=== PATIENT | female | born 1930 | race Caucasian/White ===

== ENCOUNTER 2018-02-10 13:25 | Inpatient (IN) | payer MEDICARE, BC ==
[2018-02-10 14:21] LABS: ABS Basophils 0 10^3/ul (0-0.2); ABS Eosinophils 0 10^3/ul (0-0.6); ABS Lymphocytes 0.5 10^3/ul (1.0-4.8); ABS Monocytes 0.5 10^3/ul (0-0.8); ABS Neutrophils 6.3 10^3/ul (1.5-7.7); ABS Nucleated RBC 0 10^3/ul; Eosinophil % 0 % (0-6); Hematocrit 43 % (35-47); Hemoglobin 14.4 g/dl (12.0-16.0); Mean Corpuscular HGB Conc 33 g/dl (31-36); Mean Corpuscular Hemoglobin 34 pg (27-31); Mean Corpuscular Volume 101 fL (80-97); Mean Platelet Volume 7.9 um3 (7.4-10.4); Nucleated Red Blood Cells % 0; Platelet Count 174 10^3/ul (150-450); Red Blood Count 4.26 10^6/ul (4.0-5.4); Red Cell Distribution Width 14 % (10.5-15); White Blood Count 7.3 10^3/ul (3.5-10.8)
[2018-02-10 14:26] LABS: INR 2.32 (0.77-1.02)
--- NOTE | 2018-02-10 14:52 | RAD ---
HISTORY: Altered mental status, fall COMPARISONS: None TECHNIQUE: Multiple contiguous axial CT scans were obtained of the head without intravenous contrast. FINDINGS: HEMORRHAGE/INFARCT: There is no hemorrhage or acute infarct. MASSES/SHIFT: There is no mass or shift. EXTRA-AXIAL SPACES: There are no extra-axial fluid collections. SULCI AND VENTRICLES: The sulci and ventricles are normal in size and position for the patient's stated age. CEREBRUM: There is hypoattenuation of the periventricular and subcortical white matter. BRAINSTEM: There are no focal parenchymal abnormalities. CEREBELLUM: There are no focal parenchymal abnormalities. VESSELS: There is calcification of the cavernous segments of the internal carotid arteries bilaterally. PARANASAL SINUSES: The paranasal sinuses are clear. ORBITS: The orbits are unremarkable. BONES AND SOFT TISSUE: No bone or soft tissue abnormalities are noted. OTHER: None IMPRESSION: NO ACUTE INTRACRANIAL PATHOLOGY. CHRONIC SMALL VESSEL ISCHEMIC CHANGE
--- NOTE | 2018-02-10 14:59 | RAD ---
HISTORY: Altered mental status, shortness of breath COMPARISONS: January 16, 2016 VIEWS: 1: frontal portable view of the chest at 2:30 PM FINDINGS: LINES AND TUBES: None. CARDIOMEDIASTINAL SILHOUETTE: The cardiac silhouette is enlarged. The cardiomediastinal silhouette is otherwise normal for portable technique. PLEURA: The costophrenic angles are sharp. No pleural abnormalities are noted. LUNG PARENCHYMA: There is a diffuse reticular pattern with indistinct pulmonary vessels. There is confluent alveolar opacification of left lung base. ABDOMEN: The upper abdomen is clear. There is no subphrenic gas. BONES AND SOFT TISSUES: No bone or soft tissue abnormalities are noted. IMPRESSION: 1. CARDIOMEGALY. 2. PULMONARY INTERSTITIAL EDEMA. 3. LEFT LOWER LUNG ATELECTASIS VERSUS CONSOLIDATION
[2018-02-10 16:48] LABS: Urine Appearance Clear; Urine Blood Negative (Negative); Urine Color Yellow; Urine Ketones 1+ (Negative); Urine Protein 2+(100 mg/dL) (Negative); Urine Specific Gravity 1.026 (1.010-1.030); Urine Urobilinogen Negative (Negative)
[2018-02-10] MEDS ORDERED: Magnesium Sulfate 2 GM IV* 2 GM/50 ML BAG IVPB ONE (17:16)
[2018-02-10] MEDS: NS 0.9% 1000 ML* 1,000 ML IV SCH (18:16)
[2018-02-10] MEDS ORDERED: Phytonadione Oral Solution* 5 MG/25 ML UDC PO ONE (19:05)
[2018-02-10] MEDS ORDERED: Aspirin TAB* 325 MG PO ONE (19:23)
[2018-02-10] MEDS ORDERED: NS 0.9% 1000 ML* 1,000 ML IV ONE (19:55)
[2018-02-10] MEDS: Acetaminophen TAB* 325 MG PO PRN (20:44)
[2018-02-10] MEDS: cefTRIAXone(*) 1 GM in NS 0.9% 50 ML* 50 ML IVPB SCH (20:47)
--- NOTE | 2018-02-10 21:13 | PN ---
Hospitalist Progress Note Date of Service: 02/10/18 Pt noted to have a possible junctional rhythm and brandon. Obtained an EKG and appears to be a junctional rhythm. Dr. Dawkins called and he will consult in the AM. Will hold warfarin and give a dose of Vitamin K tonight for possible procedure in the AM, will hold chemical DVT prophylaxis and use SCDs only at this time. Repeat troponin increased to 1.39, Pt continues to deny chest pain. Will continue to trend troponin until peaked. Pt given a dose of ASA. Will check fasting lipids in the AM. Repeat lactic acid increased to 4.4, will give 1 L fluid bolus now followed by NS @ 100 ml/h. Will also start ceftriazone and azithromycin for possible PNA seen on chest xray. Blood cultures were obtained in the ER. Will recheck a lactic acid later tonight. Pt continues to be lethargic and have a headache, suspect his is secondary to a possible concussion. Will continue neurological checks.
[2018-02-10] MEDS: Azithromycin IV(*) 500 MG in NS 0.9% 250 ML* 250 ML IVPB SCH (21:30)
--- NOTE | 2018-02-10 23:10 | HP ---
CC: Lizette Lunsford NP * HISTORY AND PHYSICAL: DATE OF ADMISSION: 02/10/18 PRIMARY CARE PROVIDER: Lizette Lunsford NP ATTENDING PHYSICIAN: Marianne Mar DO * (dictated by Lydia Lyons NP) CHIEF COMPLAINT: Syncopal episode with several hours on the floor. HISTORY OF PRESENT ILLNESS: Ms. Ramos is an 87-year-old female with past medical history significant for atrial fibrillation and essential tremor, who presented to the emergency room after falling overnight and be on the floor for 3 to 4 hours. Ms. Ramos states that she was in her usual state of health when she went to bed last night. She denies any recent fevers, chills, chest pain, cough, shortness of breath, nausea, vomiting, or urinary symptoms. She states that overnight, she got up to use the bathroom, she felt dizzy and fell. The patient states that she struck her head. The patient is unsure if she lost consciousness, but states that she struck her head when she fell. She then proceeded to lie on the floor for 3 to 4 hours before her found her. Afterwards, they decided to bring her to the emergency room for further evaluation. While in the emergency room, the patient had an EKG showing an atrial flutter, rate of 60. She had a chest x-ray showing cardiomegaly, pulmonary edema, left lung atelectasis versus consolidation. She had a head CT showing no acute intracranial pathology and chronic small vessel ischemic changes. She had labs remarkable for an INR of 2.32, lactic acid of 3.8, a troponin of 0.90. She had ABGs showing a pH of 7.40, pCO2 of 40, pO2 64, HCO3 24.8, O2 sat 95.4, base access of 0. She had urinalysis that was unremarkable. She had toxicology positive for barbiturates and the hospitalists were asked to evaluate the patient for admission. PAST MEDICAL HISTORY: 1. Atrial fibrillation. 2. Essential tremor. PAST SURGICAL HISTORY: 1. Status post right knee surgery. 2. Status post bilateral lower extremity vein stripping. HOME MEDICATIONS: Include: 1. Valsartan 40 mg oral daily. 2. Potassium chloride 20 mEq oral daily. 3. Furosemide 20 mg oral daily. 4. Calcium 600 plus D 2 tablets oral daily. 5. Atorvastatin 40 mg oral daily. 6. Multivitamin 1 tablet oral daily. 7. Warfarin 10 mg oral daily. 8. Primidone 150 mg oral daily. ALLERGIES: No known drug allergies. FAMILY HISTORY: The patient's father had a history of myocardial infarction and rheumatic fever. The patient denies any family history of diabetes or cancer. SOCIAL HISTORY: The patient denies tobacco, alcohol or recreational drug use. She is and lives with her . Her , Max Ramos, will be her surrogate decision maker in the event she is unable to make decisions for herself. REVIEW OF SYSTEMS: I performed an 11-point review of systems. All the pertinent positives and negatives are mentioned in the history of present illness. Remaining review of systems are negative. PHYSICAL EXAMINATION GENERAL APPEARANCE: The patient is alert, pleasant, and appears to be in no acute distress. VITAL SIGNS: Temperature 98.6, heart rate 53, respiratory rate 26, O2 sat 93% on 2 L via nasal cannula, blood pressure 136/76. HEENT: Normocephalic, atraumatic. Pupils are equal and reactive to light. Extraocular movements are intact. RESPIRATORY: There is no accessory muscle use. The lungs are clear to auscultation bilaterally. CARDIOVASCULAR: Regular rate and rhythm. S1, S2 are present. There are no murmurs, rubs, or gallops heard. ABDOMEN: Soft, nontender, and nondistended. Bowel sounds present x4. EXTREMITIES: There is no lower extremity edema. DP and PT pulses are 1+ and symmetric. MUSCULOSKELETAL: There is no clubbing or cyanosis noted. The patient exhibits good strength in all extremities. NEUROLOGICAL: The patient is alert and oriented x4. She follows commands and is lethargic, but answering all questions appropriately. PSYCHOLOGICAL: The patient is calm and cooperative. SKIN: There are no rashes or abnormalities seen. DIAGNOSTIC STUDIES/LAB DATA: Sodium 134, potassium 4.4, chloride 98, CO2 25, BUN 17, creatinine 0.61, glucose 164, magnesium 1.8, troponin 0.90, white blood cell count 7.3, hemoglobin 14.4, hematocrit 43, platelet count 174. Urinalysis significant for 2+ protein, ketones 1+, hyaline cast present and ascorbic acid. Arterial blood gas showed a pH of 7.40, pCO2 40, pO2 64, HCO3 24.8, O2 sat 95.4 , base access 0. Toxicology positive for barbiturates. INR 2.32. EKG shows an atrial flutter, rate of 60. There is LVH and T-wave inversion in V5 and V2. When compared to previous EKG, her T-wave inversion is consistent. She was previously in Aflutter. Previous EKG was from 02/06/15. 1. Chest x-ray from today. Radiologist's impression: Cardiomegaly, interstitial pulmonary edema, left lower lung atelectasis with consolidation. 2. Brain CT from today. Radiologist's impression: No acute intracranial pathology. Chronic small vessel ischemic change. IMPRESSION: Ms. Ramos is an 87-year-old female with past medical history significant for atrial fibrillation and essential tremor who presented to the emergency room with complaints of syncopal episode. She will be admitted as an observation for syncope, elevated troponin and lactic acidosis. ASSESSMENT AND PLAN: 1. Syncope. The patient will be monitored on telemetry. We will check orthostatic vital signs. She has no findings on her brain CT. She is mildly bradycardic in the emergency room. Is suspect this may have been a vasovagal syncope vs secondary to bradycardia. We will get an echocardiogram in the AM. 2. Concussion. The patient is complaining of a mild headache, I suspect this is secondary to a mild concussion. Brain CT was negative for acute findings. Will get neurological checks. Provide supportive care. 3. Elevated troponin. The patient's initial troponin is 0.90. We will trend her troponins. 4. Lactic acidosis. The patient's initial lactic acid is 3.8. She has no signs of infection. Her UA is negative. Although, she does have consolidation with atelectasis on her chest x-ray, she has no complaints of cough. She is afebrile. Her lung sounds are clear. I am going to hold on antibiotics at this time. I am going to give her some IV fluids, and recheck her lactic acid. She did already have blood cultures drawn while in the emergency room. 5. Hypomagnesium. The patient will receive magnesium replacement. We will recheck her labs in the morning. 6. Atrial fibrillation. The patient is currently in atrial flutter with a controlled rate. She is not on rate control agent at this time. We will continue her warfarin. 7. Hypertension. The patient will be continued on her home valsartan. I am going to hold the patient's furosemide as I am going to give her IV fluids and then this can be resumed accordingly. 8. Essential tremors. The patient will be continued on her home primidone. 9. Fluids, electrolytes, and nutrition. The patient will be on a heart healthy diet. 10. Code status. Full code. 11. DVT prophylaxis. The patient is a high risk, will be continued on warfarin. 12. Disposition. Observation. TIME SPENT: Time for this admission was approximately 60 minutes, greater than half of that was spent with the patient and discussing medications, past medical history, the events leading up to her arrival today, performing a physical examination. The case has been reviewed with the attending, Dr. Mar, who agrees with the plan of care. Reviewed by JULIANA HURT 02/22/18 [id number] [id number] #: [id number] MTDPhillip
[2018-02-11 06:22] LABS: EGFR Non-African American 104.8 (>60)
[2018-02-11 06:26] LABS: INR 2.64 (0.77-1.02)
--- NOTE | 2018-02-11 09:08 | ECHO ---
Patient: CHELO FERRIS [facility] Rec#: [id number] : 1930 Date: 02/11/2018 Age: 87y Height: 152.4 cm / 60.0 in Weight: 60.78 kg / 134.0 lbs Sex: F BSA: 1.57 Room#: 439 Admit Date#: 02/10/2018 Type: Inpatient Referring: Lydia Wise NP Reading: Aden Jin MD Cardiac Cath Lab Radiology Technologist: Lydia Ricci RDCS CC: Lizette Lunsford NP Transthoracic Echocardiogram Indication: Syncope, abnormal EKG. BP: 130/63 HR: 46 Rhythm: Bradycardia Findings History: A-fib, essential tremor, prior EF 30-35% in 2014. Technical Comments: The study quality is fair. Completed at 0830. Left Ventricle: The left ventricular chamber size is moderately dilated. There is no left ventricular hypertrophy. There is global hypokinesis of the left ventricle with minor regional variation. There is severely decreased left ventricular systolic function. The estimated ejection fraction is 20-25%. There is septal flattening of the interventricular septum consistent with right ventricular volume or pressure overload. The assessment of diastolic function is non-diagnostic. Left Atrium: The left atrium is severely dilated. Right Ventricle: The right ventricle is moderately dilated. The right ventricular global systolic function is mildly to moderately reduced. Right Atrium: The right atrial cavity size is severely dilated. Aortic Valve: The aortic valve is trileaflet. The aortic valve leaflets are moderately thickened. There is mild aortic regurgitation. There is no evidence of aortic stenosis. Mitral Valve: There is mitral annular calcification. The mitral valve leaflets are moderately thickened. There is moderate mitral regurgitation. There is no evidence of mitral stenosis. Tricuspid Valve: The tricuspid valve leaflets are moderately thickened. There is moderate tricuspid regurgitation. The right ventricular systolic pressure is estimated at 70 mmHg. There is evidence of severe pulmonary hypertension. There is no tricuspid stenosis. Pulmonic Valve: The pulmonic valve appears normal. There is trace to mild pulmonic regurgitation. There is no pulmonic stenosis. Pericardium: There is no significant pericardial effusion. Aorta: There is mild dilatation of the ascending aorta. The aortic arch is not well visualized. The aortic root is normal in size. Pulmonary Artery: The main pulmonary artery appears normal. Venous: The inferior vena cava is dilated. There is less than 50% respiratory change in the inferior vena cava dimension. Conclusions The left ventricular chamber size is moderately dilated. There is severely decreased left ventricular systolic function. The estimated ejection fraction is 20-25%. The left atrium is severely dilated. The right ventricle is moderately dilated. The right ventricular global systolic function is mildly to moderately reduced. The right atrial cavity size is severely dilated. There is mild aortic regurgitation. There is moderate mitral regurgitation. There is moderate tricuspid regurgitation. The right ventricular systolic pressure is estimated at 70 mmHg. There is evidence of severe pulmonary hypertension. There is trace to mild pulmonic regurgitation. Compared to report of studies from 01/27/2015 and 01/25/15 the overall LV systolic function is worse (was 30-35%), the RV systolic function is worse (was mildly reduced 01/27/15) , the degree of mitral regurgitation is worse (was mild to moderate-01/25/15-no comment on 01/27/15) ,the degree of pulmonary HTN is worse (PA pressure was estimated at 49 on 01/27/15, although better from 01/25/15 when it was 80-85 mmhg). Measurements Name Value Normal Range RVIDd (AP) 2D 4 cm (0.9 - 2.6) RVDdMajor (2D) 5.1 cm (2.2 - 4.4) RAd ISD 4CH 8.8 cm (3.4 - 4.9) RA (A4C)W 6.4 cm (2.9 - 4.6) IVSd (2D) 1 cm (0.6 - 1) LVPWd (2D) 0.8 cm (0.6 - 1) LVIDd (2D) 6.3 cm (3.6 - 5.4) LVIDs (2D) 4.7 cm - LV FS (2D) 25 % (25 - 45) Aortic Annulus 1.6 cm (1.4 - 2.6) Ao root diameter (2D) 3 cm (2.1 - 3.5) Ascending Ao 3.7 cm (2.1 - 3.4) LA dimension (AP) 2D 5.6 cm (2.3 - 3.8) LAd ISD 4CH 7.8 cm (2.9 - 5.3) LA ISD 4CH W 6.7 cm (2.5 - 4.5) Name Value Normal Range LA ESV SP 4CH (A/L) 215 ml - LA ESV SP 2CH (A/L) 297 ml - LA ESV BP (A/L) 260 ml - LA ESV BP (A/L) index 164 ml/m2 - LA ESV SP 4CH (MOD) 203 ml - LA ESV SP 2CH (MOD) 285 ml - Name Value Normal Range MV E-wave Vmax 0.54 m/sec - MV deceleration time 272.2 msec - MV A-wave Vmax 0.21 m/sec - MV E:A ratio 8.68 ratio - LV septal e' Vmax 0.03 m/sec - LV lateral e' Vmax 0.05 m/sec - LV E:e' septal ratio 16.67 ratio - LV E:e' lateral ratio 10.8 ratio - Name Value Normal Range AV Vmax 1.22 m/sec - AV VTI 23.54 cm - AV peak gradient 5.97 mmHg - AV mean gradient 3.27 mmHg - LVOT Vmax 1.07 m/sec - LVOT VTI 15.27 cm - LVOT peak gradient 4.58 mmHg - LVOT mean gradient 2.29 mmHg - AR PHT 821 msec - AR peak gradient 45.19 mmHg - Name Value Normal Range MR Vmax 3.9 m/sec - MR VTI 148 cm - MR flow (PISA) 83.92 ml/sec - MR ERO 0.22 cm2 - MR PISA radius 0.5 cm - MR alias Vmax 53 cm/sec - Name Value Normal Range TR Vmax 3.7 m/sec - TR peak gradient 55 mmHg - RAP 15 mmHg - RVSP 70 mmHg - IVC diameter 2.9 cm - Name Value Normal Range PV Vmax 0.71 m/sec - PV peak gradient 2.06 mmHg - DC end-diastolic Vmax 0.96 m/sec -
[2018-02-11] MEDS: Primidone TAB(*) 50 MG PO SCH (09:13)
[2018-02-11] MEDS: Valsartan TAB* 40 MG PO SCH (09:13)
[2018-02-11] MEDS: Atorvastatin* 40 MG TAB PO SCH (09:13)
[2018-02-11] MEDS: Multivitamins/Minerals TAB PO SCH (09:13)
[2018-02-11] MEDS: Potassium Chlor TAB* 10 MEQ TAB.ER PO SCH (09:14)
[2018-02-11] MEDS: NS 0.9% 1000 ML* 1,000 ML IV SCH ×2 (09:26→20:04)
--- NOTE | 2018-02-11 12:13 | CONS ---
CC: [facility] CARDIOLOGY CONSULTATION DATE OF CONSULT: 02/11/2018. INDICATION FOR CONSULTATION: Atrial fibrillation, bradycardia, syncope. HISTORY OF PRESENT ILLNESS: The patient is an 87-year-old female with a history of chronic atrial fi brillation, history of mild bradycardia, and mild cardiomyopathy who was at her home yesterday. She got out of bed late in the night and went to go to the bathroom and then woke up on the floor. She w as on the floor for about three hours because she was unable to get up. Finally, she able to reach t he telephone and called for help. She was admitted to the ER. Her heart rate was 40 beats per minut e. She denied any chest pain, shortness of breath, no orthopnea or PND, no palpitations. The patien t is unsure as to whether she just slipped on her stocking feet or had an actual syncopal episode. The patient has a long history of chronic atrial fibrillation. I had seen the patient last July . At that time, her heart rate was 48 beats per minute and I was concerned about her low heart rate on no rate lowering agents. PAST MEDICAL HISTORY: Significant for atrial fibrillation, mild cardiomyopathy, mitral regurgitation , essential tremor. PAST SURGICAL HISTORY: Right knee replacement, vein stripping. OUTPATIENT MEDICATIONS: 1. Valsartan 40 mg a day. 2. Potassium 20 mEq at day. 3. Lasix 20 mg a day. 4. Atorvastatin 40 mg a day. 5. Coumadin as directed. 6. Primidone 150 mg a day. ALLERGIES: No known drug allergies. FAMILY HISTORY: Father of a myocardial infarction. No other history of diabetes for cancer. SOCIAL HISTORY: She is . She lives with her . She denies tobacco or alcohol use. PHYSICAL EXAM: Vital Signs: Height 5 feet, weight 133 pounds. Temperature 97.7, heart rate 49, blo od pressure 142/62, respiratory rate 15, oxygen saturation 97 percent on room air. HEENT: Sclerae a nicteric. Oropharynx is pink without erythema. Neck: Carotids are 2+ without bruits. JVD is joanne l. Thyroid is normal. Cardiac: S1, S2 without any murmurs, rubs, or gallops. Lungs: Clear to aus cultation bilaterally. There is no dullness to percussion. Abdomen: Soft, nontender, nondistended with normoactive bowel sounds. Extremities: No edema. She has 2+ pulses throughout. Neurological: The patient is awake, alert, and oriented. She moves all four extremities equally. DIAGNOSTIC STUDIES/LAB DATA: CBC within normal limits. Chemistry is within normal limits. BUN 20, creatinine 0.55. Troponins are mildly elevated at 1.45. TSH is normal at 1.02. The patient did have a cardiac catheterization in January of 2015. At that time she had an ejection fr action of 20 percent with normal coronary arteries. IMPRESSION: This is an 87-year-old female with a history of nonischemic cardiomyopathy who is on munir ropriate medications. The patient had a fall at home. It was unclear whether it was a syncopal episo de or not. The patient does have chronic atrial fibrillation with profound bradycardia. RECOMMENDATIONS: It is my recommendation that the patient undergo pacemaker implantation. I will ge t an echocardiogram of the patient to re-evaluate her LV function and valvular status. The patient m ay benefit from an ICD if her EF is less than 30 percent. She may benefit from a biventricular devic e. I will decide that when I re-evaluate her on echocardiogram. For now, the patient will be off her Coumadin in preparation for pacemaker. [id number]/[facility] #: [id number]
--- NOTE | 2018-02-11 14:13 | PN ---
Subjective Date of Service: 02/11/18 Interval History: Patient seen and examined, appears tired, denies chest pain, no SOB, no palpitations. Denies fever or chills. States she is sleepy, otherwise no complaints. Objective Active Medications: Acetaminophen (Tylenol Tab*) 650 mg PO Q4H PRN PRN Reason: FEVER/PAIN Last Admin: 02/10/18 20:44 Dose: 650 mg Atorvastatin Calcium (Lipitor*) 40 mg PO DAILY [facility] Last Admin: 02/11/18 09:13 Dose: 40 mg Sodium Chloride (Ns 0.9% 1000 Ml*) 1,000 mls @ 100 mls/hr IV PER RATE [facility] Last Admin: 02/11/18 09:26 Dose: 100 mls/hr Ceftriaxone Sodium 1 gm/ (Sodium Chloride) 50 mls @ 200 mls/hr IVPB Q24H [facility] Last Admin: 02/10/18 20:47 Dose: 200 mls/hr Azithromycin 500 mg/ Sodium (Chloride) 250 mls @ 250 mls/hr IVPB Q24H [facility] Last Admin: 02/10/18 21:30 Dose: 250 mls/hr Multivitamins/Minerals (Theragran/Minerals Tab*) 1 tab PO DAILY [facility] Last Admin: 02/11/18 09:13 Dose: 1 tab Potassium Chloride (Klor Con Er Tab*) 20 meq PO DAILY [facility] Last Admin: 02/11/18 09:14 Dose: 20 meq Primidone (Mysoline Tab(*)) 150 mg PO DAILY [facility] Last Admin: 02/11/18 09:13 Dose: 150 mg Valsartan (Diovan Tab*) 40 mg PO DAILY [facility] Last Admin: 02/11/18 09:13 Dose: 40 mg Vital Signs - 8 hr 02/11/18 02/11/18 02/11/18 08:15 11:13 13:33 Temperature 97.7 F 98.4 F Pulse Rate 49 51 42 Respiratory 15 15 17 Rate Blood Pressure 142/62 116/69 120/68 (mmHg) O2 Sat by Pulse 97 99 99 Oximetry Oxygen Devices in Use Now: Nasal Cannula Appearance: Sleepy, arousable, appropriate Eyes: No Scleral Icterus, PERRLA Ears/Nose/Mouth/Throat: Mucous Membranes Moist Neck: NL Appearance and Movements; NL JVP, Trachea Midline Respiratory: Symmetrical Chest Expansion and Respiratory Effort, Clear to Auscultation Cardiovascular: NL Sounds; No Murmurs; No JVD, - - bradycardic, HR 40s-50s Abdominal: NL Sounds; No Tenderness; No Distention Extremities: No Edema Skin: No Rash or Ulcers Neurological: Alert and Oriented x 3, NL Sensation Nutrition: Taking PO's Result Diagrams: 02/10/18 14:02 02/11/18 05:53 Microbiology and Other Data: Microbiology 02/10/18 16:25 Nasal Screen MRSA (PCR)(IRINEO) - Final Nasal Mrsa Not Detected Assess/Plan/Problems-Billing Assessment: This is an 87 year old female patient with complaint of syncope, found to have cardiac rhythm changes - junctional and bradycardic, will have pacemaker insertion on . - Patient Problems (1) Syncope and collapse Code(s): R55 - SYNCOPE AND COLLAPSE SNOMED Code(s): 673350792 Comment: - Likely etiology is profound bradycardia with chronic atrial fibrillation - Cardiology consult appreciated - For PM insertion - Hold coumadin to reduce INR to <1.5 in anticipation of insertion. Will need lovenox bridge post-procedure, then restart coumadin. May need one dose K tomorrow if INR remains high. (2) Atrial fibrillation Code(s): I48.91 - UNSPECIFIED ATRIAL FIBRILLATION SNOMED Code(s): 13348071 Comment: - Chronic, no RVR, primarily profoundly bradycardic - Restart coumadin after PM insertion with lovenox bridge (3) Bradycardia Code(s): R00.1 - BRADYCARDIA, UNSPECIFIED SNOMED Code(s): 93169819 Comment: - Instructed RN to call if HR <40 - NPO after midnight tomorrro in anticipation of PM insertion (4) Essential tremor Code(s): G25.0 - ESSENTIAL TREMOR SNOMED Code(s): 996797310 Comment: - At baseline, continue primidone (5) Atelectasis of left lung Code(s): J98.11 - ATELECTASIS SNOMED Code(s): 35626325 Comment: - Concerning for early consolidation? - Continue atbx - Add IS 10x per hour - Lactic acid trending down (6) DVT prophylaxis Code(s): LHF7099 - SNOMED Code(s): 262978301 Comment: - Hold coumadin, SCDs while in bed (7) Full code status Code(s): Z78.9 - OTHER SPECIFIED HEALTH STATUS SNOMED Code(s): 478853160 Status and Disposition: Remain inpatient on tele for pacemaker insert when INR in appropriate range, likely .
[2018-02-11] MEDS ORDERED: Warfarin TAB(*) 4 MG PO SCH (17:00)
[2018-02-11] MEDS: cefTRIAXone(*) 1 GM in NS 0.9% 50 ML* 50 ML IVPB SCH (20:04)
[2018-02-11] MEDS: Azithromycin IV(*) 500 MG in NS 0.9% 250 ML* 250 ML IVPB SCH (20:48)
[2018-02-12 06:15] LABS: INR 1.36 (0.77-1.02)
[2018-02-12] MEDS: NS 0.9% 1000 ML* 1,000 ML IV SCH ×2 (07:23→17:37)
[2018-02-12] MEDS: Potassium Chlor TAB* 10 MEQ TAB.ER PO SCH (08:07)
[2018-02-12] MEDS: Valsartan TAB* 40 MG PO SCH (08:07)
[2018-02-12] MEDS: Multivitamins/Minerals TAB PO SCH (08:07)
[2018-02-12] MEDS: Primidone TAB(*) 50 MG PO SCH (08:07)
[2018-02-12] MEDS: Atorvastatin* 40 MG TAB PO SCH (08:07)
[2018-02-12] MEDS: Acetaminophen TAB* 325 MG PO PRN ×2 (08:08→20:48)
[2018-02-12] MEDS ORDERED: CEFAZOLIN 2 GM/20 ML IVPB ONE ×2 (09:00)
--- NOTE | 2018-02-12 10:58 | PN ---
Subjective Date of Service: 02/12/18 Interval History: Patient seen and examined. Seems winded this AM, O2 via NC placed back on patient. States she feels her breathing is erratic - sometimes fast and sometimes slow. Denies chest pain, denies acute SOB, no fevers or chills, does appear fatigued. Objective Active Medications: Acetaminophen (Tylenol Tab*) 650 mg PO Q4H PRN PRN Reason: FEVER/PAIN Last Admin: 02/12/18 08:08 Dose: 650 mg Atorvastatin Calcium (Lipitor*) 40 mg PO DAILY [facility] Last Admin: 02/12/18 08:07 Dose: 40 mg Cefazolin Sodium/Dextrose (Kefzol Syringe 1 Gm/10 Ml Flush Syringe(*)) 1 gm FLUSH ONCE ONE Stop: 02/13/18 12:36 Diazepam (Valium Tab(*)) 2.5 mg PO ONCE ONE Stop: 02/13/18 12:36 Sodium Chloride (Ns 0.9% 1000 Ml*) 1,000 mls @ 100 mls/hr IV PER RATE [facility] Last Admin: 02/12/18 07:23 Dose: 100 mls/hr Ceftriaxone Sodium 1 gm/ (Sodium Chloride) 50 mls @ 200 mls/hr IVPB Q24H [facility]JU Last Admin: 02/11/18 20:04 Dose: 200 mls/hr Azithromycin 500 mg/ Sodium (Chloride) 250 mls @ 250 mls/hr IVPB Q24H [facility]JU Last Admin: 02/11/18 20:48 Dose: 250 mls/hr Cefazolin Sodium 2 gm/ Sodium (Chloride) 20 mls @ 60 mls/hr IVPB 1200 ONE Stop: 02/13/18 12:19 Multivitamins/Minerals (Theragran/Minerals Tab*) 1 tab PO DAILY [facility] Last Admin: 02/12/18 08:07 Dose: 1 tab Potassium Chloride (Klor Con Er Tab*) 20 meq PO DAILY [facility] Last Admin: 02/12/18 08:07 Dose: 20 meq Primidone (Mysoline Tab(*)) 150 mg PO DAILY [facility] Last Admin: 02/12/18 08:07 Dose: 150 mg Valsartan (Diovan Tab*) 40 mg PO DAILY [facility] Last Admin: 02/12/18 08:07 Dose: 40 mg Vital Signs - 8 hr 02/12/18 02/12/1818 04:31 07:29 08:00 Temperature 97.9 F 98.6 F Pulse Rate 105 52 Respiratory 22 20 16 Rate Blood Pressure 109/51 130/68 (mmHg) O2 Sat by Pulse 100 98 Oximetry Oxygen Devices in Use Now: Nasal Cannula Appearance: sleepy, NAD Eyes: No Scleral Icterus, PERRLA Ears/Nose/Mouth/Throat: NL Teeth, Lips, Gums Neck: Trachea Midline Respiratory: Symmetrical Chest Expansion and Respiratory Effort, Clear to Auscultation Cardiovascular: NL Sounds; No Murmurs; No JVD, - - irregular, bradycardic Extremities: No Edema, No Clubbing, Cyanosis Neurological: Alert and Oriented x 3 Nutrition: Taking PO's Result Diagrams: 02/10/18 14:02 02/11/18 05:53 Microbiology and Other Data: Microbiology 02/10/18 16:25 Nasal Screen MRSA (PCR)(IRINEO) - Final Nasal Mrsa Not Detected Assess/Plan/Problems-Billing Assessment: This is an 87 year old female patient with complaint of syncope, found to have cardiac rhythm changes - junctional and bradycardic, will have pacemaker insertion on . - Patient Problems (1) Syncope and collapse Code(s): R55 - SYNCOPE AND COLLAPSE SNOMED Code(s): 240449060 Comment: - Likely etiology is profound bradycardia with chronic atrial fibrillation - Cardiology consult appreciated - For PM insertion - INR is 1.37 today which is stable for PM insertion. Will need lovenox bridge post-procedure, then restart coumadin. (2) Atrial fibrillation Code(s): I48.91 - UNSPECIFIED ATRIAL FIBRILLATION SNOMED Code(s): 81061282 Comment: - Chronic, no RVR, primarily profoundly bradycardic with episodes of tachycardia - Restart coumadin after PM insertion with lovenox bridge (3) Bradycardia Code(s): R00.1 - BRADYCARDIA, UNSPECIFIED SNOMED Code(s): 03644570 Comment: - Instructed RN to call if HR <40 - NPO after midnight tonight in anticipation of PM insertion in the AM (4) Essential tremor Code(s): G25.0 - ESSENTIAL TREMOR SNOMED Code(s): 159312442 Comment: - At baseline, continue primidone (5) Atelectasis of left lung Code(s): J98.11 - ATELECTASIS SNOMED Code(s): 84310913 Comment: - Concerning for early consolidation? - Continue atbx - Add IS 10x per hour - Lactic acid trending down (6) DVT prophylaxis Code(s): CUO1822 - SNOMED Code(s): 894129062 Comment: - Hold coumadin, SCDs while in bed (7) Full code status Code(s): Z78.9 - OTHER SPECIFIED HEALTH STATUS SNOMED Code(s): 824297813 Status and Disposition: Remain inpatient on tele for pacemaker insertion .
[2018-02-12] MEDS ORDERED: Enoxaparin(*) 60 MG/0.6 ML SYR SUBCUT ONE (13:00)
--- NOTE | 2018-02-12 18:28 | ED ---
James Tellez Angela, scribed for Malik Varma MD on 02/10/18 at 1343 . Adult Trauma - HPI Summary HPI Summary: This pt is a 87 y/o female presenting to [facility] c/o head strike s/p fall last night. Pt reports the pt felt dizzy and lightheaded last night and fell in the bathroom. Pt struck her head, but is unsure if she had LOC. She called her but she estimates she was on the floor for approximately 5 hours until he came. Today she reports feeling weak, unable to ambulate secondary to weakness and pain, and vomiting. Denies headache, neck pain, rib pain. Pt is currently on Coumadin for atrial fibrillation. - History of Current Complaint Chief Complaint: EDWeakness Stated Complaint: HEAD PAIN,WEAKNESS Hx Obtained From: Patient Mechanism of Injury: Fall Ambulatory at the Scene: No Loss of Consciousness: unsure Onset/Duration: Started Hours Ago, Traumatic Onset of Pain: Hours Current Severity: Severe Pain Intensity: 10 Pain Scale Used: 0-10 Numeric Location: Extremities - left hip Aggravating Factor(s): Movement Alleviating Factor(s): Rest Associated Signs & Symptoms: Positive: Nausea/Vomiting - vomiting, Loss of Consciousness - unsure, Other: - NEG: rib pain, neck pain, headache - Allergy/Home Medications Allergies/Adverse Reactions: Allergies Allergy/AdvReac Type Severity Reaction Status Date / Time No Known Allergies Allergy Verified 02/06/15 11:14 Home Medications: Home Medications Atorvastatin* [Lipitor*] 40 mg PO DAILY 02/10/18 [History Confirmed 02/10/18] Furosemide TAB* [Lasix TAB*] 20 mg PO DAILY 02/10/18 [History Confirmed 02/10/18 ] Multivitamins/Minerals TAB* [Theragran/minerals TAB*] 1 tab PO DAILY 02/10/18 [ History Confirmed 02/10/18] Valsartan TAB* [Diovan TAB*] 40 mg PO DAILY 02/10/18 [History Confirmed 02/10/18 ] PMH/Surg Hx/FS Hx/Imm Hx Endocrine/Hematology History: Denies: Hx Diabetes Cardiovascular History: Reports: Hx Atrial Fibrillation, Hx Congestive Heart Failure, Other Cardiovascular Problems/Disorders - CARIOMEGALY Denies: Hx Hypertension, Hx Pacemaker/ICD Sensory History: Reports: Hx Cataracts, Hx Contacts or Glasses, Hx Hearing Aid - TOLD TO REMOVE WHEN GOES IN MRI, Hx Hearing Problem Opthamlomology History: Reports: Hx Cataracts, Hx Contacts or Glasses Neurological History: Reports: Other Neuro Impairments/Disorders - ESSENTIAL TREMORS Psychiatric History: Denies: Hx Panic Disorder - Cancer History Hx Chemotherapy: No Hx Radiation Therapy: No - Surgical History Surgery Procedure, Year, and Place: 1936 TONSILECTOMY [place]. 1967 SAL VASCULAR SURGERY [place]. 1983 R KNEE REMOVED CARTILEDGE [place]. Hx Anesthesia Reactions: No - Family History Known Family History: Positive: Cardiac Disease - Father: CHF, Respiratory Disease - Father: COPD - Social History Alcohol Use: Weekly Substance Use Type: Reports: None Smoking Status (MU): Never Smoked Tobacco Review of Systems Negative: Fever Eyes: Negative Negative: Chest Pain Positive: Vomiting Musculoskeletal: Other - left hip pain Negative: Other - rib pain, neck pain Negative: Headache All Other Systems Reviewed And Are Negative: Yes Physical Exam - Summary Physical Exam Summary: VITAL SIGNS: Reviewed. GENERAL: Patient is a well-developed and nourished female who is lying comfortable in the stretcher. Patient is not in any acute respiratory distress. HEAD AND FACE: No signs of trauma. No ecchymosis, hematomas or skull depressions. No sinus tenderness. EYES: PERRLA, EOMI x 2, No injected conjunctiva, no nystagmus. EARS: Hearing grossly intact. Ear canals and tympanic membranes are within normal limits. MOUTH: Oropharynx within normal limits. Dry oral mucosa. NECK: Supple, trachea is midline, no adenopathy, no JVD, no carotid bruit, no c- spine tenderness, neck with full ROM. CHEST: Symmetric, no tenderness at palpation LUNGS: Clear to auscultation bilaterally. No wheezing or crackles. CVS: Regular rate and rhythm, S1 and S2 present, no murmurs or gallops appreciated. ABDOMEN: Soft, non-tender. No signs of distention. No rebound no guarding, and no masses palpated. Bowel sounds are normal. EXTREMITIES: no edema, no cyanosis or clubbing. Left hip tenderness. NEURO: Alert and oriented x 3. No acute neurological deficits. Speech is normal and follows commands. Pt is lethargic but is answering appropriate to all questions. SKIN: Dry and warm GCS: 15 Triage Information Reviewed: Yes Vital Signs Reviewed: Yes Diagnostics - Laboratory Result Diagrams: 02/10/18 14:02 02/10/18 14:02 Lab Statement: Any lab studies that have been ordered have been reviewed, and results considered in the medical decision making process. - Radiology Chest XR Xray Interpretation: Positive (See Comments) - IMPRESSION: 1. Cardiomegaly. 2. Pulmonary interstitial edema. 3. Left lower lung atelectasis versus consolidation. Dr. Varma has reviewed this radiology report. Radiology Interpretation Completed By: Radiologist - CT Brain CT CT Interpretation: No Acute Changes - IMPRESSION: No acute intracranial pathology. Chronic small vessel ischemic change. Dr. Varma has reviewed this radiology report. CT Interpretation Completed By: Radiologist - EKG 13:48 Cardiac Rate: NL EKG Rhythm: Atrial Flutter - at 60 bpm EKG Interpretation: No ST elevations. EKG Comparison: No Significant Change - similar to prior EKG on 02/06/15. Adult Trauma Course/Dx - Course Assessment/Plan: This pt is a 87 y/o female presenting to [facility] c/o head strike s/p fall last night. Pt reports the pt felt dizzy and lightheaded last night and fell in the bathroom. Pt struck her head, but is unsure if she had LOC. She called her but she estimates she was on the floor for approximately 5 hours until he came. Today she reports feeling weak, unable to ambulate secondary to weakness and pain, and vomiting. Denies headache, neck pain, rib pain. Pt is currently on Coumadin for atrial fibrillation. Test results without any significant abnormalities except for INR of 2.3, ABG shows slight hypoxia, CMP with lactic acid of 3.8, troponin of 0.90. Urinalysis is negative for UTI. Urine toxicology is positive for barbiturates. Chest XR: 1. Cardiomegaly. 2. Pulmonary interstitial edema. 3. Left lower lung atelectasis versus consolidation. Brain CT: No acute intracranial pathology. Chronic small vessel ischemic change. In the ED course the pt was given IV fluids and magnesium. Because of the elevated troponin I discussed the case with Dr. Mar , hospitalist, who accepted the pt for admission to rule out acute coronary syndrome. Pt is hemodynamically stable, alert and oriented x3. Dx: elevated troponin, rule out ACS, lethargy, accidental fall. - Diagnoses Provider Diagnoses: Elevated troponin, Lethargy, Accidental fall - Physician Notifications Discussed Care Of Patient With: Marianne Mar Time Discussed With Above Provider: 15:31 Instructed by Provider To: Other - I discussed pt care with Dr. Mar, hospitalist, who has agreed to accept the pt. Discharge - Sign-Out/Discharge Documenting (check all that apply): Discharge - admit to [facility] [place] Discharge Plan Condition: Stable Disposition: ADMITTED TO [facility] The documentation as recorded by the James metz Angela accurately reflects the service I personally performed and the decisions made by me, Malik Varma MD.
[2018-02-12] MEDS: cefTRIAXone(*) 1 GM in NS 0.9% 50 ML* 50 ML IVPB SCH (20:51)
[2018-02-12] MEDS: Azithromycin IV(*) 500 MG in NS 0.9% 250 ML* 250 ML IVPB SCH (22:01)
[2018-02-13] MEDS: NS 0.9% 1000 ML* 1,000 ML IV SCH ×2 (05:23→14:58)
[2018-02-13] MEDS: Atorvastatin* 40 MG TAB PO SCH ×2 (10:12→10:25)
[2018-02-13] MEDS: Valsartan TAB* 40 MG PO SCH ×2 (10:12→10:25)
[2018-02-13] MEDS: Acetaminophen TAB* 325 MG PO PRN ×3 (10:12→21:38)
[2018-02-13] MEDS: Multivitamins/Minerals TAB PO SCH ×2 (10:13→10:25)
[2018-02-13] MEDS: Primidone TAB(*) 50 MG PO SCH ×2 (10:13→10:25)
[2018-02-13] MEDS: Potassium Chlor TAB* 10 MEQ TAB.ER PO SCH (10:15)
--- NOTE | 2018-02-13 10:20 | PN ---
Subjective Date of Service: 02/13/18 Interval History: Patient seen and examined. c/o headache, no chest pain, no SOB, no acute overnight events. Objective Active Medications: Acetaminophen (Tylenol Tab*) 650 mg PO Q4H PRN PRN Reason: FEVER/PAIN Last Admin: 02/12/18 20:48 Dose: 650 mg Atorvastatin Calcium (Lipitor*) 40 mg PO DAILY [facility] Last Admin: 02/12/18 08:07 Dose: 40 mg Cefazolin Sodium/Dextrose (Kefzol Syringe 1 Gm/10 Ml Flush Syringe(*)) 1 gm FLUSH ONCE ONE Stop: 02/13/18 12:36 Diazepam (Valium Tab(*)) 2.5 mg PO ONCE ONE Stop: 02/13/18 12:36 Sodium Chloride (Ns 0.9% 1000 Ml*) 1,000 mls @ 100 mls/hr IV PER RATE [facility] Last Admin: 02/13/18 05:23 Dose: 100 mls/hr Ceftriaxone Sodium 1 gm/ (Sodium Chloride) 50 mls @ 200 mls/hr IVPB Q24H [facility] Last Admin: 02/12/18 20:51 Dose: 200 mls/hr Azithromycin 500 mg/ Sodium (Chloride) 250 mls @ 250 mls/hr IVPB Q24H [facility] Last Admin: 02/12/18 22:01 Dose: 250 mls/hr Cefazolin Sodium 2 gm/ Sodium (Chloride) 20 mls @ 60 mls/hr IVPB 1200 ONE Stop: 02/13/18 12:19 Multivitamins/Minerals (Theragran/Minerals Tab*) 1 tab PO DAILY [facility] Last Admin: 02/12/18 08:07 Dose: 1 tab Potassium Chloride (Klor Con Er Tab*) 20 meq PO DAILY [facility] Last Admin: 02/12/18 08:07 Dose: 20 meq Primidone (Mysoline Tab(*)) 150 mg PO DAILY [facility] Last Admin: 02/12/18 08:07 Dose: 150 mg Valsartan (Diovan Tab*) 40 mg PO DAILY [facility] Last Admin: 02/12/18 08:07 Dose: 40 mg Vital Signs - 8 hr 02/13/18 02/13/18 02/13/18 04:04 08:00 08:12 Temperature 98.1 F 98.4 F Pulse Rate 65 56 Respiratory 20 18 22 Rate Blood Pressure 119/50 137/66 (mmHg) O2 Sat by Pulse 99 97 Oximetry Oxygen Devices in Use Now: Nasal Cannula Appearance: Alert, NAD Ears/Nose/Mouth/Throat: NL Teeth, Lips, Gums, Mucous Membranes Moist Neck: Trachea Midline Respiratory: Symmetrical Chest Expansion and Respiratory Effort, Clear to Auscultation Cardiovascular: - - irregular, bradycardic Extremities: No Edema Skin: No Rash or Ulcers Neurological: Alert and Oriented x 3, NL Sensation Nutrition: - - NPO for procedure Result Diagrams: 02/10/18 14:02 02/11/18 05:53 Microbiology and Other Data: Microbiology 02/10/18 16:25 Nasal Screen MRSA (PCR)(IRINEO) - Final Nasal Mrsa Not Detected Assess/Plan/Problems-Billing Assessment: This is an 87 year old female patient with complaint of syncope, found to have cardiac rhythm changes - junctional and bradycardic, will have pacemaker insertion today. - Patient Problems (1) Syncope and collapse Code(s): R55 - SYNCOPE AND COLLAPSE SNOMED Code(s): 648904325 Comment: - Likely etiology is profound bradycardia with chronic atrial fibrillation - Cardiology consult appreciated - For PM insertion this afternoon with Dr. Dawkins - INR is 1.37, will need lovenox bridge post-procedure, then restart coumadin. (2) Atrial fibrillation Code(s): I48.91 - UNSPECIFIED ATRIAL FIBRILLATION SNOMED Code(s): 80188374 Comment: - Chronic, no RVR, primarily profoundly bradycardic with episodes of tachycardia - Restart coumadin after PM insertion with lovenox bridge (3) Bradycardia Code(s): R00.1 - BRADYCARDIA, UNSPECIFIED SNOMED Code(s): 04739994 Comment: - Instructed RN to call if HR <40 - Stable (4) Essential tremor Code(s): G25.0 - ESSENTIAL TREMOR SNOMED Code(s): 390080844 Comment: - At baseline, continue primidone (5) Atelectasis of left lung Code(s): J98.11 - ATELECTASIS SNOMED Code(s): 68100232 Comment: - Concerning for early consolidation, but afebrile and no cough - Continue atbx - Add IS 10x per hour (6) DVT prophylaxis Code(s): QHH8723 - SNOMED Code(s): 621858761 Comment: - Hold coumadin, SCDs while in bed (7) Full code status Code(s): Z78.9 - OTHER SPECIFIED HEALTH STATUS SNOMED Code(s): 520405592 Status and Disposition: Remain inpatient on tele for pacemaker insertion today.
[2018-02-13] MEDS ORDERED: CEFAZOLIN 2 GM/20 ML IVPB ONE ×2 (12:00)
[2018-02-13] MEDS ORDERED: Diazepam TAB(*) 5 MG PO ONE (12:35)
[2018-02-13] MEDS ORDERED: ceFAZolin 2 GM PREMIX (*) 2 GM/50 ML BAG IVPB ONE (12:35)
[2018-02-13] MEDS ORDERED: ceFAZolin 1 GM VIAL(*) 1 GM in NS 0.9% 50 ML* 50 ML IVPB ONE (12:35)
[2018-02-13] MEDS ORDERED: ceFAZolin 1 GM/10 ML flush(*) SYRINGE for pocket flush (cardiology) FLUSH ONE (12:35)
[2018-02-13] MEDS ORDERED: ceFAZolin VIAL 1 GM in NS *SYRINGE * * 10 ML ONE (14:00)
[2018-02-13] MEDS ORDERED: Lidocaine 1% INJ* 10 MG/ML 30 ML SDV ONE (15:11)
[2018-02-13] MEDS ORDERED: Midazolam* 1 MG/ML 5 ML VIAL (5 MG) ONE (15:11)
[2018-02-13] MEDS ORDERED: fentaNYL* 50 MCG/ML 2 ML VIAL (100 MCG VIAL) ONE (15:11)
[2018-02-13] MEDS ORDERED: Iohexol 300 (CONTRAST) 10 ML SDV ONE (15:51)
[2018-02-13] MEDS ORDERED: oxyCODONE/Acetamin 5/325 MG* TAB PO PRN (16:35)
--- NOTE | 2018-02-13 19:00 | RAD ---
Indication: Post pacemaker placement. Comparison: February 10, 2018 Technique: Upright AP 1711 hours Report: Single lead of newly placed LEFT chest wall pacemaker extends to the RIGHT ventricle. Negative for pneumothorax. Moderate RIGHT pleural effusion appears new. Proportional basilar atelectasis. Diffuse prominence of the interstitial markings. Severe cardiomegaly without change. Prominent ill-defined central pulmonary vasculature. IMPRESSION: 1. Negative for pneumothorax post pacemaker placement. 2. Pulmonary vascular congestion and interstitial edema with associated RIGHT pleural effusion new compared with the prior exam.
[2018-02-13] MEDS: cefTRIAXone(*) 1 GM in NS 0.9% 50 ML* 50 ML IVPB SCH (20:37)
[2018-02-13] MEDS: Azithromycin IV(*) 500 MG in NS 0.9% 250 ML* 250 ML IVPB SCH (21:27)
--- NOTE | 2018-02-13 23:48 | OP ---
DATE OF OPERATION: 02/13/18 - ROOM #439 DATE OF : 32 SURGEON: Placido Dawkins MD ANESTHESIA: Local anesthesia with conscious sedation. PRE-OP DIAGNOSES: Atrial fibrillation, bradycardia, syncope. POST-OP DIAGNOSES: Atrial fibrillation, bradycardia, syncope. OPERATIVE PROCEDURE: Single-chamber pacemaker implantation. ESTIMATED BLOOD LOSS: 50 cc. COMPLICATIONS: None. INDICATIONS: The patient is an 87-year-old female with a long history of atrial fibrillation. She does have ongoing bradycardia. The patient had a syncopal episode at home. Permanent pacemaker was recommended. DESCRIPTION OF PROCEDURE: The patient was brought to the procedure room in a fasting state. Informed consent had been obtained prior to the procedure. All labs were reviewed. The patient's INR was 1.3. The patient was placed supine on the procedure table. Her left deltopectoral area was cleaned and draped in the usual fashion. 1% lidocaine was used for local anesthesia. Under ultrasound guidance, the axillary vein was entered by a modified Seldinger technique, and a guidewire was placed. A 3 cm incision was made in the pectoral area. Blunt dissection was carried down to the pectoral fascia. A pocket was fashioned for the pacemaker. Over the guidewire, a 7-Angolan sheath introducer was placed through which a right ventricular lead was advanced the RV outflow tract. Because of the large atria, the wire could not be placed in to the apex and had to be placed up in the RV outflow tract. It had an R-wave sensitivity of 5.7, impedance 808 ohms, threshold 0.6 volts at 0.5 msec. The ventricular lead was sutured to the pectoral fascia using 0 silk. The pocket was flushed with normal saline. A generator was attached to the ventricular lead. The ventricular lead is a Medtronic model 5076, serial #[id number]. The generator is a Medtronic model W3SR01, serial #[id number]. The surgical incision was closed in 3 layers. The patient tolerated the procedure well and no complications. [id number]/[facility] #: [id number] [facility] HOSPITALPhillip
[2018-02-14] MEDS: Acetaminophen TAB* 325 MG PO PRN ×3 (03:07→22:09)
[2018-02-14] MEDS: Potassium Chlor TAB* 10 MEQ TAB.ER PO SCH (08:35)
[2018-02-14] MEDS: NS 0.9% 1000 ML* 1,000 ML IV SCH (08:35)
[2018-02-14] MEDS: Multivitamins/Minerals TAB PO SCH (08:40)
[2018-02-14] MEDS: Atorvastatin* 40 MG TAB PO SCH (08:41)
[2018-02-14] MEDS: Primidone TAB(*) 50 MG PO SCH (08:42)
[2018-02-14] MEDS: Valsartan TAB* 40 MG PO SCH (08:42)
[2018-02-14 11:03] LABS: ABS Basophils 0 10^3/ul (0-0.2); ABS Eosinophils 0 10^3/ul (0-0.6); ABS Monocytes 0.9 10^3/ul (0-0.8); ABS Neutrophils 5.2 10^3/ul (1.5-7.7); ABS Nucleated RBC 0 10^3/ul; Eosinophil % 0.6 % (0-6); Hematocrit 41 % (35-47); Hemoglobin 13.5 g/dl (12.0-16.0); Lymphocyte % 13.9 % (25-47); Mean Corpuscular HGB Conc 33 g/dl (31-36); Mean Corpuscular Hemoglobin 33 pg (27-31); Mean Corpuscular Volume 101 fL (80-97); Mean Platelet Volume 7.4 um3 (7.4-10.4); Nucleated Red Blood Cells % 0; Platelet Count 160 10^3/ul (150-450); Red Blood Count 4.03 10^6/ul (4.0-5.4); Red Cell Distribution Width 14 % (10.5-15); White Blood Count 7.1 10^3/ul (3.5-10.8)
[2018-02-14] MEDS ORDERED: Furosemide IV* 10 MG/ML 2 ML VIAL (20 MG) IV ONE (11:03)
[2018-02-14 11:30] LABS: EGFR Non-African American 100.6 (>60)
--- NOTE | 2018-02-14 11:56 | RAD ---
HISTORY: Status post device implant COMPARISONS: February 14, 2016 VIEWS: 2: Frontal and lateral views of the chest. FINDINGS: CARDIOMEDIASTINAL SILHOUETTE: The cardiac silhouette is enlarged. The cardiomediastinal silhouette is otherwise normal. WONG: The wong are normal. PLEURA: There are small bilateral pleural effusions. There is no appreciable pneumothorax. LUNG PARENCHYMA: There is a diffuse reticular pattern with indistinct pulmonary vessels. There is confluent alveolar opacification of the lung bases bilaterally. ABDOMEN: The upper abdomen is clear. There is no subphrenic gas. BONES AND SOFT TISSUES: No bone or soft tissue abnormalities are noted. OTHER: A left-sided pacemaker is noted. IMPRESSION: 1. CARDIOMEGALY WITH PULMONARY INTERSTITIAL EDEMA. 2. SMALL BILATERAL PLEURAL EFFUSIONS. 3. BIBASILAR ATELECTASIS VERSUS CONSOLIDATION.
--- NOTE | 2018-02-14 12:42 | ECHO ---
Patient: CHELO FERRIS [facility] Rec#: [id number] : 1930 Date: 02/14/2018 Age: 87y Height: 152 cm / 59.8 in Weight: 60.37 kg / 133.1 lbs Sex: F BSA: 1.57 Room#: 439 Admit Date#: 02/10/2018 Type: Inpatient Referring: Ankur Larsen MD Reading: Ankur Larsen MD Car Sweeper: Lydia Ricci RDCS CC: Lizette Lunsford, EDVIN Transthoracic Echocardiogram Indication: S/p pacer, dyspnea. BP: 136/65 HR: 60 Rhythm: Paced Findings History: S/P pacer 02/13/18, A-fib, CHF, essential tremor. This is a LIMITED study to evalutate LV function. Technical Comments: The study quality is good. Completed at 1200. Left Ventricle: The left ventricular chamber size is moderately dilated. There is no left ventricular hypertrophy. There is global hypokinesis of the left ventricle with minor regional variation. There is severely decreased left ventricular systolic function. The estimated ejection fraction is 20-25%. There is septal flattening of the interventricular septum consistent with right ventricular volume or pressure overload. The assessment of diastolic function is non-diagnostic. Right Ventricle: The right ventricle is moderately dilated. The right ventricular global systolic function is mildly to moderately reduced. A pacemaker wire is visualized in the right ventricle.It appears to insert into the RVOT c/w the operative report. Right Atrium: A pacemaker wire is visualized in the right atrium. Pericardium: There is no significant pericardial effusion. A left pleural effusion is present. Conclusions focused study to evaluate for pericardial effusion. There is global hypokinesis of the left ventricle with minor regional variation. There is severely decreased left ventricular systolic function. The estimated ejection fraction is 20-25%. There is septal flattening of the interventricular septum consistent with right ventricular volume or pressure overload. The right ventricle is moderately dilated. The right ventricular global systolic function is mildly to moderately reduced. There is no significant pericardial effusion. A left pleural effusion is present. A pacemaker wire is visualized in the right ventricle. It appears to insert into the RVOT c/w the operative report. Similar to 02/11/18 except for the new pacemaker lead.
--- NOTE | 2018-02-14 12:50 | PN ---
Subjective Date of Service: 02/14/18 Interval History: Patient seen and examined. Appears SOB today, patient feels weak. Observed eating lunch with some difficulty. Sling in place. Denies chest pain, no palpitations, c/o general fatigue. Objective Active Medications: Acetaminophen (Tylenol Tab*) 650 mg PO Q4H PRN PRN Reason: FEVER/PAIN Last Admin: 02/14/18 08:43 Dose: 650 mg Atorvastatin Calcium (Lipitor*) 40 mg PO DAILY [facility] Last Admin: 02/14/18 08:41 Dose: 40 mg Ceftriaxone Sodium 1 gm/ (Sodium Chloride) 50 mls @ 200 mls/hr IVPB Q24H [facility] Last Admin: 02/13/18 20:37 Dose: 200 mls/hr Multivitamins/Minerals (Theragran/Minerals Tab*) 1 tab PO DAILY [facility] Last Admin: 02/14/18 08:40 Dose: 1 tab Oxycodone/Acetaminophen (Percocet 5/325 Tab*) 1 tab PO Q4H PRN PRN Reason: PAIN Potassium Chloride (Klor Con Er Tab*) 20 meq PO DAILY [facility] Last Admin: 02/14/18 08:35 Dose: 20 meq Primidone (Mysoline Tab(*)) 150 mg PO DAILY [facility] Last Admin: 02/14/18 08:42 Dose: 150 mg Valsartan (Diovan Tab*) 40 mg PO DAILY [facility] Last Admin: 02/14/18 08:42 Dose: 40 mg Warfarin Sodium (Coumadin Tab(*)) 4 mg PO ONCE@1700 ONE PRN Reason: Protocol Stop: 02/14/18 17:01 Vital Signs - 8 hr 02/14/18 02/14/18 02/14/18 07:21 08:00 12:00 Temperature 97.4 F Pulse Rate 59 Respiratory 20 20 Rate Blood Pressure 136/65 (mmHg) O2 Sat by Pulse 95 95 98 Oximetry 02/14/18 12:02 Temperature 98.1 F Pulse Rate 59 Respiratory 22 Rate Blood Pressure 135/63 (mmHg) O2 Sat by Pulse 99 Oximetry Oxygen Devices in Use Now: Nasal Cannula Appearance: Alert, tired Ears/Nose/Mouth/Throat: NL Teeth, Lips, Gums, Mucous Membranes Moist Neck: Trachea Midline Respiratory: - - increased WOB, improved in O2, no rhonchir or rales, bilaterally diminished Cardiovascular: NL Sounds; No Murmurs; No JVD - paced with underlying afib, No Edema Extremities: No Edema Skin: No Rash or Ulcers Neurological: Alert and Oriented x 3, NL Sensation, - - general weaknees Nutrition: Taking PO's Result Diagrams: 02/14/18 10:47 02/14/18 10:47 Microbiology and Other Data: Microbiology 02/10/18 16:25 Nasal Screen MRSA (PCR)(IRINEO) - Final Nasal Mrsa Not Detected Diagnostic Imaging: REPEAT FOCUSED ECHO 02/14/18: Pericardium: There is no significant pericardial effusion. A left pleural effusion is present. Conclusions focused study to evaluate for pericardial effusion. There is global hypokinesis of the left ventricle with minor regional variation. There is severely decreased left ventricular systolic function. The estimated ejection fraction is 20-25%. There is septal flattening of the interventricular septum consistent with right ventricular volume or pressure overload. The right ventricle is moderately dilated. The right ventricular global systolic function is mildly to moderately reduced. There is no significant pericardial effusion. A left pleural effusion is present. A pacemaker wire is visualized in the right ventricle. It appears to insert into the RVOT c/w the operative report. Similar to 02/11/18 except for the new pacemaker lead. Assess/Plan/Problems-Billing Assessment: This is an 87 year old female patient with complaint of syncope, found to have cardiac rhythm changes and profound bradycardia with underlying afib/flutter, s/ p pacemaker insertion, POD1. - Patient Problems (1) Syncope and collapse Code(s): R55 - SYNCOPE AND COLLAPSE SNOMED Code(s): 430412620 Comment: - Likely etiology is profound bradycardia with chronic atrial fibrillation - PM insertion with Dr. Dawkins 02/13/18 - Dr. Larsen following patient today, eval repeat ECHO and check trop - Continue tele (2) Atrial fibrillation Code(s): I48.91 - UNSPECIFIED ATRIAL FIBRILLATION SNOMED Code(s): 13845347 Comment: - Chronic, no RVR - Restart coumadin today, confirm ok for lovenox bridge with cardio. (3) Bradycardia Code(s): R00.1 - BRADYCARDIA, UNSPECIFIED SNOMED Code(s): 81297520 Comment: - Stable. resolved with PM insertion (4) Essential tremor Code(s): G25.0 - ESSENTIAL TREMOR SNOMED Code(s): 769751184 Comment: - At baseline, continue primidone (5) Atelectasis of left lung Code(s): J98.11 - ATELECTASIS SNOMED Code(s): 78737967 Comment: - afebrile and no cough - Continue atbx - IS 10x per hour (6) DVT prophylaxis Code(s): PAZ5233 - SNOMED Code(s): 293963943 Comment: - Restart coumadin, SCDs while in bed (7) Full code status Code(s): Z78.9 - OTHER SPECIFIED HEALTH STATUS SNOMED Code(s): 940423484 Status and Disposition: Remain inpatient, PT eval today, will likely need rehab.
[2018-02-14] MEDS ORDERED: Warfarin TAB(*) 4 MG PO ONE (17:00)
[2018-02-14] MEDS: cefTRIAXone(*) 1 GM in NS 0.9% 50 ML* 50 ML IVPB SCH ×2 (21:00→21:04)
[2018-02-15] MEDS: Acetaminophen TAB* 325 MG PO PRN ×2 (05:17→21:29)
[2018-02-15] MEDS: Valsartan TAB* 40 MG PO SCH (09:14)
[2018-02-15] MEDS: Multivitamins/Minerals TAB PO SCH (09:14)
[2018-02-15] MEDS: Primidone TAB(*) 50 MG PO SCH (09:14)
[2018-02-15] MEDS: Potassium Chlor TAB* 10 MEQ TAB.ER PO SCH (09:14)
[2018-02-15] MEDS: Atorvastatin* 40 MG TAB PO SCH (09:14)
--- NOTE | 2018-02-15 11:26 | PN ---
Subjective Date of Service: 02/15/18 Interval History: No complaints, has mild shortness of breath but states has been short of breath for a long time, denies increased shortness of breath feels her breathing is at baseline or chest pain. Denies abd pain , n/v/d. Family History: Unchanged from Admission Social History: Unchanged from Admission Past Medical History: Unchanged from Admission Objective Active Medications: Acetaminophen (Tylenol Tab*) 650 mg PO Q4H PRN PRN Reason: FEVER/PAIN Last Admin: 02/15/18 05:17 Dose: 650 mg Atorvastatin Calcium (Lipitor*) 40 mg PO DAILY [facility] Last Admin: 02/15/18 09:14 Dose: 40 mg Ceftriaxone Sodium 1 gm/ (Sodium Chloride) 50 mls @ 200 mls/hr IVPB Q24H [facility] Last Admin: 02/14/18 21:04 Dose: 200 mls/hr Multivitamins/Minerals (Theragran/Minerals Tab*) 1 tab PO DAILY [facility] Last Admin: 02/15/18 09:14 Dose: 1 tab Oxycodone/Acetaminophen (Percocet 5/325 Tab*) 1 tab PO Q4H PRN PRN Reason: PAIN Potassium Chloride (Klor Con Er Tab*) 20 meq PO DAILY [facility] Last Admin: 02/15/18 09:14 Dose: 20 meq Primidone (Mysoline Tab(*)) 150 mg PO DAILY [facility] Last Admin: 02/15/18 09:14 Dose: 150 mg Valsartan (Diovan Tab*) 40 mg PO DAILY [facility] Last Admin: 02/15/18 09:14 Dose: 40 mg Vital Signs - 8 hr 02/15/18 02/15/18 02/15/18 03:41 04:00 07:32 Temperature 98.3 F 98.5 F Pulse Rate 59 59 Respiratory 21 18 Rate Blood Pressure 133/68 137/65 (mmHg) O2 Sat by Pulse 95 95 95 Oximetry 02/15/18 08:00 Temperature Pulse Rate Respiratory 18 Rate Blood Pressure (mmHg) O2 Sat by Pulse Oximetry Oxygen Devices in Use Now: Nasal Cannula Appearance: alert resting in bed, appears tired, respirations slightly labored. Eyes: No Scleral Icterus Ears/Nose/Mouth/Throat: Clear Oropharnyx, Mucous Membranes Moist Neck: NL Appearance and Movements; NL JVP, Trachea Midline Respiratory: Symmetrical Chest Expansion and Respiratory Effort, Clear to Auscultation - diminished in the bases bilat, Cardiovascular: NL Sounds; No Murmurs; No JVD, No Edema Abdominal: NL Sounds; No Tenderness; No Distention Extremities: No Edema, No Clubbing, Cyanosis Neurological: Alert and Oriented x 3 Result Diagrams: 02/14/18 10:47 02/15/18 11:43 Microbiology and Other Data: Microbiology 02/10/18 16:25 Nasal Screen MRSA (PCR)(IRINEO) - Final Nasal Mrsa Not Detected Diagnostic Imaging: REPEAT FOCUSED ECHO 02/14/18: Pericardium: There is no significant pericardial effusion. A left pleural effusion is present. Conclusions focused study to evaluate for pericardial effusion. There is global hypokinesis of the left ventricle with minor regional variation. There is severely decreased left ventricular systolic function. The estimated ejection fraction is 20-25%. There is septal flattening of the interventricular septum consistent with right ventricular volume or pressure overload. The right ventricle is moderately dilated. The right ventricular global systolic function is mildly to moderately reduced. There is no significant pericardial effusion. A left pleural effusion is present. A pacemaker wire is visualized in the right ventricle. It appears to insert into the RVOT c/w the operative report. Similar to 02/11/18 except for the new pacemaker lead. Assess/Plan/Problems-Billing Assessment: This is an 87 year old female patient with complaint of syncope, found to have cardiac rhythm changes and profound bradycardia with underlying afib/flutter, s/ p pacemaker insertion, on 02/13/18 - Patient Problems (1) Bradycardia Current Visit: Yes Status: Acute Code(s): R00.1 - BRADYCARDIA, UNSPECIFIED SNOMED Code(s): 26296423 Comment: - Stable. resolved with PM insertion (2) Syncope and collapse Current Visit: Yes Status: Acute Code(s): R55 - SYNCOPE AND COLLAPSE SNOMED Code(s): 725831660 Comment: - Likely etiology is profound bradycardia with chronic atrial fibrillation - PM insertion with Dr. Dawkins 02/13/18 - Troponins continues to trend down - ECHO unchanged no pericardidal effusion, EF 20-25% - Continue tele (3) Atrial fibrillation Current Visit: Yes Status: Acute Code(s): I48.91 - UNSPECIFIED ATRIAL FIBRILLATION SNOMED Code(s): 66643697 Comment: - Chronic, no RVR - Restart coumadin today - INR today 1.14 - will give coumadin 4 mg po (4) Essential tremor Current Visit: Yes Status: Acute Code(s): G25.0 - ESSENTIAL TREMOR SNOMED Code(s): 050865261 Comment: - At baseline, continue primidone (5) Shortness of breath on exertion Current Visit: Yes Status: Acute Code(s): R06.02 - SHORTNESS OF BREATH SNOMED Code(s): 67171267 Comment: - suspect this is related to left pleural effusion and poor EF of 20 to 25% - O2 saturation decreased to 84% on RA- recovered quickly with 3 liters NC, - BNP increasing will give 1 dose of lasix 40 mg IVP - will repeat BMP and BNP in AM (6) DVT prophylaxis Current Visit: Yes Status: Acute Code(s): THS4039 - SNOMED Code(s): 447048659 Comment: - Restart coumadin, SCDs while in bed - will repeat INR today and dose coumadin as appropriate (7) Full code status Current Visit: Yes Status: Acute Code(s): Z78.9 - OTHER SPECIFIED HEALTH STATUS SNOMED Code(s): 826192753 Status and Disposition: Remain inpatient, PT eval today, will likely need rehab.
[2018-02-15 12:19] LABS: EGFR Non-African American 109.4 (>60)
[2018-02-15 14:13] LABS: INR 1.14 (0.77-1.02)
[2018-02-15] MEDS ORDERED: Furosemide IV* 10 MG/ML VIAL (40 MG) IV SLOW PU ONE (15:43)
[2018-02-15] MEDS ORDERED: Warfarin TAB(*) 4 MG PO ONE (17:00)
[2018-02-15] MEDS: cefTRIAXone(*) 1 GM in NS 0.9% 50 ML* 50 ML IVPB SCH (20:14)
[2018-02-16] MEDS: Acetaminophen TAB* 325 MG PO PRN ×2 (04:49→22:11)
[2018-02-16] MEDS: Valsartan TAB* 40 MG PO SCH (09:07)
[2018-02-16] MEDS: Primidone TAB(*) 50 MG PO SCH (09:07)
[2018-02-16 09:08] LABS: INR 1.1 (0.77-1.02)
[2018-02-16] MEDS: Multivitamins/Minerals TAB PO SCH (09:08)
[2018-02-16] MEDS: Atorvastatin* 40 MG TAB PO SCH (09:09)
[2018-02-16] MEDS: Potassium Chlor TAB* 10 MEQ TAB.ER PO SCH (09:10)
[2018-02-16 09:13] LABS: EGFR Non-African American 102.6 (>60)
--- NOTE | 2018-02-16 12:31 | PN ---
Subjective Date of Service: 02/16/18 Interval History: Patient examined sitting in the chair, no complaints, Denies chest pain or shortness of breath, does report some tenderness to left shoulder area at pacemaker insertion site. Denies n/v/d or abd pain. Family History: Unchanged from Admission Social History: Unchanged from Admission Past Medical History: Unchanged from Admission Objective Active Medications: Acetaminophen (Tylenol Tab*) 650 mg PO Q4H PRN PRN Reason: FEVER/PAIN Last Admin: 02/16/18 04:49 Dose: 650 mg Atorvastatin Calcium (Lipitor*) 40 mg PO DAILY [facility] Last Admin: 02/16/18 09:09 Dose: 40 mg Furosemide (Lasix Tab*) 40 mg PO DAILY [facility] Ceftriaxone Sodium 1 gm/ (Sodium Chloride) 50 mls @ 200 mls/hr IVPB Q24H [facility] Last Admin: 02/15/18 20:14 Dose: 200 mls/hr Multivitamins/Minerals (Theragran/Minerals Tab*) 1 tab PO DAILY [facility] Last Admin: 02/16/18 09:08 Dose: 1 tab Oxycodone/Acetaminophen (Percocet 5/325 Tab*) 1 tab PO Q4H PRN PRN Reason: PAIN Potassium Chloride (Klor Con Er Tab*) 20 meq PO DAILY [facility] Last Admin: 02/16/18 09:10 Dose: 20 meq Primidone (Mysoline Tab(*)) 150 mg PO DAILY [facility] Last Admin: 02/16/18 09:07 Dose: 150 mg Valsartan (Diovan Tab*) 40 mg PO DAILY [facility] Last Admin: 02/16/18 09:07 Dose: 40 mg Warfarin Sodium (Coumadin Tab(*)) 4 mg PO ONCE@1700 ONE PRN Reason: Protocol Stop: 02/16/18 17:01 Vital Signs - 8 hr 02/16/18 02/16/18 02/16/18 04:59 07:28 08:00 Temperature 97.6 F 97.8 F Pulse Rate 58 63 Respiratory 24 18 18 Rate Blood Pressure 148/69 147/72 (mmHg) O2 Sat by Pulse 93 98 98 Oximetry Oxygen Devices in Use Now: Nasal Cannula Appearance: appears comfortable sitting in the chair Eyes: No Scleral Icterus Ears/Nose/Mouth/Throat: Clear Oropharnyx, Mucous Membranes Moist Neck: NL Appearance and Movements; NL JVP, Trachea Midline Respiratory: Symmetrical Chest Expansion and Respiratory Effort, Clear to Auscultation, - - diminished in the bases bilat Abdominal: NL Sounds; No Tenderness; No Distention Extremities: No Edema, No Clubbing, Cyanosis Skin: No Rash or Ulcers, - - dressing intact to left chest pacermaker insertion site. Neurological: Alert and Oriented x 3 Nutrition: Taking PO's Result Diagrams: 02/14/18 10:47 02/16/18 08:51 Microbiology and Other Data: Microbiology 02/10/18 16:25 Nasal Screen MRSA (PCR)(IRINEO) - Final Nasal Mrsa Not Detected Diagnostic Imaging: REPEAT FOCUSED ECHO 02/14/18: Pericardium: There is no significant pericardial effusion. A left pleural effusion is present. Conclusions focused study to evaluate for pericardial effusion. There is global hypokinesis of the left ventricle with minor regional variation. There is severely decreased left ventricular systolic function. The estimated ejection fraction is 20-25%. There is septal flattening of the interventricular septum consistent with right ventricular volume or pressure overload. The right ventricle is moderately dilated. The right ventricular global systolic function is mildly to moderately reduced. There is no significant pericardial effusion. A left pleural effusion is present. A pacemaker wire is visualized in the right ventricle. It appears to insert into the RVOT c/w the operative report. Similar to 02/11/18 except for the new pacemaker lead. Assess/Plan/Problems-Billing Assessment: This is an 87 year old female patient with complaint of syncope, found to have cardiac rhythm changes and profound bradycardia with underlying afib/flutter, s/ p pacemaker insertion, on 02/13/18 - Patient Problems (1) Bradycardia Current Visit: Yes Status: Acute Code(s): R00.1 - BRADYCARDIA, UNSPECIFIED SNOMED Code(s): 20919735 Comment: - Stable. resolved with PM insertion - denies dizziness or weakness (2) Syncope and collapse Current Visit: Yes Status: Acute Code(s): R55 - SYNCOPE AND COLLAPSE SNOMED Code(s): 824870564 Comment: - Likely etiology is profound bradycardia with chronic atrial fibrillation - PM insertion with Dr. Dawkins 02/13/18 - Troponins continues to trend down - ECHO unchanged no pericardidal effusion, EF 20-25% - Continue tele (3) Atrial fibrillation Current Visit: Yes Status: Acute Code(s): I48.91 - UNSPECIFIED ATRIAL FIBRILLATION SNOMED Code(s): 25951374 Comment: - Chronic, no RVR - Restart coumadin today - INR today 1.10 - will give coumadin 4 mg po today (4) Essential tremor Current Visit: Yes Status: Acute Code(s): G25.0 - ESSENTIAL TREMOR SNOMED Code(s): 035093613 Comment: - At baseline, continue primidone (5) Shortness of breath on exertion Current Visit: Yes Status: Acute Code(s): R06.02 - SHORTNESS OF BREATH SNOMED Code(s): 95808622 Comment: - suspect this is related to left pleural effusion and poor EF of 20 to 25% - O2 on Ra sitting in the Chair was 94 % -lungs remain diminished at the bases bilat -BNP today down - will add lasix 40 mg po daily - will repeat BMP and BNP in AM (6) DVT prophylaxis Current Visit: Yes Status: Acute Code(s): QIC2227 - SNOMED Code(s): 196470691 Comment: - Restart coumadin, SCDs while in bed - will repeat INR today and dose coumadin as appropriate (7) Full code status Current Visit: Yes Status: Acute Code(s): Z78.9 - OTHER SPECIFIED HEALTH STATUS SNOMED Code(s): 435729475 Status and Disposition: Remain inpatient, PT eval today, will likely need rehab.
[2018-02-16] MEDS: Furosemide TAB* 40 MG PO SCH (13:53)
[2018-02-16] MEDS ORDERED: Magnesium Sulfate 2 GM IV* 2 GM/50 ML BAG IVPB ONE (16:49)
[2018-02-16] MEDS ORDERED: Warfarin TAB(*) 4 MG PO ONE (17:00)
[2018-02-16] MEDS: cefTRIAXone(*) 1 GM in NS 0.9% 50 ML* 50 ML IVPB SCH (19:55)
[2018-02-16] MEDS: Polyethylene Glycol 3350* 17 GM PACKET PO SCH (19:56)
[2018-02-17 07:22] LABS: EGFR Non-African American 111.8 (>60)
[2018-02-17] MEDS: Polyethylene Glycol 3350* 17 GM PACKET PO SCH (09:09)
[2018-02-17] MEDS: Valsartan TAB* 40 MG PO SCH (09:10)
[2018-02-17] MEDS: Multivitamins/Minerals TAB PO SCH (09:10)
[2018-02-17] MEDS: Potassium Chlor TAB* 10 MEQ TAB.ER PO SCH (09:11)
[2018-02-17] MEDS: Atorvastatin* 40 MG TAB PO SCH (09:12)
[2018-02-17] MEDS: Primidone TAB(*) 50 MG PO SCH (09:12)
[2018-02-17] MEDS: Furosemide TAB* 40 MG PO SCH (09:12)
[2018-02-17] MEDS: Lisinopril TAB* 5 MG PO SCH (11:35)
[2018-02-17] MEDS: Metoprolol Succinate XL TAB* 25 MG PO SCH ×2 (11:35→20:47)
[2018-02-17] MEDS: Magnesium Hydroxide LIQ* 30 ML UDC PO PRN ×2 (12:00→16:55)
[2018-02-17] MEDS: Docusate CAP* 100 MG PO SCH ×2 (12:00→20:47)
[2018-02-17] MEDS ORDERED: Polyethylene Glycol 3350* 17 GM PACKET PO ONE (16:20)
--- NOTE | 2018-02-17 20:29 | PN ---
Subjective Date of Service: 02/17/18 Interval History: Denies any complaints, denies chest pain or shortness of breath, denies abd pain n/v/d. Family History: Unchanged from Admission Social History: Unchanged from Admission Past Medical History: Unchanged from Admission Objective Active Medications: Acetaminophen (Tylenol Tab*) 650 mg PO Q4H PRN PRN Reason: FEVER/PAIN Last Admin: 02/16/18 22:11 Dose: 650 mg Atorvastatin Calcium (Lipitor*) 40 mg PO DAILY [facility] Last Admin: 02/17/18 09:12 Dose: 40 mg Docusate Sodium (Colace Cap*) 100 mg PO BID [facility] Last Admin: 02/17/18 12:00 Dose: 100 mg Furosemide (Lasix Tab*) 40 mg PO DAILY [facility] Last Admin: 02/17/18 09:12 Dose: 40 mg Ceftriaxone Sodium 1 gm/ (Sodium Chloride) 50 mls @ 200 mls/hr IVPB Q24H [facility] Last Admin: 02/16/18 19:55 Dose: 200 mls/hr Lisinopril (Prinivil Tab*) 5 mg PO DAILY [facility] Last Admin: 02/17/18 11:35 Dose: 5 mg Magnesium Hydroxide (Milk Of Magnmichael Liq*) 30 ml PO Q6H PRN PRN Reason: CONSTIPATION Last Admin: 02/17/18 16:55 Dose: 30 ml Metoprolol Succinate (Toprol Xl Tab*) 25 mg PO BID [facility] Last Admin: 02/17/18 11:35 Dose: 25 mg Multivitamins/Minerals (Theragran/Minerals Tab*) 1 tab PO DAILY [facility] Last Admin: 02/17/18 09:10 Dose: 1 tab Oxycodone/Acetaminophen (Percocet 5/325 Tab*) 1 tab PO Q4H PRN PRN Reason: PAIN Polyethylene Glycol/Electrolytes (Miralax*) 17 gm PO DAILY [facility] Last Admin: 02/17/18 09:09 Dose: 17 gm Potassium Chloride (Klor Con Er Tab*) 20 meq PO DAILY [facility] Last Admin: 02/17/18 09:11 Dose: 20 meq Primidone (Mysoline Tab(*)) 150 mg PO DAILY [facility] Last Admin: 02/17/18 09:12 Dose: 150 mg Valsartan (Diovan Tab*) 40 mg PO DAILY [facility] Last Admin: 02/17/18 09:10 Dose: 40 mg Vital Signs - 8 hr 02/17/18 02/17/18 15:09 17:00 Temperature 97.4 F Pulse Rate 58 Respiratory 20 Rate Blood Pressure 144/76 (mmHg) O2 Sat by Pulse 100 100 Oximetry Oxygen Devices in Use Now: Nasal Cannula Appearance: appears comfortable sittingin the chair Eyes: No Scleral Icterus Ears/Nose/Mouth/Throat: Clear Oropharnyx Neck: NL Appearance and Movements; NL JVP, Trachea Midline Respiratory: Symmetrical Chest Expansion and Respiratory Effort, Clear to Auscultation, - - diminished as the bases bilat Cardiovascular: NL Sounds; No Murmurs; No JVD Abdominal: NL Sounds; No Tenderness; No Distention Extremities: No Edema, No Clubbing, Cyanosis Skin: No Rash or Ulcers Neurological: Alert and Oriented x 3 Nutrition: Taking PO's Result Diagrams: 02/14/18 10:47 02/17/18 06:44 Microbiology and Other Data: Microbiology 02/10/18 16:25 Nasal Screen MRSA (PCR)(IRINEO) - Final Nasal Mrsa Not Detected Diagnostic Imaging: REPEAT FOCUSED ECHO 02/14/18: Pericardium: There is no significant pericardial effusion. A left pleural effusion is present. Conclusions focused study to evaluate for pericardial effusion. There is global hypokinesis of the left ventricle with minor regional variation. There is severely decreased left ventricular systolic function. The estimated ejection fraction is 20-25%. There is septal flattening of the interventricular septum consistent with right ventricular volume or pressure overload. The right ventricle is moderately dilated. The right ventricular global systolic function is mildly to moderately reduced. There is no significant pericardial effusion. A left pleural effusion is present. A pacemaker wire is visualized in the right ventricle. It appears to insert into the RVOT c/w the operative report. Similar to 02/11/18 except for the new pacemaker lead. Assess/Plan/Problems-Billing Assessment: This is an 87 year old female patient with complaint of syncope, found to have cardiac rhythm changes and profound bradycardia with underlying afib/flutter, s/ p pacemaker insertion, on 02/13/18 - Patient Problems (1) Bradycardia Current Visit: Yes Status: Acute Code(s): R00.1 - BRADYCARDIA, UNSPECIFIED SNOMED Code(s): 53948084 Comment: - Stable. resolved with PM insertion - denies dizziness or weakness (2) Syncope and collapse Current Visit: Yes Status: Acute Code(s): R55 - SYNCOPE AND COLLAPSE SNOMED Code(s): 722695162 Comment: - Likely etiology is profound bradycardia with chronic atrial fibrillation - PM insertion with Dr. Dawkins 02/13/18 - Troponins continues to trend down - ECHO unchanged no pericardidal effusion, EF 20-25% - Continue tele (3) Atrial fibrillation Current Visit: Yes Status: Acute Code(s): I48.91 - UNSPECIFIED ATRIAL FIBRILLATION SNOMED Code(s): 31559626 Comment: - Chronic, no RVR - Restart coumadin today - will give coumadin 4 mg po today (4) Essential tremor Current Visit: Yes Status: Acute Code(s): G25.0 - ESSENTIAL TREMOR SNOMED Code(s): 146404372 Comment: - At baseline, continue primidone (5) Shortness of breath on exertion Current Visit: Yes Status: Acute Code(s): R06.02 - SHORTNESS OF BREATH SNOMED Code(s): 76839173 Comment: - suspect this is related to left pleural effusion and poor EF of 20 to 25% - O2 on Ra sitting in the Chair was 94 % -lungs remain diminished at the bases bilat -BNP repeat in the AM - will add lasix 40 mg po daily - will repeat BMP and BNP in AM (6) Ventricular ectopic activity Current Visit: Yes Status: Acute Code(s): I49.3 - VENTRICULAR PREMATURE DEPOLARIZATION SNOMED Code(s): 29318652 Comment: continue to have some v-tach -betablocker increased and TRACY added as per cardiology recommendations (7) DVT prophylaxis Current Visit: Yes Status: Acute Code(s): AUY2128 - SNOMED Code(s): 394039938 Comment: - Restart coumadin, SCDs while in bed - will repeat INR today and dose coumadin as appropriate (8) Full code status Current Visit: Yes Status: Acute Code(s): Z78.9 - OTHER SPECIFIED HEALTH STATUS SNOMED Code(s): 532951295 Status and Disposition: Remain inpatient, PT eval today, will likely need rehab.- referral to [facility]
[2018-02-17] MEDS: cefTRIAXone(*) 1 GM in NS 0.9% 50 ML* 50 ML IVPB SCH (20:47)
[2018-02-17] MEDS: Acetaminophen TAB* 325 MG PO PRN (20:50)
[2018-02-17] MEDS ORDERED: Warfarin TAB(*) 4 MG PO STA (22:30)
[2018-02-18 05:25] LABS: INR 1.18 (0.77-1.02)
[2018-02-18 05:37] LABS: EGFR Non-African American 114.3 (>60)
[2018-02-18] MEDS: Polyethylene Glycol 3350* 17 GM PACKET PO SCH ×2 (09:35→10:07)
[2018-02-18] MEDS: Valsartan TAB* 40 MG PO SCH (09:36)
[2018-02-18] MEDS: Metoprolol Succinate XL TAB* 25 MG PO SCH ×2 (09:36→22:21)
[2018-02-18] MEDS: Potassium Chlor TAB* 10 MEQ TAB.ER PO SCH (09:37)
[2018-02-18] MEDS: Lisinopril TAB* 5 MG PO SCH (09:37)
[2018-02-18] MEDS: Furosemide TAB* 40 MG PO SCH (09:37)
[2018-02-18] MEDS: Atorvastatin* 40 MG TAB PO SCH (09:37)
[2018-02-18] MEDS: Docusate CAP* 100 MG PO SCH ×2 (09:38→22:21)
[2018-02-18] MEDS: Multivitamins/Minerals TAB PO SCH (09:38)
[2018-02-18] MEDS ORDERED: Furosemide IV* 10 MG/ML 2 ML VIAL (20 MG) IV ONE (16:58)
[2018-02-18] MEDS ORDERED: Warfarin TAB(*) 4 MG PO SCH (17:00)
[2018-02-18] MEDS: Warfarin TAB(*) 4 MG PO SCH (17:48)
[2018-02-18] MEDS: Acetaminophen TAB* 325 MG PO PRN (22:21)
--- NOTE | 2018-02-18 22:36 | PN ---
Subjective Date of Service: 02/18/18 Interval History: no complaints , resting in bed. Patient walked with PT today, did have some shortness of breath with ambulation, Currently denies shortness of breath or chest pain. Denies any abd pain. denies nausea or vomiting. Family History: Unchanged from Admission Social History: Unchanged from Admission Past Medical History: Unchanged from Admission Objective Active Medications: Acetaminophen (Tylenol Tab*) 650 mg PO Q4H PRN PRN Reason: FEVER/PAIN Last Admin: 02/18/18 22:21 Dose: 650 mg Atorvastatin Calcium (Lipitor*) 40 mg PO DAILY [facility] Last Admin: 02/18/18 09:37 Dose: 40 mg Docusate Sodium (Colace Cap*) 100 mg PO BID [facility] Last Admin: 02/18/18 22:21 Dose: 100 mg Furosemide (Lasix Tab*) 40 mg PO DAILY [facility] Last Admin: 02/18/18 09:37 Dose: 40 mg Lisinopril (Prinivil Tab*) 5 mg PO DAILY [facility] Last Admin: 02/18/18 09:37 Dose: 5 mg Magnesium Hydroxide (Milk Of MagnNew [employer] Liq*) 30 ml PO Q6H PRN PRN Reason: CONSTIPATION Last Admin: 02/17/18 16:55 Dose: 30 ml Metoprolol Succinate (Toprol Xl Tab*) 25 mg PO BID [facility] Last Admin: 02/18/18 22:21 Dose: 25 mg Multivitamins/Minerals (Theragran/Minerals Tab*) 1 tab PO DAILY [facility] Last Admin: 02/18/18 09:38 Dose: 1 tab Oxycodone/Acetaminophen (Percocet 5/325 Tab*) 1 tab PO Q4H PRN PRN Reason: PAIN Polyethylene Glycol/Electrolytes (Miralax*) 17 gm PO DAILY [facility] Last Admin: 02/18/18 10:07 Dose: Not Given Potassium Chloride (Klor Con Er Tab*) 20 meq PO DAILY [facility] Last Admin: 02/18/18 09:37 Dose: 20 meq Valsartan (Diovan Tab*) 40 mg PO DAILY [facility] Last Admin: 02/18/18 09:36 Dose: 40 mg Warfarin Sodium (Coumadin Tab(*)) 12 mg PO DAILY@1700 [facility] PRN Reason: Protocol Last Admin: 02/18/18 17:48 Dose: 12 mg Vital Signs - 8 hr 02/18/18 02/18/18 02/18/18 15:38 17:00 20:10 Temperature 97.2 F 97.5 F Pulse Rate 57 64 Respiratory 24 20 Rate Blood Pressure 143/70 112/54 (mmHg) O2 Sat by Pulse 94 94 98 Oximetry Oxygen Devices in Use Now: Nasal Cannula Appearance: alert to verbal , resting in bed, no complaints . Ears/Nose/Mouth/Throat: Clear Oropharnyx, Mucous Membranes Moist Neck: NL Appearance and Movements; NL JVP, Trachea Midline Respiratory: Symmetrical Chest Expansion and Respiratory Effort, - - crackles in the left base Cardiovascular: - - mild edema to lower legs. Abdominal: NL Sounds; No Tenderness; No Distention Extremities: No Clubbing, Cyanosis Skin: No Rash or Ulcers Neurological: Alert and Oriented x 3 Nutrition: Taking PO's Result Diagrams: 02/14/18 10:47 02/18/18 04:58 Microbiology and Other Data: Microbiology 02/10/18 16:25 Nasal Screen MRSA (PCR)(IRINEO) - Final Nasal Mrsa Not Detected Diagnostic Imaging: REPEAT FOCUSED ECHO 02/14/18: Pericardium: There is no significant pericardial effusion. A left pleural effusion is present. Conclusions focused study to evaluate for pericardial effusion. There is global hypokinesis of the left ventricle with minor regional variation. There is severely decreased left ventricular systolic function. The estimated ejection fraction is 20-25%. There is septal flattening of the interventricular septum consistent with right ventricular volume or pressure overload. The right ventricle is moderately dilated. The right ventricular global systolic function is mildly to moderately reduced. There is no significant pericardial effusion. A left pleural effusion is present. A pacemaker wire is visualized in the right ventricle. It appears to insert into the RVOT c/w the operative report. Similar to 02/11/18 except for the new pacemaker lead. Assess/Plan/Problems-Billing Assessment: This is an 87 year old female patient with complaint of syncope, found to have cardiac rhythm changes and profound bradycardia with underlying afib/flutter, s/ p pacemaker insertion, on 02/13/18 - Patient Problems (1) Bradycardia Current Visit: Yes Status: Acute Code(s): R00.1 - BRADYCARDIA, UNSPECIFIED SNOMED Code(s): 10184031 Comment: - Stable. resolved with PM insertion - denies dizziness or weakness (2) Syncope and collapse Current Visit: Yes Status: Acute Code(s): R55 - SYNCOPE AND COLLAPSE SNOMED Code(s): 769501391 Comment: - Likely etiology is profound bradycardia with chronic atrial fibrillation - PM insertion with Dr. Dawkins 02/13/18 - ECHO unchanged no pericardidal effusion, EF 20-25%- patient with some arrthymias BB increased and TRACY added - Continue tele (3) Atrial fibrillation Current Visit: Yes Status: Acute Code(s): I48.91 - UNSPECIFIED ATRIAL FIBRILLATION SNOMED Code(s): 61038547 Comment: - Chronic, no RVR - will give coumadin 12 mg po today- contact primary care providers office to confirm that she routinely takes 12 mg of coumadin at home. Dose was comfirmed INR today 1.18 (4) Essential tremor Current Visit: Yes Status: Acute Code(s): G25.0 - ESSENTIAL TREMOR SNOMED Code(s): 820609394 Comment: - At baseline, continue primidone (5) Shortness of breath on exertion Current Visit: Yes Status: Acute Code(s): R06.02 - SHORTNESS OF BREATH SNOMED Code(s): 70664852 Comment: - suspect this is related to left pleural effusion and poor EF of 20 to 25% - did have some shortness of breath when ambulating, -lungs with crackes in the left base. -BNP repeat in the AM elevated - will give an additional 20 mg lasix IV today and continue lasix 40 mg. - will repeat BMP and BNP in AM (6) Ventricular ectopic activity Current Visit: Yes Status: Acute Code(s): I49.3 - VENTRICULAR PREMATURE DEPOLARIZATION SNOMED Code(s): 58601230 Comment: continue to have some v-tach -betablocker increased and TRACY added as per cardiology recommendations (7) DVT prophylaxis Current Visit: Yes Status: Acute Code(s): EPC5614 - SNOMED Code(s): 386878479 Comment: - Restart coumadin, SCDs while in bed - will repeat INR today and dose coumadin as appropriate (8) Full code status Current Visit: Yes Status: Acute Code(s): Z78.9 - OTHER SPECIFIED HEALTH STATUS SNOMED Code(s): 386965850 Status and Disposition: Remain inpatient, PT eval today, will likely need rehab.- referral to [facility] [email or web address]]
[2018-02-19] MEDS: Polyethylene Glycol 3350* 17 GM PACKET PO SCH (08:31)
[2018-02-19] MEDS: Docusate CAP* 100 MG PO SCH ×2 (08:31→20:38)
[2018-02-19] MEDS: Metoprolol Succinate XL TAB* 25 MG PO SCH ×2 (08:40→20:39)
[2018-02-19] MEDS: Multivitamins/Minerals TAB PO SCH (08:40)
[2018-02-19] MEDS: Valsartan TAB* 40 MG PO SCH (08:41)
[2018-02-19] MEDS: Lisinopril TAB* 5 MG PO SCH (08:41)
[2018-02-19] MEDS: Furosemide TAB* 40 MG PO SCH (08:41)
[2018-02-19] MEDS: Potassium Chlor TAB* 10 MEQ TAB.ER PO SCH (08:41)
[2018-02-19] MEDS: Atorvastatin* 40 MG TAB PO SCH (08:41)
--- NOTE | 2018-02-19 10:37 | PN ---
Subjective Date of Service: 02/19/18 Interval History: offers no complaints today, Denies chest pain or shortness of breath. Denies abd pain. n/v/d. Denies dizziness or lightheadedness Family History: Unchanged from Admission Social History: Unchanged from Admission Past Medical History: Unchanged from Admission Objective Active Medications: Acetaminophen (Tylenol Tab*) 650 mg PO Q4H PRN PRN Reason: FEVER/PAIN Last Admin: 02/18/18 22:21 Dose: 650 mg Atorvastatin Calcium (Lipitor*) 40 mg PO DAILY [facility] Last Admin: 02/19/18 08:41 Dose: 40 mg Docusate Sodium (Colace Cap*) 100 mg PO BID [facility] Last Admin: 02/19/18 08:31 Dose: Not Given Furosemide (Lasix Tab*) 40 mg PO DAILY [facility] Last Admin: 02/19/18 08:41 Dose: 40 mg Lisinopril (Prinivil Tab*) 5 mg PO DAILY [facility] Last Admin: 02/19/18 08:41 Dose: 5 mg Magnesium Hydroxide (Milk Of Magnmichael Liq*) 30 ml PO Q6H PRN PRN Reason: CONSTIPATION Last Admin: 02/17/18 16:55 Dose: 30 ml Metoprolol Succinate (Toprol Xl Tab*) 25 mg PO BID [facility] Last Admin: 02/19/18 08:40 Dose: 25 mg Multivitamins/Minerals (Theragran/Minerals Tab*) 1 tab PO DAILY [facility] Last Admin: 02/19/18 08:40 Dose: 1 tab Oxycodone/Acetaminophen (Percocet 5/325 Tab*) 1 tab PO Q4H PRN PRN Reason: PAIN Polyethylene Glycol/Electrolytes (Miralax*) 17 gm PO DAILY [facility] Last Admin: 02/19/18 08:31 Dose: Not Given Potassium Chloride (Klor Con Er Tab*) 20 meq PO DAILY [facility] Last Admin: 02/19/18 08:41 Dose: 20 meq Valsartan (Diovan Tab*) 40 mg PO DAILY [facility] Last Admin: 02/19/18 08:41 Dose: 40 mg Warfarin Sodium (Coumadin Tab(*)) 12 mg PO DAILY@1700 [facility] PRN Reason: Protocol Last Admin: 02/18/18 17:48 Dose: 12 mg Vital Signs - 8 hr 02/19/18 02/19/18 02/19/18 04:14 05:00 08:00 Temperature 98.3 F Pulse Rate 60 Respiratory 16 18 Rate Blood Pressure 122/63 (mmHg) O2 Sat by Pulse 99 99 Oximetry 02/19/18 08:05 Temperature 98.6 F Pulse Rate 61 Respiratory 16 Rate Blood Pressure 128/68 (mmHg) O2 Sat by Pulse 97 Oximetry Oxygen Devices in Use Now: Nasal Cannula Appearance: alert, sitting in the bed,appears comfortable Eyes: No Scleral Icterus Ears/Nose/Mouth/Throat: Clear Oropharnyx, Mucous Membranes Moist Neck: NL Appearance and Movements; NL JVP, Trachea Midline Respiratory: Symmetrical Chest Expansion and Respiratory Effort, Clear to Auscultation Cardiovascular: NL Sounds; No Murmurs; No JVD Abdominal: NL Sounds; No Tenderness; No Distention Extremities: No Clubbing, Cyanosis, - - mild lower ext edema Skin: No Rash or Ulcers Neurological: Alert and Oriented x 3 Nutrition: Taking PO's Result Diagrams: 02/14/18 10:47 02/20/18 05:36 Microbiology and Other Data: Microbiology 02/10/18 16:25 Nasal Screen MRSA (PCR)(IRINEO) - Final Nasal Mrsa Not Detected Diagnostic Imaging: REPEAT FOCUSED ECHO 02/14/18: Pericardium: There is no significant pericardial effusion. A left pleural effusion is present. Conclusions focused study to evaluate for pericardial effusion. There is global hypokinesis of the left ventricle with minor regional variation. There is severely decreased left ventricular systolic function. The estimated ejection fraction is 20-25%. There is septal flattening of the interventricular septum consistent with right ventricular volume or pressure overload. The right ventricle is moderately dilated. The right ventricular global systolic function is mildly to moderately reduced. There is no significant pericardial effusion. A left pleural effusion is present. A pacemaker wire is visualized in the right ventricle. It appears to insert into the RVOT c/w the operative report. Similar to 02/11/18 except for the new pacemaker lead. Assess/Plan/Problems-Billing Assessment: This is an 87 year old female patient with complaint of syncope, found to have cardiac rhythm changes and profound bradycardia with underlying afib/flutter, s/ p pacemaker insertion, on 02/13/18 - Patient Problems (1) Bradycardia Current Visit: Yes Status: Acute Code(s): R00.1 - BRADYCARDIA, UNSPECIFIED SNOMED Code(s): 33175101 Comment: - Stable. resolved with PM insertion - denies dizziness or weakness - site healing well, layne are intact- no drainage or redness, ecchymosis noted around the insertion site but improving. (2) Syncope and collapse Current Visit: Yes Status: Acute Code(s): R55 - SYNCOPE AND COLLAPSE SNOMED Code(s): 521589653 Comment: - Likely etiology is profound bradycardia with chronic atrial fibrillation - PM insertion with Dr. Dawkins 02/13/18 - ECHO unchanged no pericardidal effusion, EF 20-25%- patient with some arrthymias BB increased and TRACY added- ectopy improved- NO VT since medication changes - Continue tele (3) Atrial fibrillation Current Visit: Yes Status: Acute Code(s): I48.91 - UNSPECIFIED ATRIAL FIBRILLATION SNOMED Code(s): 05015632 Comment: - Chronic, no RVR - will give coumadin 12 mg po today- contact primary care providers office to confirm that she routinely takes 12 mg of coumadin at home. Dose was comfirmed INR today 2.15 (4) Essential tremor Current Visit: Yes Status: Acute Code(s): G25.0 - ESSENTIAL TREMOR SNOMED Code(s): 563099811 Comment: - At baseline, continue primidone (5) Shortness of breath on exertion Current Visit: Yes Status: Acute Code(s): R06.02 - SHORTNESS OF BREATH SNOMED Code(s): 49344950 Comment: - suspect this is related to left pleural effusion and poor EF of 20 to 25% - did have some shortness of breath when ambulating, -lungs with crackes in the left base. -BNP repeat in the AM elevated - will give an additional 20 mg lasix IV today and continue lasix 40 mg. - will repeat BMP and BNP in AM (6) Ventricular ectopic activity Current Visit: Yes Status: Acute Code(s): I49.3 - VENTRICULAR PREMATURE DEPOLARIZATION SNOMED Code(s): 46348637 Comment: continue to have some v-tach -betablocker increased and TRACY added as per cardiology recommendations (7) DVT prophylaxis Current Visit: Yes Status: Acute Code(s): IIN8238 - SNOMED Code(s): 237054615 Comment: - Coumain - will repeat INR today and dose coumadin as appropriate (8) Full code status Current Visit: Yes Status: Acute Code(s): Z78.9 - OTHER SPECIFIED HEALTH STATUS SNOMED Code(s): 299403605 Status and Disposition: Remain inpatient, PT eval today, will likely need rehab.- referral to [facility]
[2018-02-19] MEDS ORDERED: Furosemide IV* 10 MG/ML 2 ML VIAL (20 MG) IV ONE (17:01)
[2018-02-19 18:17] LABS: INR 2.15 (0.77-1.02)
[2018-02-19] MEDS: Warfarin TAB(*) 4 MG PO SCH (18:57)
[2018-02-20 06:18] LABS: INR 2.5 (0.77-1.02)
[2018-02-20 06:23] LABS: EGFR Non-African American 104.8 (>60)
[2018-02-20] MEDS: Polyethylene Glycol 3350* 17 GM PACKET PO SCH (09:36)
[2018-02-20] MEDS: Metoprolol Succinate XL TAB* 25 MG PO SCH (09:36)
[2018-02-20] MEDS: Atorvastatin* 40 MG TAB PO SCH (09:36)
[2018-02-20] MEDS: Valsartan TAB* 40 MG PO SCH (09:36)
[2018-02-20] MEDS: Multivitamins/Minerals TAB PO SCH (09:37)
[2018-02-20] MEDS: Lisinopril TAB* 5 MG PO SCH (09:37)
[2018-02-20] MEDS: Docusate CAP* 100 MG PO SCH (09:37)
[2018-02-20] MEDS: Furosemide TAB* 40 MG PO SCH (09:38)
[2018-02-20] MEDS: Potassium Chlor TAB* 10 MEQ TAB.ER PO SCH (09:38)
[2018-02-20] MEDS: Acetaminophen TAB* 325 MG PO PRN (09:44)
--- NOTE | 2018-02-20 11:15 | PN ---
Cardiology Progress Note Date of Service: 02/20/18 - CC: s/p pacer implant No c/o from patient today. No pain or discomfort at pacer site, no SOB. Pacer incision examined, nominal ecchymosis, no hematoma, no infection. Stable removed with asceptic technique without complications. Bathing instructions provided verbally to the patient, OK to shower and clean the incision with soap and water, pat dry after shower. Follow up with Dr Dawkins in 3-5 weeks for pacer interogation.
--- NOTE | 2018-02-20 13:33 | DS ---
DATE OF ADMISSION: 02/11/2018. DATE OF DISCHARGE: 02/20/2018. ATTENDING PHYSICIAN: Dr. Yadira Dillard* (dictated by Jess Ch NP). PRIMARY CARE PROVIDER: Lizette Lunsford NP. PRIMARY DIAGNOSES: 1. Bradycardia, pacemaker insertion. 2. Syncope. SECONDARY DIAGNOSES: 1. A-fib. 2. Essential tremor. STUDIES COMPLETED WHILE IN THE HOSPITAL: 1. She had a CT of the brain on 02/10/2018 which showed no acute intracranial pathology, chronic small vessel ischemic changes. 2. She had a chest x-ray on 02/10/2018 as well as 02/13 and 02/14/2018. Her last chest x-ray was on 02/14/2018 which showed: (1) Cardiomegaly with pulmonary interstitial edema. (2) Small bilateral pleural effusions. (3) Bibasilar atelectasis versus consolidation. 3. She had a transthoracic echocardiogram on 02/10/2018 and it was repeated on 02/14/2018. Report from 02/14/2018: This was a limited study to evaluate the LV function. Conclusion: Global hypokinesis of the left ventricle with minor regional variation. There is severely decreased left ventricular systolic function. The estimated ejection fraction is 20 to 25 percent. There is septal flattening of the interventricular septum consistent with right ventricular volume or pressure overload. The right ventricle is moderately dilated. The right ventricular global systolic function is mildly to moderately reduced. There is no significant pericardial effusion. A left pleural effusion is present. A pacemaker wire is visualized in the right ventricle. It appears to insert into the RVOT consistent with the operative report. There is moderate mitral regurgitation. The is moderate tricuspid regurg. There is mild aortic regurgitation. DISCHARGE MEDICATIONS: New medication: 1. Warfarin 6 mg p.o. today. Her dose will need to be adjusted based on her INR. She needs a repeat INR tomorrow. 2. Lisinopril 5 mg p.o. daily. 3. Metoprolol 25 mg p.o. b.i.d. 4. MiraLax 17 gm p.o. daily. 5. Milk of Magnesia 30 q.6 hours as needed. 6. Furosemide 40 mg p.o. daily. 7. Colace 100 mg p.o. b.i.d. Continued home medications: 1. Atorvastatin 40 mg p.o. daily. 2. Valsartan 40 mg p.o. daily. 3. Potassium 20 mEq p.o. daily. 4. Multivitamin one tablet p.o. daily. 5. Primidone 150 mg p.o. daily. HISTORY OF PRESENT ILLNESS AND HOSPITAL COURSE: Ms. Ramos is an 87-year-old female with a past medical history significant for atrial fibrillation and essential tremors who presented to the emergency room after falling overnight and being on the floor for three to four hours. Ms. Ramos states that she was in her usual state of health when she went to bed last night. Denies any fever, chills, chest pain, cough, shortness of breath, nausea, vomiting, or any urinary symptoms. She states that overnight she got up to the use the bathroom, felt dizzy, and fell. The patient then proceeded to lie on the floor for three to four hours before her found her, and afterwards they decided to bring her to the emergency room for further evaluation on 02/10/2018. While in the emergency room, the patient had an EKG showing Aflutter in the rate of 60s, chest x-ray showing cardiomegaly and pulmonary edema. She had a CT as noted above. Her urinalysis was unremarkable. During her hospitalization , she was seen by Cardiology and evaluated and deemed necessary to have pacemaker insertion. During this hospitalization, she undergo a pacemaker insertion and tolerated the procedure well. She is doing well postoperatively. Her layne were removed from her left chest on 02/20/2018, status post pacemaker insertion. The site is without redness, there is a small amount of ecchymosis around the insertion site that is healing. The patient continues to have some weakness with ambulation and therefore is going to short-term rehab to regain strength with physical therapy. At this time, Ms. Ramos is stable for discharge to [facility] for short-term rehab. Ms. Ramos will go to [facility] in [place] for short-term rehab. Vital signs are as follows: Blood pressure 142/51, heart rate 58, respirations 24, O2 saturation 91 percent on room air, temperature 98.1. DISCHARGE PLAN: Ms. Ramos will be discharged to [facility] in [place]. Activity as per Physical Therapy. 1. Syncope: I suspect this is related to her profound bradycardia that she had on admission to the hospital with a heart rate in the 30s and 40s. She has since undergone pacemaker insertion and has had this corrected. She has had no further symptoms of lightheadedness or feeling dizzy since the pacemaker insertion, so this is resolved at this time. 2. Bradycardia: She had a pacemaker inserted and this has resolved. 3. Hypertension: She should continue Lisinopril 5 mg p.o. daily for the hypertension. 4. Atrial fibrillation: She should continue Metoprolol 50 mg p.o. daily and Valsartan 40 mg p.o. daily. 5. Congestive heart failure: She should continue Lasix 40 mg p.o. daily. Her average weight at home is 135. Her weight today was 143.6. I would continue her on 40 Lasix p.o. daily and monitor that. Her home dose of Lasix is 20 mg p.o. daily. 6. As for her Coumadin anticoagulation, she should have Coumadin 6 mg p.o. today. She should have a repeat INR tomorrow and dose her Coumadin based on her INR. Ms. Ramos was taking 12 mg of Coumadin p.o. daily at home prior to admission. She was given two doses of 12 mg of Coumadin the 17th and the 18th and her INR this morning was 2.50. It essentially doubled. I suspect that 12 mg will be too much anticoagulation for her, so I have decreased her dose to 6 mg today. Further dosing should be dependent on her INR. FOLLOW-UP: She should follow-up with Dr. Dawkins in three to four weeks for a pacemaker interrogation. She should follow-up with her primary care provider in four to seven days. She should return to the emergency room for any increased shortness of breath, chest pain, or any other concerning symptoms. This is a summarization of her complex hospitalization. For further details, please see the entire medical record. TIME SPENT: Time spent on this discharge was approximately 60 minutes, greater than half that time was spent with the patient discussing discharge plans and instructions. CONDITION ON DISCHARGE: Stable. I have discussed this plan with my attending, Dr. Yadira Dillard, and she is in agreement with my plan. JESS CH, PROJECTOR OPERATOR [id number]/[facility] #: [id number] CHANTE
[2018-02-20 15:02] VITALS: BP 111/66
[2018-02-20] MEDS ORDERED: Warfarin TAB(*) 6 MG PO ONE (17:00)
== END 2018-02-20 16:37 | DRG 243 ==
LOC: ED 13:25 → MEDTELE 15:52 → OBSVTOIN 02-11 12:00
PROVIDERS: ADMIT Hospitalist; ATTEND Internal Medicine
PROC: 02HK3JZ Insertion of Pacemaker Lead into Right Ventricle, Percutaneous Approach (ICD-10-PCS; 2018-02-13)
PROC: 0JH604Z Insertion of Pacemaker, Single Chamber into Chest Subcutaneous Tissue and Fascia, Open Approach (ICD-10-PCS; principal; 2018-02-13 14:00)
DX: R00.1 Bradycardia, unspecified (principal); J90 Pleural effusion, not elsewhere classified; E87.2 Acidosis; J98.11 Atelectasis; I42.9 Cardiomyopathy, unspecified; R55 Syncope and collapse; G25.0 Essential tremor; R58 Hemorrhage, not elsewhere classified; I49.3 Ventricular premature depolarization; I47.2 Ventricular tachycardia; I48.2 Chronic atrial fibrillation; I11.0 Hypertensive heart disease with heart failure; I50.9 Heart failure, unspecified; R74.8 Abnormal levels of other serum enzymes; R51 Headache; E83.42 Hypomagnesemia; S06.0X0A Concussion without loss of consciousness, initial encounter; W18.30XA Fall on same level, unspecified, initial encounter; W19.XXXA Unspecified fall, initial encounter; I08.3 Combined rheumatic disorders of mitral, aortic and tricuspid valves; I48.92 Unspecified atrial flutter; H26.9 Unspecified cataract; Z79.01 Long term (current) use of anticoagulants; I25.2 Old myocardial infarction; Z97.4 Presence of external hearing-aid; Z82.5 Family history of asthma and other chronic lower respiratory diseases; Z72.89 Other problems related to lifestyle; Y92.009 Unspecified place in unspecified non-institutional (private) residence as the place of occurrence of the external cause; Z82.49 Family history of ischemic heart disease and other diseases of the circulatory system
CPT/HCPCS: 33207; 36415; 36600; 70450; 71045; 71046; 80048; 80053; 80061; 80307; 80320; 80329; 81003; 81015; 82140; 82550; 82803; 83605; 83735; 83880; 84443; 84484; 85025; 85610; 86850; 86900; 86901; 87040; 87641; 93005; 93306; 94760; 99156; 99157; 99284; A9270-GY; C1786; C1898; G0480; G8978-GP-CJ; G8978-GP-CK; G8978-GP-CN; G8979-GP-CI; G8979-GP-CM; G8987-GO-CL; G8988-GO-CI; J0456; J0690; J0696; J1650; J1940; J2250; J3010; J3475; Q9967

== ENCOUNTER 2018-09-30 19:39 | Inpatient (IN) | payer MEDICARE, BC ==
[2018-09-30 20:29] LABS: ABS Basophils 0 10^3/ul (0-0.2); ABS Eosinophils 0.1 10^3/ul (0-0.6); ABS Lymphocytes 1.1 10^3/ul (1.0-4.8); ABS Monocytes 0.7 10^3/ul (0-0.8); ABS Neutrophils 2.8 10^3/ul (1.5-7.7); ABS Nucleated RBC 0 10^3/ul; Eosinophil % 1.4 %; Hematocrit 38 % (35-47); Hemoglobin 12.7 g/dl (12.0-16.0); Lymphocyte % 23.3 %; Mean Corpuscular HGB Conc 34 g/dl (31-36); Mean Corpuscular Hemoglobin 33 pg (27-31); Mean Corpuscular Volume 99 fL (80-97); Mean Platelet Volume 7.6 fL (7.4-10.4); Nucleated Red Blood Cells % 0.1; Platelet Count 173 10^3/ul (150-450); Red Blood Count 3.82 10^6/ul (4.00-5.40); Red Cell Distribution Width 15 % (10.5-15); White Blood Count 4.7 10^3/ul (3.5-10.8)
[2018-09-30 20:38] LABS: INR 1.73 (0.77-1.02)
[2018-09-30 20:45] LABS: EGFR Non-African American 77.9 (>60)
[2018-09-30] MEDS ORDERED: Ondansetron INJ* 2 MG/ML VIAL IV ONE (20:49)
[2018-09-30] MEDS ORDERED: Morphine VIAL* 10 MG/ML 1 ML VIAL IV ONE (20:49)
[2018-09-30] MEDS ORDERED: Morphine VIAL* 4 MG/ML VIAL (1 ml vial) ONE (20:59)
[2018-09-30] MEDS ORDERED: Morphine VIAL* 4 MG/ML VIAL (1 ml vial) IV ONE (21:02)
--- NOTE | 2018-09-30 21:50 | ED ---
Lower Extremity - HPI Summary HPI Summary: She complains of fall this evening with right hip pain. Patient has not been ambulatory since. Denies any other pain, injury, symptoms. Pain rated at 5/ 10. Medical history includes A. fib, CHF, CAD, stroke, pacemaker. Patient on Coumadin. - History of Current Complaint Chief Complaint: EDHipPelvisInjury Stated Complaint: RIGHT HIP PAIN Time Seen by Provider: 09/30/18 19:49 Hx Obtained From: Patient Mechanism Of Injury: Fall From A Standing Position Onset of Pain: Immediate Onset/Duration: Hours Severity Initially: Moderate Severity Currently: Moderate Pain Intensity: 5 Pain Scale Used: 0-10 Numeric Timing: Constant Location: Is Discrete @ Character Of Pain: Aching, Throbbing Associated Signs And Symptoms: Positive: Negative Aggravating Factor(s): Movement Alleviating Factor(s): Rest - Allergies/Home Medications Allergies/Adverse Reactions: Allergies Allergy/AdvReac Type Severity Reaction Status Date / Time No Known Allergies Allergy Verified 02/06/15 11:14 Home Medications: Home Medications Metoprolol Succinate XL TAB* [Toprol XL TAB*] 50 mg PO DAILY 09/30/18 [History Confirmed 09/30/18] Warfarin TAB(*) [Coumadin TAB(*)] 8 mg PO SEE INSTRUCTIONS 09/30/18 [History Confirmed 09/30/18] PMH/Surg Hx/FS Hx/Imm Hx Endocrine/Hematology History: Reports: Hx Anticoagulant Therapy Denies: Hx Diabetes, Hx Thyroid Disease Cardiovascular History: Reports: Hx Atrial Fibrillation, Hx Congestive Heart Failure, Other Cardiovascular Problems/Disorders - CARIOMEGALY Denies: Hx Hypertension, Hx Pacemaker/ICD History: Reports: Other Problems/Disorders - stress Incontinence Musculoskeletal History: Reports: Hx Orthopedic Injury - Rt knee replacement Sensory History: Reports: Hx Cataracts, Hx Contacts or Glasses, Hx Hearing Aid - TOLD TO REMOVE WHEN GOES IN MRI, Hx Hearing Problem Denies: Hx Eye Prosthesis, Hx Legally Blind, Hx Vision Problem, Hx Deafness Opthamlomology History: Reports: Hx Cataracts, Hx Contacts or Glasses Denies: Hx Eye Prosthesis, Hx Legally Blind, Hx Vision Problem Neurological History: Reports: Other Neuro Impairments/Disorders - ESSENTIAL TREMORS Denies: Hx Dementia, Hx Developmental Delay, Hx Headaches, Hx Migraine, Hx Nerve Disease, Hx Seizures, Hx Spinal Cord Injury, Hx Transient Ischemic Attacks (TIA) Psychiatric History: Denies: Hx Panic Disorder, Hx Schizophrenia, Hx Suicide Attempt, Hx of Violent Episodes Against Others - Cancer History Hx Chemotherapy: No Hx Radiation Therapy: No - Surgical History Surgery Procedure, Year, and Place: 1936 TONSILECTOMY [facility]. 1967 SAL VASCULAR SURGERY [facility]. 1983 R KNEE REMOVED CARTILEDGE [facility]. Hx Anesthesia Reactions: No Infectious Disease History: No Infectious Disease History: Denies: Hx Clostridium Difficile, Hx Hepatitis, Hx Human Immunodeficiency Virus (HIV), Hx of Known/Suspected MRSA, Hx Shingles, Hx Tuberculosis, Traveled Outside the in Last 30 Days - Family History Known Family History: Positive: Cardiac Disease - Father: CHF, Respiratory Disease - Father: COPD - Social History Alcohol Use: Daily Alcohol Amount: 2 drinks Substance Use Type: Reports: None Smoking Status (MU): Never Smoked Tobacco Review of Systems Constitutional: Negative Eyes: Negative ENT: Negative Cardiovascular: Negative Respiratory: Negative Gastrointestinal: Negative Genitourinary: Negative Positive: Arthralgia Skin: Negative Neurological: Negative Psychological: Normal All Other Systems Reviewed And Are Negative: Yes Physical Exam - Summary Physical Exam Summary: Swelling to right hip. No evidence of ecchymosis, erythema, deformity at right hip. PMS intact distally. No pain with palpation of right femur, right knee, right ankle. No evidence of other trauma, injury. Triage Information Reviewed: Yes Vital Signs On Initial Exam: Initial Vitals Temp Pulse Resp BP Pulse Ox 98.8 F 60 18 146/81 96 09/30/18 19:43 09/30/18 19:43 09/30/18 19:43 09/30/18 19:43 09/30/18 19:43 Vital Signs Reviewed: Yes Appearance: Positive: Well-Appearing Skin: Positive: Warm Head/Face: Positive: Normal Head/Face Inspection Eyes: Positive: Normal Neck: Positive: Supple Respiratory/Lung Sounds: Positive: Clear to Auscultation Cardiovascular: Positive: Normal Abdomen Description: Positive: Nontender Musculoskeletal: Positive: Normal Neurological: Positive: Normal Psychiatric: Positive: Normal AVPU Assessment: Alert - [place] Coma Scale Best Eye Response: 4 - Spontaneous Best Motor Response: 6 - Obeys Commands Best Verbal Response: 5 - Oriented Coma Scale Total: 15 Diagnostics - Vital Signs Vital Signs Temp Pulse Resp BP Pulse Ox 09/30/18 21:02 18 09/30/18 19:43 98.8 F 60 18 146/81 96 - Laboratory Lab Results: Lab Results 09/30/18 09/30/18 09/30/18 Range/Units 20:20 20:20 20:20 WBC 4.7 (3.5-10.8) 10^3/ul RBC 3.82 L (4.00-5.40) 10^6/ul Hgb 12.7 (12.0-16.0) g/dl Hct 38 (35-47) % MCV 99 H (80-97) fL MCH 33 H (27-31) pg MCHC 34 (31-36) g/dl RDW 15 (10.5-15) % Plt Count 173 (150-450) 10^3/ul MPV 7.6 (7.4-10.4) fL Neut % (Auto) 59.9 % Lymph % (Auto) 23.3 % [place] % (Auto) 14.9 % Eos % (Auto) 1.4 % Baso % (Auto) 0.5 % Absolute Neuts (auto) 2.8 (1.5-7.7) 10^3/ul Absolute Lymphs (auto) 1.1 (1.0-4.8) 10^3/ul Absolute Monos (auto) 0.7 (0-0.8) 10^3/ul Absolute Eos (auto) 0.1 (0-0.6) 10^3/ul Absolute Basos (auto) 0 (0-0.2) 10^3/ul Absolute Nucleated RBC 0 10^3/ul Nucleated RBC % 0.1 INR (Anticoag Therapy) 1.73 H (0.77-1.02) APTT 30.1 (26.0-36.3) seconds Sodium 136 (135-145) mmol/L Potassium 4.7 (3.5-5.0) mmol/L Chloride 102 (101-111) mmol/L Carbon Dioxide 33 H (22-32) mmol/L Anion Gap 1 L (2-11) mmol/L BUN 19 (6-24) mg/dL Creatinine 0.71 (0.51-0.95) mg/dL Est GFR ( Amer) 94.2 (>60) Est GFR (Non-Af Amer) 77.9 (>60) BUN/Creatinine Ratio 26.8 H (8-20) Glucose 153 H (70-100) mg/dL Calcium 9.0 (8.6-10.3) mg/dL Total Bilirubin 0.30 (0.2-1.0) mg/dL AST 33 (13-39) U/L ALT 24 (7-52) U/L Alkaline Phosphatase 74 (34-104) U/L Troponin I 0.08 H* (<0.04) ng/mL C-Reactive Protein 3.13 (<8.01) mg/L Total Protein 6.2 L (6.4-8.9) g/dL Albumin 3.5 (3.2-5.2) g/dL Globulin 2.7 (2-4) g/dL Albumin/Globulin Ratio 1.3 (1-3) Result Diagrams: 09/30/18 20:20 09/30/18 20:20 Lab Statement: Any lab studies that have been ordered have been reviewed, and results considered in the medical decision making process. Lower Extremity Course/Dx - Course Course Of Treatment: She complains of fall this evening with right hip pain. Patient has not been ambulatory since. Denies any other pain, injury, symptoms. Pain rated at 5/10. Medical history includes A. fib, CHF, CAD, stroke, pacemaker. Patient on Coumadin. Physical exam:Swelling to right hip. No evidence of ecchymosis, erythema, deformity at right hip. PMS intact distally. No pain with palpation of right femur, right knee, right ankle. No evidence of other trauma, injury. CT hip positive for protein into trochanteric fracture. Labs are patient baseline. Vital signs within normal limits and stable. Discussed patient with was seen recommended admission to the hospitalist with surgical follow-up tomorrow. - Diagnoses Provider Diagnoses: Closed right hip fracture Discharge - Sign-Out/Discharge Documenting (check all that apply): Patient Departure - Discharge Plan Condition: Stable Disposition: ADMITTED TO [facility] - Billing Disposition and Condition Condition: STABLE Disposition: Admitted to [facility]
[2018-10-01] MEDS ORDERED: Morphine VIAL* 10 MG/ML 1 ML VIAL IV ONE (00:25)
[2018-10-01 01:04] LABS: Urine Appearance Clear; Urine Blood Negative (Negative); Urine Color Yellow; Urine Ketones Negative (Negative); Urine Protein Negative (Negative); Urine Specific Gravity 1.028 (1.010-1.030); Urine Urobilinogen Negative (Negative)
[2018-10-01] MEDS ORDERED: Phytonadione Oral Solution* 5 MG/25 ML UDC PO ONE (01:05)
[2018-10-01] MEDS ORDERED: Acetaminophen TAB* 325 MG PO PRN (01:06)
[2018-10-01] MEDS ORDERED: Ondansetron INJ* 2 MG/ML VIAL IV PRN (01:06)
[2018-10-01] MEDS ORDERED: Morphine VIAL* 4 MG/ML VIAL (1 ml vial) IV PRN (01:06)
[2018-10-01] MEDS ORDERED: Al Hydrox/Mg Hydrox/Simet LIQ* 30 ML UDC PO PRN (01:06)
[2018-10-01] MEDS ORDERED: Heparin VIAL(*) 5000 UNITS/ML VIAL (FIVE THOUSAND) SUBCUT SCH (06:00)
--- NOTE | 2018-10-01 07:28 | PN ---
Progress Note - Progress Note Date of Service: 10/01/18 Note: Pt seen and examined. Discussed with Dr Riley that patient has elevated troponins and will need cards consult and is not cleared.R hip IT fracture. Full note dictated. Plan for IMN of right hip when patient medically cleared by either myself or Dr Yu.
[2018-10-01 08:33] LABS: ABS Basophils 0 10^3/ul (0-0.2); ABS Eosinophils 0 10^3/ul (0-0.6); ABS Lymphocytes 0.7 10^3/ul (1.0-4.8); ABS Monocytes 0.8 10^3/ul (0-0.8); ABS Neutrophils 6.7 10^3/ul (1.5-7.7); ABS Nucleated RBC 0 10^3/ul; Eosinophil % 0.1 %; Hematocrit 36 % (35-47); Hemoglobin 12.3 g/dl (12.0-16.0); Lymphocyte % 8.4 %; Mean Corpuscular HGB Conc 34 g/dl (31-36); Mean Corpuscular Hemoglobin 34 pg (27-31); Mean Corpuscular Volume 99 fL (80-97); Mean Platelet Volume 7.6 fL (7.4-10.4); Nucleated Red Blood Cells % 0; Platelet Count 159 10^3/ul (150-450); Red Blood Count 3.67 10^6/ul (4.00-5.40); Red Cell Distribution Width 15 % (10.5-15); White Blood Count 8.2 10^3/ul (3.5-10.8)
[2018-10-01] MEDS: Primidone TAB(*) 50 MG PO SCH ×3 (08:36→22:31)
[2018-10-01] MEDS: Docusate CAP* 100 MG PO PRN (08:36)
[2018-10-01] MEDS: Atorvastatin* 40 MG TAB PO SCH (08:36)
[2018-10-01] MEDS: Magnesium Oxide TAB* 400 MG PO SCH (08:37)
[2018-10-01] MEDS: Metoprolol Succinate XL TAB* 50 MG PO SCH (08:37)
[2018-10-01] MEDS: Multivitamins/Minerals TAB PO SCH (08:37)
[2018-10-01 08:40] LABS: INR 1.85 (0.77-1.02)
[2018-10-01 08:42] LABS: EGFR Non-African American 116.7 (>60)
--- NOTE | 2018-10-01 09:57 | HP ---
CC: Dr. French Finley HISTORY AND PHYSICAL: DATE OF ADMISSION: 10/01/18 TIME OF EVALUATION: 0100 PRIMARY CARE PHYSICIAN: French Finley MD CHIEF COMPLAINT: Fall and right hip pain. HISTORY OF PRESENT ILLNESS: This is an 88-year-old female who is independent of her ADLs with a past medical history of atrial fibrillation, on anticoagulation. She states she was carrying recycled new spaper out into a different room, there is a spot in the sloan, she tripped and landed on the wood floor on the right side. She denies any presyncopal symptoms. She denies any head injury. No loss of consciousness. Her pain has improved since arrival to the emergency room after getting morphine. She states she had falls earlier this year where she had hit her head, but not this time. When she did fall, she had some bowel incontinence. No chest pain, no shortness of breath. No nausea, vomiti ng, diarrhea and no urinary symptoms. Otherwise, review of systems is negative. In the emergency ro om, the patient had labs, imaging. She was found to have a right intertrochanteric fracture of the f emur. Orthopedics was contacted and Dr. Marion, will see the patient in the morning, and recommended hospitalist admission. PAST MEDICAL HISTORY: 1. History of atrial fibrillation, on anticoagulation, followed by Dr. Dawkins. 2. History of V-tach. 3. History of bradycardia, status post pacemaker. 4. Essential tremor. MEDICATIONS: 1. Magnesium oxide p.o. daily. 2. Metoprolol succinate 50 mg daily. 3. Atorvastatin 40 mg daily. 4. Primidone 150 mg p.o. t.i.d. 5. Coumadin 8 mg 5 days a week and 10 mg 2 days a week. 6. Multivitamin. 7. Calcium 2 tabs daily. 8. Tylenol 650 mg every 4 hours as needed. 9. Potassium chloride 20 mEq daily. 10. Lasix 40 mg daily. 11. Atorvastatin 40 mg daily. ALLERGIES: No known drug allergies. FAMILY HISTORY: Reviewed and noncontributory. SOCIAL HISTORY: The patient lives at home with her Max. She is independent of her ADLs. H er healthcare proxy is her . No history of tobacco. She admits to 1 glass of wine per day. Code status is full code. REVIEW OF SYSTEMS: A 14-point review of systems as mentioned in the HPI; otherwise, negative. PHYSICAL EXAMINATION GENERAL: No acute distress, resting comfortably. VITAL SIGNS: Temp is 98.8, pulse rate 61, respiratory rate 16, oxygen saturation 99% on room air, bl ood pressure 136/68. HEENT: Head normocephalic. Pupils are equal and reactive. Oropharynx: Mucous membranes are moist. NECK: Supple. No lymphadenopathy. RESPIRATORY: Diminished breath sounds. No wheezes, rhonchi, or rales. CARDIAC: Regular rate and rhythm. Systolic murmur most prominent at the left sternal base. ABDOMEN: Soft, nontender, nondistended. EXTREMITIES: The patient with an externally rotated and shortened right lower extremity. +1 pulses. Good cap refill bilaterally. NEUROLOGIC: Alert and oriented x3. No gross focal neurologic deficits. DIAGNOSTIC STUDIES/LAB DATA: White count 4.7, hemoglobin 12.7, hematocrit 38, platelet 173. INR is 1.73. Sodium 136, potassium 4.7, chloride 102, bicarb 33, BUN 19, creatinine 0.71, glucose 153. Tr oponin is 0.08, repeat is 0.10. BNP 457. Radiographic Data: Pelvis CT shows acute traumatic intertrochanteric fracture of the right femur, a leiomyomatous uterus. EKG: Ventricular paced rhythm. ASSESSMENT: This is an 88-year-old female with past medical history of atrial fibrillation, on antic oagulation, who suffered a mechanical fall, found to have a right intertrochanteric fracture. 1. Mechanical fall with right intertrochanteric femur fracture. The patient is subtherapeutic, but with an elevated INR of 1.73, also noted to have a troponin bump, but is asymptomatic. She has had e levated troponins in the past. PLAN: We will give her a dose of vitamin K now and hold her Coumadin. We will continue pain control , bowel regimen, and follow up with Ortho in the morning. I am going to order an echocardiogram and recommend contacting Cardiology for further preop evaluation with her elevated troponin and her histo ry prior to proceeding to surgery. We will hold off on keeping her n.p.o. as she needs to have her I NR normalized. CHRONIC MEDICAL PROBLEMS: 1. History of atrial fibrillation. We will hold her warfarin as mentioned above. Continue her metop rolol and magnesium. We will hold her Lasix and potassium for now. 2. Essential tremor. Continue her primidone. 3. Hyperlipidemia. Continue her Lipitor. 4. FEN: Place the patient on the regular diet for now. 5. DVT prophylaxis: The patient scores high risk. We will place her on heparin subcu t.i.d. since her INR is subtherapeutic and she is getting vitamin K. 6. Code status: Full code. PATIENT TIME: Greater than 50 minutes spent doing the history and physical, more than half the time spent in direct patient contact. [id number]/CPS #: [id number]
--- NOTE | 2018-10-01 10:47 | ECHO ---
Patient: CHELO FERRIS [facility] Rec#: [id number] : 1930 Date: 10/01/2018 Age: 88y Height: 163 cm / 64.2 in Weight: 59 kg / 130.0 lbs Sex: F BSA: 1.63 Room#: [facility] Admit Date#: 10/01/2018 Type: Inpatient Referring: Shira Riley Reading: Holli Yonug MD Curriculum Supervisor: Maya Marshall,RDCS,RDMS CC: French Finley Transthoracic Echocardiogram Indication: ABN EKG BP: 117/53 HR: 60 Rhythm: Paced Findings History: CHF, CAD, CVA, AFIB, pacemaker Technical Comments: The study quality is good. Left Ventricle: The left ventricular chamber size is normal. Moderate concentric left ventricular hypertrophy is observed. There is mild to moderately decreased left ventricular systolic function. The septum and inferior wall appear relatively hypokinetic. The estimated ejection fraction is 45-50%. Abnormal left ventricular diastolic function is observed. Left Atrium: The left atrium is severely dilated. Right Ventricle: The right ventricle is mildly dilated. The right ventricular global systolic function is low normal. A pacemaker wire is visualized in the right ventricle. Right Atrium: The right atrial cavity size is severely dilated. A pacemaker wire is visualized in the right atrium. Aortic Valve: The aortic valve is trileaflet. The aortic valve leaflets are mildly thickened. There is mild aortic regurgitation. There is no evidence of aortic stenosis. Mitral Valve: Mild mitral annular calcification present. The mitral valve leaflets are mildly thickened. There is moderate mitral regurgitation. There is no evidence of mitral stenosis. Tricuspid Valve: The tricuspid valve leaflets are normal. There is mild to moderate tricuspid regurgitation. The right ventricular systolic pressure is estimated at 39 mmHg. There is evidence of mild pulmonary hypertension. Pulmonic Valve: The pulmonic valve appears normal. There is mild pulmonic regurgitation. Pericardium: There is no significant pericardial effusion. Aorta: The aortic root appears normal. There is no dilatation of the aortic arch. Pulmonary Artery: The main pulmonary artery is not well visualized. Venous: The inferior vena cava is dilated. There is an approximate 50% respiratory change in the inferior vena cava dimension. Conclusions Moderate concentric left ventricular hypertrophy is observed. There is mild to moderately decreased left ventricular systolic function. The septum and inferior wall appear relatively hypokinetic. The estimated ejection fraction is 45-50%. Abnormal left ventricular diastolic function is observed. The right ventricular global systolic function is low normal. There is mild aortic regurgitation. There is moderate mitral regurgitation. There is mild to moderate tricuspid regurgitation. There is evidence of mild pulmonary hypertension estimated at 39 mmHg. Rhythm appears ventricularly paced. Compared with prior echos of 02/11/18 and 02/14/18, EF has improved from 20-25%, valve function not significantly changed, PA pressure previously 70 mmHg. Measurements Name Value Normal Range RVIDd (AP) 2D 3.8 cm (0.9 - 2.6) RVDdMajor (2D) 2.7 cm (2.2 - 4.4) RAd ISD 4CH 10 cm (3.4 - 4.9) RA (A4C)W 5.4 cm (2.9 - 4.6) IVSd (2D) 1.4 cm (0.6 - 1) LVPWd (2D) 1.3 cm (0.6 - 1) LVIDd (2D) 5 cm (3.6 - 5.4) LVIDs (2D) 4.1 cm - LV FS (2D) 17 % (25 - 45) Aortic Annulus 2 cm (1.4 - 2.6) Ao root diameter (2D) 3.1 cm (2.1 - 3.5) Ascending Ao 3 cm (2.1 - 3.4) Aortic arch 2.6 cm (1.8 - 3.4) LA dimension (AP) 2D 5.4 cm (2.3 - 3.8) LAd ISD 4CH 9.4 cm (2.9 - 5.3) LA ISD 4CH W 4.6 cm (2.5 - 4.5) Name Value Normal Range LA ESV BP (A/L) index 137 ml/m2 - Name Value Normal Range MV E-wave Vmax 0.9 m/sec - MV deceleration time 224 msec - MV A-wave Vmax 0.3 m/sec - MV E:A ratio 3 ratio - P. vein S-wave Vmax 0.5 m/sec - P. vein D-wave Vmax 0.3 m/sec - P. vein S:D Vmax ratio 1.3 ratio - P. vein A-wave duration 95 msec - LV septal e' Vmax 0.06 m/sec - LV lateral e' Vmax 0.08 m/sec - LV E:e' septal ratio 16 ratio - LV E:e' lateral ratio 11 ratio - Name Value Normal Range AV Vmax 1.6 m/sec - AV VTI 30 cm - AV peak gradient 10 mmHg - AV mean gradient 5 mmHg - LVOT Vmax 1.1 m/sec - LVOT VTI 19 cm - LVOT peak gradient 5 mmHg - LVOT mean gradient 2 mmHg - AR PHT 673 msec - ARAMIS Vmax 1.1 m/sec - Name Value Normal Range TR Vmax 2.8 m/sec - TR peak gradient 31 mmHg - RAP 8 mmHg - RVSP 39 mmHg - IVC diameter 2.9 cm - Name Value Normal Range PV Vmax 1.1 m/sec - PV peak gradient 5 mmHg -
[2018-10-01] MEDS ORDERED: HYDROmorphone INJ1* 1 MG/ML SYRINGE IV SLOW PU PRN (11:02)
[2018-10-01] MEDS ORDERED: Morphine VIAL* 4 MG/ML VIAL (1 ml vial) IV ONE (11:20)
--- NOTE | 2018-10-01 11:20 | CONSULT ---
Subjective Date of Service: 10/01/18 - cardiac risk stratification, elevated troponin Interval History: I had the pleasure seeing Mrs. Chavez today on behalf of . Our service was consult today by Dr. Marion for surgical risk stratification. The patient follows Dr. 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 Patient states she has been in her usual state of health. On 09/30/2018 she suffered a mechanical fall resulting in a right intertrochanteric femur fracture. She denies LOC, hitting head, dizziness, syncope, chest pain, SOB or edema. She states she tripped. She is compliant with medications and is on coumadin with goal INR 2-3 which is managed by PCP. She states she lives an active lifestyle maintaining her home. She is able to go up 14 stairs with no c/o sob or chest pain. While being evaluated she was noted to have troponinemia. She has an echo done 10/01/2018 which revealed LVEF is now 45-50% ( was (20-25% 02/14/2018) We were asked to see the patient for surgical risk stratification. Family History: Unchanged from Admission Social History: Unchanged from Admission - , never used tobacco products , consumes 1-2 glases of wine a day, lives with , denies drug use. Past Medical History: Unchanged from Admission - Symptomatic bradycardia with PPM in situ, CVA 03/2018, AF, NICM, SHF, HTN. Medications Active Medications: Acetaminophen (Tylenol Tab*) 650 mg PO Q4H PRN PRN Reason: FEVER/PAIN Al Hydrox/Mg Hydrox/Simethicone (Maalox Plus*) 30 ml PO Q6H PRN PRN Reason: INDIGESTION Atorvastatin Calcium (Lipitor*) 40 mg PO DAILY [facility] Last Admin: 10/01/18 08:36 Dose: 40 mg Docusate Sodium (Colace Cap*) 100 mg PO BID PRN PRN Reason: CONSTIPATION Last Admin: 10/01/18 08:36 Dose: 100 mg Hydromorphone HCl (Dilaudid Inj*) 1 mg IV SLOW PU Q4H PRN PRN Reason: PAIN Magnesium Oxide (Magox 400 Tab*) 400 mg PO DAILY [facility] Last Admin: 10/01/18 08:37 Dose: 400 mg Metoprolol Succinate (Toprol Xl Tab*) 50 mg PO DAILY [facility] Last Admin: 10/01/18 08:37 Dose: 50 mg Multivitamins/Minerals (Theragran/Minerals Tab*) 1 tab PO DAILY [facility] Last Admin: 10/01/18 08:37 Dose: 1 tab Ondansetron HCl (Zofran Inj*) 4 mg IV Q4H PRN PRN Reason: NAUSEA/VOMITING Primidone (Mysoline Tab(*)) 150 mg PO TID [facility] Last Admin: 10/01/18 08:36 Dose: 150 mg Senna (Senokot Tab*) 1 tab PO BID PRN PRN Reason: CONSTIPATION Home Medications: Calcium Carbonate/Vitamin D3 [Calcium 600-Vit D3 400 Tablet] 2 tab PO DAILY [History Confirmed 09/30/18] Primidone TAB(*) [Mysoline TAB(*)] 150 mg PO TID 01/24/15 [History Confirmed ] Potassium Chlor TAB* [Klor Con ER TAB 10 MEQ*] 20 meq PO DAILY 02/06/15 [ History Confirmed 09/30/18] Atorvastatin* [Lipitor 40 MG*] 40 mg PO DAILY 02/10/18 [History Confirmed ] Multivitamins/Minerals TAB* [Theragran/minerals TAB*] 1 tab PO DAILY 02/10/18 [ History Confirmed 09/30/18] Acetaminophen TAB* [Tylenol TAB*] 650 mg PO Q4H PRN tab 02/20/18 [Rx Confirmed 09/30/18] Furosemide TAB* [Lasix TAB*] 40 mg PO DAILY tab 02/20/18 [Rx Confirmed 09/30/18 ] Magnesium Hydroxide LIQ* [Milk of Magnesia LIQ*] 30 ml PO Q6H PRN udc 02/20/18 [Rx Confirmed 09/30/18] Metoprolol Succinate XL TAB* [Toprol XL TAB*] 50 mg PO DAILY 09/30/18 [History Confirmed 09/30/18] Warfarin TAB(*) [Coumadin TAB(*)] 8 mg PO SEE INSTRUCTIONS 09/30/18 [History Confirmed 09/30/18] Review of Systems - Measurements Intake and Output: Intake and Output Last 24 Hours 09/29/18 09/30/18 10/01/18 10/02/18 06:59 06:59 06:59 06:59 Intake Total 0 Output Total 300 Balance -300 Weight 135 lb Intake: Oral 0 Output: Chou 300 Other: # Bowel Movements 0 - Review of Systems Hematologic/Lymphatic: Positive: Use of Anticoagulant Neurology: Positive: Hx of Stroke\TIA Review of Systems Statement: All other review of systems negative, unless stated above. + right hip pain Objective Vital Signs: Temp Pulse Resp BP Pulse Ox 99.1 F 61 15 117/53 89 10/01/18 07:41 10/01/18 07:41 10/01/18 10:34 10/01/18 07:41 10/01/18 07:41 Oxygen Devices in Use Now: None Eyes: No Scleral Icterus, PERRLA Ears/Nose/Mouth/Throat: NL Teeth, Lips, Gums, Clear Oropharnyx, Mucous Membranes Moist Neck: NL Appearance and Movements; NL JVP, Trachea Midline, No Thyroid Enlargement, Masses Respiratory: Symmetrical Chest Expansion and Respiratory Effort, Clear to Auscultation Cardiovascular: - - Normal S1, S2, RRR, + mitral murmur, no gallop or rub. Abdominal: NL Sounds; No Tenderness; No Distention, No Hepatosplenomegaly Lymphatic: No Cervical Adenopathy Extremities: No Edema, - - 2+ right and left dorsalis pedis pulse palpated. Skin: No Rash or Ulcers Neurological: Alert and Oriented x 3 Lines/Tubes/Other Access: Clean, Dry and Intact Chou, Clean, Dry and Intact Peripheral IV Laboratory Results: 10/01/18 08:02 10/01/18 08:02 INR (Anticoag Therapy) 1.85 (0.77-1.02) H 10/01/18 08:02 APTT 30.1 seconds (26.0-36.3) 09/30/18 20:20 Total Bilirubin 0.30 mg/dL (0.2-1.0) 09/30/18 20:20 AST 33 U/L (13-39) 09/30/18 20:20 ALT 24 U/L (7-52) 09/30/18 20:20 Alkaline Phosphatase 74 U/L (34-104) 09/30/18 20:20 B-Natriuretic Peptide 457 pg/mL (<=100) H 09/30/18 20:20 Total Protein 6.2 g/dL (6.4-8.9) L 09/30/18 20:20 Albumin 3.5 g/dL (3.2-5.2) 09/30/18 20:20 Globulin 2.7 g/dL (2-4) 09/30/18 20:20 Albumin/Globulin Ratio 1.3 (1-3) 09/30/18 20:20 Triglycerides 34 mg/dL 10/01/18 08:02 Cholesterol 113 mg/dL 10/01/18 08:02 LDL Cholesterol 37 mg/dL 10/01/18 08:02 HDL Cholesterol 69.7 mg/dL 10/01/18 08:02 09/30/18 09/30/18 10/01/18 20:20 23:09 01:57 Troponin I 0.08 H* 0.10 H* 0.10 H* 10/01/18 08:02 Troponin I 0.09 H* Diagnostic Imaging: Echo 10/01/2018; LVEF 45-50%, moderate LVH, septuma nd inferior region + hypokinesis, mild to moderate TR, mild pulmonary HTN. EKG Data: EKG; V-Paced rate 60 ? underlying AF. Assessment/Plan #1 s/p mechanical fall with + right inter trochanteric femur fracture. Dr. Marion managing. 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 At that time LVEf was 20% in the setting of Tropoin elevation ( 2.8) She underwent LHC which revealed normal coronary arteries. Echo yesterday revealed LVEF is now 45-50%. She is able to go up 14 stairs with no c/o chest pain and is active at home with approximate functional capacity of 3-5 mets with no symptoms. troponin this admission peaked at .10 no ischemic ekg changes appreciated. Given long standing h/o persistant troponin elevation and no exertional c/o chest pain and normal cors in 2014 no further cardiac tests to r/ o CAd needed at this time. RCRI 2 representing 6.6% risk of major cardiac event given h/o SHF and CVA. I would recommend She be placed on IV heparin given INR is <2. She may proceed with surgery however I would monitor fluid status closely given h/o NICM with LVEF 45-50%. Limit BBlocker interruption given potential for rebound tachycardia. I am awaiting device check to determine if patient is PPM dependent at this time and will make further recommendations once device is checked. #3 NICM; NYHA class 2 stage C. Compensated on exam. LVEF now 45-50%. Continue Toprol therapy. She may need diuretic after surgery due to fluids. Monitor fluid status closely. #4 PPM in situ; device check order placed to determine if patient is PPM dependent. #5 h/o AF; Chads Vasc: 7 would recommend IV heparin be started as a bridge given INR is <2. I did call Dr. Marion's office to ensure this is okay from her standpoint. I am await her to call me back. On Toprol HR controlled. Attending: Holli Young
[2018-10-01] MEDS ORDERED: Heparin DRIP 25,000 UNITS(*) 25,000 UNITS/500 ML BAG IV SCH (13:30)
[2018-10-01] MEDS ORDERED: Heparin VIAL(*) 5000 UNITS/ML VIAL (FIVE THOUSAND) IV SCH (14:00)
[2018-10-01 14:09] LABS: ABS Basophils 0 10^3/ul (0-0.2); ABS Eosinophils 0 10^3/ul (0-0.6); ABS Monocytes 1.1 10^3/ul (0-0.8); ABS Neutrophils 5.8 10^3/ul (1.5-7.7); ABS Nucleated RBC 0 10^3/ul; Eosinophil % 0.2 %; Hematocrit 35 % (35-47); Hemoglobin 11.8 g/dl (12.0-16.0); Lymphocyte % 12.7 %; Mean Corpuscular HGB Conc 34 g/dl (31-36); Mean Corpuscular Hemoglobin 34 pg (27-31); Mean Corpuscular Volume 98 fL (80-97); Mean Platelet Volume 7.4 fL (7.4-10.4); Nucleated Red Blood Cells % 0; Platelet Count 158 10^3/ul (150-450); Red Blood Count 3.52 10^6/ul (4.00-5.40); Red Cell Distribution Width 15 % (10.5-15); White Blood Count 7.9 10^3/ul (3.5-10.8)
[2018-10-01 14:24] LABS: EGFR Non-African American 131.8 (>60)
[2018-10-01] MEDS ORDERED: fentaNYL* 50 MCG/ML 2 ML VIAL (100 MCG VIAL) ONE (18:49)
--- NOTE | 2018-10-01 18:58 | CONS ---
CC: PCP, French Finley MD * CONSULTATION REPORT: DATE OF CONSULT: 10/01/18 CHIEF COMPLAINT: Right hip pain. HISTORY OF PRESENT ILLNESS: Briefly, Bessie is an 88-year-old female who sustained a ground-level fall at home, who was unable to weight bear. She was brought to the ER, was diagnosed with intertrochanteric hip fracture. She lives with her . She ambulates with a walker. She has had multiple falls this year. She recently had a pacemaker placement, has chronic atrial fibrillation. She has had some syncopal episodes. She states that she denies any numbness or tingling. No loss of consciousness, no headache. PAST MEDICAL HISTORY: Atrial fibrillation, essential tremor, as well as a stroke, CHF, coronary artery disease. She is on Coumadin. PAST SURGICAL HISTORY: Pacemaker placement, right knee surgery, vein stripping , and tonsillectomy. CURRENT MEDICATIONS: 1. Tylenol. 2. Maalox. 3. Lipitor. 4. Colace 5. Heparin. 6. Magnesium oxide. 7. Toprol. 8. Morphine. 9. Multivitamins. 10. Zofran. 11. Primidone. 12. Senna. ALLERGIES: NKDA. FAMILY HISTORY: Father had a history of rheumatic fever and then SC. The patient denies any family history of diabetes or cancer. SOCIAL HISTORY: She lives with her . She is right-hand dominant. Her is her surrogate decision maker. She walks with a walker. REVIEW OF SYSTEMS: A 14-point review of systems reviewed with the patient, significant only for the above complaint. Otherwise remainder of the systems is negative. PHYSICAL EXAM: Temp of 99.1, pulse of 61, O2 89% on room air, blood pressure 117/53. On physical exam, she is in no acute distress. She is well developed, well nourished. She is alert and oriented x3. She has pleasant mood and normal affect. She respires comfortably and her pulse is regular, rate, and rhythm. Her abdomen is soft and nontender. Examination of the right hip demonstrates skin is intact. There is an obvious deformity with external rotation and shortening of the right leg. Her calf is soft and nontender. She is sensate to light touch about the first dorsal webspace, medial, lateral, dorsal, and plantar foot. She is able to flex and extend her toes. Dorsiflex and plantarflex her ankles. 2+ PT pulse. DIAGNOSTIC STUDIES/LAB DATA: X-rays of the hip as well as the femur demonstrate intertrochanteric hip fracture. White blood cell count 8.2, hematocrit of 36, platelet count of 159. INR 1.85. Sodium 136, potassium 4.1, chloride 104, carbon dioxide 29, creatinine 0.5, BUN 17, glucose 139, calcium 8.7. Troponin x2 were 0.1. BNP 457. UA negative. ASSESSMENT AND PLAN: This is an 88-year-old female with a right intertrochanteric hip fracture. She may have some mildly elevated troponin that will be worked up by Medicine and Cardiac. She is not yet cleared with a plan for right hip intramedullary nail. We reviewed the risks briefly for surgery. We will plan for surgery at earliest convenience. Either myself or Dr. Yu will take care of this today if she clear or tomorrow pending clearance. [id number]/[facility] #: [id number] [facility] CENTERPhillip
[2018-10-01] MEDS ORDERED: ceFAZolin 2 GM PREMIX in ORs 2 GM/50 ML BAG IVPB ONE (19:00)
[2018-10-01] MEDS ORDERED: Bupivacaine 0.5% W/EPI SDV* 30 ML VIAL ONE (19:29)
[2018-10-01] MEDS ORDERED: Succinylcholine* 20 MG/ML 10 ML VIAL ONE (20:20)
[2018-10-01] MEDS ORDERED: Ondansetron INJ* 2 MG/ML VIAL ONE (20:20)
[2018-10-01] MEDS ORDERED: Propofol* 10 MG/ML 20 ML BTL ONE (20:20)
[2018-10-01] MEDS ORDERED: Dexamethasone IV* 4 MG/ML 1 ML (4 MG) ONE (20:20)
[2018-10-01] MEDS ORDERED: Lidocaine 2% PF * 5 ML VIAL ONE (20:20)
[2018-10-01] MEDS ORDERED: Naloxone* 0.4 MG/ML 1 ML VIAL IV PRN (20:48)
[2018-10-01] MEDS ORDERED: HYDROmorphone INJ1* 1 MG/ML SYRINGE IV PRN (20:48)
[2018-10-01] MEDS ORDERED: oxyCODONE/Acetamin 5/325 MG* TAB PO PRN (20:48)
[2018-10-01] MEDS ORDERED: Bupivacaine 0.25% SDV PF* 10 ML VIAL INJ ONE (20:49)
[2018-10-01] MEDS ORDERED: EPHEDrine (Pressors)* 50 MG/ML VIAL ONE (21:21)
[2018-10-02] MEDS ORDERED: Morphine VIAL* 4 MG/ML VIAL (1 ml vial) IV PRN (00:17)
[2018-10-02] MEDS: ceFAZolin 1 GM in Dextrose (*) 1 GM/50 ML BAG IVPB SCH ×3 (03:52→19:32)
[2018-10-02 04:43] LABS: ABS Basophils 0 10^3/ul (0-0.2); ABS Eosinophils 0 10^3/ul (0-0.6); ABS Lymphocytes 0.8 10^3/ul (1.0-4.8); ABS Monocytes 1.2 10^3/ul (0-0.8); ABS Neutrophils 8.3 10^3/ul (1.5-7.7); ABS Nucleated RBC 0 10^3/ul; Eosinophil % 0 %; Hematocrit 31 % (35-47); Hemoglobin 10.4 g/dl (12.0-16.0); Mean Corpuscular HGB Conc 34 g/dl (31-36); Mean Corpuscular Hemoglobin 33 pg (27-31); Mean Corpuscular Volume 99 fL (80-97); Mean Platelet Volume 7.3 fL (7.4-10.4); Nucleated Red Blood Cells % 0; Platelet Count 144 10^3/ul (150-450); Red Blood Count 3.11 10^6/ul (4.00-5.40); Red Cell Distribution Width 15 % (10.5-15); White Blood Count 10.4 10^3/ul (3.5-10.8)
[2018-10-02 04:59] LABS: EGFR Non-African American 106.8 (>60)
--- NOTE | 2018-10-02 08:40 | PN ---
Subjective Date of Service: 10/02/18 Interval History: Ms. Chavez feels okay this Only has pain when she moves her leg. Feels dry and thirsty, looks forward to breakfast. Otherwise no complaints or concerns. Denies constipation, nausea, fevers, chills. Objective Active Medications: Acetaminophen (Tylenol Tab*) 650 mg PO Q4H PRN PRN Reason: FEVER/PAIN Al Hydrox/Mg Hydrox/Simethicone (Maalox Plus*) 30 ml PO Q6H PRN PRN Reason: INDIGESTION Atorvastatin Calcium (Lipitor*) 40 mg PO DAILY [facility] Last Admin: 10/01/18 08:36 Dose: 40 mg Docusate Sodium (Colace Cap*) 100 mg PO BID PRN PRN Reason: CONSTIPATION Last Admin: 10/01/18 08:36 Dose: 100 mg Heparin Sodium (Porcine) (Heparin Vial(*)) 0 units IV .PER PROTOCOL [facility] Hydromorphone HCl (Dilaudid Inj1s*) 1 mg IV SLOW PU Q4H PRN PRN Reason: PAIN Heparin Sodium/Dextrose (Heparin Drip 25,000 Units(*)) 25,000 units in 500 mls @ 0 mls/hr IV PER RATE [facility]; Protocol Last Admin: 10/01/18 22:26 Dose: 18 mls/hr Cefazolin Sodium/Dextrose (Kefzol 1 Gm In Dextrose Duplex (*)) 1 gm in 50 mls @ 200 mls/hr IVPB Q8H [facility] Stop: 10/02/18 20:14 Last Admin: 10/02/18 03:52 Dose: 200 mls/hr Magnesium Oxide (Magox 400 Tab*) 400 mg PO DAILY [facility] Last Admin: 10/01/18 08:37 Dose: 400 mg Metoprolol Succinate (Toprol Xl Tab*) 50 mg PO DAILY [facility] Last Admin: 10/01/18 08:37 Dose: 50 mg Morphine Sulfate (Morphine Vial*) 2 mg IV Q4H PRN PRN Reason: PAIN SEVERE Multivitamins/Minerals (Theragran/Minerals Tab*) 1 tab PO DAILY [facility] Last Admin: 10/01/18 08:37 Dose: 1 tab Ondansetron HCl (Zofran Inj*) 4 mg IV Q4H PRN PRN Reason: NAUSEA/VOMITING Oxycodone HCl (Roxycodone Tab*) 10 mg PO Q4H PRN PRN Reason: PAIN MODERATE Oxycodone/Acetaminophen (Percocet 5/325 Tab*) 1 tab PO Q4H PRN PRN Reason: PAIN Oxycodone/Acetaminophen (Percocet 5/325 Tab*) 2 tab PO Q4H PRN PRN Reason: PAIN Primidone (Mysoline Tab(*)) 150 mg PO TID [facility] Last Admin: 10/01/18 22:31 Dose: 150 mg Senna (Senokot Tab*) 1 tab PO BID PRN PRN Reason: CONSTIPATION Vital Signs - 8 hr 10/02/18 10/02/18 02:07 04:00 Temperature 98.3 F 98.7 F Pulse Rate 60 60 Respiratory 20 16 Rate Blood Pressure 102/41 108/51 (mmHg) O2 Sat by Pulse 98 98 Oximetry Oxygen Devices in Use Now: Nasal Cannula Appearance: alert, comfortable, nontoxic Eyes: No Scleral Icterus Ears/Nose/Mouth/Throat: - - dry mucosa Neck: NL Appearance and Movements; NL JVP Respiratory: Symmetrical Chest Expansion and Respiratory Effort Cardiovascular: - - irregular rhythm, no murmurs Abdominal: NL Sounds; No Tenderness; No Distention Lymphatic: No Cervical Adenopathy Extremities: No Edema, - - right thigh hematoma posterior to incision, soft. sensation in tact b/l legs. moves both legs. Neurological: Alert and Oriented x 3 Result Diagrams: 10/02/18 04:35 10/02/18 04:35 Additional Lab and Data: Lab Results 09/30/18 09/30/18 09/30/18 Range/Units 20:20 20:20 20:20 WBC 4.7 (3.5-10.8) 10^3/ul RBC 3.82 L (4.00-5.40) 10^6/ul Hgb 12.7 (12.0-16.0) g/dl Hct 38 (35-47) % MCV 99 H (80-97) fL MCH 33 H (27-31) pg MCHC 34 (31-36) g/dl RDW 15 (10.5-15) % Plt Count 173 (150-450) 10^3/ul MPV 7.6 (7.4-10.4) fL Neut % (Auto) 59.9 % Lymph % (Auto) 23.3 % [place] % (Auto) 14.9 % Eos % (Auto) 1.4 % Baso % (Auto) 0.5 % Absolute Neuts (auto) 2.8 (1.5-7.7) 10^3/ul Absolute Lymphs (auto) 1.1 (1.0-4.8) 10^3/ul Absolute Monos (auto) 0.7 (0-0.8) 10^3/ul Absolute Eos (auto) 0.1 (0-0.6) 10^3/ul Absolute Basos (auto) 0 (0-0.2) 10^3/ul Absolute Nucleated RBC 0 10^3/ul Nucleated RBC % 0.1 INR (Anticoag Therapy) 1.73 H (0.77-1.02) APTT 30.1 (26.0-36.3) seconds Sodium 136 (135-145) mmol/L Potassium 4.7 (3.5-5.0) mmol/L Chloride 102 (101-111) mmol/L Carbon Dioxide 33 H (22-32) mmol/L Anion Gap 1 L (2-11) mmol/L BUN 19 (6-24) mg/dL Creatinine 0.71 (0.51-0.95) mg/dL Est GFR ( Amer) 94.2 (>60) Est GFR (Non-Af Amer) 77.9 (>60) BUN/Creatinine Ratio 26.8 H (8-20) Glucose 153 H (70-100) mg/dL Calcium 9.0 (8.6-10.3) mg/dL Total Bilirubin 0.30 (0.2-1.0) mg/dL AST 33 (13-39) U/L ALT 24 (7-52) U/L Alkaline Phosphatase 74 (34-104) U/L Troponin I 0.08 H* (<0.04) ng/mL C-Reactive Protein 3.13 (<8.01) mg/L Total Protein 6.2 L (6.4-8.9) g/dL Albumin 3.5 (3.2-5.2) g/dL Globulin 2.7 (2-4) g/dL Albumin/Globulin Ratio 1.3 (1-3) Assess/Plan/Problems-Billing Assessment: This is an 88 year old lady with history of afib on coumadin who presented after a mechanical fall and was found to have a right hip fracture. - Patient Problems (1) Closed right hip fracture Current Visit: Yes Status: Acute Code(s): S72.001A - FRACTURE OF UNSP PART OF NECK OF RIGHT FEMUR, INIT SNOMED Code(s): 226639296 Comment: POD #1 ORIF OOB today pain is controlled (2) Hematoma Current Visit: Yes Status: Acute Code(s): T14.8XXA - OTHER INJURY OF UNSPECIFIED BODY REGION, INITIAL ENCOUNTER SNOMED Code(s): 978017120 Comment: recheck cbc this afternoon (3) Atrial fibrillation Current Visit: No Status: Acute Code(s): I48.91 - UNSPECIFIED ATRIAL FIBRILLATION SNOMED Code(s): 61352827 Comment: with high [id number], so on heparin drip given subtherapeutic INR need to monitor bleeding closely, as hematoma and ongoing bleeding risk may begin to outweight benefit of cva prevention will hold off on resuming warfarin until sure bleeding is controlled (4) Chronic systolic (congestive) heart failure Current Visit: Yes Status: Acute Code(s): I50.22 - CHRONIC SYSTOLIC ( CONGESTIVE) HEART FAILURE SNOMED Code(s): 142478396 Comment: euvolemic continue metoprolol and statin; not on TRACY? I suspect bp did not tolerate
[2018-10-02] MEDS: Magnesium Oxide TAB* 400 MG PO SCH (09:14)
[2018-10-02] MEDS: Multivitamins/Minerals TAB PO SCH (09:15)
[2018-10-02] MEDS: Primidone TAB(*) 50 MG PO SCH ×3 (09:15→19:54)
[2018-10-02] MEDS: oxyCODONE/Acetamin 5/325 MG* TAB PO PRN ×3 (09:15→22:41)
[2018-10-02] MEDS: Atorvastatin* 40 MG TAB PO SCH (09:15)
--- NOTE | 2018-10-02 09:15 | PN ---
Subjective Date of Service: 10/02/18 - POD #1 Right ORIF, h/o AF, elevated troponin Interval History: Patient is POD #[address] Marion. No events last night. Surgical ANAM in room when I entered due to concern of ? hematoma. Surical ANAM stated there was no hematoma. Patient denies c/o chest pain, sob, dizziness, palpitations, sensation of heart racing. She offers no complaints at this time. Medications Active Medications: Acetaminophen (Tylenol Tab*) 650 mg PO Q4H PRN PRN Reason: FEVER/PAIN Al Hydrox/Mg Hydrox/Simethicone (Maalox Plus*) 30 ml PO Q6H PRN PRN Reason: INDIGESTION Atorvastatin Calcium (Lipitor*) 40 mg PO DAILY [facility] Last Admin: 10/01/18 08:36 Dose: 40 mg Docusate Sodium (Colace Cap*) 100 mg PO BID PRN PRN Reason: CONSTIPATION Last Admin: 10/01/18 08:36 Dose: 100 mg Heparin Sodium (Porcine) (Heparin Vial(*)) 0 units IV .PER PROTOCOL [facility] Hydromorphone HCl (Dilaudid Inj1s*) 1 mg IV SLOW PU Q4H PRN PRN Reason: PAIN Heparin Sodium/Dextrose (Heparin Drip 25,000 Units(*)) 25,000 units in 500 mls @ 0 mls/hr IV PER RATE [facility]; Protocol Last Admin: 10/01/18 22:26 Dose: 18 mls/hr Cefazolin Sodium/Dextrose (Kefzol 1 Gm In Dextrose Duplex (*)) 1 gm in 50 mls @ 200 mls/hr IVPB Q8H [facility] Stop: 10/02/18 20:14 Last Admin: 10/02/18 03:52 Dose: 200 mls/hr Magnesium Oxide (Magox 400 Tab*) 400 mg PO DAILY [facility] Last Admin: 10/01/18 08:37 Dose: 400 mg Metoprolol Succinate (Toprol Xl Tab*) 50 mg PO DAILY [facility] Last Admin: 10/01/18 08:37 Dose: 50 mg Morphine Sulfate (Morphine Vial*) 2 mg IV Q4H PRN PRN Reason: PAIN SEVERE Multivitamins/Minerals (Theragran/Minerals Tab*) 1 tab PO DAILY [facility] Last Admin: 10/01/18 08:37 Dose: 1 tab Ondansetron HCl (Zofran Inj*) 4 mg IV Q4H PRN PRN Reason: NAUSEA/VOMITING Oxycodone HCl (Roxycodone Tab*) 10 mg PO Q4H PRN PRN Reason: PAIN MODERATE Oxycodone/Acetaminophen (Percocet 5/325 Tab*) 1 tab PO Q4H PRN PRN Reason: PAIN Oxycodone/Acetaminophen (Percocet 5/325 Tab*) 2 tab PO Q4H PRN PRN Reason: PAIN Primidone (Mysoline Tab(*)) 150 mg PO TID [facility] Last Admin: 10/01/18 22:31 Dose: 150 mg Senna (Senokot Tab*) 1 tab PO BID PRN PRN Reason: CONSTIPATION Objective Vital Signs: Temp Pulse Resp BP Pulse Ox 98.7 F 60 16 108/51 98 10/02/18 04:00 10/02/18 04:00 10/02/18 04:00 10/02/18 04:00 10/02/18 04:00 Oxygen Devices in Use Now: Nasal Cannula Eyes: No Scleral Icterus, PERRLA Ears/Nose/Mouth/Throat: NL Teeth, Lips, Gums, Clear Oropharnyx, Mucous Membranes Moist Neck: NL Appearance and Movements; NL JVP, Trachea Midline, No Thyroid Enlargement, Masses Respiratory: Symmetrical Chest Expansion and Respiratory Effort, Clear to Auscultation Cardiovascular: - - Normal S1, S2, RRR, + mitral murmur, no gallop or rub. Abdominal: NL Sounds; No Tenderness; No Distention, No Hepatosplenomegaly Lymphatic: No Cervical Adenopathy Extremities: No Edema, - - 2+ right and left dorsalis pedis pulse palpated. right hip has surgical dressing in place, no blood noted however area was recently cleaned by surgical ANAM Skin: No Rash or Ulcers Neurological: Alert and Oriented x 3 Lines/Tubes/Other Access: Clean, Dry and Intact Chou, Clean, Dry and Intact Peripheral IV Laboratory Results: 10/02/18 04:35 10/02/18 04:35 INR (Anticoag Therapy) 1.85 (0.77-1.02) H 10/01/18 08:02 APTT 99.3 seconds (26.0-36.3) H 10/02/18 04:35 Total Bilirubin 0.30 mg/dL (0.2-1.0) 09/30/18 20:20 AST 33 U/L (13-39) 09/30/18 20:20 ALT 24 U/L (7-52) 09/30/18 20:20 Alkaline Phosphatase 74 U/L (34-104) 09/30/18 20:20 B-Natriuretic Peptide 457 pg/mL (<=100) H 09/30/18 20:20 Total Protein 6.2 g/dL (6.4-8.9) L 09/30/18 20:20 Albumin 3.5 g/dL (3.2-5.2) 09/30/18 20:20 Globulin 2.7 g/dL (2-4) 09/30/18 20:20 Albumin/Globulin Ratio 1.3 (1-3) 09/30/18 20:20 Triglycerides 34 mg/dL 10/01/18 08:02 Cholesterol 113 mg/dL 10/01/18 08:02 LDL Cholesterol 37 mg/dL 10/01/18 08:02 HDL Cholesterol 69.7 mg/dL 10/01/18 08:02 09/30/18 09/30/18 10/01/18 20:20 23:09 01:57 Troponin I 0.08 H* 0.10 H* 0.10 H* 10/01/18 08:02 Troponin I 0.09 H* Laboratory Results - last 24 hr 10/01/18 10/01/18 10/01/18 08:02 14:02 14:02 WBC 7.9 RBC 3.52 L Hgb 11.8 L Hct 35 MCV 98 H MCH 34 H MCHC 34 RDW 15 Plt Count 158 MPV 7.4 Neut % (Auto) 73.5 Lymph % (Auto) 12.7 [place] % (Auto) 13.3 Eos % (Auto) 0.2 Baso % (Auto) 0.3 Absolute Neuts (auto) 5.8 Absolute Lymphs (auto) 1.0 Absolute Monos (auto) 1.1 H Absolute Eos (auto) 0 Absolute Basos (auto) 0 Absolute Nucleated RBC 0 Nucleated RBC % 0 APTT 35.2 Sodium 136 Potassium 4.1 Chloride 104 Carbon Dioxide 29 Anion Gap 3 BUN 17 Creatinine 0.50 L Est GFR ( Amer) 141.2 Est GFR (Non-Af Amer) 116.7 BUN/Creatinine Ratio 34.0 H Glucose 139 H POC Glucose (mg/dL) Calcium 8.7 Troponin I 0.09 H* Triglycerides 34 Cholesterol 113 LDL Cholesterol 37 HDL Cholesterol 69.7 10/01/18 10/01/18 10/02/18 14:02 23:02 04:35 WBC 10.4 RBC 3.11 L Hgb 10.4 L Hct 31 L MCV 99 H MCH 33 H MCHC 34 RDW 15 Plt Count 144 L MPV 7.3 L Neut % (Auto) 80.1 Lymph % (Auto) 8.0 [place] % (Auto) 11.7 Eos % (Auto) 0 Baso % (Auto) 0.2 Absolute Neuts (auto) 8.3 H Absolute Lymphs (auto) 0.8 L Absolute Monos (auto) 1.2 H Absolute Eos (auto) 0 Absolute Basos (auto) 0 Absolute Nucleated RBC 0 Nucleated RBC % 0 APTT Sodium Potassium Chloride Carbon Dioxide Anion Gap BUN 16 Creatinine 0.45 L Est GFR ( Amer) 159.5 Est GFR (Non-Af Amer) 131.8 BUN/Creatinine Ratio Glucose POC Glucose (mg/dL) 178 H Calcium Troponin I Triglycerides Cholesterol LDL Cholesterol HDL Cholesterol 10/02/18 10/02/18 04:35 04:35 WBC RBC Hgb Hct MCV MCH MCHC RDW Plt Count MPV Neut % (Auto) Lymph % (Auto) [place] % (Auto) Eos % (Auto) Baso % (Auto) Absolute Neuts (auto) Absolute Lymphs (auto) Absolute Monos (auto) Absolute Eos (auto) Absolute Basos (auto) Absolute Nucleated RBC Nucleated RBC % APTT 99.3 H Sodium 135 Potassium 4.4 Chloride 103 Carbon Dioxide 31 Anion Gap 1 L BUN 17 Creatinine 0.54 Est GFR ( Amer) 129.2 Est GFR (Non-Af Amer) 106.8 BUN/Creatinine Ratio 31.5 H Glucose 164 H POC Glucose (mg/dL) Calcium 8.3 L Troponin I Triglycerides Cholesterol LDL Cholesterol HDL Cholesterol Diagnostic Imaging: Echo 10/01/2018; LVEF 45-50%, moderate LVH, septuma nd inferior region + hypokinesis, mild to moderate TR, mild pulmonary HTN. EKG Data: No ecg today to review. Assessment/Plan #1 s/p mechanical fall with closed right hip fracture, POD #[address] Marion managing. 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 At that time LVEf was 20% in the setting of Tropoin elevation ( 2.8) She underwent LHC which revealed normal coronary arteries. Echo 09/30/2018 revealed LVEF is now 45-50%. She continues to deny chest pain. #3 NICM; NYHA class 2 stage C. Compensated on exam. LVEF now 45-50%. Continue Toprol therapy. She may need diuretic after surgery due to fluids. Monitor fluid status closely. today she is euvolemic. She is currently not on ACEI/ARB given LVEF is >40% #4 PPM in situ;She is [employer]. #5 h/o AF; Chads Vasc: 7 ( h/o CVA 03/2018) INR subtherapeutic thus on IV heparin at this time. I spoke with the surgical ANAM who states there was no evidence of hematoma, thus will ocntinue IV heparin. Once able recommend resuming coumadin with goal INR 2-3. She on on toprol and rates are controlled. #6 Disposition pending course. Will speak to Dr. Young about signing off of case.
[2018-10-02] MEDS: Metoprolol Succinate XL TAB* 50 MG PO SCH (10:05)
--- NOTE | 2018-10-02 11:21 | PN ---
Progress Note - Progress Note Date of Service: 10/02/18 SOAP: Subjective: []Patient was seen and examined at bedside. She feels well without CP, SOB, dizziness, nausea. RLE pain is well controlled. I was contact this morning by medicine to evaluate for hematoma. Objective: []General: Well appearing, NAD RLE: Right hip dressing- tegaderm filled with blood , this was removed and there is no surrounding ecchymosis, fluctuance, induration, erythema, edema or active bleeding of the incision. New tegaderm placed. DF/PF intact. DP2+, sensation intact distally. Calves are supple and nontender without erythema, edema or palpable cords Assessment: []Right intertroch fracture now POD 1 s/p IM Nail Plan: []WBAT PT/OT No need to discontinue anticoagulation for concern of large hematoma, the concern raised was due to blood accumulation within the dressing which was resolved with cleaning the area for better visualization. There was no active bleeding and no obvious hematoma. She does have bleeding risk due to heparin drip, so her incision should be watched closely. PMRU referral in. In absence of medical contraindication, patient should be moved to [facility] for post op surgical nursing. Soft BPs, will likely need fluid bolus, remains asymptomatic. H&H 10. this morning Vital Signs Temp 99.0 F 10/02/18 07:48 Pulse 60 10/02/18 07:48 Resp 17 10/02/18 09:15 BP 90/42 10/02/18 09:24 Pulse Ox 97 10/02/18 07:48 Intake & Output 10/01/18 10/02/18 10/02/18 18:59 06:59 18:59 Intake Total 0 2140 318 Output Total 200 350 Balance -200 1790 318 Intake: IV Fluids 1850 LR 900 NS 50ML, Cefazolin 2G 50 lactated ringers 900 IVPB 50 cefazolin 50 Heparin 138 Oral 0 240 180 Output: Urine 0 Chou 200 350 Other: # Bowel Movements 0 0 Estimated Blood Loss <200 Comment Laboratory Last Values WBC 10.4 10^3/ul (3.5-10.8) 10/02/18 04:35 RBC 3.11 10^6/ul (4.00-5.40) L 10/02/18 04:35 Hgb 10.4 g/dl (12.0-16.0) L 10/02/18 04:35 Hct 31 % (35-47) L 10/02/18 04:35 MCV 99 fL (80-97) H 10/02/18 04:35 MCH 33 pg (27-31) H 10/02/18 04:35 MCHC 34 g/dl (31-36) 10/02/18 04:35 RDW 15 % (10.5-15) 10/02/18 04:35 Plt Count 144 10^3/ul (150-450) L 10/02/18 04:35 MPV 7.3 fL (7.4-10.4) L 10/02/18 04:35 Neut % (Auto) 80.1 % 10/02/18 04:35 Lymph % (Auto) 8.0 % 10/02/18 04:35 [place] % (Auto) 11.7 % 10/02/18 04:35 Eos % (Auto) 0 % 10/02/18 04:35 Baso % (Auto) 0.2 % 10/02/18 04:35 Absolute Neuts (auto) 8.3 10^3/ul (1.5-7.7) H 10/02/18 04:35 Absolute Lymphs (auto) 0.8 10^3/ul (1.0-4.8) L 10/02/18 04:35 Absolute Monos (auto) 1.2 10^3/ul (0-0.8) H 10/02/18 04:35 Absolute Eos (auto) 0 10^3/ul (0-0.6) 10/02/18 04:35 Absolute Basos (auto) 0 10^3/ul (0-0.2) 10/02/18 04:35 Absolute Nucleated RBC 0 10^3/ul 10/02/18 04:35 Nucleated RBC % 0 10/02/18 04:35 INR (Anticoag Therapy) 1.85 (0.77-1.02) H 10/01/18 08:02 APTT 99.3 seconds (26.0-36.3) H 10/02/18 04:35 Sodium 135 mmol/L (135-145) 10/02/18 04:35 Potassium 4.4 mmol/L (3.5-5.0) 10/02/18 04:35 Chloride 103 mmol/L (101-111) 10/02/18 04:35 Carbon Dioxide 31 mmol/L (22-32) 10/02/18 04:35 Anion Gap 1 mmol/L (2-11) L 10/02/18 04:35 BUN 17 mg/dL (6-24) 10/02/18 04:35 Creatinine 0.54 mg/dL (0.51-0.95) 10/02/18 04:35 Est GFR ( Amer) 129.2 (>60) 10/02/18 04:35 Est GFR (Non-Af Amer) 106.8 (>60) 10/02/18 04:35 BUN/Creatinine Ratio 31.5 (8-20) H 10/02/18 04:35 Glucose 164 mg/dL (70-100) H 10/02/18 04:35 POC Glucose (mg/dL) 178 mg/dL (70-100) H 10/01/18 23:02 Calcium 8.3 mg/dL (8.6-10.3) L 10/02/18 04:35 Total Bilirubin 0.30 mg/dL (0.2-1.0) 09/30/18 20:20 AST 33 U/L (13-39) 09/30/18 20:20 ALT 24 U/L (7-52) 09/30/18 20:20 Alkaline Phosphatase 74 U/L (34-104) 09/30/18 20:20 Troponin I 0.09 ng/mL (<0.04) H* 10/01/18 08:02 C-Reactive Protein 3.13 mg/L (<8.01) 09/30/18 20:20 B-Natriuretic Peptide 457 pg/mL (<=100) H 09/30/18 20:20 Total Protein 6.2 g/dL (6.4-8.9) L 09/30/18 20:20 Albumin 3.5 g/dL (3.2-5.2) 09/30/18 20:20 Globulin 2.7 g/dL (2-4) 09/30/18 20:20 Albumin/Globulin Ratio 1.3 (1-3) 09/30/18 20:20 Triglycerides 34 mg/dL 10/01/18 08:02 Cholesterol 113 mg/dL 10/01/18 08:02 LDL Cholesterol 37 mg/dL 10/01/18 08:02 HDL Cholesterol 69.7 mg/dL 10/01/18 08:02 Urine Color Yellow 10/01/18 00:50 Urine Appearance Clear 10/01/18 00:50 Urine pH 5.0 (5-9) 10/01/18 00:50 Ur Specific [place] 1.028 (1.010-1.030) 10/01/18 00:50 Urine Protein Negative (Negative) 10/01/18 00:50 Urine Ketones Negative (Negative) 10/01/18 00:50 Urine Blood Negative (Negative) 10/01/18 00:50 Urine Nitrate Negative (Negative) 10/01/18 00:50 Urine Bilirubin Negative (Negative) 10/01/18 00:50 Urine Urobilinogen Negative (Negative) 10/01/18 00:50 Ur Leukocyte Esterase Negative (Negative) 10/01/18 00:50 Urine Glucose Negative (Negative) 10/01/18 00:50 Urine Ascorbic Acid * (Negative) A 10/01/18 00:50
[2018-10-02 13:22] LABS: Hematocrit 28 % (35-47); Hemoglobin 9.7 g/dl (12.0-16.0); Mean Corpuscular HGB Conc 34 g/dl (31-36); Mean Corpuscular Hemoglobin 34 pg (27-31); Mean Corpuscular Volume 99 fL (80-97); Mean Platelet Volume 8.1 fL (7.4-10.4); Platelet Count 132 10^3/ul (150-450); Red Blood Count 2.86 10^6/ul (4.00-5.40); Red Cell Distribution Width 15 % (10.5-15); White Blood Count 10.9 10^3/ul (3.5-10.8)
--- NOTE | 2018-10-02 22:00 | OP ---
DATE OF OPERATION: 10/01/18 - ROOM #449 DATE OF : 32 SURGEON: Renny Marion MD OYSTER SHUCKER: FOX Carrillo. An staff physical therapy assistant was needed for the entirety of the case to help with positioning, retraction, and was utilized throughout all portions of the case. ANESTHESIOLOGIST: Dr. Correa. ANESTHESIA: General. PRE-OP DIAGNOSIS: Right hip intertrochanteric hip fracture. POST-OP DIAGNOSIS: Right hip intertrochanteric hip fracture. OPERATIVE PROCEDURE: Right hip intramedullary nail. INDICATIONS: Bessie Ramos is an 88-year-old female who fell at home. She has significant medical history with atrial fibrillation and is on Coumadin as well as has a pacemaker. She sustained a mechanical fall, did not hit her head. She was evaluated by the medicine team as well as the cardiology team and was deemed optimized for surgery. Risks and benefits were discussed at length included but not limited to bleeding; infection; damage to nerves, vessels, surrounding structures; wound nonhealing; persistent pain; need for further surgery; scarring; stiffness; incomplete relief of symptoms; risk of anesthesia; risk of DVT. She will be put back on heparin drip right after surgery. IMPLANTS: Synthes helical blade and 11 short nail and appropriate interlocking screw. COMPLICATIONS: None. ESTIMATED BLOOD LOSS: About 200 cc. DESCRIPTION OF PROCEDURE: The patient was greeted in the preoperative area by the attending surgeon. Correct extremity was marked and consent was confirmed. The patient was then brought back to the operating suite where she was placed in supine position on the fracture table. She then underwent general anesthesia and endotracheal intubation after which she was appropriately positioned with her right leg in the traction device and the left leg in the well-leg cary through the well- padded perineal post. Once the surgical pause had been completed, a provisional reduction was taken of the hip itself. This was confirmed on AP and lateral views. Once this was identified, the right hip was prepped and draped in the usual sterile beginning with chlorhexidine soap, scrub, and alcohol wipe, and a final prep with ChloraPrep. After appropriate surgical pause indicating side, site, procedure, and administration of antibiotics, a 10 blade was used to make an incision proximal to the greater trochanter. Soft tissues were carefully dissected to expose the fascia, which was incised. The tip of the trochanter was identified and the guidewire was placed. Once the optimal position was placed, the 16-mm canal grocery packer was then reamed because the patient had a capacious canal, the final implant was then impacted into position. The proximal helical blade was then carefully placed beginning with the guidewire and then of the lateral drill as well as drilling the appropriate length of the blade. This was then impacted into position with excellent. The nail was secured proximally and then attention was directed distally and 1 distal interlocking screw was placed. The final images were obtained. The reduction was found to be acceptable. The wounds were copiously irrigated with sterile saline. The incision was closed in layers, the fascial layer closed with 0 Vicryl, the skin in 2-0 Vicryl and layne. The wound was injected with 0.25% Marcaine. Sterile dressings were applied. She was awoken from anesthesia and transferred to the PACU in stable condition. POSTOPERATIVE PLAN: She will be weightbearing as tolerated. Postop antibiotics for 24 hours. She will start her heparin drip and transitioned back to Coumadin. She will begin PT/OT tomorrow. She will be discharged to likely a halfway facility when she is stable. We will follow the patient along in the hospital, dressing change on postop day two. [id number]/[facility] #: [id number] CHANTE
[2018-10-03 06:38] LABS: Hematocrit 22 % (35-47); Hemoglobin 7.4 g/dl (12.0-16.0); Mean Corpuscular HGB Conc 34 g/dl (31-36); Mean Corpuscular Hemoglobin 33 pg (27-31); Mean Corpuscular Volume 98 fL (80-97); Mean Platelet Volume 7.7 fL (7.4-10.4); Platelet Count 121 10^3/ul (150-450); Red Blood Count 2.23 10^6/ul (4.00-5.40); Red Cell Distribution Width 14 % (10.5-15); White Blood Count 10.6 10^3/ul (3.5-10.8)
[2018-10-03 06:56] LABS: EGFR Non-African American 96.4 (>60)
[2018-10-03 07:03] LABS: ABS Basophils 0 10^3/ul (0-0.2); ABS Eosinophils 0.2 10^3/ul (0-0.6); ABS Lymphocytes 1.4 10^3/ul (1.0-4.8); ABS Monocytes 1.6 10^3/ul (0-0.8); ABS Neutrophils 7.3 10^3/ul (1.5-7.7); ABS Nucleated RBC 0 10^3/ul; Eosinophil % 2.1 %; Lymphocyte % 12.9 %; Nucleated Red Blood Cells % 0
--- NOTE | 2018-10-03 08:07 | PN ---
Subjective Date of Service: 10/03/18 Interval History: She doesnt know how she feels yet this morning. Denies pain but says she feels uncomfortable. Feels thirsty. No nausea. Hasnt had a bm but doesn't feel constipated or bloated. Objective Active Medications: Acetaminophen (Tylenol Tab*) 650 mg PO Q4H PRN PRN Reason: FEVER/PAIN Al Hydrox/Mg Hydrox/Simethicone (Maalox Plus*) 30 ml PO Q6H PRN PRN Reason: INDIGESTION Atorvastatin Calcium (Lipitor*) 40 mg PO DAILY [facility] Last Admin: 10/02/18 09:15 Dose: 40 mg Docusate Sodium (Colace Cap*) 100 mg PO BID PRN PRN Reason: CONSTIPATION Last Admin: 10/01/18 08:36 Dose: 100 mg Heparin Sodium (Porcine) (Heparin Vial(*)) 0 units IV .PER PROTOCOL [facility] Hydromorphone HCl (Dilaudid Inj1s*) 1 mg IV SLOW PU Q4H PRN PRN Reason: PAIN Heparin Sodium/Dextrose (Heparin Drip 25,000 Units(*)) 25,000 units in 500 mls @ 0 mls/hr IV PER RATE [facility]; Protocol Last Admin: 10/01/18 22:26 Dose: 18 mls/hr Magnesium Oxide (Magox 400 Tab*) 400 mg PO DAILY [facility] Last Admin: 10/02/18 09:14 Dose: 400 mg Metoprolol Succinate (Toprol Xl Tab*) 50 mg PO DAILY [facility] Last Admin: 10/02/18 10:05 Dose: Not Given Morphine Sulfate (Morphine Vial*) 2 mg IV Q4H PRN PRN Reason: PAIN SEVERE Multivitamins/Minerals (Theragran/Minerals Tab*) 1 tab PO DAILY [facility] Last Admin: 10/02/18 09:15 Dose: 1 tab Ondansetron HCl (Zofran Inj*) 4 mg IV Q4H PRN PRN Reason: NAUSEA/VOMITING Oxycodone HCl (Roxycodone Tab*) 10 mg PO Q4H PRN PRN Reason: PAIN MODERATE Oxycodone/Acetaminophen (Percocet 5/325 Tab*) 1 tab PO Q4H PRN PRN Reason: PAIN Last Admin: 10/02/18 22:41 Dose: 1 tab Oxycodone/Acetaminophen (Percocet 5/325 Tab*) 2 tab PO Q4H PRN PRN Reason: PAIN Primidone (Mysoline Tab(*)) 150 mg PO TID MANJU Last Admin: 10/02/18 19:54 Dose: 150 mg Senna (Senokot Tab*) 1 tab PO BID PRN PRN Reason: CONSTIPATION Vital Signs - 8 hr 10/03/18 10/03/18 01:19 02:09 Temperature 97.5 F Pulse Rate 54 Respiratory 17 16 Rate Blood Pressure 91/41 (mmHg) O2 Sat by Pulse 100 Oximetry Oxygen Devices in Use Now: Nasal Cannula Appearance: alert, no distress, oriented to situation, place, self, time Eyes: No Scleral Icterus Ears/Nose/Mouth/Throat: - - dry mucosa Neck: NL Appearance and Movements; NL JVP Respiratory: Symmetrical Chest Expansion and Respiratory Effort Cardiovascular: NL Sounds; No Murmurs; No JVD Abdominal: NL Sounds; No Tenderness; No Distention Lymphatic: No Cervical Adenopathy Extremities: No Edema, - - right hip incision with blood soaked gauze. able to move both feet Neurological: Alert and Oriented x 3 Result Diagrams: 10/03/18 06:18 10/03/18 06:18 Additional Lab and Data: Lab Results 09/30/18 09/30/18 09/30/18 Range/Units 20:20 20:20 20:20 WBC 4.7 (3.5-10.8) 10^3/ul RBC 3.82 L (4.00-5.40) 10^6/ul Hgb 12.7 (12.0-16.0) g/dl Hct 38 (35-47) % MCV 99 H (80-97) fL MCH 33 H (27-31) pg MCHC 34 (31-36) g/dl RDW 15 (10.5-15) % Plt Count 173 (150-450) 10^3/ul MPV 7.6 (7.4-10.4) fL Neut % (Auto) 59.9 % Lymph % (Auto) 23.3 % [place] % (Auto) 14.9 % Eos % (Auto) 1.4 % Baso % (Auto) 0.5 % Absolute Neuts (auto) 2.8 (1.5-7.7) 10^3/ul Absolute Lymphs (auto) 1.1 (1.0-4.8) 10^3/ul Absolute Monos (auto) 0.7 (0-0.8) 10^3/ul Absolute Eos (auto) 0.1 (0-0.6) 10^3/ul Absolute Basos (auto) 0 (0-0.2) 10^3/ul Absolute Nucleated RBC 0 10^3/ul Nucleated RBC % 0.1 INR (Anticoag Therapy) 1.73 H (0.77-1.02) APTT 30.1 (26.0-36.3) seconds Sodium 136 (135-145) mmol/L Potassium 4.7 (3.5-5.0) mmol/L Chloride 102 (101-111) mmol/L Carbon Dioxide 33 H (22-32) mmol/L Anion Gap 1 L (2-11) mmol/L BUN 19 (6-24) mg/dL Creatinine 0.71 (0.51-0.95) mg/dL Est GFR ( Amer) 94.2 (>60) Est GFR (Non-Af Amer) 77.9 (>60) BUN/Creatinine Ratio 26.8 H (8-20) Glucose 153 H (70-100) mg/dL Calcium 9.0 (8.6-10.3) mg/dL Total Bilirubin 0.30 (0.2-1.0) mg/dL AST 33 (13-39) U/L ALT 24 (7-52) U/L Alkaline Phosphatase 74 (34-104) U/L Troponin I 0.08 H* (<0.04) ng/mL C-Reactive Protein 3.13 (<8.01) mg/L Total Protein 6.2 L (6.4-8.9) g/dL Albumin 3.5 (3.2-5.2) g/dL Globulin 2.7 (2-4) g/dL Albumin/Globulin Ratio 1.3 (1-3) Assess/Plan/Problems-Billing Assessment: This is an 88 year old lady with history of afib on coumadin and a NICM who presented after a mechanical fall and was found to have a right hip fracture. - Patient Problems (1) Closed right hip fracture Current Visit: Yes Status: Acute Code(s): S72.001A - FRACTURE OF UNSP PART OF NECK OF RIGHT FEMUR, INIT SNOMED Code(s): 323833445 Comment: POD #2 ORIF OOB again today pain is controlled DC cano today (2) Atrial fibrillation Current Visit: No Status: Acute Code(s): I48.91 - UNSPECIFIED ATRIAL FIBRILLATION SNOMED Code(s): 56310072 Comment: with high [id number], so on heparin drip given subtherapeutic INR need to monitor bleeding very closely will hold off on resuming warfarin until sure bleeding is controlled (3) Chronic systolic (congestive) heart failure Current Visit: Yes Status: Acute Code(s): I50.22 - CHRONIC SYSTOLIC ( CONGESTIVE) HEART FAILURE SNOMED Code(s): 811711559 Comment: actually dry today, will benefit from blood received 500cc IVF bolus yesterday for hypotension continue metoprolol and statin; not on TRACY? I suspect bp would not tolerate (4) Acute blood loss anemia Current Visit: Yes Status: Acute Code(s): D62 - ACUTE POSTHEMORRHAGIC ANEMIA SNOMED Code(s): 613425094 Comment: given heparin and likely ongoing blood loss, and hypotension, I am giving her a unit of PRBCs this morning
[2018-10-03] MEDS: Atorvastatin* 40 MG TAB PO SCH (09:05)
[2018-10-03] MEDS: Primidone TAB(*) 50 MG PO SCH ×3 (09:06→19:51)
[2018-10-03] MEDS: Magnesium Oxide TAB* 400 MG PO SCH (09:06)
[2018-10-03] MEDS: Multivitamins/Minerals TAB PO SCH (09:06)
[2018-10-03] MEDS: Metoprolol Succinate XL TAB* 50 MG PO SCH (10:30)
[2018-10-03] MEDS: oxyCODONE/Acetamin 5/325 MG* TAB PO PRN ×2 (13:15→19:49)
--- NOTE | 2018-10-03 14:30 | PN ---
Progress Note - Progress Note Date of Service: 10/03/18 SOAP: Subjective: [] patient seen at bedside, pain is well managed. Denies SOB, CP, dizziness. Objective: [] Vital Signs Temp 98.8 F 10/03/18 07:30 Pulse 60 10/03/18 07:30 Resp 17 10/03/18 13:15 BP 99/44 10/03/18 07:30 Pulse Ox 95 10/03/18 08:00 Intake & Output 10/02/18 10/03/18 10/03/18 18:59 06:59 18:59 Intake Total 1780 470 380 Output Total 300 330 Balance 1480 140 380 Intake: IV Fluids 512 140 Heparin drip 140 NS (0.9%) 12 lactated ringers 500 IVPB 55 50 cefazolin 55 50 Heparin 283 280 Oral 930 0 380 Output: Chou 300 330 Laboratory Results - last 24 hr 10/02/18 10/03/18 10/03/18 17:53 00:50 06:18 WBC 10.6 RBC 2.23 L Hgb 7.4 L Hct 22 L MCV 98 H MCH 33 H MCHC 34 RDW 14 Plt Count 121 L MPV 7.7 Neut % (Auto) 69.5 Lymph % (Auto) 12.9 [place] % (Auto) 15.0 Eos % (Auto) 2.1 Baso % (Auto) 0.5 Absolute Neuts (auto) 7.3 Absolute Lymphs (auto) 1.4 Absolute Monos (auto) 1.6 H Absolute Eos (auto) 0.2 Absolute Basos (auto) 0 Absolute Nucleated RBC 0 Nucleated RBC % 0 APTT 65.3 H 70.2 H Sodium Potassium Chloride Carbon Dioxide BUN Creatinine Est GFR ( Amer) Est GFR (Non-Af Amer) BUN/Creatinine Ratio Glucose Calcium Blood Type Antibody Screen Crossmatch 10/03/18 10/03/18 10/03/18 06:18 06:18 06:18 WBC RBC Hgb Hct MCV MCH MCHC RDW Plt Count MPV Neut % (Auto) Lymph % (Auto) [place] % (Auto) Eos % (Auto) Baso % (Auto) Absolute Neuts (auto) Absolute Lymphs (auto) Absolute Monos (auto) Absolute Eos (auto) Absolute Basos (auto) Absolute Nucleated RBC Nucleated RBC % APTT 67.7 H Sodium 134 L Potassium 4.4 Chloride 102 Carbon Dioxide 32 BUN 26 H Creatinine 0.59 Est GFR ( Amer) 116.7 Est GFR (Non-Af Amer) 96.4 BUN/Creatinine Ratio 44.1 H Glucose 125 H Calcium 7.9 L Blood Type A Positive Antibody Screen Negative Crossmatch See Detail right hip dressings with moderate serosanguenous drainage, no evidence of infection thigh is edematous but compartments soft + DF right foot calf NT , no edema sensation intact distally Assessment: []s/p Right hip ORIF with Gamma nail POD #2 Plan: []PT/OT WBAT RLE 1 Unit PRBC given this am Continue heparin drip as ordered by medicine Dressing change, 4x4s and Tegaderm today
[2018-10-03 16:34] LABS: Hematocrit 24 % (35-47); Mean Corpuscular HGB Conc 34 g/dl (31-36); Mean Corpuscular Hemoglobin 32 pg (27-31); Mean Corpuscular Volume 96 fL (80-97); Mean Platelet Volume 7.8 fL (7.4-10.4); Platelet Count 123 10^3/ul (150-450); Red Blood Count 2.49 10^6/ul (4.00-5.40); Red Cell Distribution Width 15 % (10.5-15); White Blood Count 11.6 10^3/ul (3.5-10.8)
[2018-10-03] MEDS ORDERED: NS 0.9% 1000 ML* 1,000 ML IV ONE (18:30)
--- NOTE | 2018-10-03 18:45 | PN ---
Hospitalist Progress Note Date of Service: 10/03/18 CAT team called for blood squirting from Bessie's incision site. When I arrived, pressure was being held over the incision and her blood pressure was 85 /39. She was alert, oriented, and had no complaints. I stopped the heparin drip and ordered normal saline to be run wide open. Her blood pressure responded quickly and she maintained appropriate mentation throughout. A stat CBC was sent and PRBCs were ordered. Pressure was held and when Dr. Melendez arrived, the bleeding had stopped. She recommended applying a pressure dressing and agreed with starting heparin when we feel comfortable. She noted that the left thigh bulge had been present when she operated on her and that this did not likely represent a large hematoma but rather one confined to the incision site. I am awaiting a CBC and will hold heparin until this returns. If she indeed had a significant bleed, holding the heparin for a few hours is warranted. I attempted to reach her but there is no answer and I also attempted her daughter Lesly but the number she provided does not work.
[2018-10-03 19:10] LABS: Hematocrit 22 % (35-47); Hemoglobin 7.5 g/dl (12.0-16.0); Mean Corpuscular HGB Conc 34 g/dl (31-36); Mean Corpuscular Hemoglobin 33 pg (27-31); Mean Corpuscular Volume 97 fL (80-97); Mean Platelet Volume 8.1 fL (7.4-10.4); Platelet Count 120 10^3/ul (150-450); Red Blood Count 2.26 10^6/ul (4.00-5.40); Red Cell Distribution Width 15 % (10.5-15); White Blood Count 10.8 10^3/ul (3.5-10.8)
[2018-10-03] MEDS: Senna TAB PO PRN (19:50)
[2018-10-03] MEDS: Docusate CAP* 100 MG PO PRN (19:50)
--- NOTE | 2018-10-03 20:19 | PN ---
Progress Note - Progress Note Date of Service: 10/03/18 Note: Pt seen and examined after CAT called around 6:10 pm. Per nursing her dressing was being changed and a moderate to large volume of blood erupted from incision. Dressing had been changed earlier and had a moderate amount of serosanguinous drainage. Nurses appropriately applied pressure and called Dr Jackson who relayed the call to me. Pt without complaints other than soreness about incision. No lightheadedness. Temp Pulse Resp BP Pulse Ox 97.7 F 60 18 94/52 100 10/03/18 15:47 10/03/18 15:47 10/03/18 19:49 10/03/18 15:47 10/03/18 16:00 NAD. lying quietly. Alert and oriented x3. RLE: incision with slight oozing. bandages and dressing with blood by thigh. Thigh with swelling but soft and compressible. calf soft and nontender. sensate to light touch grossly distally. brisk cap refill. [place] intact. Incision remains closed Laboratory Results - last 24 hr 10/03/18 10/03/18 10/03/18 00:50 06:18 06:18 WBC 10.6 RBC 2.23 L Hgb 7.4 L Hct 22 L MCV 98 H MCH 33 H MCHC 34 RDW 14 Plt Count 121 L MPV 7.7 Neut % (Auto) 69.5 Lymph % (Auto) 12.9 [place] % (Auto) 15.0 Eos % (Auto) 2.1 Baso % (Auto) 0.5 Absolute Neuts (auto) 7.3 Absolute Lymphs (auto) 1.4 Absolute Monos (auto) 1.6 H Absolute Eos (auto) 0.2 Absolute Basos (auto) 0 Absolute Nucleated RBC 0 Nucleated RBC % 0 APTT 70.2 H Sodium 134 L Potassium 4.4 Chloride 102 Carbon Dioxide 32 BUN 26 H Creatinine 0.59 Est GFR ( Amer) 116.7 Est GFR (Non-Af Amer) 96.4 BUN/Creatinine Ratio 44.1 H Glucose 125 H Calcium 7.9 L Blood Type Antibody Screen Crossmatch 10/03/18 10/03/18 10/03/18 06:18 06:18 16:27 WBC 11.6 H RBC 2.49 L Hgb 8.0 L Hct 24 L MCV 96 MCH 32 H MCHC 34 RDW 15 Plt Count 123 L MPV 7.8 Neut % (Auto) Lymph % (Auto) [place] % (Auto) Eos % (Auto) Baso % (Auto) Absolute Neuts (auto) Absolute Lymphs (auto) Absolute Monos (auto) Absolute Eos (auto) Absolute Basos (auto) Absolute Nucleated RBC Nucleated RBC % APTT 67.7 H Sodium Potassium Chloride Carbon Dioxide BUN Creatinine Est GFR ( Amer) Est GFR (Non-Af Amer) BUN/Creatinine Ratio Glucose Calcium Blood Type A Positive Antibody Screen Negative Crossmatch See Detail 10/03/18 18:07 WBC 10.8 RBC 2.26 L Hgb 7.5 L Hct 22 L MCV 97 MCH 33 H MCHC 34 RDW 15 Plt Count 120 L MPV 8.1 Neut % (Auto) Lymph % (Auto) [place] % (Auto) Eos % (Auto) Baso % (Auto) Absolute Neuts (auto) Absolute Lymphs (auto) Absolute Monos (auto) Absolute Eos (auto) Absolute Basos (auto) Absolute Nucleated RBC Nucleated RBC % APTT Sodium Potassium Chloride Carbon Dioxide BUN Creatinine Est GFR ( Amer) Est GFR (Non-Af Amer) BUN/Creatinine Ratio Glucose Calcium Blood Type Antibody Screen Crossmatch A/P POD#2 from R hip IM nail for IT fx Pt with afib and previous stroke placed on heparin drip. HCT was 22 this AM so received a unit and responded. Recheck demonstrated drifting back down to 22. Discussed with nurses to apply pressure dressing for now. Will reassess in AM. If still oozing would likely place incisional VAC although did discuss that this could cause some skin maceration. Nurses and Dr Jackson agreed with plan. Per medicine, will hold on heparin drip until labs come back. Will follow patient closely.
[2018-10-04 00:03] LABS: Hematocrit 23 % (35-47); Hemoglobin 7.9 g/dl (12.0-16.0); Mean Corpuscular HGB Conc 34 g/dl (31-36); Mean Corpuscular Hemoglobin 33 pg (27-31); Mean Corpuscular Volume 95 fL (80-97); Platelet Count 112 10^3/ul (150-450); Red Blood Count 2.43 10^6/ul (4.00-5.40); Red Cell Distribution Width 14 % (10.5-15); White Blood Count 9.7 10^3/ul (3.5-10.8)
[2018-10-04 00:09] LABS: ABS Basophils 0.1 10^3/ul (0-0.2); ABS Eosinophils 0.1 10^3/ul (0-0.6); ABS Lymphocytes 1.4 10^3/ul (1.0-4.8); ABS Monocytes 1.8 10^3/ul (0-0.8); ABS Neutrophils 6.3 10^3/ul (1.5-7.7); ABS Nucleated RBC 0 10^3/ul; Eosinophil % 1.3 %; Lymphocyte % 14.7 %; Nucleated Red Blood Cells % 0
[2018-10-04] MEDS: oxyCODONE/Acetamin 5/325 MG* TAB PO PRN ×4 (00:17→19:30)
[2018-10-04 00:18] LABS: EGFR Non-African American 114.1 (>60)
[2018-10-04] MEDS ORDERED: Heparin VIAL(*) 5000 UNITS/ML VIAL (FIVE THOUSAND) IV PRN (00:41)
[2018-10-04] MEDS: Heparin DRIP 25,000 UNITS(*) 25,000 UNITS/500 ML BAG IV SCH ×3 (01:13→15:16)
[2018-10-04 07:03] LABS: Hematocrit 22 % (35-47); Hemoglobin 7.7 g/dl (12.0-16.0); Mean Corpuscular HGB Conc 36 g/dl (31-36); Mean Corpuscular Hemoglobin 34 pg (27-31); Mean Corpuscular Volume 95 fL (80-97); Platelet Count 116 10^3/ul (150-450); Red Cell Distribution Width 15 % (10.5-15); White Blood Count 10.8 10^3/ul (3.5-10.8)
[2018-10-04 07:22] LABS: EGFR Non-African American 125.3 (>60)
[2018-10-04] MEDS: Magnesium Oxide TAB* 400 MG PO SCH (07:57)
[2018-10-04] MEDS: Multivitamins/Minerals TAB PO SCH (07:58)
[2018-10-04] MEDS: Atorvastatin* 40 MG TAB PO SCH (07:58)
[2018-10-04] MEDS: Primidone TAB(*) 50 MG PO SCH ×4 (07:59→20:05)
[2018-10-04] MEDS: Metoprolol Succinate XL TAB* 50 MG PO SCH (08:09)
[2018-10-04] MEDS ORDERED: NS 0.9% 500 ML* 500 ML IV ONE (09:56)
--- NOTE | 2018-10-04 10:01 | PN ---
Subjective Date of Service: 10/04/18 Objective Active Medications: Acetaminophen (Tylenol Tab*) 650 mg PO Q4H PRN PRN Reason: FEVER/PAIN Al Hydrox/Mg Hydrox/Simethicone (Maalox Plus*) 30 ml PO Q6H PRN PRN Reason: INDIGESTION Atorvastatin Calcium (Lipitor*) 40 mg PO DAILY [facility] Last Admin: 10/04/18 07:58 Dose: 40 mg Docusate Sodium (Colace Cap*) 100 mg PO BID PRN PRN Reason: CONSTIPATION Last Admin: 10/03/18 19:50 Dose: 100 mg Heparin Sodium (Porcine) (Heparin Vial(*)) 0 units IV .FOR BOLUSES PRN PRN Reason: HEPARIN DRIP BOLUSES Hydromorphone HCl (Dilaudid Inj1s*) 1 mg IV SLOW PU Q4H PRN PRN Reason: PAIN Heparin Sodium/Dextrose (Heparin Drip 25,000 Units(*)) 25,000 units in 500 mls @ 0 mls/hr IV PER RATE [facility]; Protocol Last Admin: 10/04/18 07:54 Dose: 16 mls/hr Sodium Chloride (Ns 0.9% 500 Ml*) 500 mls @ 1,000 mls/hr IV ONCE ONE Stop: 10/04/18 10:25 Magnesium Oxide (Magox 400 Tab*) 400 mg PO DAILY [facility] Last Admin: 10/04/18 07:57 Dose: 400 mg Metoprolol Succinate (Toprol Xl Tab*) 50 mg PO DAILY [facility] Last Admin: 10/04/18 08:09 Dose: Not Given Morphine Sulfate (Morphine Vial*) 2 mg IV Q4H PRN PRN Reason: PAIN SEVERE Multivitamins/Minerals (Theragran/Minerals Tab*) 1 tab PO DAILY [facility] Last Admin: 10/04/18 07:58 Dose: 1 tab Ondansetron HCl (Zofran Inj*) 4 mg IV Q4H PRN PRN Reason: NAUSEA/VOMITING Oxycodone HCl (Roxycodone Tab*) 10 mg PO Q4H PRN PRN Reason: PAIN MODERATE Oxycodone/Acetaminophen (Percocet 5/325 Tab*) 1 tab PO Q4H PRN PRN Reason: PAIN Last Admin: 10/04/18 05:40 Dose: 1 tab Oxycodone/Acetaminophen (Percocet 5/325 Tab*) 2 tab PO Q4H PRN PRN Reason: PAIN Last Admin: 10/03/18 13:15 Dose: 2 tab Primidone (Mysoline Tab(*)) 150 mg PO TID [facility]JU Last Admin: 10/04/18 07:59 Dose: 150 mg Senna (Senokot Tab*) 1 tab PO BID PRN PRN Reason: CONSTIPATION Last Admin: 10/03/18 19:50 Dose: 1 tab Vital Signs - 8 hr 10/04/18 10/04/18 10/04/18 04:10 05:40 05:42 Temperature 98.4 F Pulse Rate 60 Respiratory 16 17 18 Rate Blood Pressure 109/43 (mmHg) O2 Sat by Pulse 100 Oximetry 10/04/18 07:29 Temperature 98.4 F Pulse Rate 61 Respiratory 16 Rate Blood Pressure 117/50 (mmHg) O2 Sat by Pulse 100 Oximetry Oxygen Devices in Use Now: Nasal Cannula Result Diagrams: 10/04/18 06:12 10/04/18 06:12 Additional Lab and Data: Lab Results 09/30/18 09/30/18 09/30/18 Range/Units 20:20 20:20 20:20 WBC 4.7 (3.5-10.8) 10^3/ul RBC 3.82 L (4.00-5.40) 10^6/ul Hgb 12.7 (12.0-16.0) g/dl Hct 38 (35-47) % MCV 99 H (80-97) fL MCH 33 H (27-31) pg MCHC 34 (31-36) g/dl RDW 15 (10.5-15) % Plt Count 173 (150-450) 10^3/ul MPV 7.6 (7.4-10.4) fL Neut % (Auto) 59.9 % Lymph % (Auto) 23.3 % [place] % (Auto) 14.9 % Eos % (Auto) 1.4 % Baso % (Auto) 0.5 % Absolute Neuts (auto) 2.8 (1.5-7.7) 10^3/ul Absolute Lymphs (auto) 1.1 (1.0-4.8) 10^3/ul Absolute Monos (auto) 0.7 (0-0.8) 10^3/ul Absolute Eos (auto) 0.1 (0-0.6) 10^3/ul Absolute Basos (auto) 0 (0-0.2) 10^3/ul Absolute Nucleated RBC 0 10^3/ul Nucleated RBC % 0.1 INR (Anticoag Therapy) 1.73 H (0.77-1.02) APTT 30.1 (26.0-36.3) seconds Sodium 136 (135-145) mmol/L Potassium 4.7 (3.5-5.0) mmol/L Chloride 102 (101-111) mmol/L Carbon Dioxide 33 H (22-32) mmol/L Anion Gap 1 L (2-11) mmol/L BUN 19 (6-24) mg/dL Creatinine 0.71 (0.51-0.95) mg/dL Est GFR ( Amer) 94.2 (>60) Est GFR (Non-Af Amer) 77.9 (>60) BUN/Creatinine Ratio 26.8 H (8-20) Glucose 153 H (70-100) mg/dL Calcium 9.0 (8.6-10.3) mg/dL Total Bilirubin 0.30 (0.2-1.0) mg/dL AST 33 (13-39) U/L ALT 24 (7-52) U/L Alkaline Phosphatase 74 (34-104) U/L Troponin I 0.08 H* (<0.04) ng/mL C-Reactive Protein 3.13 (<8.01) mg/L Total Protein 6.2 L (6.4-8.9) g/dL Albumin 3.5 (3.2-5.2) g/dL Globulin 2.7 (2-4) g/dL Albumin/Globulin Ratio 1.3 (1-3) Assess/Plan/Problems-Billing Assessment: This is an 88 year old lady with history of afib on coumadin and a NICM who presented after a mechanical fall and was found to have a right hip fracture. - Patient Problems (1) Closed right hip fracture Current Visit: Yes Status: Acute Code(s): S72.001A - FRACTURE OF UNSP PART OF NECK OF RIGHT FEMUR, INIT SNOMED Code(s): 798269329 Comment: POD #3 R hip intramedullary nail OOB again today pain is controlled with percocet (2) Acute blood loss anemia Current Visit: Yes Status: Acute Code(s): D62 - ACUTE POSTHEMORRHAGIC ANEMIA SNOMED Code(s): 867608364 Comment: s/p CAT call yesterday for bleeding; see my event note guille of hgb was 7.4 s/p 2U PRBCs yesterday; needs another today more bleeding than usual is expected since she is on the heparin drip, but she has remained hemodynamically stable and given her very high risk of stroke, at this point managing the bleeding is reasonable while still preventing CVA (3) Acute urinary retention Current Visit: Yes Status: Acute Code(s): R33.8 - OTHER RETENTION OF URINE SNOMED Code(s): 063999458 Comment: bladder scan showed ~300 cc urine she is appears VERY dry on exam I am giving her 1u PRBCs + 500cc NS for volume, encouraging PO intake, and we will recheck her bladder around lunchtime if she still hasn't peed, and she may need the cano reinserted. she understands (4) Atrial fibrillation Current Visit: No Status: Acute Code(s): I48.91 - UNSPECIFIED ATRIAL FIBRILLATION SNOMED Code(s): 56729334 Comment: with high [id number], so on heparin drip given subtherapeutic INR need to monitor bleeding very closely will hold off on resuming warfarin until sure bleeding is controlled (5) Chronic systolic (congestive) heart failure Current Visit: Yes Status: Acute Code(s): I50.22 - CHRONIC SYSTOLIC ( CONGESTIVE) HEART FAILURE SNOMED Code(s): 864923717 Comment: again dry today, will benefit from blood and IVF continue metoprolol and statin; not on TRACY? I suspect bp would not tolerate
--- NOTE | 2018-10-04 11:35 | PN ---
Progress Note - Progress Note Date of Service: 10/04/18 SOAP: Subjective: Pt is doing well. Pain controlled. denies Cp/SOB, F/C, calf pain Objective: PE- 88 y/o WDWN F NAD, A&Ox3 RLE- dressing c/d/i, calf soft NT, +DF/PF ankle, NVI Vital Signs Temp Pulse Resp BP Pulse Ox 98.4 F 61 16 117/50 100 10/04/18 07:29 10/04/18 07:29 10/04/18 07:30 10/04/18 07:29 10/04/18 07:29 Laboratory Results - last 24 hr 10/03/18 10/03/18 10/03/18 06:18 16:27 18:07 WBC 11.6 H 10.8 RBC 2.49 L 2.26 L Hgb 8.0 L 7.5 L Hct 24 L 22 L MCV 96 97 MCH 32 H 33 H MCHC 34 34 RDW 15 15 Plt Count 123 L 120 L MPV 7.8 8.1 Neut % (Auto) Lymph % (Auto) [place] % (Auto) Eos % (Auto) Baso % (Auto) Absolute Neuts (auto) Absolute Lymphs (auto) Absolute Monos (auto) Absolute Eos (auto) Absolute Basos (auto) Absolute Nucleated RBC Nucleated RBC % APTT Sodium Potassium Chloride Carbon Dioxide Anion Gap BUN Creatinine Est GFR ( Amer) Est GFR (Non-Af Amer) BUN/Creatinine Ratio Glucose Calcium Blood Type A Positive Antibody Screen Negative Crossmatch See Detail 10/03/18 10/03/18 10/03/18 23:53 23:53 23:53 WBC 9.7 RBC 2.43 L Hgb 7.9 L Hct 23 L MCV 95 MCH 33 H MCHC 34 RDW 14 Plt Count 112 L MPV 8.0 Neut % (Auto) 65.2 Lymph % (Auto) 14.7 [place] % (Auto) 18.2 Eos % (Auto) 1.3 Baso % (Auto) 0.6 Absolute Neuts (auto) 6.3 Absolute Lymphs (auto) 1.4 Absolute Monos (auto) 1.8 H Absolute Eos (auto) 0.1 Absolute Basos (auto) 0.1 Absolute Nucleated RBC 0 Nucleated RBC % 0 APTT 28.1 Sodium Potassium Chloride Carbon Dioxide Anion Gap BUN Creatinine 0.51 Est GFR ( Amer) 138.0 Est GFR (Non-Af Amer) 114.1 BUN/Creatinine Ratio Glucose Calcium Blood Type Antibody Screen Crossmatch 10/04/18 10/04/18 10/04/18 06:12 06:12 06:12 WBC 10.8 RBC 2.30 L Hgb 7.7 L Hct 22 L MCV 95 MCH 34 H MCHC 36 RDW 15 Plt Count 116 L MPV 8.0 Neut % (Auto) Lymph % (Auto) [place] % (Auto) Eos % (Auto) Baso % (Auto) Absolute Neuts (auto) Absolute Lymphs (auto) Absolute Monos (auto) Absolute Eos (auto) Absolute Basos (auto) Absolute Nucleated RBC Nucleated RBC % APTT 85.9 H Sodium 136 Potassium 4.2 Chloride 103 Carbon Dioxide 30 Anion Gap 3 BUN 23 Creatinine 0.47 L Est GFR ( Amer) 151.7 Est GFR (Non-Af Amer) 125.3 BUN/Creatinine Ratio 48.9 H Glucose 150 H Calcium 7.6 L Blood Type Antibody Screen Crossmatch Assessment: []s/p Right hip ORIF with Gamma nail POD #3 Plan: []PT/OT WBAT RLE 1 Unit PRBC given today per medicine Continue heparin drip as ordered by medicine since labs improved Keep dressing intact today Dressing change tomorrow- if continued sanguineous discharge will place wound vac
[2018-10-04 14:35] LABS: ABS Basophils 0 10^3/ul (0-0.2); ABS Eosinophils 0.1 10^3/ul (0-0.6); ABS Lymphocytes 1.3 10^3/ul (1.0-4.8); ABS Monocytes 1.5 10^3/ul (0-0.8); ABS Neutrophils 6.7 10^3/ul (1.5-7.7); ABS Nucleated RBC 0 10^3/ul; Eosinophil % 1.2 %; Hematocrit 24 % (35-47); Hemoglobin 8.3 g/dl (12.0-16.0); Mean Corpuscular HGB Conc 35 g/dl (31-36); Mean Corpuscular Hemoglobin 32 pg (27-31); Mean Corpuscular Volume 94 fL (80-97); Mean Platelet Volume 7.6 fL (7.4-10.4); Nucleated Red Blood Cells % 0; Platelet Count 124 10^3/ul (150-450); Red Blood Count 2.57 10^6/ul (4.00-5.40); Red Cell Distribution Width 15 % (10.5-15); White Blood Count 9.6 10^3/ul (3.5-10.8)
[2018-10-04] MEDS: Docusate CAP* 100 MG PO PRN (20:05)
[2018-10-04] MEDS: Senna TAB PO PRN (20:05)
[2018-10-05] MEDS: oxyCODONE/Acetamin 5/325 MG* TAB PO PRN ×3 (03:18→13:10)
[2018-10-05 05:47] LABS: Hematocrit 22 % (35-47); Hemoglobin 7.5 g/dl (12.0-16.0); Mean Corpuscular HGB Conc 35 g/dl (31-36); Mean Corpuscular Hemoglobin 33 pg (27-31); Mean Corpuscular Volume 94 fL (80-97); Mean Platelet Volume 7.3 fL (7.4-10.4); Platelet Count 134 10^3/ul (150-450); Red Blood Count 2.31 10^6/ul (4.00-5.40); Red Cell Distribution Width 15 % (10.5-15); White Blood Count 10.9 10^3/ul (3.5-10.8)
[2018-10-05 05:58] LABS: ABS Basophils 0 10^3/ul (0-0.2); ABS Eosinophils 0.1 10^3/ul (0-0.6); ABS Lymphocytes 1.4 10^3/ul (1.0-4.8); ABS Neutrophils 7.4 10^3/ul (1.5-7.7); ABS Nucleated RBC 0 10^3/ul; Eosinophil % 0.7 %; Lymphocyte % 12.9 %; Nucleated Red Blood Cells % 0
[2018-10-05 06:02] LABS: EGFR Non-African American 135.3 (>60)
--- NOTE | 2018-10-05 09:44 | PN ---
Progress Note - Progress Note Date of Service: 10/05/18 SOAP: Subjective: Pt seen and examined. Heparin drip stopped again due to swelling in leg. Dressing has been in place since Saturday night. No numbness or tingling. Some pain but pain controlled. Eating breakfast. Objective: Temp Pulse Resp BP Pulse Ox 99.7 F 60 18 102/44 100 10/05/18 07:55 10/05/18 07:55 10/05/18 07:55 10/05/18 07:55 10/05/18 07:55 NAD. R hip dressing removed. Calf soft and nontender. SILT grossly distally. Brisk cap refill. Able to dorsiflex.plantarflex ankle. flex./ext toes Laboratory Results - last 24 hr 10/03/18 10/04/18 10/04/18 06:18 14:15 14:18 WBC 9.6 RBC 2.57 L Hgb 8.3 L Hct 24 L MCV 94 MCH 32 H MCHC 35 RDW 15 Plt Count 124 L MPV 7.6 Neut % (Auto) 69.7 Lymph % (Auto) 13.0 [place] % (Auto) 15.9 Eos % (Auto) 1.2 Baso % (Auto) 0.2 Absolute Neuts (auto) 6.7 Absolute Lymphs (auto) 1.3 Absolute Monos (auto) 1.5 H Absolute Eos (auto) 0.1 Absolute Basos (auto) 0 Absolute Nucleated RBC 0 Nucleated RBC % 0 APTT 73.8 H Sodium Potassium Chloride Carbon Dioxide Anion Gap BUN Creatinine Est GFR ( Amer) Est GFR (Non-Af Amer) BUN/Creatinine Ratio Glucose Calcium Blood Type A Positive Antibody Screen Negative Crossmatch See Detail 10/04/18 10/05/18 10/05/18 18:33 00:21 05:33 WBC RBC Hgb Hct MCV MCH MCHC RDW Plt Count MPV Neut % (Auto) Lymph % (Auto) [place] % (Auto) Eos % (Auto) Baso % (Auto) Absolute Neuts (auto) Absolute Lymphs (auto) Absolute Monos (auto) Absolute Eos (auto) Absolute Basos (auto) Absolute Nucleated RBC Nucleated RBC % APTT 65.1 H 65.5 H Sodium 133 L Potassium 4.5 Chloride 102 Carbon Dioxide 29 Anion Gap 2 BUN 20 Creatinine 0.44 L Est GFR ( Amer) 163.7 Est GFR (Non-Af Amer) 135.3 BUN/Creatinine Ratio 45.5 H Glucose 129 H Calcium 7.6 L Blood Type Antibody Screen Crossmatch 10/05/18 10/05/18 05:33 05:33 WBC 10.9 H RBC 2.31 L Hgb 7.5 L Hct 22 L MCV 94 MCH 33 H MCHC 35 RDW 15 Plt Count 134 L MPV 7.3 L Neut % (Auto) 67.6 Lymph % (Auto) 12.9 [place] % (Auto) 18.6 Eos % (Auto) 0.7 Baso % (Auto) 0.2 Absolute Neuts (auto) 7.4 Absolute Lymphs (auto) 1.4 Absolute Monos (auto) 2.0 H Absolute Eos (auto) 0.1 Absolute Basos (auto) 0 Absolute Nucleated RBC 0 Nucleated RBC % 0 APTT 64.6 H Sodium Potassium Chloride Carbon Dioxide Anion Gap BUN Creatinine Est GFR ( Amer) Est GFR (Non-Af Amer) BUN/Creatinine Ratio Glucose Calcium Blood Type Antibody Screen Crossmatch Assessment: A/P POD#4 from R leg IMN Plan: FROYLAN has had multiple transfusions. dressing changed with serosanguinous drainage on dressing and mild drainage at rest. Will place incisional vac NPO for now. possible evacuation of hematoma if no better and copious discharge discussed with medicine team NEEDS to mobilize PT/OT
[2018-10-05] MEDS: Atorvastatin* 40 MG TAB PO SCH (10:44)
[2018-10-05] MEDS: Multivitamins/Minerals TAB PO SCH (10:44)
[2018-10-05] MEDS: Magnesium Oxide TAB* 400 MG PO SCH (10:44)
[2018-10-05] MEDS: Metoprolol Succinate XL TAB* 25 MG PO SCH (10:44)
[2018-10-05] MEDS: Metoprolol Succinate XL TAB* 50 MG PO SCH (11:25)
--- NOTE | 2018-10-05 11:36 | PN ---
Subjective Date of Service: 10/05/18 Interval History: Bessie feels okay. SHe is in some pain but says it is not the worst pain. She urinated very little overnight but she has no urge to urinate. She did not get up with PT yesterday because the blood was infusing when she was evaluated. She is eating well, denies constipation, diarrhea, nausea, chest pain, sob. Her is here visiting. Objective Active Medications: Acetaminophen (Tylenol Tab*) 650 mg PO Q4H PRN PRN Reason: FEVER/PAIN Al Hydrox/Mg Hydrox/Simethicone (Maalox Plus*) 30 ml PO Q6H PRN PRN Reason: INDIGESTION Atorvastatin Calcium (Lipitor*) 40 mg PO DAILY [facility] Last Admin: 10/05/18 10:44 Dose: 40 mg Docusate Sodium (Colace Cap*) 100 mg PO BID PRN PRN Reason: CONSTIPATION Last Admin: 10/04/18 20:05 Dose: 100 mg Heparin Sodium (Porcine) (Heparin Vial(*)) 0 units IV .FOR BOLUSES PRN PRN Reason: HEPARIN DRIP BOLUSES Hydromorphone HCl (Dilaudid Inj1s*) 1 mg IV SLOW PU Q4H PRN PRN Reason: PAIN Heparin Sodium/Dextrose (Heparin Drip 25,000 Units(*)) 25,000 units in 500 mls @ 0 mls/hr IV PER RATE [facility]; Protocol Last Admin: 10/04/18 15:16 Dose: 14 mls/hr Magnesium Oxide (Magox 400 Tab*) 400 mg PO DAILY [facility] Last Admin: 10/05/18 10:44 Dose: 400 mg Metoprolol Succinate (Toprol Xl Tab*) 25 mg PO DAILY [facility] Last Admin: 10/05/18 10:44 Dose: 25 mg Morphine Sulfate (Morphine Vial*) 2 mg IV Q4H PRN PRN Reason: PAIN SEVERE Last Admin: 10/05/18 06:52 Dose: 2 mg Multivitamins/Minerals (Theragran/Minerals Tab*) 1 tab PO DAILY [facility] Last Admin: 10/05/18 10:44 Dose: 1 tab Ondansetron HCl (Zofran Inj*) 4 mg IV Q4H PRN PRN Reason: NAUSEA/VOMITING Oxycodone HCl (Roxycodone Tab*) 10 mg PO Q4H PRN PRN Reason: PAIN MODERATE Oxycodone/Acetaminophen (Percocet 5/325 Tab*) 1 tab PO Q4H PRN PRN Reason: PAIN Last Admin: 10/05/18 10:15 Dose: 1 tab Oxycodone/Acetaminophen (Percocet 5/325 Tab*) 2 tab PO Q4H PRN PRN Reason: PAIN Last Admin: 10/03/18 13:15 Dose: 2 tab Primidone (Mysoline Tab(*)) 150 mg PO BEDTIME [facility] Last Admin: 10/04/18 20:05 Dose: 150 mg Senna (Senokot Tab*) 1 tab PO BID PRN PRN Reason: CONSTIPATION Last Admin: 10/04/18 20:05 Dose: 1 tab Vital Signs - 8 hr 10/05/18 10/05/18 10/05/18 05:37 06:52 06:54 Temperature Pulse Rate 60 Respiratory 16 16 Rate Blood Pressure 114/47 (mmHg) O2 Sat by Pulse Oximetry 10/05/18 10/05/18 10/05/18 07:52 07:55 10:15 Temperature 99.7 F Pulse Rate 60 Respiratory 16 18 18 Rate Blood Pressure 102/44 (mmHg) O2 Sat by Pulse 100 Oximetry Oxygen Devices in Use Now: None Appearance: alert, well appearing, nontoxic Eyes: No Scleral Icterus Ears/Nose/Mouth/Throat: NL Teeth, Lips, Gums Neck: NL Appearance and Movements; NL JVP Respiratory: Symmetrical Chest Expansion and Respiratory Effort, Clear to Auscultation Cardiovascular: RRR, - - systolic murmur throughout Abdominal: NL Sounds; No Tenderness; No Distention Lymphatic: No Cervical Adenopathy Extremities: - - vac in place over right hip incision, swelling around incision. distal pulses 2+ Skin: No Rash or Ulcers Neurological: Alert and Oriented x 3 Result Diagrams: 10/05/18 05:33 10/05/18 05:33 Additional Lab and Data: Lab Results 09/30/18 09/30/18 09/30/18 Range/Units 20:20 20:20 20:20 WBC 4.7 (3.5-10.8) 10^3/ul RBC 3.82 L (4.00-5.40) 10^6/ul Hgb 12.7 (12.0-16.0) g/dl Hct 38 (35-47) % MCV 99 H (80-97) fL MCH 33 H (27-31) pg MCHC 34 (31-36) g/dl RDW 15 (10.5-15) % Plt Count 173 (150-450) 10^3/ul MPV 7.6 (7.4-10.4) fL Neut % (Auto) 59.9 % Lymph % (Auto) 23.3 % [place] % (Auto) 14.9 % Eos % (Auto) 1.4 % Baso % (Auto) 0.5 % Absolute Neuts (auto) 2.8 (1.5-7.7) 10^3/ul Absolute Lymphs (auto) 1.1 (1.0-4.8) 10^3/ul Absolute Monos (auto) 0.7 (0-0.8) 10^3/ul Absolute Eos (auto) 0.1 (0-0.6) 10^3/ul Absolute Basos (auto) 0 (0-0.2) 10^3/ul Absolute Nucleated RBC 0 10^3/ul Nucleated RBC % 0.1 INR (Anticoag Therapy) 1.73 H (0.77-1.02) APTT 30.1 (26.0-36.3) seconds Sodium 136 (135-145) mmol/L Potassium 4.7 (3.5-5.0) mmol/L Chloride 102 (101-111) mmol/L Carbon Dioxide 33 H (22-32) mmol/L Anion Gap 1 L (2-11) mmol/L BUN 19 (6-24) mg/dL Creatinine 0.71 (0.51-0.95) mg/dL Est GFR ( Amer) 94.2 (>60) Est GFR (Non-Af Amer) 77.9 (>60) BUN/Creatinine Ratio 26.8 H (8-20) Glucose 153 H (70-100) mg/dL Calcium 9.0 (8.6-10.3) mg/dL Total Bilirubin 0.30 (0.2-1.0) mg/dL AST 33 (13-39) U/L ALT 24 (7-52) U/L Alkaline Phosphatase 74 (34-104) U/L Troponin I 0.08 H* (<0.04) ng/mL C-Reactive Protein 3.13 (<8.01) mg/L Total Protein 6.2 L (6.4-8.9) g/dL Albumin 3.5 (3.2-5.2) g/dL Globulin 2.7 (2-4) g/dL Albumin/Globulin Ratio 1.3 (1-3) Assess/Plan/Problems-Billing Assessment: This is an 88 year old lady with history of afib on coumadin and a NICM who presented after a mechanical fall and was found to have a right hip fracture. - Patient Problems (1) Acute blood loss anemia Current Visit: Yes Status: Acute Code(s): D62 - ACUTE POSTHEMORRHAGIC ANEMIA SNOMED Code(s): 673819224 Comment: has received 3 U PRBCs since Saturday with hgb still 7.5 today Her goal is >7 since she has nonischemic heart disease, but given her apparent ongoing blood loss I am giving her another unit today more bleeding than usual is expected since she has been on the heparin drip but the benefits have been felt to outweigh the risks; however now with ongoing bleeding and possible return to the OR, I think the risks are currently outweighing the benefits, so I am placing the heparin drip on hold I have discussed this with Bessie and her Dr. Marion placed an incisional vac this morning and will re-eval this afternoon for need for hematoma evacuation (2) Closed right hip fracture Current Visit: Yes Status: Acute Code(s): S72.001A - FRACTURE OF UNSP PART OF NECK OF RIGHT FEMUR, INIT SNOMED Code(s): 208331293 Comment: POD #4 R hip intramedullary nail OOB again today -- she did not get out of bed yesterday because blood was infusing when PT came to see her. transfer to short stay for closer PT treatment. pain is controlled with percocet (3) Acute urinary retention Current Visit: Yes Status: Acute Code(s): R33.8 - OTHER RETENTION OF URINE SNOMED Code(s): 284623281 Comment: yesterday she urinated in the afternoon as her RN was about to place a cano she has not urinated yet today and a bladder scan just showed >500 cc in her bladder re-insert cano likely narcotic and immobility related (4) Atrial fibrillation Current Visit: No Status: Acute Code(s): I48.91 - UNSPECIFIED ATRIAL FIBRILLATION SNOMED Code(s): 75519012 Comment: with high [id number], but heparin now on hold given bleeding elevated risk for CVA; I have discussed this with her and her will hold off on resuming warfarin until sure bleeding is controlled (5) Chronic systolic (congestive) heart failure Current Visit: Yes Status: Acute Code(s): I50.22 - CHRONIC SYSTOLIC ( CONGESTIVE) HEART FAILURE SNOMED Code(s): 714412996 Comment: she has received blood and IVF post-op and still looks euvolemic to dry continue metoprolol and statin
[2018-10-05 17:23] LABS: EGFR Non-African American 138.9 (>60)
[2018-10-05] MEDS: Primidone TAB(*) 50 MG PO SCH (20:27)
[2018-10-05] MEDS: Senna TAB PO PRN (20:58)
[2018-10-05] MEDS: Docusate CAP* 100 MG PO PRN (20:58)
[2018-10-05] MEDS: oxyCODONE TAB* 5 MG TAB PO PRN (22:52)
[2018-10-06 06:42] LABS: Hematocrit 24 % (35-47); Hemoglobin 8.2 g/dl (12.0-16.0); Mean Corpuscular HGB Conc 35 g/dl (31-36); Mean Corpuscular Hemoglobin 32 pg (27-31); Mean Corpuscular Volume 93 fL (80-97); Mean Platelet Volume 7.1 fL (7.4-10.4); Platelet Count 150 10^3/ul (150-450); Red Blood Count 2.55 10^6/ul (4.00-5.40); Red Cell Distribution Width 15 % (10.5-15); White Blood Count 10.3 10^3/ul (3.5-10.8)
[2018-10-06 06:45] LABS: ABS Basophils 0 10^3/ul (0-0.2); ABS Eosinophils 0.1 10^3/ul (0-0.6); ABS Lymphocytes 1.3 10^3/ul (1.0-4.8); ABS Monocytes 1.9 10^3/ul (0-0.8); ABS Nucleated RBC 0 10^3/ul; Eosinophil % 0.5 %; Lymphocyte % 12.8 %; Nucleated Red Blood Cells % 0.1
[2018-10-06] MEDS: oxyCODONE/Acetamin 5/325 MG* TAB PO PRN ×3 (06:45→22:52)
[2018-10-06 07:01] LABS: EGFR Non-African American 142.7 (>60)
[2018-10-06] MEDS: Magnesium Oxide TAB* 400 MG PO SCH (10:02)
[2018-10-06] MEDS: Metoprolol Succinate XL TAB* 25 MG PO SCH (10:02)
[2018-10-06] MEDS: oxyCODONE TAB* 5 MG TAB PO PRN ×2 (10:02→19:58)
[2018-10-06] MEDS: Atorvastatin* 40 MG TAB PO SCH (10:02)
[2018-10-06] MEDS: Multivitamins/Minerals TAB PO SCH (10:02)
--- NOTE | 2018-10-06 12:12 | PN ---
Progress Note - Progress Note Date of Service: 10/06/18 SOAP: Subjective: []Patient seen at bedside this morning, awakened upon entering her room. Thigh sore but overall pain well managed. Denies SOB, CP, dizziness, nausea. Objective: [] Vital Signs Temp 98.9 F 10/06/18 09:39 Pulse 54 10/06/18 09:39 Resp 16 10/06/18 10:17 BP 103/50 10/06/18 09:39 Pulse Ox 94 10/06/18 09:39 Intake & Output 10/05/18 10/06/18 10/06/18 18:59 06:59 18:59 Intake Total 0 600 Output Total 450 275 Balance -450 325 Intake: Oral 0 600 Output: Urine 175 Chou 450 100 Laboratory Results - last 24 hr 10/03/18 10/05/18 10/06/18 06:18 16:49 06:14 WBC RBC Hgb Hct MCV MCH MCHC RDW Plt Count MPV Neut % (Auto) Lymph % (Auto) [place] % (Auto) Eos % (Auto) Baso % (Auto) Absolute Neuts (auto) Absolute Lymphs (auto) Absolute Monos (auto) Absolute Eos (auto) Absolute Basos (auto) Absolute Nucleated RBC Nucleated RBC % APTT Sodium 133 L 135 Potassium 4.5 4.7 Chloride 101 103 Carbon Dioxide 30 28 Anion Gap 2 4 BUN 20 19 Creatinine 0.43 L 0.42 L Est GFR ( Amer) 168.1 172.7 Est GFR (Non-Af Amer) 138.9 142.7 BUN/Creatinine Ratio 46.5 H 45.2 H Glucose 109 H 109 H Calcium 8.0 L 8.0 L Blood Type A Positive Antibody Screen Negative Crossmatch See Detail 10/06/18 10/06/18 06:14 06:14 WBC 10.3 RBC 2.55 L Hgb 8.2 L Hct 24 L MCV 93 MCH 32 H MCHC 35 RDW 15 Plt Count 150 MPV 7.1 L Neut % (Auto) 68.3 Lymph % (Auto) 12.8 [place] % (Auto) 18.1 Eos % (Auto) 0.5 Baso % (Auto) 0.3 Absolute Neuts (auto) 7.0 Absolute Lymphs (auto) 1.3 Absolute Monos (auto) 1.9 H Absolute Eos (auto) 0.1 Absolute Basos (auto) 0 Absolute Nucleated RBC 0 Nucleated RBC % 0.1 APTT 26.4 Sodium Potassium Chloride Carbon Dioxide Anion Gap BUN Creatinine Est GFR ( Amer) Est GFR (Non-Af Amer) BUN/Creatinine Ratio Glucose Calcium Blood Type Antibody Screen Crossmatch Right thigh moderately swollen, with patchy ecchymosis, thigh non tender Provena wound vac applied and working well calf NT and soft +DF right ankle sensation intact distally Assessment: []s/p ORIF right hip with Gamma nail POD #5 Plan: []PT/OT WBAT RLE Wound vac change 12/ per Dr. Marion On heparin drip, will need to be bridged in order to go to rehab? Possible PMRU Follow up with Dr. Marion in 7-10 days
--- NOTE | 2018-10-06 14:25 | PN ---
Subjective Date of Service: 10/06/18 Interval History: Pt feels well. C/o "itching" on R hip where wound vac is Objective Active Medications: Acetaminophen (Tylenol Tab*) 650 mg PO Q4H PRN PRN Reason: FEVER/PAIN Al Hydrox/Mg Hydrox/Simethicone (Maalox Plus*) 30 ml PO Q6H PRN PRN Reason: INDIGESTION Atorvastatin Calcium (Lipitor*) 40 mg PO DAILY [facility] Last Admin: 10/06/18 10:02 Dose: 40 mg Docusate Sodium (Colace Cap*) 100 mg PO BID PRN PRN Reason: CONSTIPATION Last Admin: 10/05/18 20:58 Dose: 100 mg Heparin Sodium (Porcine) (Heparin Vial(*)) 0 units IV .FOR BOLUSES PRN PRN Reason: HEPARIN DRIP BOLUSES Hydromorphone HCl (Dilaudid Inj1s*) 1 mg IV SLOW PU Q4H PRN PRN Reason: PAIN Heparin Sodium/Dextrose (Heparin Drip 25,000 Units(*)) 25,000 units in 500 mls @ 0 mls/hr IV PER RATE [facility]; Protocol Last Admin: 10/04/18 15:16 Dose: 14 mls/hr Magnesium Oxide (Magox 400 Tab*) 400 mg PO DAILY [facility] Last Admin: 10/06/18 10:02 Dose: 400 mg Metoprolol Succinate (Toprol Xl Tab*) 25 mg PO DAILY [facility] Last Admin: 10/06/18 10:02 Dose: 25 mg Morphine Sulfate (Morphine Vial*) 2 mg IV Q4H PRN PRN Reason: PAIN SEVERE Last Admin: 10/05/18 06:52 Dose: 2 mg Multivitamins/Minerals (Theragran/Minerals Tab*) 1 tab PO DAILY [facility] Last Admin: 10/06/18 10:02 Dose: 1 tab Ondansetron HCl (Zofran Inj*) 4 mg IV Q4H PRN PRN Reason: NAUSEA/VOMITING Oxycodone HCl (Roxycodone Tab*) 10 mg PO Q4H PRN PRN Reason: PAIN MODERATE Last Admin: 10/06/18 10:02 Dose: 10 mg Oxycodone/Acetaminophen (Percocet 5/325 Tab*) 1 tab PO Q4H PRN PRN Reason: PAIN Last Admin: 12/03/18 12:41 Dose: 1 tab Oxycodone/Acetaminophen (Percocet 5/325 Tab*) 2 tab PO Q4H PRN PRN Reason: PAIN Last Admin: 10/05/18 13:10 Dose: 2 tab Primidone (Mysoline Tab(*)) 150 mg PO BEDTIME [facility] Last Admin: 10/05/18 20:27 Dose: 150 mg Senna (Senokot Tab*) 1 tab PO BID PRN PRN Reason: CONSTIPATION Last Admin: 10/05/18 20:58 Dose: 1 tab Vital Signs - 8 hr 10/06/18 10/06/18 10/06/18 06:31 06:45 08:00 Temperature Pulse Rate Respiratory 18 17 Rate Blood Pressure (mmHg) O2 Sat by Pulse 94 Oximetry 10/06/18 10/06/18 10/06/18 09:39 10:02 10:17 Temperature 98.9 F Pulse Rate 54 Respiratory 16 16 16 Rate Blood Pressure 103/50 (mmHg) O2 Sat by Pulse 94 Oximetry 10/06/18 10/06/18 11:35 12:41 Temperature Pulse Rate 60 Respiratory 18 18 Rate Blood Pressure 98/47 (mmHg) O2 Sat by Pulse 99 Oximetry Oxygen Devices in Use Now: None Appearance: 88 yo F in nAD, aAOx3 Eyes: No Scleral Icterus, PERRLA Neck: NL Appearance and Movements; NL JVP, Trachea Midline Respiratory: Symmetrical Chest Expansion and Respiratory Effort, Clear to Auscultation Cardiovascular: NL Sounds; No Murmurs; No JVD, - - irregular Abdominal: NL Sounds; No Tenderness; No Distention, No Hepatosplenomegaly Lymphatic: No Cervical Adenopathy Extremities: No Clubbing, Cyanosis, - - R leg edema +1 Skin: No Nodules or Sclerosis, - - R hip wound vac in place Neurological: Alert and Oriented x 3, NL Muscle Strength and Tone Result Diagrams: 10/06/18 06:14 10/06/18 06:14 Additional Lab and Data: Lab Results 09/30/18 09/30/18 09/30/18 Range/Units 20:20 20:20 20:20 WBC 4.7 (3.5-10.8) 10^3/ul RBC 3.82 L (4.00-5.40) 10^6/ul Hgb 12.7 (12.0-16.0) g/dl Hct 38 (35-47) % MCV 99 H (80-97) fL MCH 33 H (27-31) pg MCHC 34 (31-36) g/dl RDW 15 (10.5-15) % Plt Count 173 (150-450) 10^3/ul MPV 7.6 (7.4-10.4) fL Neut % (Auto) 59.9 % Lymph % (Auto) 23.3 % [place] % (Auto) 14.9 % Eos % (Auto) 1.4 % Baso % (Auto) 0.5 % Absolute Neuts (auto) 2.8 (1.5-7.7) 10^3/ul Absolute Lymphs (auto) 1.1 (1.0-4.8) 10^3/ul Absolute Monos (auto) 0.7 (0-0.8) 10^3/ul Absolute Eos (auto) 0.1 (0-0.6) 10^3/ul Absolute Basos (auto) 0 (0-0.2) 10^3/ul Absolute Nucleated RBC 0 10^3/ul Nucleated RBC % 0.1 INR (Anticoag Therapy) 1.73 H (0.77-1.02) APTT 30.1 (26.0-36.3) seconds Sodium 136 (135-145) mmol/L Potassium 4.7 (3.5-5.0) mmol/L Chloride 102 (101-111) mmol/L Carbon Dioxide 33 H (22-32) mmol/L Anion Gap 1 L (2-11) mmol/L BUN 19 (6-24) mg/dL Creatinine 0.71 (0.51-0.95) mg/dL Est GFR ( Amer) 94.2 (>60) Est GFR (Non-Af Amer) 77.9 (>60) BUN/Creatinine Ratio 26.8 H (8-20) Glucose 153 H (70-100) mg/dL Calcium 9.0 (8.6-10.3) mg/dL Total Bilirubin 0.30 (0.2-1.0) mg/dL AST 33 (13-39) U/L ALT 24 (7-52) U/L Alkaline Phosphatase 74 (34-104) U/L Troponin I 0.08 H* (<0.04) ng/mL C-Reactive Protein 3.13 (<8.01) mg/L Total Protein 6.2 L (6.4-8.9) g/dL Albumin 3.5 (3.2-5.2) g/dL Globulin 2.7 (2-4) g/dL Albumin/Globulin Ratio 1.3 (1-3) Assess/Plan/Problems-Billing Assessment: This is an 88 year old lady with history of afib on coumadin and a NICM who presented after a mechanical fall and was found to have a right hip fracture. - Patient Problems (1) Acute blood loss anemia Comment: has received 4 U PRBCs since Saturday , last transfusion yesterday Her goal is >7 since she has nonischemic heart disease with ongoing bleeding risks are currently outweighing the benefits, we're cont to keep heparin drip on hold Dr. Marion placed an incisional vac on 10/05/18 and plans to d/c it on 10/07/18 (2) Acute urinary retention Comment: Chou had to reinserted for retention on 10/05/18 likely narcotic and immobility related (3) Chronic systolic (congestive) heart failure Comment: she has received blood and IVF post-op and still looks euvolemic continue metoprolol and statin (4) Closed right hip fracture Comment: POD #4 R hip intramedullary nail pain is controlled with percocet (5) Atrial fibrillation Status: Acute Comment: with high [id number], but heparin now on hold given bleeding elevated risk for CVA (6) DVT prophylaxis Comment: SCD's, anticoagulants on hold due to recurrent post op bleeding. Plan to resume Lovenox tomorrow
[2018-10-06] MEDS: Docusate CAP* 100 MG PO PRN (19:59)
[2018-10-06] MEDS: Primidone TAB(*) 50 MG PO SCH (19:59)
[2018-10-06] MEDS: Senna TAB PO PRN (19:59)
[2018-10-07 05:34] LABS: Hematocrit 24 % (35-47); Hemoglobin 8.1 g/dl (12.0-16.0); Mean Corpuscular HGB Conc 33 g/dl (31-36); Mean Corpuscular Hemoglobin 32 pg (27-31); Mean Corpuscular Volume 96 fL (80-97); Mean Platelet Volume 7.1 fL (7.4-10.4); Platelet Count 182 10^3/ul (150-450); Red Blood Count 2.55 10^6/ul (4.00-5.40); Red Cell Distribution Width 15 % (10.5-15)
[2018-10-07 05:38] LABS: ABS Basophils 0 10^3/ul (0-0.2); ABS Eosinophils 0.1 10^3/ul (0-0.6); ABS Lymphocytes 1.1 10^3/ul (1.0-4.8); ABS Monocytes 1.8 10^3/ul (0-0.8); ABS Neutrophils 7.9 10^3/ul (1.5-7.7); ABS Nucleated RBC 0 10^3/ul; Lymphocyte % 10.3 %; Nucleated Red Blood Cells % 0
[2018-10-07 05:51] LABS: EGFR Non-African American 109.1 (>60)
[2018-10-07] MEDS: oxyCODONE/Acetamin 5/325 MG* TAB PO PRN ×3 (07:15→23:33)
[2018-10-07] MEDS: Atorvastatin* 40 MG TAB PO SCH (08:52)
[2018-10-07] MEDS: Metoprolol Succinate XL TAB* 25 MG PO SCH (08:52)
[2018-10-07] MEDS: Multivitamins/Minerals TAB PO SCH (08:52)
[2018-10-07] MEDS: Docusate CAP* 100 MG PO PRN (08:52)
[2018-10-07] MEDS: Magnesium Oxide TAB* 400 MG PO SCH (08:52)
[2018-10-07] MEDS: Senna TAB PO PRN (08:53)
[2018-10-07] MEDS ORDERED: Bisacodyl SUPP* 10 MG SUPP PR PRN (09:32)
[2018-10-07] MEDS: oxyCODONE TAB* 5 MG TAB PO PRN (10:37)
[2018-10-07] MEDS: Polyethylene Glycol 3350* 17 GM PACKET PO SCH (10:37)
[2018-10-07] MEDS: Enoxaparin(*) 60 MG/0.6 ML SYR SUBCUT SCH ×2 (10:37→23:00)
--- NOTE | 2018-10-07 10:45 | PN ---
Subjective Date of Service: 10/07/18 Interval History: pt c/o more "throbbing pain " in R hip. Last night erythema surrounding upper part of vac was noted and outlined by RN-approx 15 cm in diam with mild streaking. No BM since 10/01/18, c/o no abd pain Objective Active Medications: Acetaminophen (Tylenol Tab*) 650 mg PO Q4H PRN PRN Reason: FEVER/PAIN Al Hydrox/Mg Hydrox/Simethicone (Maalox Plus*) 30 ml PO Q6H PRN PRN Reason: INDIGESTION Atorvastatin Calcium (Lipitor*) 40 mg PO DAILY [facility] Last Admin: 10/07/18 08:52 Dose: 40 mg Bisacodyl (Dulcolax Supp*) 10 mg SC DAILY PRN PRN Reason: CONSTIPATION Docusate Sodium (Colace Cap*) 100 mg PO BID PRN PRN Reason: CONSTIPATION Last Admin: 10/07/18 08:52 Dose: 100 mg Enoxaparin Sodium (Lovenox(*)) 60 mg SUBCUT Q12H [facility] Last Admin: 10/07/18 10:37 Dose: 60 mg Hydromorphone HCl (Dilaudid Inj1s*) 1 mg IV SLOW PU Q4H PRN PRN Reason: PAIN Magnesium Oxide (Magox 400 Tab*) 400 mg PO DAILY [facility] Last Admin: 10/07/18 08:52 Dose: 400 mg Metoprolol Succinate (Toprol Xl Tab*) 25 mg PO DAILY [facility] Last Admin: 10/07/18 08:52 Dose: 25 mg Morphine Sulfate (Morphine Vial*) 2 mg IV Q4H PRN PRN Reason: PAIN SEVERE Last Admin: 10/05/18 06:52 Dose: 2 mg Multivitamins/Minerals (Theragran/Minerals Tab*) 1 tab PO DAILY [facility] Last Admin: 10/07/18 08:52 Dose: 1 tab Ondansetron HCl (Zofran Inj*) 4 mg IV Q4H PRN PRN Reason: NAUSEA/VOMITING Oxycodone HCl (Roxycodone Tab*) 10 mg PO Q4H PRN PRN Reason: PAIN MODERATE Last Admin: 10/07/18 10:37 Dose: 10 mg Oxycodone/Acetaminophen (Percocet 5/325 Tab*) 1 tab PO Q4H PRN PRN Reason: PAIN Last Admin: 10/06/18 22:52 Dose: 1 tab Oxycodone/Acetaminophen (Percocet 5/325 Tab*) 2 tab PO Q4H PRN PRN Reason: PAIN Last Admin: 10/07/18 07:15 Dose: 2 tab Polyethylene Glycol/Electrolytes (Miralax*) 17 gm PO DAILY [facility] Last Admin: 10/07/18 10:37 Dose: 17 gm Primidone (Mysoline Tab(*)) 150 mg PO BEDTIME [facility] Last Admin: 10/06/18 19:59 Dose: 150 mg Senna (Senokot Tab*) 1 tab PO BID PRN PRN Reason: CONSTIPATION Last Admin: 10/07/18 08:53 Dose: 1 tab Vital Signs - 8 hr 10/07/18 10/07/18 10/07/18 03:35 04:56 04:57 Temperature 98.5 F Pulse Rate 59 Respiratory 18 17 17 Rate Blood Pressure 112/51 (mmHg) O2 Sat by Pulse 100 Oximetry 10/07/18 10/07/18 10/07/18 07:15 07:23 07:28 Temperature 97.4 F Pulse Rate 57 Respiratory 18 18 16 Rate Blood Pressure 101/46 (mmHg) O2 Sat by Pulse 100 92 Oximetry 10/07/18 10/07/18 09:09 10:37 Temperature Pulse Rate Respiratory 16 18 Rate Blood Pressure (mmHg) O2 Sat by Pulse Oximetry Oxygen Devices in Use Now: None Appearance: 88 yo F in nAD, aAOx3 Eyes: No Scleral Icterus, PERRLA Ears/Nose/Mouth/Throat: NL Teeth, Lips, Gums, Mucous Membranes Moist Neck: NL Appearance and Movements; NL JVP, Trachea Midline Respiratory: Symmetrical Chest Expansion and Respiratory Effort, Clear to Auscultation Cardiovascular: NL Sounds; No Murmurs; No JVD, RRR Abdominal: NL Sounds; No Tenderness; No Distention Lymphatic: No Cervical Adenopathy Extremities: No Clubbing, Cyanosis, - - R leg +1 pitting edema , L leg leg trace ankle edema Skin: No Nodules or Sclerosis, - - R hip wound with vac dressing in place , upper part of wound with erythema approx 15 cm in diam with streaking and increased warmth Neurological: Alert and Oriented x 3, NL Muscle Strength and Tone Result Diagrams: 10/07/18 04:49 10/07/18 04:49 Additional Lab and Data: Lab Results 09/30/18 09/30/18 09/30/18 Range/Units 20:20 20:20 20:20 WBC 4.7 (3.5-10.8) 10^3/ul RBC 3.82 L (4.00-5.40) 10^6/ul Hgb 12.7 (12.0-16.0) g/dl Hct 38 (35-47) % MCV 99 H (80-97) fL MCH 33 H (27-31) pg MCHC 34 (31-36) g/dl RDW 15 (10.5-15) % Plt Count 173 (150-450) 10^3/ul MPV 7.6 (7.4-10.4) fL Neut % (Auto) 59.9 % Lymph % (Auto) 23.3 % [place] % (Auto) 14.9 % Eos % (Auto) 1.4 % Baso % (Auto) 0.5 % Absolute Neuts (auto) 2.8 (1.5-7.7) 10^3/ul Absolute Lymphs (auto) 1.1 (1.0-4.8) 10^3/ul Absolute Monos (auto) 0.7 (0-0.8) 10^3/ul Absolute Eos (auto) 0.1 (0-0.6) 10^3/ul Absolute Basos (auto) 0 (0-0.2) 10^3/ul Absolute Nucleated RBC 0 10^3/ul Nucleated RBC % 0.1 INR (Anticoag Therapy) 1.73 H (0.77-1.02) APTT 30.1 (26.0-36.3) seconds Sodium 136 (135-145) mmol/L Potassium 4.7 (3.5-5.0) mmol/L Chloride 102 (101-111) mmol/L Carbon Dioxide 33 H (22-32) mmol/L Anion Gap 1 L (2-11) mmol/L BUN 19 (6-24) mg/dL Creatinine 0.71 (0.51-0.95) mg/dL Est GFR ( Amer) 94.2 (>60) Est GFR (Non-Af Amer) 77.9 (>60) BUN/Creatinine Ratio 26.8 H (8-20) Glucose 153 H (70-100) mg/dL Calcium 9.0 (8.6-10.3) mg/dL Total Bilirubin 0.30 (0.2-1.0) mg/dL AST 33 (13-39) U/L ALT 24 (7-52) U/L Alkaline Phosphatase 74 (34-104) U/L Troponin I 0.08 H* (<0.04) ng/mL C-Reactive Protein 3.13 (<8.01) mg/L Total Protein 6.2 L (6.4-8.9) g/dL Albumin 3.5 (3.2-5.2) g/dL Globulin 2.7 (2-4) g/dL Albumin/Globulin Ratio 1.3 (1-3) Assess/Plan/Problems-Billing Assessment: This is an 88 year old lady with history of afib on coumadin and a NICM who presented after a mechanical fall and was found to have a right hip fracture. - Patient Problems (1) Acute blood loss anemia Comment: has received 4 U PRBCs since Saturday , last transfusion 10/06/18 Her goal is >7 since she has nonischemic heart disease. Hb stable >8 today. d/x Dr. Yuen -will restart anticoagulation with Lovenox bridging and Coumadin Dr. Marion placed an incisional vac on 10/05/18 (2) Acute urinary retention Comment: Chou had to reinserted for retention on 10/05/18 likely narcotic and immobility related (3) Chronic systolic (congestive) heart failure Comment: she has received blood and IVF post-op and still looks euvolemic continue metoprolol and statin (4) Closed right hip fracture Comment: POD #5 R hip intramedullary nail pain is controlled with percocet erythema at the wound site noted-d/w Dr. Yuen who will f/u on it. (5) Atrial fibrillation Comment: with high [id number], restarting anticoagulation with Lovenox bridge to Coumadin (6) DVT prophylaxis Comment: resume Lovenox today Status and Disposition: inpatient
--- NOTE | 2018-10-07 12:09 | PN ---
Progress Note - Progress Note Date of Service: 10/07/18 SOAP: Subjective: []Patient seen and examined at bedside today. Denies CP, SOB, dizziness, nausea , right hip pain. Objective: []General: Well appearing, NAD RLE: Right hip wound vac intact with good suction, 75 ml serosanguinous fluid in vac canister, the dressing itself appears CDI. Removed wound vac, Superior aspect of proximal incision is erythematous. It is not hot, tender or fluctuant. Moderate ecchymosis around middle incision. After vac removal incisions are CDI with no discharge whatsoever today. Thigh is moderately edematous, soft and nontender without induration or fluctuance. DF/PF intact, sensation intact distally, DP2+. Calves supple and nontender without erythema, edema or palpable cords. Assessment: [] s/p ORIF right hip with Gamma nail POD #6 Plan: []PT/OT WBAT RLE Discussed with Dr Marion, vac was removed today, ancef 1 g IV q 8 hr x 1 day Will monitor incision daily and as needed. She is afebrile, will monitor WBC Vital Signs Temp 98.9 F 10/07/18 11:28 Pulse 60 10/07/18 11:28 Resp 16 10/07/18 11:28 BP 94/41 10/07/18 11:28 Pulse Ox 99 10/07/18 11:28 Intake & Output 10/06/18 10/07/18 10/07/18 18:59 06:59 18:59 Intake Total 150 360 Output Total 125 325 Balance 25 35 Intake: Oral 150 360 Output: Chou 125 325 Other: # Bowel Movements 0 Laboratory Last Values WBC 11.0 10^3/ul (3.5-10.8) H 10/07/18 04:49 RBC 2.55 10^6/ul (4.00-5.40) L 10/07/18 04:49 Hgb 8.1 g/dl (12.0-16.0) L 10/07/18 04:49 Hct 24 % (35-47) L 10/07/18 04:49 MCV 96 fL (80-97) 10/07/18 04:49 MCH 32 pg (27-31) H 10/07/18 04:49 MCHC 33 g/dl (31-36) 10/07/18 04:49 RDW 15 % (10.5-15) 10/07/18 04:49 Plt Count 182 10^3/ul (150-450) 10/07/18 04:49 MPV 7.1 fL (7.4-10.4) L 10/07/18 04:49 Neut % (Auto) 72.1 % 10/07/18 04:49 Lymph % (Auto) 10.3 % 10/07/18 04:49 [place] % (Auto) 16.3 % 10/07/18 04:49 Eos % (Auto) 1.0 % 10/07/18 04:49 Baso % (Auto) 0.3 % 10/07/18 04:49 Absolute Neuts (auto) 7.9 10^3/ul (1.5-7.7) H 10/07/18 04:49 Absolute Lymphs (auto) 1.1 10^3/ul (1.0-4.8) 10/07/18 04:49 Absolute Monos (auto) 1.8 10^3/ul (0-0.8) H 10/07/18 04:49 Absolute Eos (auto) 0.1 10^3/ul (0-0.6) 10/07/18 04:49 Absolute Basos (auto) 0 10^3/ul (0-0.2) 10/07/18 04:49 Absolute Nucleated RBC 0 10^3/ul 10/07/18 04:49 Nucleated RBC % 0 10/07/18 04:49 INR (Anticoag Therapy) 1.85 (0.77-1.02) H 10/01/18 08:02 APTT 26.4 seconds (26.0-36.3) 10/06/18 06:14 Sodium 134 mmol/L (135-145) L 10/07/18 04:49 Potassium 4.6 mmol/L (3.5-5.0) 10/07/18 04:49 Chloride 101 mmol/L (101-111) 10/07/18 04:49 Carbon Dioxide 29 mmol/L (22-32) 10/07/18 04:49 Anion Gap 4 mmol/L (2-11) 10/07/18 04:49 BUN 21 mg/dL (6-24) 10/07/18 04:49 Creatinine 0.53 mg/dL (0.51-0.95) 10/07/18 04:49 Est GFR ( Amer) 132.0 (>60) 10/07/18 04:49 Est GFR (Non-Af Amer) 109.1 (>60) 10/07/18 04:49 BUN/Creatinine Ratio 39.6 (8-20) H 10/07/18 04:49 Glucose 101 mg/dL (70-100) H 10/07/18 04:49 POC Glucose (mg/dL) 178 mg/dL (70-100) H 10/01/18 23:02 Calcium 7.9 mg/dL (8.6-10.3) L 10/07/18 04:49 Total Bilirubin 0.30 mg/dL (0.2-1.0) 09/30/18 20:20 AST 33 U/L (13-39) 09/30/18 20:20 ALT 24 U/L (7-52) 09/30/18 20:20 Alkaline Phosphatase 74 U/L (34-104) 09/30/18 20:20 Troponin I 0.09 ng/mL (<0.04) H* 10/01/18 08:02 C-Reactive Protein 3.13 mg/L (<8.01) 09/30/18 20:20 B-Natriuretic Peptide 457 pg/mL (<=100) H 09/30/18 20:20 Total Protein 6.2 g/dL (6.4-8.9) L 09/30/18 20:20 Albumin 3.5 g/dL (3.2-5.2) 09/30/18 20:20 Globulin 2.7 g/dL (2-4) 09/30/18 20:20 Albumin/Globulin Ratio 1.3 (1-3) 09/30/18 20:20 Triglycerides 34 mg/dL 10/01/18 08:02 Cholesterol 113 mg/dL 10/01/18 08:02 LDL Cholesterol 37 mg/dL 10/01/18 08:02 HDL Cholesterol 69.7 mg/dL 10/01/18 08:02 Urine Color Yellow 10/01/18 00:50 Urine Appearance Clear 10/01/18 00:50 Urine pH 5.0 (5-9) 10/01/18 00:50 Ur Specific [place] 1.028 (1.010-1.030) 10/01/18 00:50 Urine Protein Negative (Negative) 10/01/18 00:50 Urine Ketones Negative (Negative) 10/01/18 00:50 Urine Blood Negative (Negative) 10/01/18 00:50 Urine Nitrate Negative (Negative) 10/01/18 00:50 Urine Bilirubin Negative (Negative) 10/01/18 00:50 Urine Urobilinogen Negative (Negative) 10/01/18 00:50 Ur Leukocyte Esterase Negative (Negative) 10/01/18 00:50 Urine Glucose Negative (Negative) 10/01/18 00:50 Urine Ascorbic Acid * (Negative) A 10/01/18 00:50 Blood Type A Positive 10/03/18 06:18 Antibody Screen Negative 10/03/18 06:18 Crossmatch See Detail 10/03/18 06:18
[2018-10-07] MEDS: ceFAZolin 1 GM ADVAN(*) 1 GM in NS 0.9% 50 ML* 50 ML IVPB SCH ×2 (12:50→22:56)
[2018-10-07] MEDS ORDERED: Warfarin TAB(*) 5 MG PO SCH (17:00)
[2018-10-07] MEDS: Primidone TAB(*) 50 MG PO SCH (22:56)
[2018-10-08] MEDS: ceFAZolin 1 GM ADVAN(*) 1 GM in NS 0.9% 50 ML* 50 ML IVPB SCH ×2 (05:26→13:04)
[2018-10-08 07:00] LABS: Hematocrit 24 % (35-47); Hemoglobin 8.1 g/dl (12.0-16.0); Mean Corpuscular HGB Conc 34 g/dl (31-36); Mean Corpuscular Hemoglobin 32 pg (27-31); Mean Corpuscular Volume 96 fL (80-97); Platelet Count 234 10^3/ul (150-450); Red Blood Count 2.49 10^6/ul (4.00-5.40); Red Cell Distribution Width 15 % (10.5-15); White Blood Count 10.6 10^3/ul (3.5-10.8)
[2018-10-08 07:04] LABS: INR 1.1 (0.77-1.02)
[2018-10-08 07:09] LABS: ABS Basophils 0 10^3/ul (0-0.2); ABS Eosinophils 0.1 10^3/ul (0-0.6); ABS Lymphocytes 1.2 10^3/ul (1.0-4.8); ABS Monocytes 1.6 10^3/ul (0-0.8); ABS Neutrophils 7.8 10^3/ul (1.5-7.7); ABS Nucleated RBC 0 10^3/ul; Eosinophil % 0.8 %; Lymphocyte % 10.8 %; Nucleated Red Blood Cells % 0.1
[2018-10-08 07:35] LABS: EGFR Non-African American 116.7 (>60)
--- NOTE | 2018-10-08 08:52 | PN ---
Progress Note - Progress Note Date of Service: 10/08/18 SOAP: Subjective: []Patient seen and examined at bedside. She feels well, her hip pain is well controlled at rest. She has been on ancef overnight and has been afebrile. Objective: []General: Well appearing, NAD RLE: Right hip incisions are clean, dry and intact, dressing was changed. Erythema has improved significantly, almost entirely resolved and area of previous erythema is not hot, tender or fluctuant. She has remaining ecchymosis of the lateral thigh. PROM of hip is tolerated well. Calves supple and nontender without erythema, edema or palpable cords. Assessment: [] s/p ORIF right hip with Gamma nail POD #7 Plan: []PT/OT WBAT RLE No need for return to OR, can go to PMRU today. No need for antibiotics at DC to PMRU. Please watch incision and surrounding area, alert ortho for any concerns lovenox x 6 weeks post op Vital Signs Temp 98.0 F 10/08/18 03:16 Pulse 98 10/08/18 03:16 Resp 16 10/08/18 03:16 BP 108/50 10/08/18 03:16 Pulse Ox 100 10/08/18 04:38 Intake & Output 10/07/18 10/08/18 10/08/18 18:59 06:59 18:59 Intake Total 0 790 Output Total 250 350 Balance -250 440 Intake: Oral 0 790 Output: Chou 250 350 Laboratory Last Values WBC 10.6 10^3/ul (3.5-10.8) 10/08/18 06:43 RBC 2.49 10^6/ul (4.00-5.40) L 10/08/18 06:43 Hgb 8.1 g/dl (12.0-16.0) L 10/08/18 06:43 Hct 24 % (35-47) L 10/08/18 06:43 MCV 96 fL (80-97) 10/08/18 06:43 MCH 32 pg (27-31) H 10/08/18 06:43 MCHC 34 g/dl (31-36) 10/08/18 06:43 RDW 15 % (10.5-15) 10/08/18 06:43 Plt Count 234 10^3/ul (150-450) 10/08/18 06:43 MPV 7.0 fL (7.4-10.4) L 10/08/18 06:43 Neut % (Auto) 73.4 % 10/08/18 06:43 Lymph % (Auto) 10.8 % 10/08/18 06:43 [place] % (Auto) 14.7 % 10/08/18 06:43 Eos % (Auto) 0.8 % 10/08/18 06:43 Baso % (Auto) 0.3 % 10/08/18 06:43 Absolute Neuts (auto) 7.8 10^3/ul (1.5-7.7) H 10/08/18 06:43 Absolute Lymphs (auto) 1.2 10^3/ul (1.0-4.8) 10/08/18 06:43 Absolute Monos (auto) 1.6 10^3/ul (0-0.8) H 10/08/18 06:43 Absolute Eos (auto) 0.1 10^3/ul (0-0.6) 10/08/18 06:43 Absolute Basos (auto) 0 10^3/ul (0-0.2) 10/08/18 06:43 Absolute Nucleated RBC 0 10^3/ul 10/08/18 06:43 Nucleated RBC % 0.1 10/08/18 06:43 INR (Anticoag Therapy) 1.10 (0.77-1.02) H 10/08/18 06:43 APTT 26.4 seconds (26.0-36.3) 10/06/18 06:14 Sodium 133 mmol/L (135-145) L 10/08/18 06:43 Potassium 4.6 mmol/L (3.5-5.0) 10/08/18 06:43 Chloride 102 mmol/L (101-111) 10/08/18 06:43 Carbon Dioxide 28 mmol/L (22-32) 10/08/18 06:43 Anion Gap 3 mmol/L (2-11) 10/08/18 06:43 BUN 20 mg/dL (6-24) 10/08/18 06:43 Creatinine 0.50 mg/dL (0.51-0.95) L 10/08/18 06:43 Est GFR ( Amer) 141.2 (>60) 10/08/18 06:43 Est GFR (Non-Af Amer) 116.7 (>60) 10/08/18 06:43 BUN/Creatinine Ratio 40.0 (8-20) H 10/08/18 06:43 Glucose 105 mg/dL (70-100) H 10/08/18 06:43 POC Glucose (mg/dL) 178 mg/dL (70-100) H 10/01/18 23:02 Calcium 8.1 mg/dL (8.6-10.3) L 10/08/18 06:43 Total Bilirubin 0.30 mg/dL (0.2-1.0) 09/30/18 20:20 AST 33 U/L (13-39) 09/30/18 20:20 ALT 24 U/L (7-52) 09/30/18 20:20 Alkaline Phosphatase 74 U/L (34-104) 09/30/18 20:20 Troponin I 0.09 ng/mL (<0.04) H* 10/01/18 08:02 C-Reactive Protein 3.13 mg/L (<8.01) 09/30/18 20:20 B-Natriuretic Peptide 457 pg/mL (<=100) H 09/30/18 20:20 Total Protein 6.2 g/dL (6.4-8.9) L 09/30/18 20:20 Albumin 3.5 g/dL (3.2-5.2) 09/30/18 20:20 Globulin 2.7 g/dL (2-4) 09/30/18 20:20 Albumin/Globulin Ratio 1.3 (1-3) 09/30/18 20:20 Triglycerides 34 mg/dL 10/01/18 08:02 Cholesterol 113 mg/dL 10/01/18 08:02 LDL Cholesterol 37 mg/dL 10/01/18 08:02 HDL Cholesterol 69.7 mg/dL 10/01/18 08:02 Urine Color Yellow 10/01/18 00:50 Urine Appearance Clear 10/01/18 00:50 Urine pH 5.0 (5-9) 10/01/18 00:50 Ur Specific [place] 1.028 (1.010-1.030) 10/01/18 00:50 Urine Protein Negative (Negative) 10/01/18 00:50 Urine Ketones Negative (Negative) 10/01/18 00:50 Urine Blood Negative (Negative) 10/01/18 00:50 Urine Nitrate Negative (Negative) 10/01/18 00:50 Urine Bilirubin Negative (Negative) 10/01/18 00:50 Urine Urobilinogen Negative (Negative) 10/01/18 00:50 Ur Leukocyte Esterase Negative (Negative) 10/01/18 00:50 Urine Glucose Negative (Negative) 10/01/18 00:50 Urine Ascorbic Acid * (Negative) A 10/01/18 00:50 Blood Type A Positive 10/03/18 06:18 Antibody Screen Negative 10/03/18 06:18 Crossmatch See Detail 10/03/18 06:18
[2018-10-08] MEDS: oxyCODONE/Acetamin 5/325 MG* TAB PO PRN ×2 (09:52→14:31)
[2018-10-08] MEDS: Atorvastatin* 40 MG TAB PO SCH (09:55)
[2018-10-08] MEDS: Metoprolol Succinate XL TAB* 25 MG PO SCH (09:56)
[2018-10-08] MEDS: Polyethylene Glycol 3350* 17 GM PACKET PO SCH (09:57)
[2018-10-08] MEDS: Multivitamins/Minerals TAB PO SCH (09:57)
[2018-10-08] MEDS: Senna TAB PO PRN (09:59)
[2018-10-08] MEDS: Enoxaparin(*) 60 MG/0.6 ML SYR SUBCUT SCH ×2 (09:59→12:12)
[2018-10-08] MEDS: Docusate CAP* 100 MG PO PRN (09:59)
[2018-10-08] MEDS: Magnesium Oxide TAB* 400 MG PO SCH (11:07)
[2018-10-08 11:46] VITALS: BP 91/43
[2018-10-08] MEDS: oxyCODONE TAB* 5 MG TAB PO PRN (12:11)
--- NOTE | 2018-10-09 06:28 | DS ---
CC: Dr. Hobbs; Dr. Milligan; Dr. Marion; Dr. Finley * DISCHARGE SUMMARY: DATE OF ADMISSION: 10/01/18 DATE OF DISCHARGE: 10/08/18 - From acute hospitalization and transfer to our physiotherapy unit at [facility]. PRIMARY CARE PROVIDER: Dr. Finley. DISCHARGE DIAGNOSES: 1. Right hip fracture, status post right hip intramedullary nail placement by Dr. Marion on 10/01/18. 2. Subsequent development of bleeding and hematoma in the right postoperative hip area, status post a total of 4 units of packed red blood cells transfused during the hospital stay. 3. Status post VAC dressing placed in the right postoperative wound area and removal on 10/07/[address] Marion's team. 4. Acute blood loss anemia due to above. 5. Acute urinary retention. The patient is being discharged with a Chou catheter in place with a plan to hopefully be able to have it removed during the physiotherapy unit stay. SECONDARY DIAGNOSES: 1. History of chronic atrial fibrillation, on anticoagulation at baseline. 2. History of ventricular tachycardia. 3. History of bradycardia, status post pacemaker. 4. History of essential tremor. MEDICATIONS AT DISCHARGE: Include: 1. Lipitor 40 mg daily. 2. Calcium carbonate and vitamin D 1 to 2 tablets daily. 3. Multivitamin 1 tablet daily. 4. Potassium chloride 20 mEq daily. 5. Primidone 150 mg 3 times a day. 6. Coumadin 8 mg daily. 7. Acetaminophen on a p.r.n. basis. 8. Maalox on a p.r.n. basis. 9. Dulcolax suppository on a p.r.n. basis. 10. Cefazolin 1 g IV every 8 hours. 11. Colace 100 mg b.i.d. 12. Lovenox 60 mg subcutaneously every 12 hours until the patient's INR is at or above 2. 13. Ferrous sulfate 200 mg daily. 14. Magnesium oxide on a p.r.n. basis. 15. Metoprolol succinate, dose was lowered from 50 to 25 mg daily. 16. Oxycodone 10 mg on a p.r.n. basis. 17. Percocet 5/325 mg on a p.r.n. basis. LABORATORY DATA AND STUDIES PERFORMED DURING THE HOSPITAL STAY: Included: On 10/08/18, white blood cell count of 10.6, hemoglobin of 8.1, hematocrit of 24, and platelets of 234. INR was 1.1 on the day of transfer to [facility]. Sodium was 132, potassium 4.6, chloride 102, carbon dioxide 28, BUN 20, creatinine 0.5. The patient was transfused a total of 4 units of packed red blood cells during her hospital stay, the last one was performed on 10/05/18. The patient's Coumadin was restarted on 10/07/18, and Lovenox was also restarted after two days of having it held on 10/07/18. CONSULTATIONS DURING THE HOSPITAL STAY: Dr. Marion from Orthopedic Surgery. HOSPITALIZATION COURSE: Bessie Ramos is an 88-year-old female who presented to the hospital complaining of hip pain after a fall. She was noted to have right intertrochanteric hip fracture and had right hip intramedullary nail plates by Dr. Marion on 10/01/18. The patient has history of chronic atrial fibrillation and was anticoagulated with Coumadin. Unfortunately, her postoperative course was complicated by bleeding from the postoperative site. She was placed on heparin drip postoperatively and unfortunately due to bleeding , that had to be stopped for a couple of days. At that point, wound VAC dressing was placed on the right hip area where hematoma was noted for a couple of days. By 10/07/18, the wound VAC was discontinued. The patient's bleeding resolved and her anticoagulation was reinstituted with bridging with Lovenox and restarting Coumadin. On 10/07/18, slight erythema was noted at the proximal area of the wound near the inguinal area and at that point, cefazolin was started by the surgical service and is to be continued throughout the patient's [facility] stay until discontinued by the surgical service. It is recommended for the patient to have INRs checked on a daily basis and to discontinue Lovenox for INR above 2. The patient was started on iron supplement due to acute blood loss anemia and __ ___ transfusions. Please note that the patient's systolic pressures were low normal and her Lasix that she usually takes 40 mg daily was discontinued and Toprol-XL that she usually takes 50 mg daily was lowered to 25 mg daily. The patient was accepted at our physiotherapy unit for further rehabilitation. PHYSICAL EXAMINATION: At the time of discharge, blood pressure of 100/48, heart rate of 50 and irregularly irregular, respiratory rate of 15, oxygen saturation is 96% on room air, temperature of 98.6. General: The patient is a very pleasant 88- year-old female, who is in no acute distress. Alert, awake, and oriented x3. HEENT: Head atraumatic and normocephalic. Eyes: Pupils are equal and reactive to light and accommodation. Oropharynx clear. Mucosa moist. Neck: Supple. No JVD. No bruits bilaterally. Cardiovascular: Irregularly irregular rhythm. No murmur. Respiratory: Clear to auscultation bilaterally. Abdomen: Soft and nontender. Bowel sounds present in all 4 quadrants. Extremities: There is +1 pitting edema in the right lower extremity. There is no clubbing, cyanosis, and no significant edema in the left lower extremity. Neuro Evaluation: Speech clear. Cranial nerves II through XII grossly intact. Motor strength is 5/5 bilaterally. On evaluation of the patient's right hip wound, this was covered with post surgical dressings and packing that was not removed. The erythema that was noted in the area proximally to the incision close to the groin has almost resolved by the time of transfer to [facility]. Please note that this is a short summary of the patient's hospitalization, please refer to further medical records for details. TIME SPENT: Approximately 45 minutes was spent on the patient's discharge. [id number] #: [id number] MTDD
== END 2018-10-08 14:40 | DRG 481 ==
LOC: ED 19:39 → MEDTELE 10-01 01:06 → SSU 10-05 12:32
PROVIDERS: ADMIT Pediatrics; ATTEND Internal Medicine
PROC: 0QS636Z Reposition Right Upper Femur with Intramedullary Internal Fixation Device, Percutaneous Approach (ICD-10-PCS; principal; 2018-10-01 16:15)
PROC: 30233N1 Transfusion of Nonautologous Red Blood Cells into Peripheral Vein, Percutaneous Approach (ICD-10-PCS; 2018-10-03)
DX: S72.141A Displaced intertrochanteric fracture of right femur, initial encounter for closed fracture (principal); M96.830 Postprocedural hemorrhage of a musculoskeletal structure following a musculoskeletal system procedure; M96.840 Postprocedural hematoma of a musculoskeletal structure following a musculoskeletal system procedure; I50.22 Chronic systolic (congestive) heart failure; D62 Acute posthemorrhagic anemia; I42.8 Other cardiomyopathies; I48.2 Chronic atrial fibrillation; I49.5 Sick sinus syndrome; I27.20 Pulmonary hypertension, unspecified; I36.1 Nonrheumatic tricuspid (valve) insufficiency; S70.11XA Contusion of right thigh, initial encounter; R33.9 Retention of urine, unspecified; L53.8 Other specified erythematous conditions; G25.0 Essential tremor; I25.10 Atherosclerotic heart disease of native coronary artery without angina pectoris; W01.0XXA Fall on same level from slipping, tripping and stumbling without subsequent striking against object, initial encounter; Y92.009 Unspecified place in unspecified non-institutional (private) residence as the place of occurrence of the external cause; Z86.73 Personal history of transient ischemic attack (TIA), and cerebral infarction without residual deficits; Z79.01 Long term (current) use of anticoagulants; Z95.0 Presence of cardiac pacemaker; Z79.1 Long term (current) use of non-steroidal anti-inflammatories (NSAID); Z79.899 Other long term (current) drug therapy; Z82.49 Family history of ischemic heart disease and other diseases of the circulatory system
CPT/HCPCS: 36415; 71045; 72192; 76001; 80048; 80053; 80061; 81003; 82565; 83880; 84484; 84520; 85025; 85027; 85610; 85730; 86140; 86850; 86900; 86901; 86922; 93005; 93306; 99284; A9270-GY; C1713; C1776; G8978-GP-CL; G8979-GP-CI; J0330; J0690; J1100; J1644; J1650; J2270; J2405; J2704; J3010; J3490; P9040

== ENCOUNTER 2018-10-08 12:27 | Inpatient (IN) | payer MEDICARE, BC ==
[2018-10-08] MEDS ORDERED: Acetaminophen TAB* 325 MG PO PRN (16:19)
[2018-10-08] MEDS ORDERED: Magnesium Hydroxide LIQ* 30 ML UDC PO PRN (16:19)
[2018-10-08] MEDS: Warfarin TAB(*) 5 MG PO SCH (17:21)
[2018-10-08] MEDS: Primidone TAB(*) 50 MG PO SCH (20:42)
[2018-10-08] MEDS: Senna TAB PO PRN (20:44)
[2018-10-08] MEDS: Docusate CAP* 100 MG PO SCH (20:44)
[2018-10-08] MEDS: Enoxaparin(*) 60 MG/0.6 ML SYR SUBCUT SCH (20:48)
[2018-10-08] MEDS ORDERED: oxyCODONE/Acetamin 5/325 MG* TAB PO PRN (21:05)
--- NOTE | 2018-10-09 01:51 | HP ---
ADMISSION HISTORY AND PHYSICAL: DATE OF ADMISSION: 10/08/18 REASON FOR ADMISSION: Right hip fracture. HISTORY OF PRESENT ILLNESS: Bessie Ramos is an 88-year-old female. On 10/01, she was walking across the floor of her house where there was a little bit of a change in the level between one part of the house and the other. Apparently , she lost her balance and fell, landed on her right hip. She had significant pain. She called for her , who called 911. She was brought to the emergency room. She had x-rays taken of her right femur showing an angulated intertrochanteric fracture of the right femur. She was on Coumadin for atrial fibrillation. An orthopedic consultation was done with Dr. Marion, who felt that operative repair of the hip was necessary. She was noted to have an elevated troponin. She was seen by Dr. Young from Cardiology who noted that she had chronic elevated troponins dating back to 2014. At that time, her ejection fraction was 20%. She underwent a catheterization, which showed normal coronary arteries. She did have an echo during her most recent admission , showing her ejection fraction now 45% to 50%. She was cleared for surgery. She was put on a heparin drip and taken to the operating room on 10/02/18 for a right hip intramedullary nail. Postoperatively, she had a lot of bleeding from the hip. On 10/03/18, late in the evening, a CAT team was called because of blood squirting from her incision site. She was hypotensive, but was given fluids and a blood transfusion. She was noted to have a hematoma on the side of her hip. She was given 2 more units of blood. Her hemoglobin got as low as 7.4. She was given another unit of blood on 10/05/18. She had an incisional wound VAC placed over her incision. Her hemoglobin seemed to stabilize with a hemoglobin greater than 8. She was restarted on anticoagulation with Lovenox bridging to Coumadin on 10/07/18. The patient's wound looked better. Her wound VAC was removed. She was felt to be stabling, ready to go to rehab today. She was felt to have physical therapy and occupational therapy needs. She is now being admitted for inpatient rehab, so that she might return to independent living. PAST MEDICAL HISTORY: Significant for nonischemic cardiomyopathy, followed by Dr. Dawkins. She has had a pacemaker placed. She is known to have paroxysmal atrial fibrillation as well as having had small stroke in March of 2018. CURRENT MEDICATIONS: Include: 1. Coumadin. 2. Lovenox. 3. She is also on Percocet for pain control. 4. Magnesium oxide. 5. Toprol XL. 6. Mysoline. 7. Lipitor. ALLERGIES: She has no known drug allergies. SOCIAL HISTORY: She is a nonsmoker. She does have an occasional drink. She lives with her in a 2-story house. She states it is actually 2 houses that have been joined together, which explains for the uneven floors. REVIEW OF SYSTEMS: No current shortness of breath or chest pain. PHYSICAL EXAMINATION VITAL SIGNS: The patient's temperature is 97.8, blood pressure is 100/45, pulses 59, respirations 16. HEENT: Her extraocular movements were intact. NECK: Supple with no lymphadenopathy. LUNGS: Sounded clear to auscultation bilaterally. HEART: Sounds were regular. S1 and S2 are audible. ABDOMEN: Soft and nontender. EXTREMITIES: Her right hip had some ecchymosis noted. Peripheral pulses were intact. She had swelling in the right thigh. NEUROLOGIC: She was awake, alert. Muscle strength 5/5 except the right leg, which was 3 to 4/5 secondary to pain. She can dorsiflex with 4/5 strength. FUNCTIONAL EXAM: She transfers with mod assist. ASSESSMENT: Right hip fracture. PLAN: Integrate her into a comprehensive and therapeutic rehab program with the following goals: 1. Physical Therapy will work with the patient. They are going to work on functional transfer training, ambulation training with a walker. 2. Occupational Therapy will see the patient, work on her activities of daily living including toileting and toilet transfers. 3. Coumadin and Lovenox for DVT prophylaxis. 4. For her atrial fibrillation, we will continue the Lovenox bridged to Coumadin as well as her Toprol XL. 5. We will follow her blood pressure closely. She was on Lasix at home, which we may restart if her blood pressure tolerates it. 6. Adequate analgesia. 7. advisory services associate will be closely involved to make sure that any services and equipment the patient requires are in place prior to discharge. 8. Family training as appropriate. 9. Advance directives: The patient is a full code. 10. Home with appropriate services. ESTIMATED LENGTH OF STAY: 14 days. [id number] #: [id number] CHANTE
[2018-10-09] MEDS: oxyCODONE/Acetamin 5/325 MG* TAB PO PRN ×4 (04:23→20:53)
[2018-10-09 05:39] LABS: INR 1.17 (0.77-1.02)
[2018-10-09] MEDS: Magnesium Oxide TAB* 400 MG PO SCH (10:24)
[2018-10-09] MEDS: Metoprolol Succinate XL TAB* 25 MG PO SCH (10:24)
[2018-10-09] MEDS: Docusate CAP* 100 MG PO SCH ×2 (10:24→20:53)
[2018-10-09] MEDS: Enoxaparin(*) 60 MG/0.6 ML SYR SUBCUT SCH ×2 (10:27→20:53)
--- NOTE | 2018-10-09 16:07 | PN ---
Progress Note Date of Service: 10/09/18 Note: CHELO FERRIS was visited. Therapy notes read and reviewed. She is tired after a day of physical therapy. Her INR is still low so will continue Lovenox and COumadin. Will check H/H in am. Current Medications: Active Medications Generic Name Dose Route Start Last Admin Trade Name Freq PRN Reason Stop Dose Admin Acetaminophen 650 mg 10/08/18 16:19 Tylenol Tab* PO Q6H PRN FEVER/PAIN Atorvastatin Calcium 40 mg 10/09/18 17:00 Lipitor* PO 1700 MANJU Docusate Sodium 100 mg 10/08/18 21:00 10/09/18 10:24 Colace Cap* PO 100 mg BID MANJU Administration Enoxaparin Sodium 60 mg 10/08/18 21:00 10/09/18 10:27 Lovenox(*) SUBCUT 60 mg Q12H MANJU Administration Magnesium Hydroxide 30 ml 10/08/18 16:19 Milk Of Magnesia Liq* PO Q6H PRN CONSTIPATION Magnesium Oxide 400 mg 10/09/18 09:00 10/09/18 10:24 Magox 400 Tab* PO 400 mg DAILY MANJU Administration Metoprolol Succinate 25 mg 10/09/18 09:00 10/09/18 10:24 Toprol Xl Tab* PO 25 mg DAILY MANJU Administration Oxycodone/Acetaminophen 1 tab 10/08/18 16:31 10/09/18 10:24 Percocet 5/325 Tab* PO 1 tab Q4H PRN Administration PAIN - MODERATE TO SEVERE Oxycodone/Acetaminophen 2 tab 10/08/18 21:05 Percocet 5/325 Tab* PO Q4H PRN PAIN - SEVERE Primidone 150 mg 10/08/18 21:00 10/08/18 20:42 Mysoline Tab(*) PO 150 mg BEDTIME MANJU Administration Senna 2 tab 10/08/18 16:19 10/08/18 20:44 Senokot Tab* PO 2 tab BEDTIME PRN Administration CONSTIPATION Warfarin Sodium 5 mg 10/08/18 17:00 10/08/18 17:21 Coumadin Tab(*) PO 5 mg DAILY@1700 MANJU Administration Protocol Vital Signs: Vital Signs Temp Pulse Resp BP Pulse Ox 99.0 F 68 18 103/46 94 10/09/18 06:00 10/09/18 06:00 10/09/18 13:53 10/09/18 06:00 10/09/18 06:00 Lab Results: Laboratory Results - last 24 hr 10/09/18 04:52 INR (Anticoag Therapy) 1.17 H Exam: HEENT: EOMI LUNGS: Clear bilaterally HEART: Reg rhythm ABDOMEN: Soft +BS EXTREMITIES: Ecchymotic RLE, trace edema in bilateral LE NEUROLOGIC: Alert oriented to self and place. Muscle strength 5/5 except RLE which is 3/5 due to pain, can DF 4/5 Assessment/Plan: 1. Right Hip Fracture: PT/OT 2. Acute blood loss anemia: Check Hb/Hct in AM 3. Paroxysmal A Fib: Toprol. Lovenox bridge to Coumadin 4. 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 Has Pacemaker. Toprol. Restart Lasix when BP can tolerate 5. DVT Prophylaxis: Coumadin/Lovenox 6. Advanced Directives: Full code. is HCP 10/09/18 16:08
[2018-10-09] MEDS: Warfarin TAB(*) 5 MG PO SCH (16:52)
[2018-10-09] MEDS: Atorvastatin* 40 MG TAB PO SCH (16:52)
[2018-10-09] MEDS: Primidone TAB(*) 50 MG PO SCH (20:55)
[2018-10-10 04:59] LABS: ABS Basophils 0 10^3/ul (0-0.2); ABS Eosinophils 0.2 10^3/ul (0-0.6); ABS Monocytes 1.3 10^3/ul (0-0.8); ABS Neutrophils 7.4 10^3/ul (1.5-7.7); ABS Nucleated RBC 0 10^3/ul; Eosinophil % 1.6 %; Hematocrit 24 % (35-47); Hemoglobin 8.1 g/dl (12.0-16.0); Mean Corpuscular HGB Conc 34 g/dl (31-36); Mean Corpuscular Hemoglobin 33 pg (27-31); Mean Corpuscular Volume 96 fL (80-97); Mean Platelet Volume 6.7 fL (7.4-10.4); Nucleated Red Blood Cells % 0; Platelet Count 315 10^3/ul (150-450); Red Blood Count 2.48 10^6/ul (4.00-5.40); Red Cell Distribution Width 16 % (10.5-15); White Blood Count 9.9 10^3/ul (3.5-10.8)
[2018-10-10 05:02] LABS: INR 1.25 (0.77-1.02)
[2018-10-10] MEDS: oxyCODONE/Acetamin 5/325 MG* TAB PO PRN ×4 (05:09→20:57)
[2018-10-10 05:13] LABS: Albumin 2.4 g/dL (3.2-5.2); Albumin/Globulin Ratio 0.8 (1-3); BUN/Creatinine Ratio 44.2 (8-20); EGFR Non-African American 138.9 (>60); Globulin 2.9 g/dL (2-4); Potassium 4.5 mmol/L (3.5-5.0); Total Bilirubin 1.2 mg/dL (0.2-1.0); Total Protein 5.3 g/dL (6.4-8.9)
[2018-10-10] MEDS: Magnesium Oxide TAB* 400 MG PO SCH (08:44)
[2018-10-10] MEDS: Metoprolol Succinate XL TAB* 25 MG PO SCH (08:44)
[2018-10-10] MEDS: Docusate CAP* 100 MG PO SCH ×2 (08:44→20:57)
[2018-10-10] MEDS: Enoxaparin(*) 60 MG/0.6 ML SYR SUBCUT SCH ×2 (08:46→20:57)
--- NOTE | 2018-10-10 12:31 | PMRUTEAM ---
PMRU: Team Meeting Current Status: Nursing: Current Status Skin Deviations [Right Hip] Incision Skin Deviation Description [ incisions x2 intact with layne. proximal Right Hip] incision red and warm to touch. both incisions MICHELLE . blisters healing Physical Therapy: Current Status Bed Mobility Assistance Mod Assist,2 or More Person Assist Transfer Moblility Assistance Mod Assist,Max Assist,2 or More Person Assist Transfer/Bed Mobility Rolling Walker Recommended Devices Ambulation Assistance Unable Ambulation Assistive Devices Rolling Walker Stairs Assistance Mod Assist Stairs Recommended Devices Two Rails Number of Stairs 3 Occupational Therapy: Current Status Upper Body Dressing Supervision Lower Body Dressing 3+ Person Assist Bathing Max Asst,2 Person Assist Toileting 3+ Person Assist Toilet Transfer 2 Person Assist Eating Supervision Rec Therapy: Current Status Summary of Assessment and Pt. was just admitted to the unit but open to Clinical Impression conversation. Pt. was not fully engaged in conversation - appeared tired and was selective with answering questions which may be d/t being [place]. Pt. stated that she enjoyed her life prior to admission. Pt. was more talkative when sharing about living in [place] much of her life. Pt . was open to continued leisure visits while on the unit. Treatment Goals Pt. will engage in leisure activities while on the unit. Treatment Plan Provide RT services and encourage involvement. Social Work: Current Status Discharge Plan return home with home care svs and family support Potential for Family Training pt's is involved and supportive Anticipated Discharge Home Destination Discharge With home care svs and family support Goals: Physical Therapy: Initial Goals Bed Mobility Assistance Independent Transfer Mobility Assistance Independent Transfer/Bed Mobility Rolling Walker Recommended Devices Ambulation Independent Ambulation Recommended Devices Rolling Walker Ambulation Distance 150 Stairs Assistance Contact Guard Assist Stair Recommended Devices One Rail Number of Stairs 4 Home Exercise Program Independent Assistance Physical Therapy: Updated Goals Transfer/Bed Mobility Rolling Walker,EZ Stand Recommended Devices Occupational Therapy: Initial Goals Goals to be Completed in (Days 17 ) Upper Body Bathing Routine Independent Lower Body Bathing Routine Modified Independent with Upper Body Dressing Routine Independent Lower Body Dressing Routine Modified Independent with Toilet Hygeine and Clothing Modified Independent with Management Routine Toilet Transfer Routine Modified Independent with Step-In Shower Transfer Supervision/Set Up Routine Functional Transfers for ADL Modified Independent with Grooming Routine Independent Feeding Routine Independent Social Work: Goals Discharge Plan return home with home care svs and family support Potential for Family Training pt's is involved and supportive Anticipated Discharge Home Destination Discharge With home care svs and family support Care Plan: Care Plan ADL's - Improve/Maintain Start: 10/09/18 11:46 Freq: DAILY Status: Active Target: Protocol: Activity Type Activity Date Activity User E-Sign Co-Sign Detail Recorded Client Recorded Date Recorded By Document 10/09/18 11:46 [id number] 10/09/18 11:46 [id number] 10/09/18 11:46 PMRU Outcome: ADL's/ADL Transfers Orders/Interventions Occupational Therapy Evaluation & Treatment Communication Tool in Patient Room Patient to receive OT 5x/wk for 60-120 Therex min/day Self Care Management Group Therapy UE/LE ADL's with Assist Yes: mod I ADL Transfers with Assist Yes: mod I Toileting: Transfers,Clothing Management Yes: mod I ,Hygeine w/Assist Progression Toward Outcome/Goals Progressing Outcome/Goals Met Pt presents with R hip pain , limited R hip AROM, decreased endurance, balance deficits and difficulty weight bearing through RLE that affect her ability to complete bathing, dressing, toileting, toilet transfers, showering and household tasks . Pt would benefit from OT intervention as part of an acute rehab protocol to maximize independence with ADLs and ADL transfers prior to returning home with 's support. Pt is in agreement with OT POC but benefits from encouragement. [ End ] Cardiovascular- Improve/Maintain Start: 10/08/18 21:15 Freq: QSHIFT Status: Active Target: Protocol: Activity Type Activity Date Activity User E-Sign Co-Sign Detail Recorded Client Recorded Date Recorded By Document 10/10/18 09:00 [id number] 10/10/18 09:56 [id number] 10/10/18 09:00 PMRU Outcome: Cardiovascular Vital Signs q Shift for 48hrs Then BID Yes Daily Weight Ordered No Current Cardiovascular Outcome/Goal Maintain/ Achieve Baseline HR, BP , Perfusion Free of Abnormal Cardiac Symptoms Progression Toward Outcome/Goal Progressing DVT Prophylaxis- Improve/Maintain Start: 10/08/18 21:15 Freq: QSHIFT Status: Active Target: Protocol: Activity Type Activity Date Activity User E-Sign Co-Sign Detail Recorded Client Recorded Date Recorded By Document 10/10/18 09:00 [id number] 10/10/18 09:56 [id number] 10/10/18 09:00 PMRU Outcome: DVT Prophylaxis Outcome/Goals Remains Free of DVT Complies with DVT Prophylaxis /Treatment Demonstrates Knowledge of DVT Prevention/ Treatment TEDS Stockings on Every AM, Off at HS Progression Toward Outcome/Goals Progressing Education-Improve/Maintain Start: 10/08/18 21:15 Freq: QSHIFT Status: Active Target: Protocol: Activity Type Activity Date Activity User E-Sign Co-Sign Detail Recorded Client Recorded Date Recorded By Document 10/10/18 09:00 [id number] [email or web address] 10/10/18 09:56 [id number] 10/10/18 09:00 PMRU Outcome: Education Outcome/Goals Encourage Questions Progression Toward Outcome/Goals Progressing /GI-Improve/Maintain Start: 10/08/18 21:15 Freq: QSHIFT Status: Active Target: Protocol: Activity Type Activity Date Activity User E-Sign Co-Sign Detail Recorded Client Recorded Date Recorded By Document 10/10/18 09:00 [id number] 10/10/18 09:56 [id number] 10/10/18 09:00 PMRU Outcome: Genitourinary/ Gastrointestinal Genitourinary- Outcome/Goals Maintain/ Achieve Adequate Urinary Output Remain Free of Hospital- Acquired UTI Gastrointestinal-Outcome/Goals Maintain/ Achieve Bowel Regularity in Accordance with Pt's Baseline Prevent Constipation Laxatives as Ordered Other Outcome/Goals fluid intake encouraged Progression Toward Outcome/Goals - Progressing Progression Toward Outcome/Goals - GI Progressing Neurological- Improve/Maintain Start: 10/08/18 21:15 Freq: QSHIFT Status: Active Target: Protocol: Activity Type Activity Date Activity User E-Sign Co-Sign Detail Recorded Client Recorded Date Recorded By Document 10/10/18 09:00 [id number] [id number] 10/10/18 09:56 [id number] 10/10/18 09:00 PMRU Outcome: Neurological Weakness/Aphasia Weakness Weakness/Aphasia Comment S/P R hip ORIF Outcome/Goals Maintain/ Achieve Baseline Neurological Status Maintain/ Improve Strength/ROM Progression Toward Outcome/Goals Progressing Pain/Comfort- Improve/Maintain Start: 10/08/18 21:15 Freq: QSHIFT Status: Active Target: Protocol: Activity Type Activity Date Activity User E-Sign Co-Sign Detail Recorded Client Recorded Date Recorded By Document 10/10/18 09:00 [id number] [email or web address] 10/10/18 09:56 [id number] 10/10/18 09:00 PMRU Outcome: Pain/Comfort Outcome/Goals Demonstrates Knowledge and Use of Available Comfort Measures Achieves Acceptable Comfort/Pain Level as Determined by Patient/Condit Maintain Comfort Level Allowing Patient to Fully Participate in Rehab Progression Toward Outcome/Goals Progressing Respiratory - Improve/Maintain Start: 10/08/18 21:15 Freq: QSHIFT Status: Active Target: Protocol: Activity Type Activity Date Activity User E-Sign Co-Sign Detail Recorded Client Recorded Date Recorded By Document 10/10/18 09:00 [id number] 10/10/18 09:56 [id number] 10/10/18 09:00 PMRU Outcome: Respiratory Does Patient Have a Trach No Outcome/Goals Maintain/ Improve Baseline Respiratory Status Prevent Pneumonia/ Atelectasis Progression Toward Outcome/Goals Progressing Safety- Improve/Maintain Start: 10/08/18 21:15 Freq: QSHIFT Status: Active Target: Protocol: Activity Type Activity Date Activity User E-Sign Co-Sign Detail Recorded Client Recorded Date Recorded By Document 10/10/18 09:00 [id number] 10/10/18 09:56 [id number] 10/10/18 09:00 PMRU Outcome: Safety Outcome/Goals Remain Free of Injury or Harm Cooperates with Safety Measures for Least Restrictive Environment Prevent Falls/ Injury Progression Toward Outcome/Goals Progressing Medicine Note: Length of Stay: 2 weeks Anticipated Discharge Destination: Home Tentative Discharge Date: 10/24/18 Discharged to: Home
[2018-10-10] MEDS: Atorvastatin* 40 MG TAB PO SCH (17:06)
[2018-10-10] MEDS: Warfarin TAB(*) 4 MG PO SCH (17:06)
--- NOTE | 2018-10-10 17:32 | PN ---
Progress Note Date of Service: 10/10/18 Note: CHELO FERRIS was visited. Therapy notes read and reviewed. Her INR is slow to bump. She tells me she normally takes 8 mg of Coumadin. I have adjusted her dose. She was discussed in interdisciplinary plan of care rounds. Pain is ok and she is moving better. Current Medications: Active Medications Generic Name Dose Route Start Last Admin Trade Name Freq PRN Reason Stop Dose Admin Acetaminophen 650 mg 10/08/18 16:19 Tylenol Tab* PO Q6H PRN FEVER/PAIN Atorvastatin Calcium 40 mg 10/09/18 17:00 10/10/18 17:06 Lipitor* PO 40 mg 1700 MANJU Administration Docusate Sodium 100 mg 10/08/18 21:00 10/10/18 08:44 Colace Cap* PO 100 mg BID MANJU Administration Enoxaparin Sodium 60 mg 10/08/18 21:00 10/10/18 08:46 Lovenox(*) SUBCUT 60 mg Q12H MANJU Administration Magnesium Hydroxide 30 ml 10/08/18 16:19 Milk Of Magnesia Liq* PO Q6H PRN CONSTIPATION Magnesium Oxide 400 mg 10/09/18 09:00 10/10/18 08:44 Magox 400 Tab* PO 400 mg DAILY MANJU Administration Metoprolol Succinate 25 mg 10/09/18 09:00 10/10/18 08:44 Toprol Xl Tab* PO 25 mg DAILY MANJU Administration Oxycodone/Acetaminophen 1 tab 10/08/18 16:31 10/10/18 16:33 Percocet 5/325 Tab* PO 1 tab Q4H PRN Administration PAIN - MODERATE TO SEVERE Oxycodone/Acetaminophen 2 tab 10/08/18 21:05 Percocet 5/325 Tab* PO Q4H PRN PAIN - SEVERE Primidone 150 mg 10/08/18 21:00 10/09/18 20:55 Mysoline Tab(*) PO 150 mg BEDTIME MANJU Administration Senna 2 tab 10/08/18 16:19 10/08/18 20:44 Senokot Tab* PO 2 tab BEDTIME PRN Administration CONSTIPATION Warfarin Sodium 8 mg 10/10/18 17:00 10/10/18 17:06 Coumadin Tab(*) PO 8 mg DAILY@1700 MANJU Administration Protocol Vital Signs: Vital Signs Temp Pulse Resp BP Pulse Ox 98.1 F 59 18 114/62 100 10/10/18 16:43 10/10/18 16:43 10/10/18 16:43 10/10/18 16:43 10/10/18 16:43 Lab Results: Laboratory Results - last 24 hr 10/10/18 10/10/18 10/10/18 04:48 04:48 04:48 WBC 9.9 RBC 2.48 L Hgb 8.1 L Hct 24 L MCV 96 MCH 33 H MCHC 34 RDW 16 H Plt Count 315 MPV 6.7 L Neut % (Auto) 74.9 Lymph % (Auto) 10.0 Luce % (Auto) 13.1 Eos % (Auto) 1.6 Baso % (Auto) 0.4 Absolute Neuts (auto) 7.4 Absolute Lymphs (auto) 1.0 Absolute Monos (auto) 1.3 H Absolute Eos (auto) 0.2 Absolute Basos (auto) 0 Absolute Nucleated RBC 0 Nucleated RBC % 0 INR (Anticoag Therapy) 1.25 H Sodium 133 L Potassium 4.5 Chloride 102 Carbon Dioxide 29 Anion Gap 2 BUN 19 Creatinine 0.43 L Est GFR ( Amer) 168.1 Est GFR (Non-Af Amer) 138.9 BUN/Creatinine Ratio 44.2 H Glucose 105 H Calcium 8.0 L Total Bilirubin 1.20 H AST 87 H ALT 48 Alkaline Phosphatase 156 H Total Protein 5.3 L Albumin 2.4 L Globulin 2.9 Albumin/Globulin Ratio 0.8 L Exam: HEENT: EOMI LUNGS: Clear bilaterally HEART: Reg rhythm ABDOMEN: Soft +BS EXTREMITIES: Ecchymotic RLE, trace edema in bilateral LE NEUROLOGIC: Alert oriented to self and place. Muscle strength 5/5 except RLE which is 3/5 due to pain, can DF 4/5 Assessment/Plan: 1. Right Hip Fracture: PT/OT 2. Acute blood loss anemia: Hb/Hct stable 3. Paroxysmal A Fib: Toprol. Lovenox bridge to Coumadin 4. 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 Has Pacemaker. Toprol. Restart Lasix when BP can tolerate 5. DVT Prophylaxis: Coumadin/Lovenox 6. Advanced Directives: Full code. is HCP 10/10/18 17:32
[2018-10-10] MEDS: Primidone TAB(*) 50 MG PO SCH (20:57)
[2018-10-10] MEDS: Senna TAB PO PRN (21:02)
[2018-10-11 06:43] LABS: INR 1.48 (0.77-1.02)
[2018-10-11] MEDS: oxyCODONE/Acetamin 5/325 MG* TAB PO PRN ×3 (08:16→19:39)
[2018-10-11] MEDS: Docusate CAP* 100 MG PO SCH ×2 (08:17→20:46)
[2018-10-11] MEDS: Magnesium Oxide TAB* 400 MG PO SCH (08:18)
[2018-10-11] MEDS: Metoprolol Succinate XL TAB* 25 MG PO SCH (08:18)
[2018-10-11] MEDS: Enoxaparin(*) 60 MG/0.6 ML SYR SUBCUT SCH ×2 (08:21→20:47)
--- NOTE | 2018-10-11 15:11 | PN ---
Progress Note Date of Service: 10/11/18 Note: CHELO FERRIS was visited. Therapy notes read and reviewed. She has no complaints. Her wound is healing and looks ok. Her INR is bumping but only 1.48- will need to continue Lovenox. Current Medications: Active Medications Generic Name Dose Route Start Last Admin Trade Name Freq PRN Reason Stop Dose Admin Acetaminophen 650 mg 10/08/18 16:19 Tylenol Tab* PO Q6H PRN FEVER/PAIN Atorvastatin Calcium 40 mg 10/09/18 17:00 10/10/18 17:06 Lipitor* PO 40 mg 1700 MANJU Administration Docusate Sodium 100 mg 10/08/18 21:00 10/11/18 08:17 Colace Cap* PO 100 mg BID MANJU Administration Enoxaparin Sodium 60 mg 10/08/18 21:00 10/11/18 08:21 Lovenox(*) SUBCUT 60 mg Q12H MANJU Administration Magnesium Hydroxide 30 ml 10/08/18 16:19 Milk Of Magnesia Liq* PO Q6H PRN CONSTIPATION Magnesium Oxide 400 mg 10/09/18 09:00 10/11/18 08:18 Magox 400 Tab* PO 400 mg DAILY MANJU Administration Metoprolol Succinate 25 mg 10/09/18 09:00 10/11/18 08:18 Toprol Xl Tab* PO 25 mg DAILY MANJU Administration Oxycodone/Acetaminophen 1 tab 10/08/18 16:31 10/11/18 12:43 Percocet 5/325 Tab* PO 1 tab Q4H PRN Administration PAIN - MODERATE TO SEVERE Oxycodone/Acetaminophen 2 tab 10/08/18 21:05 Percocet 5/325 Tab* PO Q4H PRN PAIN - SEVERE Primidone 150 mg 10/08/18 21:00 10/10/18 20:57 Mysoline Tab(*) PO 150 mg BEDTIME MANJU Administration Senna 2 tab 10/08/18 16:19 10/10/18 21:02 Senokot Tab* PO 2 tab BEDTIME PRN Administration CONSTIPATION Warfarin Sodium 8 mg 10/10/18 17:00 10/10/18 17:06 Coumadin Tab(*) PO 8 mg DAILY@1700 MANJU Administration Protocol Vital Signs: Vital Signs Temp Pulse Resp BP Pulse Ox 98.3 F 59 18 126/48 95 10/11/18 08:56 12/08/18 06:11 10/11/18 14:02 10/11/18 06:11 10/11/18 08:00 Lab Results: Laboratory Results - last 24 hr 10/11/18 05:56 INR (Anticoag Therapy) 1.48 H Exam: HEENT: EOMI LUNGS: Clear bilaterally HEART: Reg rhythm ABDOMEN: Soft +BS EXTREMITIES: Ecchymotic RLE, trace edema in bilateral LE. Wound on RLE healing NEUROLOGIC: Alert oriented to self and place. Muscle strength 5/5 except RLE which is 3/5 due to pain, can DF 4/5 Assessment/Plan: 1. Right Hip Fracture: PT/OT 2. Acute blood loss anemia: Hb/Hct stable 3. Paroxysmal A Fib: Toprol. Lovenox bridge to Coumadin. COntinue Coumadin 8. INR in am 4. 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 Has Pacemaker. Toprol. Restart Lasix in am 5. DVT Prophylaxis: Coumadin/Lovenox 6. Advanced Directives: Full code. is HCP 10/11/18 15:11 10/11/18 15:12
[2018-10-11] MEDS: Warfarin TAB(*) 4 MG PO SCH (16:59)
[2018-10-11] MEDS: Atorvastatin* 40 MG TAB PO SCH (16:59)
[2018-10-11 19:00] LABS: Urine Appearance Cloudy; Urine Bacteria 3+ (Absent); Urine Bilirubin Negative (Negative); Urine Blood 3+ (Negative); Urine Color Amber; Urine Glucose Negative (Negative); Urine Ketones Negative (Negative); Urine Nitrite Positive (Negative); Urine Protein 2+(100 mg/dL) (Negative); Urine Red Blood Cell 3+(>10/hpf) (Absent); Urine Specific Gravity 1.027 (1.010-1.030); Urine Urobilinogen Negative (Negative); Urine White Blood Cell 3+(>20/hpf) (Absent)
[2018-10-11] MEDS: Primidone TAB(*) 50 MG PO SCH (20:46)
[2018-10-12] MEDS: oxyCODONE/Acetamin 5/325 MG* TAB PO PRN ×4 (01:21→18:15)
[2018-10-12 06:42] LABS: INR 1.9 (0.77-1.02)
[2018-10-12] MEDS: Metoprolol Succinate XL TAB* 25 MG PO SCH (10:03)
[2018-10-12] MEDS: Magnesium Oxide TAB* 400 MG PO SCH (10:03)
[2018-10-12] MEDS: Furosemide TAB* 20 MG PO SCH (10:03)
[2018-10-12] MEDS: Potassium Chlor TAB* 10 MEQ TAB.ER PO SCH (10:03)
[2018-10-12] MEDS: Docusate CAP* 100 MG PO SCH ×2 (10:03→21:02)
[2018-10-12] MEDS: Enoxaparin(*) 60 MG/0.6 ML SYR SUBCUT SCH (10:04)
[2018-10-12] MEDS ORDERED: Levofloxacin TAB* 250 MG PO ONE (11:00)
--- NOTE | 2018-10-12 17:06 | PN ---
Progress Note Date of Service: 10/12/18 Note: CHELO FERRIS was visited. Therapy notes read and reviewed. Her urine came back and it appears consistent with a UTI. Will start Levaquin. Urine culture grew out >100K Enterobacter Current Medications: Active Medications Generic Name Dose Route Start Last Admin Trade Name Freq PRN Reason Stop Dose Admin Acetaminophen 650 mg 10/08/18 16:19 Tylenol Tab* PO Q6H PRN FEVER/PAIN Atorvastatin Calcium 40 mg 10/09/18 17:00 10/11/18 16:59 Lipitor* PO 40 mg 1700 MANJU Administration Docusate Sodium 100 mg 10/08/18 21:00 10/12/18 10:03 Colace Cap* PO 100 mg BID MANJU Administration Furosemide 20 mg 10/12/18 09:00 10/12/18 10:03 Lasix Tab* PO 20 mg DAILY MANJU Administration Levofloxacin 250 mg 10/13/18 09:00 Levaquin Tab* PO 10/16/18 23:59 Q24H MANJU Magnesium Hydroxide 30 ml 10/08/18 16:19 Milk Of Magnesia Liq* PO Q6H PRN CONSTIPATION Magnesium Oxide 400 mg 10/09/18 09:00 10/12/18 10:03 Magox 400 Tab* PO 400 mg DAILY MANJU Administration Metoprolol Succinate 25 mg 10/09/18 09:00 10/12/18 10:03 Toprol Xl Tab* PO 25 mg DAILY MANJU Administration Oxycodone/Acetaminophen 1 tab 10/08/18 16:31 10/12/18 10:22 Percocet 5/325 Tab* PO 1 tab Q4H PRN Administration PAIN - MODERATE TO SEVERE Oxycodone/Acetaminophen 2 tab 10/08/18 21:05 Percocet 5/325 Tab* PO Q4H PRN PAIN - SEVERE Potassium Chloride 10 meq 10/12/18 09:00 10/12/18 10:03 Klor Con Er Tab* PO 10 meq DAILY MANJU Administration Primidone 150 mg 10/08/18 21:00 10/11/18 20:46 Mysoline Tab(*) PO 150 mg BEDTIME MANJU Administration Senna 2 tab 10/08/18 16:19 10/10/18 21:02 Senokot Tab* PO 2 tab BEDTIME PRN Administration CONSTIPATION Warfarin Sodium 8 mg 10/10/18 17:00 10/11/18 16:59 Coumadin Tab(*) PO 8 mg DAILY@1700 [facility] Administration Protocol Vital Signs: Vital Signs Temp Pulse Resp BP Pulse Ox 97.6 F 60 17 105/49 100 10/12/18 16:04 10/12/18 16:04 10/12/18 16:04 10/12/18 16:04 10/12/18 16:04 Lab Results: Laboratory Results - last 24 hr 10/11/18 10/12/18 15:08 06:19 INR (Anticoag Therapy) 1.90 H Urine Color Radha Urine Appearance Cloudy Urine pH 5.0 Ur Specific Vaughn 1.027 Urine Protein 2+(100 mg/dl) A Urine Ketones Negative Urine Blood 3+ A Urine Nitrate Positive A Urine Bilirubin Negative Urine Urobilinogen Negative Ur Leukocyte Esterase 3+ A Urine WBC (Auto) 3+(>20/hpf) A Urine RBC (Auto) 3+(>10/hpf) A Urine Bacteria 3+ A Urine Glucose Negative Urine Ascorbic Acid * A Exam: HEENT: EOMI LUNGS: Clear bilaterally HEART: Reg rhythm ABDOMEN: Soft +BS EXTREMITIES: Ecchymotic RLE, trace edema in bilateral LE. Wound on RLE healing NEUROLOGIC: Alert oriented to self and place. Muscle strength 5/5 except RLE which is 3/5 due to pain, can DF 4/5 Assessment/Plan: 1. Right Hip Fracture: PT/OT 2. Acute blood loss anemia: Hb/Hct stable 3. Paroxysmal A Fib: Toprol. Lovenox bridge to Coumadin. COntinue Coumadin 8. INR in am 4. 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 Has Pacemaker. Toprol. Restart Lasix in am 5. DVT Prophylaxis: Coumadin/Lovenox 6. Urinary Tract Infection: Enterobacter Species. Levaquin, day 1/5 7. Advanced Directives: Full code. is HCP 10/12/18 17:07
[2018-10-12] MEDS: Atorvastatin* 40 MG TAB PO SCH (17:13)
[2018-10-12] MEDS: Warfarin TAB(*) 4 MG PO SCH (17:13)
[2018-10-12] MEDS: Primidone TAB(*) 50 MG PO SCH (20:59)
[2018-10-13] MEDS: oxyCODONE/Acetamin 5/325 MG* TAB PO PRN ×5 (00:36→19:28)
[2018-10-13 07:03] LABS: INR 2.12 (0.77-1.02)
[2018-10-13] MEDS: Docusate CAP* 100 MG PO SCH ×2 (08:53→20:05)
[2018-10-13] MEDS: Metoprolol Succinate XL TAB* 25 MG PO SCH (08:54)
[2018-10-13] MEDS: Magnesium Oxide TAB* 400 MG PO SCH (08:54)
[2018-10-13] MEDS: Furosemide TAB* 20 MG PO SCH (08:54)
[2018-10-13] MEDS: Potassium Chlor TAB* 10 MEQ TAB.ER PO SCH (08:54)
[2018-10-13] MEDS: Levofloxacin TAB* 250 MG PO SCH (08:54)
[2018-10-13] MEDS: Atorvastatin* 40 MG TAB PO SCH (17:03)
[2018-10-13] MEDS: Warfarin TAB(*) 4 MG PO SCH (17:03)
--- NOTE | 2018-10-13 18:08 | PN ---
Progress Note Date of Service: 10/13/18 Note: CHELO FERRIS was visited. Therapy notes read and reviewed. She has a UTI and is on Levaquin. Urine culture: Enterococcus sensitive to Levaquin. Will begin cano clamping. INR Therapeutic Current Medications: Active Medications Generic Name Dose Route Start Last Admin Trade Name Freq PRN Reason Stop Dose Admin Acetaminophen 650 mg 10/08/18 16:19 Tylenol Tab* PO Q6H PRN FEVER/PAIN Atorvastatin Calcium 40 mg 10/09/18 17:00 10/13/18 17:03 Lipitor* PO 40 mg 1700 MANJU Administration Docusate Sodium 100 mg 10/08/18 21:00 10/13/18 08:53 Colace Cap* PO 100 mg BID MANJU Administration Furosemide 20 mg 10/12/18 09:00 10/13/18 08:54 Lasix Tab* PO 20 mg DAILY MANJU Administration Levofloxacin 250 mg 10/13/18 09:00 10/13/18 08:54 Levaquin Tab* PO 10/16/18 23:59 250 mg Q24H MANJU Administration Magnesium Hydroxide 30 ml 10/08/18 16:19 10/13/18 04:31 Milk Of Magnesia Liq* PO 30 ml Q6H PRN Administration CONSTIPATION Magnesium Oxide 400 mg 10/09/18 09:00 10/13/18 08:54 Magox 400 Tab* PO 400 mg DAILY MANJU Administration Metoprolol Succinate 25 mg 10/09/18 09:00 10/13/18 08:54 Toprol Xl Tab* PO 25 mg DAILY MANJU Administration Oxycodone/Acetaminophen 1 tab 10/08/18 16:31 10/13/18 12:57 Percocet 5/325 Tab* PO 1 tab Q4H PRN Administration PAIN - MODERATE TO SEVERE Oxycodone/Acetaminophen 2 tab 10/08/18 21:05 Percocet 5/325 Tab* PO Q4H PRN PAIN - SEVERE Potassium Chloride 10 meq 10/12/18 09:00 10/13/18 08:54 Klor Con Er Tab* PO 10 meq DAILY MANJU Administration Primidone 150 mg 10/08/18 21:00 10/12/18 20:59 Mysoline Tab(*) PO 150 mg BEDTIME MANJU Administration Senna 2 tab 10/08/18 16:19 10/10/18 21:02 Senokot Tab* PO 2 tab BEDTIME PRN Administration CONSTIPATION Warfarin Sodium 8 mg 10/10/18 17:00 10/13/18 17:03 Coumadin Tab(*) PO 8 mg DAILY@1700 MANJU Administration Protocol Vital Signs: Vital Signs Temp Pulse Resp BP Pulse Ox 97.9 F 60 20 116/55 100 10/13/18 15:50 10/13/18 15:50 10/13/18 15:50 10/13/18 15:50 10/13/18 15:50 Lab Results: Laboratory Results - last 24 hr 10/13/18 06:41 INR (Anticoag Therapy) 2.12 H Exam: HEENT: EOMI LUNGS: Clear bilaterally HEART: Reg rhythm ABDOMEN: Soft +BS EXTREMITIES: Ecchymotic RLE, trace edema in bilateral LE. Wound on RLE healing NEUROLOGIC: Alert oriented to self and place. Muscle strength 5/5 except RLE which is 3/5 due to pain, can DF 4/5 Assessment/Plan: 1. Right Hip Fracture: PT/OT 2. Acute blood loss anemia: Hb/Hct stable 3. Paroxysmal A Fib: Toprol. Continue Coumadin 8. 4. 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 Has Pacemaker. Toprol. Restarted Lasix 5. DVT Prophylaxis: Coumadin/Lovenox 6. Urinary Tract Infection: Enterobacter Species. Levaquin, day 2 7. Advanced Directives: Full code. is HCP 8. Urinary Retention: Cano clamping to begin 10/13/18 18:08 10/13/18 18:09
[2018-10-13] MEDS: Primidone TAB(*) 50 MG PO SCH (20:51)
[2018-10-13] MEDS ORDERED: Methocarbamol TAB* 500 MG PO ONE (21:25)
[2018-10-14] MEDS: oxyCODONE/Acetamin 5/325 MG* TAB PO PRN ×4 (00:49→19:06)
[2018-10-14] MEDS: Docusate CAP* 100 MG PO SCH ×2 (08:13→19:04)
[2018-10-14] MEDS: Magnesium Oxide TAB* 400 MG PO SCH (08:15)
[2018-10-14] MEDS: Metoprolol Succinate XL TAB* 25 MG PO SCH (08:15)
[2018-10-14] MEDS: Furosemide TAB* 20 MG PO SCH (08:15)
[2018-10-14] MEDS: Levofloxacin TAB* 250 MG PO SCH (08:15)
[2018-10-14] MEDS: Potassium Chlor TAB* 10 MEQ TAB.ER PO SCH (08:15)
--- NOTE | 2018-10-14 12:32 | PMRUTEAM ---
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 no urge to void Bowel Current Status 10/13/18 liquid/loose bm colace held this am Nutrition Current Status appetite fair. encourage to increase fluid intake Medication Current Status needs reinforcement Physical Therapy: Current Status Bed Mobility Assistance Mod Assist Transfer Moblility Assistance Min Assist Transfer/Bed Mobility Rolling Walker Recommended Devices Ambulation Assistance Min Assist Ambulation Assistive Devices Rolling Walker Number of Feet Patient 20 Ambulated Ambulation Comment antalgic gait with step to pattern Stairs Assistance Not Tested Stairs Recommended Devices Two Rails Number of Stairs 3 Objective Comments ice pack to R hip provided at end of tx session. Occupational Therapy: Current Status Upper Body Dressing Supervision Lower Body Dressing Mod Assist Bathing Mod Assist Toileting Max Asst Toilet Transfer Min Assist Shower Transfer Min Assist Eating Supervision Rec Therapy: Current Status Summary of Assessment and RT assessment complete and pt. is aware of RT Clinical Impression services. Pt. has been minimally engaged in leisure visits and tends to be resting in the afternoons. Will con't to provide recreation and leisure services. Treatment Goals Pt. will engage in leisure activities while on the unit. Treatment Plan Provide RT services and encourage involvement. Social Work: Current Status Discharge Plan return home with home care svs and family support Potential for Family Training pt's is involved and supportive Anticipated Discharge Home Destination Discharge With return home with home care svs and family support Nutrition: Current Status Monitoring Pt w/ right hip fracture, s/p right hip intramedullary nail 10/02. Pt admitted to [facility] 10/08. Ordered for a regular unrestricted diet. Visited pt this afternoon. Per visual assessment, pt w/o obvious fat/muscle wasting. Pt reported a " so-so" appetite. Per RN, she let patient sleep in this morning so she ate breakfast late. Pt did eat 100% of breakfast, but had not yet touched lunch. Per pt, she had been eating as usual at home, and she was unsure of recent wt changes. Family believes pt has lost some wt. Per pt, her UBW is 130# (which she last weighed this summer). Current wt of 135# indicates wt gain. No evidence of malnutrition identified at this time. We did discuss the importance of adequate protein intake. Pt enjoys dairy products, and will eat meat ( although not much). Encouraged pt to eat protein portions first at meal times. She is aware to request snacks as desired between meals. She denied GI s/sx, such as N/V. Last BM documented . Pt denied difficulty chewing/swallowing. Agree w/ liberal diet. Per chart, pt w/o pressure related skin breakdown. Labs reviewed 10/10; Na+: 133 (low), B. Recommend electrolyte repletion prn. Will follow pt's progress. Goals: Physical Therapy: Initial Goals Bed Mobility Assistance Independent Transfer Mobility Assistance Independent Transfer/Bed Mobility Rolling Walker Recommended Devices Ambulation Independent Ambulation Recommended Devices Rolling Walker Ambulation Distance 150 Stairs Assistance Contact Guard Assist Stair Recommended Devices One Rail Number of Stairs 4 Home Exercise Program Independent Assistance Physical Therapy: Updated Goals Transfer/Bed Mobility Rolling Walker,EZ Stand Recommended Devices Occupational Therapy: Initial Goals Goals to be Completed in (Days 17 ) Upper Body Bathing Routine Independent Lower Body Bathing Routine Modified Independent with Upper Body Dressing Routine Independent Lower Body Dressing Routine Modified Independent with Toilet Hygeine and Clothing Modified Independent with Management Routine Toilet Transfer Routine Modified Independent with Step-In Shower Transfer Supervision/Set Up Routine Functional Transfers for ADL Modified Independent with Grooming Routine Independent Feeding Routine Independent Nursing: Goals Bladder Goal independent Bowel Goal independent Nutrition Goal 100% of all meals consumed Medication Goal independent Nutrition: Goals Intervention Goals 1. Adequate PO intake to maintain lean body mass and hydration w/o undesired wt loss - Intake will promote post-op healing 2. Electrolytes WNL w/ repletion as needed 3. Maintain bowel regluarity w/o constipation or diarrhea Social Work: Goals Discharge Plan return home with home care svs and family support Potential for Family Training pt's is involved and supportive Anticipated Discharge Home Destination Discharge With return home with home care svs and family support Care Plan: Care Plan ADL's - Improve/Maintain Start: 10/09/18 11:46 Freq: DAILY Status: Active Target: Protocol: Activity Type Activity Date Activity User E-Sign Co-Sign Detail Recorded Client Recorded Date Recorded By Document 10/14/18 11:51 [id number] 10/14/18 11:51 [id number] 10/14/18 11:51 PMRU Outcome: ADL's/ADL Transfers Orders/Interventions Occupational Therapy Evaluation & Treatment Communication Tool in Patient Room Patient to receive OT 5x/wk for 60-120 Therex min/day Self Care Management Group Therapy UE/LE ADL's with Assist Yes: mod I ADL Transfers with Assist Yes: mod I Toileting: Transfers,Clothing Management Yes: mod I ,Hygeine w/Assist Progression Toward Outcome/Goals Progressing Outcome/Goals Met Pt making gradual progress with AE for LB dressing but has difficulty completing straight leg raise with RLE which affects ability to dress RLE. Pt now completing STS transfers without assist. Less cueing needed throughout ADL. Cardiovascular- Improve/Maintain Start: 10/08/18 21:15 Freq: QSHIFT Status: Complete Target: Protocol: Activity Type Activity Date Activity User E-Sign Co-Sign Detail Recorded Client Recorded Date Recorded By Document 10/14/18 09:00 [id number] [id number] 10/14/18 11:10 [id number] 10/14/18 09:00 PMRU Outcome: Cardiovascular Vital Signs q Shift for 48hrs Then BID Yes Daily Weight Ordered No Current Cardiovascular Outcome/Goal Maintain/ Achieve Baseline HR, BP , Perfusion Free of Abnormal Cardiac Symptoms Progression Toward Outcome/Goal Progressing Outcomes/Goals Met Maintain/ Achieve Baseline HR, BP , Perfusion Improve HR Within Prescribed Parameters DVT Prophylaxis- Improve/Maintain Start: 10/08/18 21:15 Freq: QSHIFT Status: Active Target: Protocol: Activity Type Activity Date Activity User E-Sign Co-Sign Detail Recorded Client Recorded Date Recorded By Document 10/14/18 09:00 [id number] 10/14/18 11:10 [id number] 10/14/18 09:00 PMRU Outcome: DVT Prophylaxis Outcome/Goals Remains Free of DVT Complies with DVT Prophylaxis /Treatment Demonstrates Knowledge of DVT Prevention/ Treatment TEDS Stockings on Every AM, Off at HS Progression Toward Outcome/Goals Progressing Education-Improve/Maintain Start: 10/08/18 21:15 Freq: QSHIFT Status: Active Target: Protocol: Activity Type Activity Date Activity User E-Sign Co-Sign Detail Recorded Client Recorded Date Recorded By Document 10/14/18 09:00 [id number] [email or web address] 10/14/18 11:10 [id number] 10/14/18 09:00 PMRU Outcome: Education Outcome/Goals Encourage Questions Progression Toward Outcome/Goals Progressing /GI-Improve/Maintain Start: 10/08/18 21:15 Freq: QSHIFT Status: Active Target: Protocol: Activity Type Activity Date Activity User E-Sign Co-Sign Detail Recorded Client Recorded Date Recorded By Document 10/14/18 09:00 [id number] [email or web address] 10/14/18 11:10 [id number] 10/14/18 09:00 PMRU Outcome: Genitourinary/ Gastrointestinal Genitourinary- Outcome/Goals Maintain/ Achieve Adequate Urinary Output Remain Free of Hospital- Acquired UTI Gastrointestinal-Outcome/Goals Maintain/ Achieve Bowel Regularity in Accordance with Pt's Baseline Prevent Constipation Laxatives as Ordered Progression Toward Outcome/Goals - Progressing Progression Toward Outcome/Goals - GI Progressing Outcome/Goals Met Comment cano in place, cano clamping in progress. no urge to void thus far Mobility- Improve/Maintain Start: 10/11/18 14:17 Freq: DAILY Status: Active Target: Protocol: Activity Type Activity Date Activity User E-Sign Co-Sign Detail Recorded Client Recorded Date Recorded By Document 10/11/18 14:17 [id number] [id number] 10/11/18 14:18 [id number] 10/11/18 14:17 PMRU Outcome: Mobility Physical Therapy Evaluation and Yes Treatment Activity OOB with Assistance Yes WBAT Yes: R LE Device Yes: walker Assistance Yes: Ax2 Patient to be seen 5x/wk for 60-120 min/ Therex day for: Mobility Training Gait Training W/C Mobility Balance Outcome/Goals Maintain/ Achieve Baseline Mobility Status Improve Mobility Status Demonstrates Proper Use of Assistive Devices Free from Complications of Immobility Other Progression Toward Outcome/Goals Progressing Outcome/Goals Met Maintain/ Achieve Baseline Mobility Status Bed Mobility Yes: Ind Transfers Yes: Mod I with walker Gait x ft Yes: Mod I with walker x150ft W/C Mobility x ft No Up/Down Stairs Yes: CGA x4 steps with 2 rails With HEP Yes Neurological- Improve/Maintain Start: 10/08/18 21:15 Freq: QSHIFT Status: Active Target: Protocol: Activity Type Activity Date Activity User E-Sign Co-Sign Detail Recorded Client Recorded Date Recorded By Document 10/14/18 09:00 [id number] [email or web address] 10/14/18 11:10 [id number] 10/14/18 09:00 PMRU Outcome: Neurological Weakness/Aphasia Weakness Weakness/Aphasia Comment S/P R hip ORIF Outcome/Goals Maintain/ Achieve Baseline Neurological Status Maintain/ Improve Strength/ROM Progression Toward Outcome/Goals Progressing Pain/Comfort- Improve/Maintain Start: 10/08/18 21:15 Freq: QSHIFT Status: Complete Target: Protocol: Activity Type Activity Date Activity User E-Sign Co-Sign Detail Recorded Client Recorded Date Recorded By Document 10/14/18 09:00 [id number] 10/14/18 11:10 [id number] 10/14/18 09:00 PMRU Outcome: Pain/Comfort Outcome/Goals Demonstrates Knowledge and Use of Available Comfort Measures Achieves Acceptable Comfort/Pain Level as Determined by Patient/Condit Maintain Comfort Level Allowing Patient to Fully Participate in Rehab Progression Toward Outcome/Goals Progressing Outcome/Goals Met Demonstrates Knowledge and Use of Available Comfort Measures Achieves Acceptable Comfort/Pain Level as Determined by Patient/Condit Maintain Comfort Level Allowing Patient to Fully Participate in Rehab Respiratory - Improve/Maintain Start: 10/08/18 21:15 Freq: QSHIFT Status: Active Target: Protocol: Activity Type Activity Date Activity User E-Sign Co-Sign Detail Recorded Client Recorded Date Recorded By Document 10/14/18 09:00 [id number] [email or web address] 10/14/18 11:10 [id number] 10/14/18 09:00 PMRU Outcome: Respiratory Does Patient Have a Trach No Outcome/Goals Maintain/ Improve Baseline Respiratory Status Prevent Pneumonia/ Atelectasis Remain Aspiration Free Progression Toward Outcome/Goals Progressing Safety- Improve/Maintain Start: 10/08/18 21:15 Freq: QSHIFT Status: Active Target: Protocol: Activity Type Activity Date Activity User E-Sign Co-Sign Detail Recorded Client Recorded Date Recorded By Document 10/14/18 09:00 [id number] [email or web address] 10/14/18 11:10 [id number] 10/14/18 09:00 PMRU Outcome: Safety Outcome/Goals Remain Free of Injury or Harm Cooperates with Safety Measures for Least Restrictive Environment Prevent Falls/ Injury Progression Toward Outcome/Goals Progressing Outcome/Goals Met Comment patient rings appropriately Medicine Note: Length of Stay: 10 days Anticipated Discharge Destination: Home Tentative Discharge Date: 10/24/18 Discharged to: Home
--- NOTE | 2018-10-14 16:36 | PN ---
Progress Note Date of Service: 10/14/18 Note: CHELO FERRIS was visited. Therapy notes read and reviewed. She is being clamped but has not felt anything yet. We have noted she does not have a lot of urine so have changed clamping to clamp for 4 hours. Current Medications: Active Medications Generic Name Dose Route Start Last Admin Trade Name Freq PRN Reason Stop Dose Admin Acetaminophen 650 mg 10/08/18 16:19 Tylenol Tab* PO Q6H PRN FEVER/PAIN Atorvastatin Calcium 40 mg 10/09/18 17:00 10/13/18 17:03 Lipitor* PO 40 mg 1700 MANJU Administration Docusate Sodium 100 mg 10/08/18 21:00 10/14/18 08:13 Colace Cap* PO Not Given BID MANJU Furosemide 20 mg 10/12/18 09:00 10/14/18 08:15 Lasix Tab* PO 20 mg DAILY MANJU Administration Levofloxacin 250 mg 10/13/18 09:00 10/14/18 08:15 Levaquin Tab* PO 10/16/18 23:59 250 mg Q24H MANJU Administration Magnesium Hydroxide 30 ml 10/08/18 16:19 10/13/18 04:31 Milk Of Magnesia Liq* PO 30 ml Q6H PRN Administration CONSTIPATION Magnesium Oxide 400 mg 10/09/18 09:00 10/14/18 08:15 Magox 400 Tab* PO 400 mg DAILY MANJU Administration Metoprolol Succinate 25 mg 10/09/18 09:00 10/14/18 08:15 Toprol Xl Tab* PO 25 mg DAILY MANJU Administration Oxycodone/Acetaminophen 1 tab 10/08/18 16:31 10/14/18 13:17 Percocet 5/325 Tab* PO 1 tab Q4H PRN Administration PAIN - MODERATE TO SEVERE Oxycodone/Acetaminophen 2 tab 10/08/18 21:05 Percocet 5/325 Tab* PO Q4H PRN PAIN - SEVERE Potassium Chloride 10 meq 10/12/18 09:00 10/14/18 08:15 Klor Con Er Tab* PO 10 meq DAILY MANJU Administration Primidone 150 mg 10/08/18 21:00 10/13/18 20:51 Mysoline Tab(*) PO 150 mg BEDTIME MANJU Administration Senna 2 tab 10/08/18 16:19 10/10/18 21:02 Senokot Tab* PO 2 tab BEDTIME PRN Administration CONSTIPATION Warfarin Sodium 8 mg 10/10/18 17:00 10/13/18 17:03 Coumadin Tab(*) PO 8 mg DAILY@1700 MANJU Administration Protocol Vital Signs: Vital Signs Temp Pulse Resp BP Pulse Ox 98.0 F 59 20 123/59 100 10/14/18 15:49 10/14/18 15:49 10/14/18 15:49 10/14/18 15:49 10/14/18 15:49 Exam: HEENT: EOMI LUNGS: Clear bilaterally HEART: Reg rhythm ABDOMEN: Soft +BS EXTREMITIES: Ecchymotic RLE, trace edema in bilateral LE. Wound on RLE healing NEUROLOGIC: Alert oriented to self and place. Muscle strength 5/5 except RLE which is 3/5 due to pain, can DF 4/5 Assessment/Plan: 1. Right Hip Fracture: PT/OT 2. Acute blood loss anemia: Hb/Hct stable 3. Paroxysmal A Fib: Toprol. Continue Coumadin 8. 4. 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 Has Pacemaker. Toprol. Restarted Lasix 5. DVT Prophylaxis: Coumadin/Lovenox 6. Urinary Tract Infection: Enterobacter Species. Levaquin, day 3/5 7. Advanced Directives: Full code. is HCP 8. Urinary Retention: Chou clamping 10/14/18 16:36
[2018-10-14] MEDS ORDERED: Methocarbamol TAB* 500 MG PO PRN (16:38)
[2018-10-14] MEDS: Atorvastatin* 40 MG TAB PO SCH (17:01)
[2018-10-14] MEDS: Warfarin TAB(*) 4 MG PO SCH (17:01)
[2018-10-14] MEDS: Primidone TAB(*) 50 MG PO SCH (19:11)
[2018-10-15] MEDS: oxyCODONE/Acetamin 5/325 MG* TAB PO PRN ×4 (00:08→19:23)
[2018-10-15 07:01] LABS: INR 2.28 (0.77-1.02)
[2018-10-15] MEDS: Magnesium Oxide TAB* 400 MG PO SCH (08:57)
[2018-10-15] MEDS: Furosemide TAB* 20 MG PO SCH (08:57)
[2018-10-15] MEDS: Levofloxacin TAB* 250 MG PO SCH (08:57)
[2018-10-15] MEDS: Metoprolol Succinate XL TAB* 25 MG PO SCH (08:58)
[2018-10-15] MEDS: Potassium Chlor TAB* 10 MEQ TAB.ER PO SCH (08:58)
[2018-10-15] MEDS: Docusate CAP* 100 MG PO SCH ×2 (09:01→20:13)
--- NOTE | 2018-10-15 16:34 | PN ---
Progress Note Date of Service: 10/15/18 Note: CHELO FERRIS was visited. Therapy notes read and reviewed. Starting to have urges with cano clamping and moving better. UTI being treated. Seems a little better with PO liquids. Current Medications: Active Medications Generic Name Dose Route Start Last Admin Trade Name Freq PRN Reason Stop Dose Admin Acetaminophen 650 mg 10/08/18 16:19 Tylenol Tab* PO Q6H PRN FEVER/PAIN Atorvastatin Calcium 40 mg 10/09/18 17:00 10/14/18 17:01 Lipitor* PO 40 mg 1700 MANJU Administration Docusate Sodium 100 mg 10/08/18 21:00 10/15/18 09:01 Colace Cap* PO Not Given BID MANJU Furosemide 20 mg 10/12/18 09:00 10/15/18 08:57 Lasix Tab* PO 20 mg DAILY MANJU Administration Levofloxacin 250 mg 10/13/18 09:00 10/15/18 08:57 Levaquin Tab* PO 10/16/18 23:59 250 mg Q24H MANJU Administration Magnesium Hydroxide 30 ml 10/08/18 16:19 10/13/18 04:31 Milk Of Magnesia Liq* PO 30 ml Q6H PRN Administration CONSTIPATION Magnesium Oxide 400 mg 10/09/18 09:00 10/15/18 08:57 Magox 400 Tab* PO 400 mg DAILY MANJU Administration Methocarbamol 500 mg 10/14/18 16:38 Robaxin Tab* PO TID PRN SPASMS Metoprolol Succinate 25 mg 10/09/18 09:00 10/15/18 08:58 Toprol Xl Tab* PO 25 mg DAILY MANJU Administration Oxycodone/Acetaminophen 1 tab 10/08/18 16:31 10/15/18 13:01 Percocet 5/325 Tab* PO 1 tab Q4H PRN Administration PAIN - MODERATE TO SEVERE Oxycodone/Acetaminophen 2 tab 10/08/18 21:05 Percocet 5/325 Tab* PO Q4H PRN PAIN - SEVERE Potassium Chloride 10 meq 10/12/18 09:00 10/15/18 08:58 Klor Con Er Tab* PO 10 meq DAILY MAJNU Administration Primidone 150 mg 10/08/18 21:00 10/14/18 19:11 Mysoline Tab(*) PO 150 mg BEDTIME MANJU Administration Senna 2 tab 10/08/18 16:19 10/10/18 21:02 Senokot Tab* PO 2 tab BEDTIME PRN Administration CONSTIPATION Warfarin Sodium 8 mg 10/10/18 17:00 10/14/18 17:01 Coumadin Tab(*) PO 8 mg DAILY@1700 MANJU Administration Protocol Vital Signs: Vital Signs Temp Pulse Resp BP Pulse Ox 98.1 F 59 16 121/64 99 10/15/18 15:32 10/15/18 15:32 10/15/18 15:32 10/15/18 15:32 10/15/18 15:32 Lab Results: Laboratory Results - last 24 hr 10/15/18 06:35 INR (Anticoag Therapy) 2.28 H Exam: HEENT: EOMI LUNGS: Clear bilaterally HEART: Reg rhythm ABDOMEN: Soft +BS EXTREMITIES: Ecchymotic RLE, trace edema in bilateral LE. Wound on RLE healing NEUROLOGIC: Alert oriented to self and place. Muscle strength 5/5 except RLE which is 3/5 due to pain, can DF 4/5 Assessment/Plan: 1. Right Hip Fracture: PT/OT 2. Acute blood loss anemia: Hb/Hct stable 3. Paroxysmal A Fib: Toprol. Continue Coumadin 8. INR therapeutic 4. 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 Has Pacemaker. Toprol. Restarted Lasix 5. DVT Prophylaxis: Coumadin/Lovenox 6. Urinary Tract Infection: Enterobacter Species. Levaquin, day 4/5 7. Advanced Directives: Full code. is HCP 8. Urinary Retention: Cano clamping 10/15/18 16:34
[2018-10-15] MEDS: Warfarin TAB(*) 4 MG PO SCH (17:04)
[2018-10-15] MEDS: Atorvastatin* 40 MG TAB PO SCH (17:04)
[2018-10-15] MEDS: Primidone TAB(*) 50 MG PO SCH (20:12)
[2018-10-16] MEDS: oxyCODONE/Acetamin 5/325 MG* TAB PO PRN ×4 (03:40→20:43)
[2018-10-16] MEDS: Docusate CAP* 100 MG PO SCH ×2 (08:09→20:42)
[2018-10-16] MEDS: Levofloxacin TAB* 250 MG PO SCH (08:10)
[2018-10-16] MEDS: Magnesium Oxide TAB* 400 MG PO SCH (08:10)
[2018-10-16] MEDS: Metoprolol Succinate XL TAB* 25 MG PO SCH (08:10)
[2018-10-16] MEDS: Furosemide TAB* 20 MG PO SCH (08:10)
[2018-10-16] MEDS: Potassium Chlor TAB* 10 MEQ TAB.ER PO SCH (08:10)
[2018-10-16] MEDS: Warfarin TAB(*) 4 MG PO SCH (17:01)
[2018-10-16] MEDS: Atorvastatin* 40 MG TAB PO SCH (17:01)
--- NOTE | 2018-10-16 18:52 | PN ---
Progress Note Date of Service: 10/16/18 Note: CHELO FERRIS was visited. Therapy notes read and reviewed. Her cano came out at 6 am this morning but she has not voided yet (almost 13 hours later). Will bladder scan and see how full her bladder is. Finishing up treatment for UTI. Current Medications: Active Medications Generic Name Dose Route Start Last Admin Trade Name Freq PRN Reason Stop Dose Admin Acetaminophen 650 mg 10/08/18 16:19 Tylenol Tab* PO Q6H PRN FEVER/PAIN Atorvastatin Calcium 40 mg 10/09/18 17:00 10/16/18 17:01 Lipitor* PO 40 mg 1700 MANJU Administration Docusate Sodium 100 mg 10/08/18 21:00 10/16/18 08:09 Colace Cap* PO 100 mg BID MANJU Administration Furosemide 20 mg 10/12/18 09:00 10/16/18 08:10 Lasix Tab* PO 20 mg DAILY MANJU Administration Levofloxacin 250 mg 10/13/18 09:00 10/16/18 08:10 Levaquin Tab* PO 10/16/18 23:59 250 mg Q24H MANJU Administration Magnesium Hydroxide 30 ml 10/08/18 16:19 10/13/18 04:31 Milk Of Magnesia Liq* PO 30 ml Q6H PRN Administration CONSTIPATION Magnesium Oxide 400 mg 10/09/18 09:00 10/16/18 08:10 Magox 400 Tab* PO 400 mg DAILY MANJU Administration Methocarbamol 500 mg 10/14/18 16:38 Robaxin Tab* PO TID PRN SPASMS Metoprolol Succinate 25 mg 10/09/18 09:00 10/16/18 08:10 Toprol Xl Tab* PO 25 mg DAILY MANJU Administration Oxycodone/Acetaminophen 1 tab 10/08/18 16:31 10/16/18 13:34 Percocet 5/325 Tab* PO 1 tab Q4H PRN Administration PAIN - MODERATE TO SEVERE Oxycodone/Acetaminophen 2 tab 10/08/18 21:05 Percocet 5/325 Tab* PO Q4H PRN PAIN - SEVERE Potassium Chloride 10 meq 10/12/18 09:00 10/16/18 08:10 Klor Con Er Tab* PO 10 meq DAILY MANJU Administration Primidone 150 mg 10/08/18 21:00 12/12/18 20:12 Mysoline Tab(*) PO 150 mg BEDTIME MANJU Administration Senna 2 tab 10/08/18 16:19 10/10/18 21:02 Senokot Tab* PO 2 tab BEDTIME PRN Administration CONSTIPATION Warfarin Sodium 8 mg 10/10/18 17:00 10/16/18 17:01 Coumadin Tab(*) PO 8 mg DAILY@1700 MANJU Administration Protocol Vital Signs: Vital Signs Temp Pulse Resp BP Pulse Ox 99.3 F 60 16 116/49 97 10/16/18 06:11 10/16/18 06:11 10/16/18 17:00 10/16/18 06:11 10/16/18 06:11 Exam: HEENT: EOMI LUNGS: Clear bilaterally HEART: Reg rhythm ABDOMEN: Soft +BS EXTREMITIES: Ecchymotic RLE, trace edema in bilateral LE. Wound on RLE healing NEUROLOGIC: Alert oriented to self and place. Muscle strength 5/5 except RLE which is 3/5 due to pain, can DF 4/5 Assessment/Plan: 1. Right Hip Fracture: PT/OT. Will remove layne later tonight 2. Acute blood loss anemia: Hb/Hct stable, recheck in am 3. Paroxysmal A Fib: Toprol. Continue Coumadin 8. INR therapeutic 4. 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 Has Pacemaker. Toprol. Restarted Lasix 5. DVT Prophylaxis: Coumadin 6. Urinary Tract Infection: Enterobacter Species. Levaquin, day 03/08 7. Advanced Directives: Full code. is HCP 8. Urinary Retention: Cano out. Will bladder scan if unable to void 10/16/18 18:53 10/16/18 18:54
[2018-10-16] MEDS: Primidone TAB(*) 50 MG PO SCH (20:42)
[2018-10-16] MEDS ORDERED: HYDROcodone/ACETAMIN 5-325 MG* 1 TAB PO PRN (22:33)
[2018-10-17] MEDS: oxyCODONE/Acetamin 5/325 MG* TAB PO PRN ×4 (03:40→19:39)
[2018-10-17 05:07] LABS: ABS Basophils 0 10^3/ul (0-0.2); ABS Eosinophils 0.1 10^3/ul (0-0.6); ABS Lymphocytes 0.7 10^3/ul (1.0-4.8); ABS Monocytes 0.8 10^3/ul (0-0.8); ABS Neutrophils 4.8 10^3/ul (1.5-7.7); ABS Nucleated RBC 0 10^3/ul; Eosinophil % 1.5 %; Hematocrit 26 % (35-47); Hemoglobin 8.8 g/dl (12.0-16.0); Lymphocyte % 11.5 %; Mean Corpuscular HGB Conc 33 g/dl (31-36); Mean Corpuscular Hemoglobin 33 pg (27-31); Mean Corpuscular Volume 97 fL (80-97); Mean Platelet Volume 6.1 fL (7.4-10.4); Nucleated Red Blood Cells % 0; Platelet Count 432 10^3/ul (150-450); Red Blood Count 2.71 10^6/ul (4.00-5.40); Red Cell Distribution Width 17 % (10.5-15); White Blood Count 6.4 10^3/ul (3.5-10.8)
[2018-10-17 05:13] LABS: INR 2.34 (0.77-1.02)
[2018-10-17 05:20] LABS: Albumin 2.3 g/dL (3.2-5.2); Calcium 7.9 mg/dL (8.6-10.3); Potassium 4.3 mmol/L (3.5-5.0); Total Bilirubin 1.1 mg/dL (0.2-1.0)
[2018-10-17 05:26] LABS: Albumin/Globulin Ratio 0.9 (1-3); BUN/Creatinine Ratio 35.3 (8-20); EGFR Non-African American 182.1 (>60); Globulin 2.5 g/dL (2-4); Total Protein 4.8 g/dL (6.4-8.9)
[2018-10-17] MEDS: Furosemide TAB* 20 MG PO SCH (08:00)
[2018-10-17] MEDS: Metoprolol Succinate XL TAB* 25 MG PO SCH (08:00)
[2018-10-17] MEDS: Magnesium Oxide TAB* 400 MG PO SCH (08:01)
[2018-10-17] MEDS: Docusate CAP* 100 MG PO SCH ×2 (08:01→19:38)
[2018-10-17] MEDS: Potassium Chlor TAB* 10 MEQ TAB.ER PO SCH (08:01)
--- NOTE | 2018-10-17 10:22 | PN ---
Progress Note Date of Service: 10/17/18 Note: CHELO FERRIS was visited. Nursing and therapy notes read and reviewed. No chest pain, shortness of breath or abdominal pain. She is now voiding with cano out. Current Medications: Active Medications Generic Name Dose Route Start Last Admin Trade Name Freq PRN Reason Stop Dose Admin Acetaminophen 650 mg 10/08/18 16:19 Tylenol Tab* PO Q6H PRN FEVER/PAIN Atorvastatin Calcium 40 mg 10/09/18 17:00 10/16/18 17:01 Lipitor* PO 40 mg 1700 MANJU Administration Docusate Sodium 100 mg 10/08/18 21:00 10/17/18 08:01 Colace Cap* PO 100 mg BID MANJU Administration Furosemide 20 mg 10/12/18 09:00 10/17/18 08:00 Lasix Tab* PO 20 mg DAILY MANJU Administration Magnesium Hydroxide 30 ml 10/08/18 16:19 10/13/18 04:31 Milk Of Magnesia Liq* PO 30 ml Q6H PRN Administration CONSTIPATION Magnesium Oxide 400 mg 10/09/18 09:00 10/17/18 08:01 Magox 400 Tab* PO 400 mg DAILY MANJU Administration Methocarbamol 500 mg 10/14/18 16:38 Robaxin Tab* PO TID PRN SPASMS Metoprolol Succinate 25 mg 10/09/18 09:00 10/17/18 08:00 Toprol Xl Tab* PO 25 mg DAILY MANJU Administration Oxycodone/Acetaminophen 1 tab 10/08/18 16:31 10/17/18 08:01 Percocet 5/325 Tab* PO 1 tab Q4H PRN Administration PAIN - MODERATE TO SEVERE Oxycodone/Acetaminophen 2 tab 10/08/18 21:05 Percocet 5/325 Tab* PO Q4H PRN PAIN - SEVERE Potassium Chloride 10 meq 10/12/18 09:00 10/17/18 08:01 Klor Con Er Tab* PO 10 meq DAILY MANJU Administration Primidone 150 mg 10/08/18 21:00 10/16/18 20:42 Mysoline Tab(*) PO 150 mg BEDTIME MANJU Administration Senna 2 tab 10/08/18 16:19 10/10/18 21:02 Senokot Tab* PO 2 tab BEDTIME PRN Administration CONSTIPATION Warfarin Sodium 8 mg 10/10/18 17:00 10/16/18 17:01 Coumadin Tab(*) PO 8 mg DAILY@1700 MANJU Administration Protocol Vital Signs: Vital Signs Temp Pulse Resp BP Pulse Ox 99.2 F 59 16 121/59 93 10/17/18 06:16 10/17/18 06:16 10/17/18 08:01 10/17/18 06:16 10/17/18 08:00 Lab Results: Laboratory Results - last 24 hr 10/17/18 10/17/18 10/17/18 04:35 04:35 04:35 WBC 6.4 RBC 2.71 L Hgb 8.8 L Hct 26 L MCV 97 MCH 33 H MCHC 33 RDW 17 H Plt Count 432 MPV 6.1 L Neut % (Auto) 74.1 Lymph % (Auto) 11.5 [place] % (Auto) 12.2 Eos % (Auto) 1.5 Baso % (Auto) 0.7 Absolute Neuts (auto) 4.8 Absolute Lymphs (auto) 0.7 L Absolute Monos (auto) 0.8 Absolute Eos (auto) 0.1 Absolute Basos (auto) 0 Absolute Nucleated RBC 0 Nucleated RBC % 0 INR (Anticoag Therapy) 2.34 H Sodium 133 L Potassium 4.3 Chloride 103 Carbon Dioxide 26 Anion Gap 4 BUN 12 Creatinine 0.34 L Est GFR ( Amer) 220.4 Est GFR (Non-Af Amer) 182.1 BUN/Creatinine Ratio 35.3 H Glucose 96 Calcium 7.9 L Total Bilirubin 1.10 H AST 35 ALT 26 Alkaline Phosphatase 170 H Total Protein 4.8 L Albumin 2.3 L Globulin 2.5 Albumin/Globulin Ratio 0.9 L Exam: GEN: no acute distress. Alert and appropriate LUNGS: Clear to auscultation bilaterally HEART: Regular rate and rhythm ABDOMEN: + bowel sounds, soft, non-tender, non-distended EXTREMITIES: Steri strips intact. Ongoing but lessening edema in right leg. Negative Homans. No calf pain. Calf soft. NEUROLOGIC: Motor 5/5 BLE except pain limited in right hip and knee. Sensation intact BLE. Assessment/Plan: 1. Right Hip Fracture: PT/OT. f/u Dr. Marion. 2. Acute blood loss anemia: Hb/Hct stable 3. Paroxysmal A Fib: Toprol. Continue Coumadin 8mg. INR therapeutic 4. 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 Has Pacemaker. Toprol and Lasix 5. DVT Prophylaxis: Coumadin 6. Urinary Tract Infection: Enterobacter Species s/p 5 days of Levaquin. 7. Advanced Directives: Full code. is HCP 8. Urinary Retention: Cano out. resolved. 9. Hyperbilirubinemia: stable. f/u as outpatient. asymptomatic. 10/17/18 10:19
[2018-10-17] MEDS: Warfarin TAB(*) 4 MG PO SCH (17:03)
[2018-10-17] MEDS: Atorvastatin* 40 MG TAB PO SCH (17:03)
[2018-10-17] MEDS: Senna TAB PO PRN (19:38)
[2018-10-17] MEDS: Primidone TAB(*) 50 MG PO SCH (19:41)
[2018-10-18] MEDS: oxyCODONE/Acetamin 5/325 MG* TAB PO PRN ×5 (00:29→20:21)
[2018-10-18] MEDS: Magnesium Oxide TAB* 400 MG PO SCH (07:55)
[2018-10-18] MEDS: Furosemide TAB* 20 MG PO SCH (07:56)
[2018-10-18] MEDS: Docusate CAP* 100 MG PO SCH ×2 (07:56→20:12)
[2018-10-18] MEDS: Potassium Chlor TAB* 10 MEQ TAB.ER PO SCH (07:56)
[2018-10-18] MEDS: Metoprolol Succinate XL TAB* 25 MG PO SCH (07:56)
--- NOTE | 2018-10-18 09:50 | PN ---
Progress Note Date of Service: 10/18/18 Note: CHELO FERRIS was visited. Nursing and therapy notes read and reviewed. After PT yesterday had serosanguinous drainage from hip incision which was previously dry. No chest pain, shortness of breath or abdominal pain. Current Medications: Active Medications Generic Name Dose Route Start Last Admin Trade Name Freq PRN Reason Stop Dose Admin Acetaminophen 650 mg 10/08/18 16:19 Tylenol Tab* PO Q6H PRN FEVER/PAIN Atorvastatin Calcium 40 mg 10/09/18 17:00 10/17/18 17:03 Lipitor* PO 40 mg 1700 MANJU Administration Docusate Sodium 100 mg 10/08/18 21:00 10/18/18 07:56 Colace Cap* PO 100 mg BID MANJU Administration Furosemide 20 mg 10/12/18 09:00 10/18/18 07:56 Lasix Tab* PO 20 mg DAILY MANJU Administration Magnesium Hydroxide 30 ml 10/08/18 16:19 10/13/18 04:31 Milk Of Magnesia Liq* PO 30 ml Q6H PRN Administration CONSTIPATION Magnesium Oxide 400 mg 10/09/18 09:00 10/18/18 07:55 Magox 400 Tab* PO 400 mg DAILY MANJU Administration Methocarbamol 500 mg 10/14/18 16:38 Robaxin Tab* PO TID PRN SPASMS Metoprolol Succinate 25 mg 10/09/18 09:00 10/18/18 07:56 Toprol Xl Tab* PO 25 mg DAILY MANJU Administration Oxycodone/Acetaminophen 1 tab 10/08/18 16:31 10/18/18 05:56 Percocet 5/325 Tab* PO 1 tab Q4H PRN Administration PAIN - MODERATE TO SEVERE Oxycodone/Acetaminophen 2 tab 10/08/18 21:05 Percocet 5/325 Tab* PO Q4H PRN PAIN - SEVERE Potassium Chloride 10 meq 10/12/18 09:00 10/18/18 07:56 Klor Con Er Tab* PO 10 meq DAILY MANJU Administration Primidone 150 mg 10/08/18 21:00 10/17/18 19:41 Mysoline Tab(*) PO 150 mg BEDTIME MANJU Administration Senna 2 tab 10/08/18 16:19 10/17/18 19:38 Senokot Tab* PO 2 tab BEDTIME PRN Administration CONSTIPATION Warfarin Sodium 8 mg 10/10/18 17:00 10/17/18 17:03 Coumadin Tab(*) PO 8 mg DAILY@1700 [facility] Administration Protocol Vital Signs: Vital Signs Temp Pulse Resp BP Pulse Ox 98.6 F 62 16 137/63 98 10/18/18 06:02 10/18/18 06:02 10/18/18 07:51 10/18/18 06:02 10/18/18 06:02 Exam: GEN: no acute distress. Alert and appropriate LUNGS: Clear to auscultation bilaterally HEART: Regular rate and rhythm ABDOMEN: + bowel sounds, soft, non-tender, non-distended EXTREMITIES: Ongoing but lessening edema in right leg. Negative Homans. No calf pain. Calf soft. NEUROLOGIC: Motor 5/5 BLE except pain limited in right hip and knee. Sensation intact BLE. SKIN: Right hip superior incision with mild serosanguinous drainage this morning , but dressing was changed overnight. There is some erythema and superficial swelling in this area. Assessment/Plan: 1. Right Hip Fracture: PT/OT. f/u Dr. Marion. I asked ortho to see this morning to f/u on drainage. I will start doxycycline 100mg bid since she just completed levaquin for UTI with enterobacter that was sensitive to tetracycline but resistant to keflex. 2. Acute blood loss anemia: Hb/Hct stable 3. Paroxysmal A Fib: Toprol. Continue Coumadin 8mg. INR therapeutic. INR M/W/ 4. 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 Has Pacemaker. Toprol and Lasix 5. DVT Prophylaxis: Coumadin 6. Urinary Tract Infection: Enterobacter Species s/p 5 days of Levaquin. 7. Advanced Directives: Full code. is HCP 8. Urinary Retention: Chou out. resolved. 9. Hyperbilirubinemia: stable. f/u as outpatient. asymptomatic. 10/18/18 09:52
[2018-10-18] MEDS: DOXYcycline CAP(*) 100 MG PO SCH ×2 (11:02→20:12)
--- NOTE | 2018-10-18 16:21 | PN ---
Progress Note - Progress Note Date of Service: 10/18/18 SOAP: Subjective: Patient is now over 2 weeks s/p right hip ORIF with recent staple removal. I was asked to see pt on PMRU by Dr. Hobbs for concerns of serosanguinous drainage from wound. Started on doxycycline. Pt states that she is feeling well , no increased pain in hip. Has had persistent swelling to leg but thinks it's improving. Objective: Vitals: Temp Pulse Resp BP Pulse Ox 98.6 F 62 16 137/63 98 10/18/18 06:02 10/18/18 06:02 10/18/18 16:03 10/18/18 06:02 10/18/18 06:02 Gen: A&Ox3, NAD at rest sitting in wheelchair Right hip: Incision clean and intact except for very small opening to proximal aspect where minimal serous drainage is expressed with pressure. Moderate edema around incision and throughout the lower leg. Minimal residual ecchymosis, mild erythema. No warmth. N/V intact distally Assessment: S/P right hip ORIF Plan: Continue with abx and dry dressing, concern for infected hardware is low as there is no purulent drainage, pt is afebrile and has minimal pain. Will continue to follow
[2018-10-18] MEDS: Warfarin TAB(*) 4 MG PO SCH (17:27)
[2018-10-18] MEDS: Atorvastatin* 40 MG TAB PO SCH (17:27)
[2018-10-18] MEDS: Primidone TAB(*) 50 MG PO SCH (20:21)
[2018-10-19] MEDS: oxyCODONE/Acetamin 5/325 MG* TAB PO PRN ×5 (02:05→19:14)
--- NOTE | 2018-10-19 07:12 | PN ---
Progress Note Date of Service: 10/19/18 Note: CHELO FERRIS was visited. Nursing notes read and reviewed. No chest pain, shortness of breath or abdominal pain. Appreciate ortho f/u. Current Medications: Active Medications Generic Name Dose Route Start Last Admin Trade Name Freq PRN Reason Stop Dose Admin Acetaminophen 650 mg 10/08/18 16:19 Tylenol Tab* PO Q6H PRN FEVER/PAIN Atorvastatin Calcium 40 mg 10/09/18 17:00 10/18/18 17:27 Lipitor* PO 40 mg 1700 MANJU Administration Docusate Sodium 100 mg 10/08/18 21:00 10/18/18 20:12 Colace Cap* PO 100 mg BID MANJU Administration Doxycycline Hyclate 100 mg 10/18/18 10:00 10/18/18 20:12 Vibramycin Cap(*) PO 100 mg BID MANJU Administration Furosemide 20 mg 10/12/18 09:00 10/18/18 07:56 Lasix Tab* PO 20 mg DAILY MANJU Administration Magnesium Hydroxide 30 ml 10/08/18 16:19 10/13/18 04:31 Milk Of Magnesia Liq* PO 30 ml Q6H PRN Administration CONSTIPATION Magnesium Oxide 400 mg 10/09/18 09:00 10/18/18 07:55 Magox 400 Tab* PO 400 mg DAILY MANJU Administration Methocarbamol 500 mg 10/14/18 16:38 Robaxin Tab* PO TID PRN SPASMS Metoprolol Succinate 25 mg 10/09/18 09:00 10/18/18 07:56 Toprol Xl Tab* PO 25 mg DAILY MANJU Administration Oxycodone/Acetaminophen 1 tab 10/08/18 16:31 10/19/18 06:10 Percocet 5/325 Tab* PO 1 tab Q4H PRN Administration PAIN - MODERATE TO SEVERE Oxycodone/Acetaminophen 2 tab 10/08/18 21:05 Percocet 5/325 Tab* PO Q4H PRN PAIN - SEVERE Potassium Chloride 10 meq 10/12/18 09:00 10/18/18 07:56 Klor Con Er Tab* PO 10 meq DAILY MANJU Administration Primidone 150 mg 10/08/18 21:00 10/18/18 20:21 Mysoline Tab(*) PO 150 mg BEDTIME MANJU Administration Senna 2 tab 10/08/18 16:19 10/17/18 19:38 Senokot Tab* PO 2 tab BEDTIME PRN Administration CONSTIPATION Warfarin Sodium 8 mg 10/10/18 17:00 10/18/18 17:27 Coumadin Tab(*) PO 8 mg DAILY@1700 [facility] Administration Protocol Vital Signs: Vital Signs Temp Pulse Resp BP Pulse Ox 97.7 F 59 18 121/61 98 10/19/18 05:32 10/19/18 05:32 10/19/18 06:10 10/19/18 05:32 10/19/18 05:32 Exam: GEN: no acute distress. Alert and appropriate LUNGS: Clear to auscultation bilaterally HEART: Regular rate and rhythm ABDOMEN: + bowel sounds, soft, non-tender, non-distended EXTREMITIES: Ongoing but lessening edema in right leg. Negative Homans. No calf pain. Calf soft. NEUROLOGIC: Motor 5/5 BLE except pain limited in right hip and knee. Sensation intact BLE. SKIN: Right hip superior incision with mild serosanguinous drainage. There is some erythema and superficial swelling in this area that is stable. Assessment/Plan: 1. Right Hip Fracture: PT/OT. f/u Dr. Marion. Seen by ortho on 10/18 and recommend continue doxycycline (day #2) and dry dressing. 2. Acute blood loss anemia: Hb/Hct stable 3. Paroxysmal A Fib: Toprol. Continue Coumadin 8mg. INR therapeutic. INR M/W/ 4. 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 Has Pacemaker. Toprol and Lasix 5. DVT Prophylaxis: Coumadin 6. Urinary Tract Infection: Enterobacter Species s/p 5 days of Levaquin. 7. Advanced Directives: Full code. is HCP 8. Urinary Retention: Chou out. resolved. 9. Hyperbilirubinemia: stable. f/u as outpatient. asymptomatic. 10/19/18 07:10
[2018-10-19] MEDS: DOXYcycline CAP(*) 100 MG PO SCH ×2 (09:08→20:14)
[2018-10-19] MEDS: Furosemide TAB* 20 MG PO SCH (09:08)
[2018-10-19] MEDS: Docusate CAP* 100 MG PO SCH ×2 (09:08→20:14)
[2018-10-19] MEDS: Magnesium Oxide TAB* 400 MG PO SCH (09:08)
[2018-10-19] MEDS: Metoprolol Succinate XL TAB* 25 MG PO SCH (09:09)
[2018-10-19] MEDS: Potassium Chlor TAB* 10 MEQ TAB.ER PO SCH (09:09)
[2018-10-19] MEDS: Warfarin TAB(*) 4 MG PO SCH (17:08)
[2018-10-19] MEDS: Atorvastatin* 40 MG TAB PO SCH (17:09)
[2018-10-19] MEDS: Primidone TAB(*) 50 MG PO SCH (20:13)
[2018-10-20] MEDS: oxyCODONE/Acetamin 5/325 MG* TAB PO PRN ×5 (01:53→22:13)
[2018-10-20 05:36] LABS: INR 3.17 (0.77-1.02)
[2018-10-20] MEDS: Magnesium Oxide TAB* 400 MG PO SCH (09:00)
[2018-10-20] MEDS: Docusate CAP* 100 MG PO SCH ×2 (09:00→20:03)
[2018-10-20] MEDS: DOXYcycline CAP(*) 100 MG PO SCH ×2 (09:00→20:03)
[2018-10-20] MEDS: Furosemide TAB* 20 MG PO SCH (09:01)
[2018-10-20] MEDS: Potassium Chlor TAB* 10 MEQ TAB.ER PO SCH (09:01)
[2018-10-20] MEDS: Metoprolol Succinate XL TAB* 25 MG PO SCH (09:01)
[2018-10-20] MEDS: Atorvastatin* 40 MG TAB PO SCH (17:27)
[2018-10-20] MEDS: Warfarin TAB(*) 4 MG PO SCH (17:27)
--- NOTE | 2018-10-20 17:49 | PN ---
Progress Note Date of Service: 10/20/18 Note: CHELO FERRIS was visited. Therapy notes read and reviewed. Tolerating Doxycycline. Wound looks clean to me with small amount of drainage. INR rising Current Medications: Active Medications Generic Name Dose Route Start Last Admin Trade Name Freq PRN Reason Stop Dose Admin Acetaminophen 650 mg 10/08/18 16:19 Tylenol Tab* PO Q6H PRN FEVER/PAIN Atorvastatin Calcium 40 mg 10/09/18 17:00 10/20/18 17:27 Lipitor* PO 40 mg 1700 MANJU Administration Docusate Sodium 100 mg 10/08/18 21:00 10/20/18 09:00 Colace Cap* PO 100 mg BID MANJU Administration Doxycycline Hyclate 100 mg 10/18/18 10:00 10/20/18 09:00 Vibramycin Cap(*) PO 100 mg BID MANJU Administration Furosemide 20 mg 10/12/18 09:00 10/20/18 09:01 Lasix Tab* PO 20 mg DAILY MANJU Administration Magnesium Hydroxide 30 ml 10/08/18 16:19 10/13/18 04:31 Milk Of Magnesia Liq* PO 30 ml Q6H PRN Administration CONSTIPATION Magnesium Oxide 400 mg 10/09/18 09:00 10/20/18 09:00 Magox 400 Tab* PO 400 mg DAILY MANJU Administration Methocarbamol 500 mg 10/14/18 16:38 Robaxin Tab* PO TID PRN SPASMS Metoprolol Succinate 25 mg 10/09/18 09:00 10/20/18 09:01 Toprol Xl Tab* PO 25 mg DAILY MANJU Administration Oxycodone/Acetaminophen 1 tab 10/08/18 16:31 10/20/18 16:12 Percocet 5/325 Tab* PO 1 tab Q4H PRN Administration PAIN - MODERATE TO SEVERE Oxycodone/Acetaminophen 2 tab 10/08/18 21:05 Percocet 5/325 Tab* PO Q4H PRN PAIN - SEVERE Potassium Chloride 10 meq 10/12/18 09:00 10/20/18 09:01 Klor Con Er Tab* PO 10 meq DAILY MANJU Administration Primidone 150 mg 10/08/18 21:00 10/19/18 20:13 Mysoline Tab(*) PO 150 mg BEDTIME AMNJU Administration Senna 2 tab 10/08/18 16:19 10/17/18 19:38 Senokot Tab* PO 2 tab BEDTIME PRN Administration CONSTIPATION Warfarin Sodium 8 mg 10/10/18 17:00 10/20/18 17:27 Coumadin Tab(*) PO 8 mg DAILY@1700 [facility] Administration Protocol Vital Signs: Vital Signs Temp Pulse Resp BP Pulse Ox 97.8 F 60 16 139/60 99 10/20/18 16:34 10/20/18 16:34 10/20/18 16:34 10/20/18 16:34 10/20/18 16:34 Lab Results: Laboratory Results - last 24 hr 10/20/18 05:10 INR (Anticoag Therapy) 3.17 H Exam: GEN: no acute distress. Alert and appropriate LUNGS: Clear to auscultation bilaterally HEART: Regular rate and rhythm ABDOMEN: + bowel sounds, soft, non-tender, non-distended EXTREMITIES: Ongoing but lessening edema in right leg. Wound with small amount of serosang drainage NEUROLOGIC: Motor 5/5 BLE except pain limited in right hip and knee. Sensation intact BLE. Assessment/Plan: 1. Right Hip Fracture: PT/OT. f/u Dr. Marion. continue doxycycline (day #3) and dry dressing. 2. Acute blood loss anemia: Hb/Hct stable 3. Paroxysmal A Fib: Toprol. Continue Coumadin 8mg. INR rising, will lower COumadin 4. 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 Has Pacemaker. Toprol and Lasix 5. DVT Prophylaxis: Coumadin. Will lower to 5 mg 6. Urinary Tract Infection: Enterobacter Species s/p 5 days of Levaquin. 7. Advanced Directives: Full code. is HCP . 10/20/18 17:50
[2018-10-20] MEDS: Senna TAB PO PRN (20:03)
[2018-10-20] MEDS: Primidone TAB(*) 50 MG PO SCH (20:04)
[2018-10-21] MEDS: oxyCODONE/Acetamin 5/325 MG* TAB PO PRN ×5 (03:06→21:01)
[2018-10-21] MEDS: Furosemide TAB* 20 MG PO SCH (08:45)
[2018-10-21] MEDS: Potassium Chlor TAB* 10 MEQ TAB.ER PO SCH (08:45)
[2018-10-21] MEDS: Docusate CAP* 100 MG PO SCH ×2 (08:45→20:58)
[2018-10-21] MEDS: Metoprolol Succinate XL TAB* 25 MG PO SCH (08:45)
[2018-10-21] MEDS: DOXYcycline CAP(*) 100 MG PO SCH ×2 (08:45→20:58)
[2018-10-21] MEDS: Magnesium Oxide TAB* 400 MG PO SCH (08:45)
--- NOTE | 2018-10-21 12:24 | PMRUTEAM ---
PMRU: Team Meeting Current Status: Nursing: Current Status Skin Deviations [Right Lateral Incision Knee] Skin Deviations [Right Hip] Incision Skin Deviation Description [ sl reddened Right Lateral Knee] Skin Deviation Description [ small amt old bloody drainage. incision washed Right Hip] with soap and water. 4x4 applied Bladder Current Status voiding Bowel Current Status last bm 10/18/18. colace given this am Nutrition Current Status appetite fair. encourage to increase fluid intake Medication Current Status needs reinforcement. percocet for pain Physical Therapy: Current Status Bed Mobility Assistance Mod Assist,2 or More Person Assist Transfer Mobility Assistance Supervision,Contact Guard Assist Transfer/Bed Mobility Rolling Walker Recommended Devices Ambulation Assistance Supervision,Contact Guard Assist Ambulation Assistive Devices Rolling Walker Number of Feet Patient 2x40 Ambulated Ambulation Comment antalgic gait with step to pattern Stairs Assistance Supervision,Contact Guard Assist Stairs Recommended Devices One Rail,Two Rails Number of Stairs 4 Objective Comments step to pattern leading with RLE up, LLE down 1x2 with 2 rails, 1x2 with both hands on 1 rail Occupational Therapy: Current Status Upper Body Dressing Supervision Lower Body Dressing Supervision Bathing Min Assist Toileting Contact Guard Assist Toilet Transfer Contact Guard Assist Shower Transfer Contact Guard Assist Eating Independent Rec Therapy: Current Status Summary of Assessment and RT assessment complete and pt. is aware of RT Clinical Impression services. Pt. has been minimally engaged in leisure visits in the afternoons. Will con't to provide recreation and leisure services. Treatment Goals Pt. will engage in leisure activities while on the unit. Treatment Plan Provide RT services and encourage involvement. Social Work: Current Status Discharge Plan return home with home care svs and family support Potential for Family Training pt's is scheduled for family training @ 9am Anticipated Discharge Home Destination Discharge With home care svs and family support Nutrition: Current Status Monitoring PO continues to be adequate (80-100%) and meeting needs. BM 10/18, 10/14. On appropriate bowel meds and will encourage fluid intake. Continues KCl supplements and K remains WNL. Skin remains intact and low risk for breakdown. No further specific nutrition intervention anticipated. Goals: Physical Therapy: Initial Goals Bed Mobility Assistance Independent Transfer Mobility Assistance Independent Transfer/Bed Mobility Rolling Walker Recommended Devices Ambulation Independent Ambulation Recommended Devices Rolling Walker Ambulation Distance 150 Stairs Assistance Contact Guard Assist Stair Recommended Devices One Rail Number of Stairs 4 Home Exercise Program Independent Assistance Physical Therapy: Updated Goals Transfer/Bed Mobility Rolling Walker,EZ Stand Recommended Devices Occupational Therapy: Initial Goals Goals to be Completed in (Days 17 ) Upper Body Bathing Routine Independent Lower Body Bathing Routine Modified Independent with Upper Body Dressing Routine Independent Lower Body Dressing Routine Modified Independent with Toilet Hygeine and Clothing Modified Independent with Management Routine Toilet Transfer Routine Modified Independent with Step-In Shower Transfer Supervision/Set Up Routine Functional Transfers for ADL Modified Independent with Grooming Routine Independent Feeding Routine Independent Nursing: Goals Bladder Goal independent Bowel Goal independent Nutrition Goal 100% of all meals consumed Medication Goal independent Nutrition: Goals Intervention Goals 1. Adequate PO intake to maintain lean body mass and hydration w/o undesired wt loss - Intake will promote post-op healing 2. Electrolytes WNL w/ repletion as needed 3. Maintain bowel regularity w/o constipation or diarrhea Social Work: Goals Discharge Plan return home with home care svs and family support Potential for Family Training pt's is scheduled for family training @ 9am Anticipated Discharge Home Destination Discharge With home care svs and family support Care Plan: Care Plan ADL's - Improve/Maintain Start: 10/09/18 11:46 Freq: DAILY Status: Active Target: Protocol: Activity Type Activity Date Activity User E-Sign Co-Sign Detail Recorded Client Recorded Date Recorded By Document 10/21/18 10:35 [id number] [id number] 10/21/18 10:35 [id number] 10/21/18 10:35 PMRU Outcome: ADL's/ADL Transfers Orders/Interventions Occupational Therapy Evaluation & Treatment Communication Tool in Patient Room Patient to receive OT 5x/wk for 60-120 Therex min/day Self Care Management Group Therapy UE/LE ADL's with Assist Yes: mod I ADL Transfers with Assist Yes: mod I Toileting: Transfers,Clothing Management Yes: mod I ,Hygeine w/Assist Progression Toward Outcome/Goals Progressing Outcome/Goals Met Pt is nearing achievement of OT goals but she is still deciding if she would like to use AE at home or would like assistance from her Max. He is coming in for family training tomorrow and this may help her to make her decision. Cardiovascular- Improve/Maintain Start: 10/08/18 21:15 Freq: QSHIFT Status: Complete Target: Protocol: Activity Type Activity Date Activity User E-Sign Co-Sign Detail Recorded Client Recorded Date Recorded By Document 10/16/18 09:00 [id number] [id number] 10/16/18 10:33 [id number] 10/16/18 09:00 PMRU Outcome: Cardiovascular Vital Signs q Shift for 48hrs Then BID Yes Daily Weight Ordered No Current Cardiovascular Outcome/Goal Maintain/ Achieve Baseline HR, BP , Perfusion Free of Abnormal Cardiac Symptoms Progression Toward Outcome/Goal Progressing Outcomes/Goals Met Maintain/ Achieve Baseline HR, BP , Perfusion Improve HR Within Prescribed Parameters DVT Prophylaxis- Improve/Maintain Start: 10/08/18 21:15 Freq: QSHIFT Status: Active Target: Protocol: Activity Type Activity Date Activity User E-Sign Co-Sign Detail Recorded Client Recorded Date Recorded By Document 10/21/18 09:30 [id number] 10/21/18 10:08 [id number] 10/21/18 09:30 PMRU Outcome: DVT Prophylaxis Outcome/Goals Remains Free of DVT Complies with DVT Prophylaxis /Treatment TEDS Stockings on Every AM, Off at HS Progression Toward Outcome/Goals Progressing Education-Improve/Maintain Start: 10/08/18 21:15 Freq: QSHIFT Status: Active Target: Protocol: Activity Type Activity Date Activity User E-Sign Co-Sign Detail Recorded Client Recorded Date Recorded By Document 10/21/18 09:30 [id number] 10/21/18 10:08 [id number] 10/21/18 09:30 PMRU Outcome: Education Outcome/Goals Encourage Questions Progression Toward Outcome/Goals Progressing /GI-Improve/Maintain Start: 10/08/18 21:15 Freq: QSHIFT Status: Active Target: Protocol: Activity Type Activity Date Activity User E-Sign Co-Sign Detail Recorded Client Recorded Date Recorded By Document 10/21/18 09:30 [id number] 10/21/18 10:08 [id number] 10/21/18 09:30 PMRU Outcome: Genitourinary/ Gastrointestinal Genitourinary- Outcome/Goals Maintain/ Achieve Urinary Continence Remain Free of Hospital- Acquired UTI Gastrointestinal-Outcome/Goals Maintain/ Achieve Bowel Regularity in Accordance with Pt's Baseline Prevent Constipation Laxatives as Ordered Progression Toward Outcome/Goals - Progressing Progression Toward Outcome/Goals - GI Progressing Outcome/Goals Met Comment pt up to BR Mobility- Improve/Maintain Start: 10/11/18 14:17 Freq: DAILY Status: Active Target: Protocol: Activity Type Activity Date Activity User E-Sign Co-Sign Detail Recorded Client Recorded Date Recorded By Document 10/11/18 14:17 [id number] 10/11/18 14:18 [id number] 10/11/18 14:17 PMRU Outcome: Mobility Physical Therapy Evaluation and Yes Treatment Activity OOB with Assistance Yes WBAT Yes: R LE Device Yes: walker Assistance Yes: Ax2 Patient to be seen 5x/wk for 60-120 min/ Therex day for: Mobility Training Gait Training W/C Mobility Balance Outcome/Goals Maintain/ Achieve Baseline Mobility Status Improve Mobility Status Demonstrates Proper Use of Assistive Devices Free from Complications of Immobility Other Progression Toward Outcome/Goals Progressing Outcome/Goals Met Maintain/ Achieve Baseline Mobility Status Bed Mobility Yes: Ind Transfers Yes: Mod I with walker Gait x ft Yes: Mod I with walker x150ft W/C Mobility x ft No Up/Down Stairs Yes: CGA x4 steps with 2 rails With HEP Yes Neurological- Improve/Maintain Start: 10/08/18 21:15 Freq: QSHIFT Status: Active Target: Protocol: Activity Type Activity Date Activity User E-Sign Co-Sign Detail Recorded Client Recorded Date Recorded By Document 10/21/18 09:30 [id number] 10/21/18 10:08 [id number] 10/21/18 09:30 PMRU Outcome: Neurological Weakness/Aphasia Weakness Outcome/Goals Maintain/ Achieve Baseline Neurological Status Prevent Avoidable Neurological Decline Maintain/ Improve Strength/ROM Progression Toward Outcome/Goals Progressing Pain/Comfort- Improve/Maintain Start: 10/08/18 21:15 Freq: QSHIFT Status: Complete Target: Protocol: Activity Type Activity Date Activity User E-Sign Co-Sign Detail Recorded Client Recorded Date Recorded By Document 10/14/18 09:00 [id number] 10/14/18 11:10 [id number] 10/14/18 09:00 PMRU Outcome: Pain/Comfort Outcome/Goals Demonstrates Knowledge and Use of Available Comfort Measures Achieves Acceptable Comfort/Pain Level as Determined by Patient/Condit Maintain Comfort Level Allowing Patient to Fully Participate in Rehab Progression Toward Outcome/Goals Progressing Outcome/Goals Met Demonstrates Knowledge and Use of Available Comfort Measures Achieves Acceptable Comfort/Pain Level as Determined by Patient/Condit Maintain Comfort Level Allowing Patient to Fully Participate in Rehab Respiratory - Improve/Maintain Start: 10/08/18 21:15 Freq: QSHIFT Status: Active Target: Protocol: Activity Type Activity Date Activity User E-Sign Co-Sign Detail Recorded Client Recorded Date Recorded By Document 10/21/18 09:30 [id number] 10/21/18 10:08 [id number] 10/21/18 09:30 PMRU Outcome: Respiratory Does Patient Have a Trach No Outcome/Goals Maintain/ Improve Baseline Respiratory Status Prevent Pneumonia/ Atelectasis Remain Aspiration Free Progression Toward Outcome/Goals Progressing Safety- Improve/Maintain Start: 10/08/18 21:15 Freq: QSHIFT Status: Active Target: Protocol: Activity Type Activity Date Activity User E-Sign Co-Sign Detail Recorded Client Recorded Date Recorded By Document 10/21/18 09:30 [id number] 10/21/18 10:08 [id number] 10/21/18 09:30 PMRU Outcome: Safety Outcome/Goals Remain Free of Injury or Harm Cooperates with Safety Measures for Least Restrictive Environment Prevent Falls/ Injury Progression Toward Outcome/Goals Progressing Medicine Note: Length of Stay: 3 days Anticipated Discharge Destination: Home Tentative Discharge Date: 10/24/18 Discharged to: Home
[2018-10-21] MEDS: Atorvastatin* 40 MG TAB PO SCH (16:58)
[2018-10-21] MEDS ORDERED: Warfarin TAB(*) 5 MG PO SCH (17:00)
--- NOTE | 2018-10-21 18:12 | PN ---
Progress Note Date of Service: 10/21/18 Note: CHELO FERRIS was visited. Therapy notes read and reviewed. She was discussed in interdisciplinary team rounds. She is doing well and will go home Saturday. She is moving slowly, but she seems steady. Current Medications: Active Medications Generic Name Dose Route Start Last Admin Trade Name Freq PRN Reason Stop Dose Admin Acetaminophen 650 mg 10/08/18 16:19 Tylenol Tab* PO Q6H PRN FEVER/PAIN Atorvastatin Calcium 40 mg 10/09/18 17:00 10/21/18 16:58 Lipitor* PO 40 mg 1700 MANJU Administration Docusate Sodium 100 mg 10/08/18 21:00 10/21/18 08:45 Colace Cap* PO 100 mg BID MANJU Administration Doxycycline Hyclate 100 mg 10/18/18 10:00 10/21/18 08:45 Vibramycin Cap(*) PO 100 mg BID MANJU Administration Furosemide 20 mg 10/12/18 09:00 10/21/18 08:45 Lasix Tab* PO 20 mg DAILY MANJU Administration Magnesium Hydroxide 30 ml 10/08/18 16:19 10/13/18 04:31 Milk Of Magnesia Liq* PO 30 ml Q6H PRN Administration CONSTIPATION Magnesium Oxide 400 mg 10/09/18 09:00 10/21/18 08:45 Magox 400 Tab* PO 400 mg DAILY MANJU Administration Methocarbamol 500 mg 10/14/18 16:38 Robaxin Tab* PO TID PRN SPASMS Metoprolol Succinate 25 mg 10/09/18 09:00 10/21/18 08:45 Toprol Xl Tab* PO 25 mg DAILY MANJU Administration Oxycodone/Acetaminophen 1 tab 10/08/18 16:31 10/21/18 16:59 Percocet 5/325 Tab* PO 1 tab Q4H PRN Administration PAIN - MODERATE TO SEVERE Oxycodone/Acetaminophen 2 tab 10/08/18 21:05 Percocet 5/325 Tab* PO Q4H PRN PAIN - SEVERE Potassium Chloride 10 meq 10/12/18 09:00 10/21/18 08:45 Klor Con Er Tab* PO 10 meq DAILY MANJU Administration Primidone 150 mg 10/08/18 21:00 10/20/18 20:04 Mysoline Tab(*) PO 150 mg BEDTIME MANJU Administration Senna 2 tab 10/08/18 16:19 12/17/18 20:03 Senokot Tab* PO 2 tab BEDTIME PRN Administration CONSTIPATION Warfarin Sodium 5 mg 10/21/18 17:00 10/21/18 16:58 Coumadin Tab(*) PO 5 mg DAILY@1700 MANJU Administration Protocol Vital Signs: Vital Signs Temp Pulse Resp BP Pulse Ox 97.9 F 60 16 122/61 100 10/21/18 16:14 10/21/18 16:14 10/21/18 16:59 10/21/18 16:14 10/21/18 16:36 Exam: GENERAL: no acute distress. Alert and appropriate LUNGS: Clear to auscultation bilaterally HEART: Regular rate and rhythm ABDOMEN: + bowel sounds, soft, non-tender, non-distended EXTREMITIES: Ongoing but lessening edema in right leg. Wound with scant amount of serosang drainage NEUROLOGIC: Motor 5/5 BLE except pain limited in right hip and knee. Sensation intact BLE. Assessment/Plan: 1. Right Hip Fracture: PT/OT. f/u Dr. Marion. continue doxycycline (day #4) and dry dressing. 2. Acute blood loss anemia: Hb/Hct stable 3. Paroxysmal A Fib: Toprol. Continue Coumadin 5mg. INR in am 4. 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 Has Pacemaker. Toprol and Lasix 5. DVT Prophylaxis: Coumadin. 5 mg 6. Advanced Directives: Full code. is HCP . 10/21/18 18:13
[2018-10-21] MEDS: Senna TAB PO PRN (20:59)
[2018-10-21] MEDS: Primidone TAB(*) 50 MG PO SCH (20:59)
[2018-10-22] MEDS: oxyCODONE/Acetamin 5/325 MG* TAB PO PRN ×5 (02:14→21:19)
[2018-10-22 05:13] LABS: INR 3.58 (0.77-1.02)
[2018-10-22] MEDS: Docusate CAP* 100 MG PO SCH ×2 (07:37→20:02)
[2018-10-22] MEDS: Furosemide TAB* 20 MG PO SCH (07:37)
[2018-10-22] MEDS: Metoprolol Succinate XL TAB* 25 MG PO SCH (07:37)
[2018-10-22] MEDS: DOXYcycline CAP(*) 100 MG PO SCH ×2 (07:37→20:01)
[2018-10-22] MEDS: Potassium Chlor TAB* 10 MEQ TAB.ER PO SCH (07:37)
[2018-10-22] MEDS: Magnesium Oxide TAB* 400 MG PO SCH (07:37)
[2018-10-22] MEDS: Atorvastatin* 40 MG TAB PO SCH (16:32)
[2018-10-22] MEDS: Warfarin TAB(*) 4 MG PO SCH (17:30)
[2018-10-22] MEDS: Primidone TAB(*) 50 MG PO SCH (20:02)
[2018-10-22] MEDS: Senna TAB PO PRN (20:03)
--- NOTE | 2018-10-22 21:59 | PN ---
Progress Note Date of Service: 10/22/18 Note: CHELO FERRIS was visited. Therapy notes read and reviewed. The doxycycline seems to have bumped her INR up and have lowered her Coumadin to 4. Will check INR in am to see if further adjustments need to be made Current Medications: Active Medications Generic Name Dose Route Start Last Admin Trade Name Freq PRN Reason Stop Dose Admin Acetaminophen 650 mg 10/08/18 16:19 Tylenol Tab* PO Q6H PRN FEVER/PAIN Atorvastatin Calcium 40 mg 10/09/18 17:00 10/22/18 16:32 Lipitor* PO 40 mg 1700 MANJU Administration Docusate Sodium 100 mg 10/08/18 21:00 10/22/18 20:02 Colace Cap* PO 100 mg BID MANJU Administration Doxycycline Hyclate 100 mg 10/18/18 10:00 10/22/18 20:01 Vibramycin Cap(*) PO 100 mg BID MANJU Administration Furosemide 20 mg 10/12/18 09:00 10/22/18 07:37 Lasix Tab* PO 20 mg DAILY MANJU Administration Magnesium Hydroxide 30 ml 10/08/18 16:19 10/13/18 04:31 Milk Of Magnesia Liq* PO 30 ml Q6H PRN Administration CONSTIPATION Magnesium Oxide 400 mg 10/09/18 09:00 10/22/18 07:37 Magox 400 Tab* PO 400 mg DAILY MANJU Administration Methocarbamol 500 mg 10/14/18 16:38 Robaxin Tab* PO TID PRN SPASMS Metoprolol Succinate 25 mg 10/09/18 09:00 10/22/18 07:37 Toprol Xl Tab* PO 25 mg DAILY MANJU Administration Oxycodone/Acetaminophen 1 tab 10/08/18 16:31 10/22/18 21:19 Percocet 5/325 Tab* PO 1 tab Q4H PRN Administration PAIN - MODERATE TO SEVERE Oxycodone/Acetaminophen 2 tab 10/08/18 21:05 Percocet 5/325 Tab* PO Q4H PRN PAIN - SEVERE Potassium Chloride 10 meq 10/12/18 09:00 10/22/18 07:37 Klor Con Er Tab* PO 10 meq DAILY MANJU Administration Primidone 150 mg 10/08/18 21:00 10/22/18 20:02 Mysoline Tab(*) PO 150 mg BEDTIME MANJU Administration Senna 2 tab 10/08/18 16:19 10/22/18 20:03 Senokot Tab* PO 2 tab BEDTIME PRN Administration CONSTIPATION Warfarin Sodium 4 mg 10/22/18 17:00 10/22/18 17:30 Coumadin Tab(*) PO 4 mg DAILY@1700 MANJU Administration Protocol Vital Signs: Vital Signs Temp Pulse Resp BP Pulse Ox 97.7 F 60 18 126/69 100 10/22/18 14:57 10/22/18 14:57 10/22/18 21:19 10/22/18 14:57 10/22/18 14:57 Lab Results: Laboratory Results - last 24 hr 10/22/18 05:00 INR (Anticoag Therapy) 3.58 H Assessment/Plan: 1. Right Hip Fracture: PT/OT. f/u Dr. Marion. continue doxycycline (day #4) and dry dressing. 2. Acute blood loss anemia: Hb/Hct stable 3. Paroxysmal A Fib: Toprol. Continue Coumadin 5mg. INR in am 4. 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 Has Pacemaker. Toprol and Lasix 5. DVT Prophylaxis: Coumadin. 5 mg 6. Advanced Directives: Full code. is HCP . 10/21/18 18:13
[2018-10-23] MEDS: oxyCODONE/Acetamin 5/325 MG* TAB PO PRN ×5 (02:54→20:45)
[2018-10-23] MEDS: Potassium Chlor TAB* 10 MEQ TAB.ER PO SCH (08:45)
[2018-10-23] MEDS: Metoprolol Succinate XL TAB* 25 MG PO SCH (08:45)
[2018-10-23] MEDS: DOXYcycline CAP(*) 100 MG PO SCH ×2 (08:45→20:36)
[2018-10-23] MEDS: Magnesium Oxide TAB* 400 MG PO SCH (08:45)
[2018-10-23] MEDS: Docusate CAP* 100 MG PO SCH ×2 (08:45→20:36)
[2018-10-23] MEDS: Furosemide TAB* 20 MG PO SCH (08:45)
[2018-10-23 09:57] LABS: INR 2.99 (0.77-1.02)
[2018-10-23] MEDS: Atorvastatin* 40 MG TAB PO SCH (16:47)
[2018-10-23] MEDS: Warfarin TAB(*) 4 MG PO SCH (16:47)
--- NOTE | 2018-10-23 18:10 | PN ---
Progress Note Date of Service: 10/23/18 Note: CHELO FERRIS was visited. Therapy notes read and reviewed. Her INR has fallen. She is set for discharge in am. Her hip wound is still draining at the top end. Current Medications: Active Medications Generic Name Dose Route Start Last Admin Trade Name Freq PRN Reason Stop Dose Admin Acetaminophen 650 mg 10/08/18 16:19 Tylenol Tab* PO Q6H PRN FEVER/PAIN Atorvastatin Calcium 40 mg 10/09/18 17:00 10/23/18 16:47 Lipitor* PO 40 mg 1700 MANJU Administration Docusate Sodium 100 mg 10/08/18 21:00 10/23/18 08:45 Colace Cap* PO 100 mg BID MANJU Administration Doxycycline Hyclate 100 mg 10/18/18 10:00 10/23/18 08:45 Vibramycin Cap(*) PO 100 mg BID MANJU Administration Furosemide 20 mg 10/12/18 09:00 10/23/18 08:45 Lasix Tab* PO 20 mg DAILY MANJU Administration Magnesium Hydroxide 30 ml 10/08/18 16:19 10/13/18 04:31 Milk Of Magnesia Liq* PO 30 ml Q6H PRN Administration CONSTIPATION Magnesium Oxide 400 mg 10/09/18 09:00 10/23/18 08:45 Magox 400 Tab* PO 400 mg DAILY MANJU Administration Methocarbamol 500 mg 10/14/18 16:38 Robaxin Tab* PO TID PRN SPASMS Metoprolol Succinate 25 mg 10/09/18 09:00 10/23/18 08:45 Toprol Xl Tab* PO 25 mg DAILY MANJU Administration Oxycodone/Acetaminophen 1 tab 10/08/18 16:31 10/23/18 16:46 Percocet 5/325 Tab* PO 1 tab Q4H PRN Administration PAIN - MODERATE TO SEVERE Oxycodone/Acetaminophen 2 tab 10/08/18 21:05 Percocet 5/325 Tab* PO Q4H PRN PAIN - SEVERE Potassium Chloride 10 meq 10/12/18 09:00 10/23/18 08:45 Klor Con Er Tab* PO 10 meq DAILY MANJU Administration Primidone 150 mg 10/08/18 21:00 10/22/18 20:02 Mysoline Tab(*) PO 150 mg BEDTIME MANJU Administration Senna 2 tab 10/08/18 16:19 10/22/18 20:03 Senokot Tab* PO 2 tab BEDTIME PRN Administration CONSTIPATION Warfarin Sodium 8 mg 10/24/18 17:00 Coumadin Tab(*) PO DAILY@1700 [facility] Protocol Vital Signs: Vital Signs Temp Pulse Resp BP Pulse Ox 97.8 F 60 18 129/72 100 10/23/18 16:00 10/23/18 16:00 10/23/18 16:48 10/23/18 16:00 10/23/18 16:00 Lab Results: Laboratory Results - last 24 hr 10/23/18 09:19 INR (Anticoag Therapy) 2.99 H Exam: GENERAL: no acute distress. Alert and appropriate LUNGS: Clear to auscultation bilaterally HEART: Regular rate and rhythm ABDOMEN: + bowel sounds, soft, non-tender, non-distended EXTREMITIES: Ongoing but lessening edema in right leg. Wound with scant amount of serosang drainage NEUROLOGIC: Motor 5/5 BLE except pain limited in right hip and knee. Sensation intact BLE. Assessment/Plan: 1. Right Hip Fracture: PT/OT. f/u Dr. Marion. continue doxycycline (day #6) and dry dressing. Will d/c doxy tomorrow 2. Acute blood loss anemia: Hb/Hct stable 3. Paroxysmal A Fib: Toprol. Continue Coumadin now 4 mg. INR in am 4. 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 Has Pacemaker. Toprol and Lasix 5. DVT Prophylaxis: Coumadin. 4 mg 6. Advanced Directives: Full code. is HCP . 10/23/18 18:11
[2018-10-23] MEDS: Primidone TAB(*) 50 MG PO SCH (20:37)
[2018-10-24] MEDS: oxyCODONE/Acetamin 5/325 MG* TAB PO PRN ×2 (01:41→08:26)
[2018-10-24 06:31] VITALS: BP 125/64
[2018-10-24 06:59] LABS: ABS Basophils 0 10^3/ul (0-0.2); ABS Eosinophils 0.1 10^3/ul (0-0.6); ABS Monocytes 0.6 10^3/ul (0-0.8); ABS Neutrophils 1.9 10^3/ul (1.5-7.7); ABS Nucleated RBC 0 10^3/ul; Eosinophil % 2.6 %; Hematocrit 30 % (35-47); Hemoglobin 10.2 g/dl (12.0-16.0); Lymphocyte % 27.4 %; Mean Corpuscular HGB Conc 34 g/dl (31-36); Mean Corpuscular Hemoglobin 33 pg (27-31); Mean Corpuscular Volume 98 fL (80-97); Mean Platelet Volume 6.1 fL (7.4-10.4); Nucleated Red Blood Cells % 0.1; Platelet Count 269 10^3/ul (150-450); Red Blood Count 3.08 10^6/ul (4.00-5.40); Red Cell Distribution Width 19 % (10.5-15); White Blood Count 3.6 10^3/ul (3.5-10.8)
[2018-10-24 07:11] LABS: INR 2.87 (0.77-1.02)
[2018-10-24 07:17] LABS: Albumin 2.5 g/dL (3.2-5.2); Albumin/Globulin Ratio 0.9 (1-3); BUN/Creatinine Ratio 24.4 (8-20); Calcium 8.4 mg/dL (8.6-10.3); EGFR Non-African American 131.8 (>60); Globulin 2.9 g/dL (2-4); Potassium 4.4 mmol/L (3.5-5.0); Total Bilirubin 0.9 mg/dL (0.2-1.0); Total Protein 5.4 g/dL (6.4-8.9)
[2018-10-24] MEDS: DOXYcycline CAP(*) 100 MG PO SCH (08:26)
[2018-10-24] MEDS: Docusate CAP* 100 MG PO SCH (08:26)
[2018-10-24] MEDS: Magnesium Oxide TAB* 400 MG PO SCH (08:26)
[2018-10-24] MEDS: Potassium Chlor TAB* 10 MEQ TAB.ER PO SCH (08:26)
[2018-10-24] MEDS: Furosemide TAB* 20 MG PO SCH (08:26)
[2018-10-24] MEDS: Metoprolol Succinate XL TAB* 25 MG PO SCH (08:26)
[2018-10-24] MEDS ORDERED: Warfarin TAB(*) 4 MG PO SCH (17:00)
--- NOTE | 2018-10-30 22:15 | DS ---
CC: Dr. Marion; Dr. French Finley DISCHARGE SUMMARY: DATE OF ADMISSION: 10/08/18 DATE OF DISCHARGE: 10/24/18 DISCHARGE DIAGNOSES: 1. Right hip fracture. 2. Acute blood loss anemia. 3. Paroxysmal atrial fibrillation. 4. Nonischemic cardiomyopathy. 5. Urinary tract infection. 6. Urinary retention. HISTORY OF PRESENT ILLNESS AND HOSPITAL COURSE: For complete history of the events leading up to her rehab stay, please see the history and physical dictated by me on 10/08/18. The patient did have a Chou catheter, which was placed for urinary retention. She also had urinalysis sent because her uri ne was foul smelling. It was positive for urinary tract infection and she grew enterobacter. She wa s treated with a 5-day course of Levaquin for this. The patient did have some oozing from her wound, which was felt to be due to her underlying hematoma. The patient, after she completed her course of Levaquin, was then started on a 7-day course of doxycycline to protect the wound. Her wound did hea l well and her layne were able to be removed but she had some continued oozing, which appeared to b e serosanguineous fluids. The patient was otherwise medically stable. She was maintained on her Coumadin for atrial fibrillati on. The patient was seen in followup by the orthopedic team. The patient was seen by both Physical and Occupational Therapy and made good gains with both disciplines. With physical therapy at the amador e of admission, the patient required total assistance for transfer. Using the EasyStand, she was not able to ambulate, not able to do any stairs. With occupational therapy at the time of admission, th e patient was total assistance for lower body dressing, supervision for upper body dressing, total as sistance for toileting and total assist for toilet transfers. By the time of discharge, the patient was independent in transfers, independent ambulating 150 feet, independent with bed mobility, she did require supervision for transfers, she was independent in dressing herself, although she did need mi n assist for putting on her sock and shoe on the right side. She was independent in toileting and to ilet transfers. The patient was discharged home 10/24/18. DISCHARGE DIET: Regular. DISCHARGE MEDICATIONS: 1. Coumadin 8 mg daily or as directed. 2. Lipitor 40 mg daily. 3. Lasix 20 mg daily. 4. Toprol-XL 25 mg daily. 5. Percocet 1 tablet every 4 hours as needed. 6. Potassium chloride 10 mEq daily. 7. Primidone 150 mg at bedtime. SERVICES AFTER DISCHARGE: Through [facility], she will have home nursing, home physic al therapy, and a home health aide. Follow up with Dr. French Finley, her primary care doctor, as well as Dr. Marion, the orthopedic surgeon, in 1 to 2 weeks. [id number]/[facility] #: [id number]
== END 2018-10-24 11:10 | disposition home health service (06) | DRG 560 ==
LOC: PMRU 15:02
PROVIDERS: ADMIT Physical Medicine & Rehabilitation; ATTEND Physical Medicine & Rehabilitation
PROC: F07Z5ZZ Bed Mobility Treatment (ICD-10-PCS; principal; 2018-10-08)
PROC: F07Z9ZZ Gait Training/Functional Ambulation Treatment (ICD-10-PCS; 2018-10-08)
PROC: F07Z8ZZ Transfer Training Treatment (ICD-10-PCS; 2018-10-08)
PROC: F08Z0ZZ Bathing/Showering Techniques Treatment (ICD-10-PCS; 2018-10-08)
PROC: F08Z1ZZ Dressing Techniques Treatment (ICD-10-PCS; 2018-10-08)
PROC: F08Z3ZZ Feeding/Eating Treatment (ICD-10-PCS; 2018-10-08)
DX: S72.141D Displaced intertrochanteric fracture of right femur, subsequent encounter for closed fracture with routine healing (principal); I42.8 Other cardiomyopathies; N39.0 Urinary tract infection, site not specified; B96.89 Other specified bacterial agents as the cause of diseases classified elsewhere; I48.0 Paroxysmal atrial fibrillation; R33.9 Retention of urine, unspecified; E80.6 Other disorders of bilirubin metabolism; Z79.01 Long term (current) use of anticoagulants; W18.30XD Fall on same level, unspecified, subsequent encounter; Z95.0 Presence of cardiac pacemaker; Z86.73 Personal history of transient ischemic attack (TIA), and cerebral infarction without residual deficits; Z79.899 Other long term (current) drug therapy
CPT/HCPCS: 36415; 80053; 81003; 81015; 85025; 85610; 87077; 87086; 87186; A9270-GY; J1650